=== PATIENT | female | born 1960 | race Two or more races ===

== ENCOUNTER 2020-08-18 10:32 | Outpatient (REF) | payer MEDICAID, SELFPAY | END 2020-08-18 10:33 | disposition home or self-care (01) | LOC: HO.LAB 10:32 | PROVIDERS: PCP Family Medicine; Visit Provider Internal Medicine | DX: Z20.828 Contact with and (suspected) exposure to other viral communicable diseases (principal) | CPT/HCPCS: C9803; U0003 ==

== ENCOUNTER 2020-11-22 08:38 | Outpatient (REF) | payer MEDICAID, SELFPAY | END 2020-11-22 08:39 | disposition home or self-care (01) | LOC: HO.LAB 08:38 | PROVIDERS: PCP Family Medicine; Visit Provider Internal Medicine | DX: Z20.822 Contact with and (suspected) exposure to COVID-19 (principal) | CPT/HCPCS: 36415; C9803; U0003; U0005 ==

== ENCOUNTER 2021-03-12 08:56 | Outpatient (REF) | payer MEDICAID, SELFPAY ==
--- NOTE | ~2021-03-12 | MM_ITS ---
EXAMINATION: MM SCREENING DIGITAL BREAST TOMOSYNTHESIS, BILATERAL CLINICAL INFORMATION: Screening. Asymptomatic. Family history breast cancer, sister. The lifetime risk of breast cancer based on the Tyrer-Cuzick Model is 14%. COMPARISON: Mammography: 11/24/2019, 11/17/2019, 10 05/19/2018, 03/03/2014 TECHNIQUE: Digital breast tomosynthesis is performed in both the craniocaudal and mediolateral oblique views along with computer-aided detection (CAD). Synthesized 2D images are generated from the tomosynthesis. FINDINGS: The breasts are heterogeneously dense, which may obscure small masses (ACR BI-RADS breast composition Category c). There is no significant mass or architectural abnormality or developing density. The axilla and skin contours are unremarkable. The bilateral synthesized 2-D images show scattered calcifications versus superimposed digital processing artifact in the left upper outer quadrant and right central upper breast. Patient will be recalled for additional bilateral magnification views to fully characterize. MM/MM tomosynthesis screening BI IMPRESSION: 1. Bilateral calcifications versus superimposed digital processing artifact. 2. Parenchymal pattern otherwise similar to prior studies. ASSESSMENT: BI-RADS 0: Incomplete - Need Additional Imaging Evaluation RECOMMENDATION: 1. Additional views of the bilateral breasts: bilateral magnification CC and bilateral magnification ML views for calcifications versus superimposed digital processing artifact. 2. Radiology department staff will contact the patient for additional imaging. This patient's information was entered into a reminder system with a target due date for their next mammogram.
== END 2021-03-12 08:57 | disposition home or self-care (01) ==
LOC: HO.MAMMO 08:56
PROVIDERS: Visit Provider Family Medicine
DX: Z12.31 Encounter for screening mammogram for malignant neoplasm of breast (principal)
CPT/HCPCS: 77063; 77067

== ENCOUNTER 2021-03-21 08:51 | Outpatient (REF) | payer MEDICAID, SELFPAY ==
--- NOTE | ~2021-03-21 | MM_ITS ---
EXAMINATION: MM DIAGNOSTIC DIGITAL MAMMOGRAPHY, BILATERAL CLINICAL INFORMATION: Recall from screening for bilateral calcifications versus superimposed digital processing artifact. Family history breast cancer, sister. TC score 14%. COMPARISON: Mammography: 03/12/2021, 02/22/2020, 02/15/2020, 07/22/2018 TECHNIQUE: Digital mammography is performed in the following views: Bilateral magnification CC, bilateral magnification ML. FINDINGS: The breasts are heterogeneously dense, which may obscure small masses (ACR BI-RADS breast composition Category c). The left breast magnification views show some very fine faint punctate calcifications in the upper outer quadrant. No pleomorphic types or ductal distribution. The right breast magnification views show questionable similar faint punctate calcifications central upper breast. No pleomorphic types or ductal distribution. Findings are similar to prior mammography 2019. Findings are probably benign and will be reassessed again in 6 months to include magnification views. Results are discussed with the patient at time of visit. MM/MM added views BI IMPRESSION: Fine uniform faint punctate calcifications upper outer left breast and central upper right breast. No significant changes from 2020. ASSESSMENT: BI-RADS 3: Probably Benign RECOMMENDATION: Diagnostic bilateral mammography in 6 months. This patient's information was entered into a reminder system with a target due date for their next mammogram.
== END 2021-03-21 08:52 | disposition home or self-care (01) ==
LOC: HO.MAMMO 08:51
PROVIDERS: PCP Family Medicine; Visit Provider Family Medicine
DX: R92.1 Mammographic calcification found on diagnostic imaging of breast (principal)
CPT/HCPCS: 77066

== ENCOUNTER 2021-11-13 13:51 | Outpatient (REF) | payer MEDICAID, SELFPAY ==
--- NOTE | ~2021-11-13 | MM_ITS ---
EXAMINATION: MM DIAGNOSTIC DIGITAL BREAST TOMOSYNTHESIS, BILATERAL CLINICAL INFORMATION: Short interval six-month follow-up probable benign punctate fine calcifications upper quadrants. The lifetime risk of breast cancer based on the Tyrer-Cuzick Model is 12%. COMPARISON: Mammography: 03/21/2021, 03/12/2021 (BI-RADS 0), 11/24/2019 (diagnostic), 11/17/2019 TECHNIQUE: Digital breast tomosynthesis is performed in both the craniocaudal and mediolateral oblique views along with computer-aided detection (CAD). Synthesized 2D images are generated from the tomosynthesis. Additional bilateral CC and bilateral ML views are provided. FINDINGS: The breasts are heterogeneously dense, which may obscure small masses (ACR BI-RADS breast composition Category c). Parenchymal pattern is similar to prior studies. There is no developing density or interval mass or architectural abnormality. The axilla and skin contours are unremarkable. There are fine similar appearing calcifications in each breast left upper outer quadrant and right central upper similar to prior magnification views 03/21/2021. The calcifications are variably conspicuous on synthesized 2-D images from year to year, this exam appearing less noticeable on 2-D images. There are no focal increasing calcifications or interval pleomorphic types. Calcifications will be reassessed again in 6 months to include magnification views. Results are provided to the patient at time of visit by the technologist. MM/MM tomosynthesis diagnostic BI IMPRESSION: Bilateral calcifications without significant change from prior diagnostic exam. ASSESSMENT: BI-RADS 3: Probably Benign RECOMMENDATION: Diagnostic bilateral mammography in 6 months. This patient's information was entered into a reminder system with a target due date for their next mammogram.
== END 2021-11-13 13:52 | disposition home or self-care (01) ==
LOC: HO.MAMMO 13:51
PROVIDERS: Visit Provider Family Medicine
DX: R92.1 Mammographic calcification found on diagnostic imaging of breast (principal)
CPT/HCPCS: 77062; 77066

== ENCOUNTER → 2021-11-27 13:23 | Outpatient (REF) | payer MEDICAID, SELFPAY ==
--- NOTE | 2021-11-27 13:27 | ECG_ITS ---
Hook-up date: 2021-11-27 13:47:00 Duration: 24:18:00 Test Indications: PALPITATIONS Medications: [id number] QRS complexes 10 Ventricular ectopics which represent <1 % of total QRS comp. 90 Supraventricular ectopics which represent <1 % of total QRS comp. * Paced QRS complexs which represent % of total QRS comp. VENTRICULAR ECTOPY 10 Isolated 0 Bigeminal Cycles 0 Couplets 0 Runs 0 Beats in Runs * Beats LONGEST at * BPM at :: -- * Beats FASTEST at * BPM at :: -- SUPRAVENTRICULAR ECTOPY 72 Isolated 9 Couplets 0 Runs 0 Beats in Runs * Beats LONGEST at * BPM at :: -- * Beats FASTEST at * BPM at :: -- HEART RATES 59 MIN at 23:56:02 2021-11-27 83 AVG 130 MAX at 23:44:50 2021-11-27 LONGEST RR 1.5200 secs at 04:03:59 2021-11-28 S-T LEVELS Channel 1 - 128 mm at 13:47:00 2021-11-27 - 128 mm at 13:47:00 2021-11-27 Channel 2 - 128 mm at 13:47:00 2021-11-27 - 128 mm at 13:47:00 2021-11-27 Channel 3 - 128 mm at 03:30:61 -- - 128 mm at 03:30:61 Basic rhythm Normal sinus rhythm No long pause or profound bradycardia Rare ectopics Patient did not report any symptoms in the diary Referred By: Taya Last Overread By: RANDALL CHAMORRO MD
== END ==
LOC: HO.CARD 13:23
PROVIDERS: PCP Family Medicine; Visit Provider Family Medicine
DX: R00.2 Palpitations (principal); Z86.16 Personal history of COVID-19
CPT/HCPCS: 93225; 93226

== ENCOUNTER 2021-12-06 08:56 | Outpatient (REF) | payer MEDICAID, SELFPAY ==
--- NOTE | ~2021-12-06 | XR_ITS ---
Indication: Pain EXAMINATION: Right shoulder, left shoulder 4 views of each shoulder Findings; Right shoulder Mild acromial spurring. There is mild degeneration at the AC joint. The glenohumeral articulation is within normal limits. There is no acute finding. Mild sclerotic change at the insertion of the superior rotator cuff. Left shoulder; On the left mild acromial spurring. Mild sclerotic change at the insertion of the superior rotator cuff. No acute finding. The glenohumeral articulation is within normal limits. XR/XR shoulder LT min 2V IMPRESSION: Mild degenerative changes
--- NOTE | ~2021-12-06 | XR_ITS ---
Indication: Pain EXAMINATION: Right shoulder, left shoulder 4 views of each shoulder Findings; Right shoulder Mild acromial spurring. There is mild degeneration at the AC joint. The glenohumeral articulation is within normal limits. There is no acute finding. Mild sclerotic change at the insertion of the superior rotator cuff. Left shoulder; On the left mild acromial spurring. Mild sclerotic change at the insertion of the superior rotator cuff. No acute finding. The glenohumeral articulation is within normal limits. XR/XR shoulder RT min 2V IMPRESSION: Mild degenerative changes
== END 2021-12-06 08:57 | disposition home or self-care (01) ==
LOC: HO.XRAY 08:56
PROVIDERS: PCP Family Medicine; Visit Provider Family Medicine
DX: M25.511 Pain in right shoulder (principal); M25.512 Pain in left shoulder
CPT/HCPCS: 73030

== ENCOUNTER 2021-12-24 08:06 | Outpatient (REF) | payer MEDICAID, SELFPAY ==
--- NOTE | ~2021-12-24 | XR_ITS ---
EXAMINATION: BILATERAL HIP PELVIS X-RAY CLINICAL INFORMATION: Pain COMPARISON: Previous right hip x-ray September 2018 TECHNIQUE: One view of the pelvis and 2 views of each hip FINDINGS: Bone alignment is normal. No fracture or dislocation is seen. The hip joints are normal. Bones of the pelvis are normal. There is soft tissue calcification adjacent to the left greater trochanter. There are 2 surgical clips in the left pelvis. XR/XR hip RT min 2V IMPRESSION: Normal-appearing hip joints. Mild soft tissue calcification adjacent to the left greater trochanter.
--- NOTE | ~2021-12-24 | XR_ITS ---
EXAMINATION: BILATERAL HIP PELVIS X-RAY CLINICAL INFORMATION: Pain COMPARISON: Previous right hip x-ray September 2018 TECHNIQUE: One view of the pelvis and 2 views of each hip FINDINGS: Bone alignment is normal. No fracture or dislocation is seen. The hip joints are normal. Bones of the pelvis are normal. There is soft tissue calcification adjacent to the left greater trochanter. There are 2 surgical clips in the left pelvis. XR/XR hip LT min 2V IMPRESSION: Normal-appearing hip joints. Mild soft tissue calcification adjacent to the left greater trochanter.
== END 2021-12-24 08:07 | disposition home or self-care (01) ==
LOC: HO.XRAY 08:06
PROVIDERS: PCP Family Medicine; Visit Provider Family Medicine
DX: M25.551 Pain in right hip (principal); M25.552 Pain in left hip
CPT/HCPCS: 73502

== ENCOUNTER 2022-01-06 10:08 | Emergency (ER) | payer MEDICAID, SELFPAY ==
--- NOTE | 2022-01-06 | ECG_ITS ---
Test Reason : cp Blood Pressure : / mmHG Vent. Rate : 102 BPM Atrial Rate : 102 BPM P-R Int : 206 ms QRS Dur : 064 ms QT Int : 348 ms P-R-T Axes : 037 029 014 degrees QTc Int : 453 ms Sinus tachycardia Possible Left atrial enlargement Borderline ECG When compared with ECG of 06-JUN-2014 11:59, No significant change was found Referred By: Generic ED Physician Electronically Signed By:RANDALL CHAMORRO MD
--- NOTE | ~2022-01-06 | XR_ITS ---
EXAMINATION: XR CHEST CLINICAL INFORMATION: Chest pain COMPARISON: Previous chest x-ray most recent June 2014 TECHNIQUE: Frontal view of the chest was obtained. FINDINGS: No significant abnormality is noted involving the heart, lungs, mediastinum, bony thorax or soft tissues. XR/XR chest 1V IMPRESSION: Unremarkable examination.
[2022-01-06 10:29] VITALS: BP 131/62; PULSE 97; RESP 20; TEMP 36.3; O2SAT 100; BMI 28.8
[2022-01-06 10:58] LABS: MANUAL DIFF FLAG NO
--- NOTE | 2022-01-06 11:10 | ED.CHESTPAIN ---
HPI - Chest Pain General Chief Complaint: Chest Pain Stated Complaint: Chest pain Time Seen by Provider: 01/06/22 10:59 Source: patient Mode of arrival: ambulatory Limitations: no limitations History of Present Illness HPI narrative: Patient comes to the emergency room complaining of 4 days of substernal chest pain, intermittent palpitations and shortness of breath. Patient states that she was diagnosed with COVID in October 2021. Since then, patient has been having palpitations. On November 27 patient wore a Holter monitor for 24 hours, patient states that the Holter exam was normal. Patient states that yesterday the chest pressure radiated towards her left arm, patient developed numbness and tingling but it is slowly decreasing. Patient went to the [facility] today, she was sent to the emergency room for further evaluation. Related Data Allergies Allergy/AdvReac Type Severity Reaction Status Date / Time oxycodone [From PERCOCET] Allergy Severe HALLUCINATI Unverified 06/21/20 15:37 ONS peanut [PEANUT] Allergy Intermediate ITCHY Unverified 06/21/20 15:37 THROAT/MOUTH tree nut [TREE NUT] Allergy Intermediate ITCHY Unverified 06/21/20 15:37 THROAT/MOUTH acetaminophen [Percocet] Allergy Unknown Unknown Verified 01/06/22 11:21 nabumetone AdvReac Intermediate Unknown Verified 01/06/22 11:21 SEAFOOD Allergy Severe ANAPHYLAXIS Uncoded 06/21/20 15:37 FRUIT, SKINS Allergy Intermediate ITCHY Uncoded 06/21/20 15:37 THROAT/MOUTH Review of Systems Review of Systems: Constitutional : No Weight loss, No Fever, No Chills, No Night Sweats, No Fatigue, No Malaise ENT/Mouth : No Hearing loss, No Ear Pain, No Nasal Congestion, No Sinus Pain, No Hoarseness, No sore throat, No Rhinorrhea, No Swallowing Difficulty Eyes: No Eye Pain, No Swelling, No Redness, No Foreign Body, No Discharge, No Vision Changes Cardiovascular : Complaining of substernal Chest pressure, No SOB at this time intermittent Dyspnea on Exertion, No Orthopnea, No Edema, intermittent Palpitations for 3 l months Respiratory : No Cough, No Sputum, No Wheezing, No Smoke Exposure, intermittent Dyspnea Gastrointestinal : No Nausea, No Vomiting, No Diarrhea, No Constipation, No abdominal Pain, No Hematochezia, No Melena Genitourinary : no irregular bleeding, No Dysuria, No Urinary Frequency, No Hematuria, No Urinary Incontinence, No Urgency, No Flank Pain, No Urinary Flow Changes, No Hesitancy Musculoskeletal : No joint pain, No Myalgias, No Joint Swelling Skin : No Skin Lesions, No rash Neuro : No Weakness, No Numbness, No Paresthesias, No Loss of Consciousness, No Dizziness, No Headache Psych : No Anxiety/Panic, No Depression, No SI/HI/AH/VH, No Social Issues, Heme/Lymph: No Bruising, No Bleeding,No Lymphadenopathy Endocrine : No Polyuria, No Polydipsia, No Temperature Intolerance [facility] Past Medical History Medical History Arthritis Asthma Asthma Fibromyalgia, primary Social History Social History Advance Directives: No Advance Directives Information Provided: No Physical Exam Vital Signs: Vital Signs: Last Vital Signs Temp 97.3 F 01/06/22 10:29 Pulse 97 01/06/22 10:29 Resp 20 01/06/22 10:29 BP 131/62 01/06/22 10:29 Pulse Ox 100 01/06/22 10:29 BMI result Body Mass Index 28.8 Const: Other: Appearance: Alert. Oriented X3. No acute distress. Eyes: Pupils equal, round and reactive to light. ENT: Pharynx normal. Neck: Normal inspection. Neck supple. No lymph nodes noted. No crepitus CVS: Slightly tachycardic, heart rate 102, regular rhythm Pulses normal. Normal S1 and S2 Respiratory: No respiratory distress. Breath sounds normal. No Wheezing. No rales Abdomen: Soft and nontender. No rigidity. No distention. Skin: Skin warm and dry. Normal skin color. Normal skin turgor. Extremities: No lower extremity edema. No Lacerations. No Rash Neuro: Oriented X 3. No motor deficit. No sensory deficit. Moving all extremities. No slurred speech. CN 2 through 12 grossly intact Psych: calm, cooperative, normal affect Course Course Course Narrative: Patient's troponin is 9.9, negative, patient has been symptomatic for 4 days. At this time, patient has no symptoms D-dimer negative, EKG within normal limits. At this time, patient is comfortable, no chest pain or shortness of breath, patient will be discharged. Patient has already had Holter monitors, discussed with the patient that she should talk to her primary care physician, this possible that she may be a good candidate for a cardiac stress test MDM - Chest Pain Lab Data Result diagrams: 01/06/22 10:53 01/06/22 10:53 Labs: Lab Results 01/06/22 01/06/22 01/06/22 Range/Units 10:53 10:53 10:53 WBC 3.1 L (4.8-10.8) X10*3/uL RBC 4.09 L (4.20-5.50) X10*6/uL Hgb 13.0 (12.0-16.0) g/dl Hct 40.1 (37.0-47.0) % MCV 98.0 (80.0-98.0) fL MCH 31.8 (27.0-33.0) pg MCHC 32.4 (31.0-35.0) g/dl RDW 12.1 (11.0-16.0) % Plt Count 218 (160-400) X10*3/uL MPV 12.5 H (9.4-12.3) fL Immature Gran % (Auto) 0.3 (0.0-0.4) % Neut % (Auto) 52.5 (45-73) % Lymph % (Auto) 37.5 (20-40) % [place] % (Auto) 5.5 (2-11) % Eos % (Auto) 3.2 (0-4) % Baso % (Auto) 1.0 (0-2) % Lymph # (Auto) 1.2 (1.2-4.9) X10*3/uL [place] # (Auto) 0.2 (0.1-1.2) X10*3/uL Eos # (Auto) 0.1 (0.0-0.4) X10*3/uL Baso # (Auto) 0.0 (0.0-0.2) X10*3/uL Abs Immat Gran (auto) 0.01 (0.00-0.03) X10*3/uL Absolute Neuts (auto) 1.6 L (2.0-8.3) x10*3/uL Absolute Nucleated RBC 0.000 (0.0-0.012) X10*3/uL Nucleated RBC % (auto) 0.0 (0.0-0.2) /100WBC D-Dimer High Sensitivty NG/ML Sodium 137 (135-145) mmol/L Potassium 4.3 (3.3-5.1) mmol/L Chloride 103 (96-108) mmol/L Carbon Dioxide 29 (22-29) mmol/L Anion Gap 9 L (12-20) BUN 17 H (9-16) mg/dL Creatinine 0.72 (0.5-1.4) mg/dL Estim Creat Clear Calc 80.8 Estimated GFR > 60 Random Glucose 101 (60-115) mg/dL Calcium 9.3 (8.4-10.2) mg/dL Troponin I High Sens 9.9 (<3.5-17.0) ng/L Lipase 18 (8-78) U/L 01/06/22 Range/Units 12:55 WBC (4.8-10.8) X10*3/uL RBC (4.20-5.50) X10*6/uL Hgb (12.0-16.0) g/dl Hct (37.0-47.0) % MCV (80.0-98.0) fL MCH (27.0-33.0) pg MCHC (31.0-35.0) g/dl RDW (11.0-16.0) % Plt Count (160-400) X10*3/uL MPV (9.4-12.3) fL Immature Gran % (Auto) (0.0-0.4) % Neut % (Auto) (45-73) % Lymph % (Auto) (20-40) % [place] % (Auto) (2-11) % Eos % (Auto) (0-4) % Baso % (Auto) (0-2) % Lymph # (Auto) (1.2-4.9) X10*3/uL [place] # (Auto) (0.1-1.2) X10*3/uL Eos # (Auto) (0.0-0.4) X10*3/uL Baso # (Auto) (0.0-0.2) X10*3/uL Abs Immat Gran (auto) (0.00-0.03) X10*3/uL Absolute Neuts (auto) (2.0-8.3) x10*3/uL Absolute Nucleated RBC (0.0-0.012) X10*3/uL Nucleated RBC % (auto) (0.0-0.2) /100WBC D-Dimer High Sensitivty < 150 NG/ML Sodium (135-145) mmol/L Potassium (3.3-5.1) mmol/L Chloride (96-108) mmol/L Carbon Dioxide (22-29) mmol/L Anion Gap (12-20) BUN (9-16) mg/dL Creatinine (0.5-1.4) mg/dL Estim Creat Clear Calc Estimated GFR Random Glucose (60-115) mg/dL Calcium (8.4-10.2) mg/dL Troponin I High Sens (<3.5-17.0) ng/L Lipase (8-78) U/L ECG Data ECG #1: Attestation: I personally reviewed and interpreted this ECG as follows: (Sinus tachycardia, heart rate 102, the segment depression or elevation, no T-wave inversion, QTC 453) Scores Heart Score History: -0- slightly suspicious ECG: -0- normal Age: -1- >45 - <65 Risk factory: -0- no risk factors known Troponin: -0- < or = normal limit Score: 1 Risk: 1.7% Discharge Plan Discharge Clinical Impression: Atypical chest pain Patient Disposition: Home, Self-Care Instructions: Chest Pain (ED)
[2022-01-06 11:18] LABS: Anion Gap 9 (12-20); Blood Urea Nitrogen 17 mg/dL (9-16); Calcium 9.3 mg/dL (8.4-10.2); Carbon Dioxide 29 mmol/L (22-29); Chloride 103 mmol/L (96-108); Creatinine Clr Calc Pharmacy 80.8; Estimated Glomerular Filt Rate > 60; Glucose Random 101 mg/dL (60-115); Potassium 4.3 mmol/L (3.3-5.1); Sodium 137 mmol/L (135-145); Troponin-I High Sensitivity 9.9 ng/L (<3.5-17.0)
[2022-01-06 11:47] LABS: Lipase 18 U/L (8-78)
[2022-01-06 12:02] LABS: Eosinophils Absolute Auto 0.1 X10*3/uL (0.0-0.4); Eosinophils Percent Auto 3.2 % (0-4); Hematocrit 40.1 % (37.0-47.0); Imm Gran Abs Auto 0.01 X10*3/uL (0.00-0.03); Imm Gran Pct Auto 0.3 % (0.0-0.4); Lymphocytes Absolute Auto 1.2 X10*3/uL (1.2-4.9); Lymphocytes Percent Auto 37.5 % (20-40); Mean Corpuscular HGB Conc 32.4 g/dl (31.0-35.0); Mean Corpuscular Hemoglobin 31.8 pg (27.0-33.0); Mean Platelet Volume 12.5 fL (9.4-12.3); Monocytes Absolute Auto 0.2 X10*3/uL (0.1-1.2); Monocytes Percent Auto 5.5 % (2-11); Neutrophils Absolute Auto 1.6 x10*3/uL (2.0-8.3); Neutrophils Percent Auto 52.5 % (45-73); Platelet Count 218 X10*3/uL (160-400); Red Blood Count 4.09 X10*6/uL (4.20-5.50); Red Cell Distribution Width 12.1 % (11.0-16.0); White Blood Count 3.1 X10*3/uL (4.8-10.8)
[2022-01-06 13:13] LABS: D Dimer High Sensitivity < 150 NG/ML
[2022-01-06 14:13] VITALS: BP 111/76; PULSE 100; RESP 19; O2SAT 100
== END 2022-01-06 14:14 | disposition home or self-care (01) ==
PROVIDERS: Emergency Provider Emergency Medicine; PCP Family Medicine
DX: R07.89 Other chest pain (principal)
CPT/HCPCS: 36415; 71045; 80048; 83690; 84484; 85025; 85379; 93005; 99283

== ENCOUNTER 2022-01-13 09:09 | Emergency (ER) | payer MEDICAID, SELFPAY ==
[2022-01-13 09:14] VITALS: BP 100/70; PULSE 95; O2SAT 100
--- NOTE | 2022-01-13 09:17 | ED_ITS ---
HPI - General Adult General Chief complaint: General Medical Stated complaint: LOW BACK/HIP PAIN,NO INJURY PER EMS Time Seen by Provider: 01/13/22 09:17 Source: patient and EMS Mode of arrival: EMS Limitations: no limitations History of Present Illness HPI narrative: Patient is a 61 year old female presenting to the emergency department today with low back pain. Patient states that she has low back pain that radiates to her lower legs. Patient describes the pain as intermittent and sharp when it happens. Patient states that she has had issues for this in the past and usually takes ibuprofen and a muscle relaxer. Patient states that she has a muscle relaxer at home. Patient states that she also has a history of bilateral hip bursitis and has not seen an orthopedic provider for this. Patient denies any dizziness, lightheadedness, abdominal pain, nausea, vomiting, fever, chills, blurry vision, double vision, loss of vision, chest pain, difficulty breathing, shortness of breath, night sweats, pain with urination, increased urinary frequency, increased urinary urgency, blood in her urine or stool, syncope or a near syncopal episode, recent trauma or falls, bowel incontinence, bladder incontinence, bowel retention, bladder retention, or any other complaints at this time. Onset (ago): day(s) (3) Location: back, left, right and lower extremity Radiation: extremity (lower extremitites) Severity: mild Severity scale (1-10): 3 Quality: sharp Pain Consistency: intermittent Relieving factors: none Exacerbating factors: none Associated symptoms: denies other symptoms Treatments prior to arrival: none Related Data Allergies Allergy/AdvReac Type Severity Reaction Status Date / Time oxycodone [From PERCOCET] Allergy Severe HALLUCINATI Verified 01/13/22 09:25 ONS peanut [PEANUT] Allergy Intermediate ITCHY Verified 01/13/22 09:25 THROAT/MOUTH tree nut [TREE NUT] Allergy Intermediate ITCHY Verified 01/13/22 09:25 THROAT/MOUTH acetaminophen [Percocet] Allergy Unknown Unknown Verified 01/13/22 09:25 nabumetone AdvReac Intermediate Unknown Verified 01/13/22 09:25 SEAFOOD Allergy Severe ANAPHYLAXIS Uncoded 06/21/20 15:37 FRUIT, SKINS Allergy Intermediate ITCHY Uncoded 06/21/20 15:37 THROAT/MOUTH Review of Systems Constitutional: Constitutional: Reports no additional constitutional complaints, Denies chills, Denies fever(s) and Denies night sweats Eyes: Eyes: Reports no additional eye complaints, Denies blurry vision, Denies change in vision, Denies diplopia, Denies eye discharge, Denies loss of vision and Denies eye pain ENT: Denies dizziness Cardiovascular: Cardiovascular: Reports no additional cardiovascular complaints, Denies chest pain, Denies lightheadedness, Denies Loss of Consciousness and Denies dyspnea Respiratory: Respiratory: Reports no additional respiratory complaints and Denies dyspnea Gastrointestinal: Gastrointestinal: Reports no additional gastrointestinal complaints, Denies abdominal pain, Denies melena, Denies hematochezia, Denies change in bowel habits and Denies change in stool character Genitourinary: Genitourinary: Denies hematuria, Denies urinary frequency, Denies dysuria, Denies urinary incontinence, Denies urinary hesitancy and Denies urinary urgency Musculoskeletal: Musculoskeletal: Reports no additional musculoskeletal complaints, Reports back pain, Denies numbness and Denies tingling Neurologic: Denies dizziness, Denies loss of vision, Denies numbness and Denies tingling Psychiatric: Psychiatric: Reports no additional psychiatric complaints Endocrine: Endocrine: Reports no additional endocrine complaints Hematologic/Lymphatic: Hematologic/Lymphatic: Reports no additional hematologic/lymphatic complaints Allergic/Immunologic: Allergic/Immunologic: Reports no additional allergic/immunologic complaints PMFSH Past Medical History Attestation statement: The following information was validated with the patient. Source: old records reviewed Medical History Arthritis Asthma Asthma Fibromyalgia, primary Social History Social History Advance Directives: No Advance Directives Information Provided: Yes Patient : No Physical Exam ED Vital Signs: Vital Signs - 24 hr 01/13/22 09:23 Temperature 98.7 F Pulse Rate 86 Respiratory Rate 18 Blood Pressure 116/58 L Pulse Oximetry 99 BMI result Body Mass Index 29.7 Const General: cooperative, no acute distress, alert and awake Nutritional Appearance: well nourished Orientation/consciousness: patient oriented x3 Limitations: no limitations HENMT Head: Yes normal to inspection and Yes atraumatic Ears: hearing grossly normal bilaterally and external ears normal General nose exam: Normal external nose present, no nasal discharge noted and no epistaxis Face and sinus: Yes normal facial exam, No abrasion and No laceration Mouth: Normal oral and palatal mucosa present, no drooling and no muffled voice Eyes General: appearance normal, both eyes and all related structures Periorbital: periorbital findings normal Eyelids: Yes eyelids normal Conjunctivae: conjunctivae normal Pupils: Equal, round and reactive pupils present EOM: EOMs intact bilaterally Neck Neck: Yes normal visual inspection, Yes full ROM and Yes no lymphadenopathy Chest Chest palpation & inspection: normal inspection of the chest Resp Effort & Inspection: normal respiratory effort and able to speak in complete sentences Auscultation: clear to auscultation bilaterally Cardio Rate: regular rate Rhythm: regular rhythm GI Inspection: Yes normal to inspection General: Yes no CVA tenderness Back/Spine/Pelvis Back: no CVA tenderness Cervical Spine: normal cervical lordosis and cervical ROM normal Thoracic/Lumbar Spine: thoracic and lumbar spine normal to inspection and thoraco-lumbar ROM normal Pelvis: no pain with anterior-posterior compression and no pain with lateral com pression Neuro General: patient oriented x3 and moves all extremities Cranial nerves: Yes Equal, round and reactive pupils present Cognition (Neuro): normal cognition Motor exam (neuro): 5/5 motor strength present throughout Sensory Exam: Normal double simultaneous stimulation for sensation Coordination: [id number] test normal Extrem General: Yes normal to inspection, Yes full ROM and Yes capillary refill normal Psych Appearance: grossly normal Mental Status: mental status grossly normal Affect: normal affect Attitude: cooperative Thought process: Normal thought process present Thought content: Normal thought content present Insight: Good insight present (Psych) Medical Decision Making [facility] Narrative Medical decision making narrative: Patient is a 61 year old female presenting to the emergency department today with low back pain and bilateral hip pain. Patient's physical exam was unremarkable. Patient's neurological examination was normal. Patient's ROM, circulation, strength, and sensation were intact to her back and bilateral lower extremities. I explained my physical exam findings to the patient. I answered all questions asked by the patient. I discussed risks vs. benefits of additional imaging/testing with the patient. Patient stated sat this time, conservative treatment with medication and orthopedic follow up is what she would like to do. Patient received IM Toradol which she stated helped her pain significantly. I stressed the importance of the patient taking her medication as prescribed. I stressed the importance of the patient following up with her primary care provider and an orthopedic provider. I stressed the importance of the patient returning to the emergency department immediately if her symptoms were to worsen or if she were to develop any dizziness, shortness of breath, difficulty breathing, chest pain, blurry vision, loss of vision, nausea, vomiting, abdominal pain, fever, chills, back pain, or any other complaints. Patient verbalized agreement and understanding with this treatment plan and discharge. Differential Diagnosis Differential Diagnosis: Sciatic nerve pain, sciatica, bursitis Medical Records Medical records reviewed: Yes I reviewed the patient's medical records. Discharge Plan Discharge Clinical Impression: Sciatica Patient Disposition: Home, Self-Care Instructions: Sciatica (ED), Back Pain (ED), Lower Back Exercises (ED) Additional Instructions: Call to schedule a follow up appointment with an Orthopedic provider. Follow up with your primary care provider. Return to the emergency department immediately if your symptoms worsen or if you develop any dizziness, shortness of breath, difficulty breathing, chest pain, blurry vision, loss of vision, nausea, vomiting, abdominal pain, fever, chills, back pain, or any other complaints. Referrals: [facility] [Provider Group] (Follow up with an orthopedic provider. ) Taya Last MD [Primary Care Provider] - (Follow up with your PCP as needed for this. ) Print Language: Turkish
[2022-01-13 09:23] VITALS: BP 116/58; PULSE 86; RESP 18; TEMP 37.1; O2SAT 99; BMI 29.7
[2022-01-13] MEDS: Ketorolac Tromethamine 30 MG/ML VIAL IM (10:00)
--- NOTE | 2022-01-13 10:19 | PC.NURSE ---
SLOW STEADY GAIT, MOVING ALL EXTREMITIES, NAD.
== END 2022-01-13 10:19 | disposition home or self-care (01) ==
PROVIDERS: Emergency Provider Emergency Medicine; PCP Family Medicine
DX: M54.42 Lumbago with sciatica, left side (principal); M54.41 Lumbago with sciatica, right side
CPT/HCPCS: 96372; 99283; 99284; J1885

== ENCOUNTER 2022-01-30 10:07 | Outpatient (REF) | payer MEDICAID, SELFPAY ==
[2022-01-30 10:43] LABS: COVID-19 Test Negative (Negative); IDNOW Serial# 08D9AD1C
== END 2022-01-30 10:08 | disposition home or self-care (01) ==
LOC: HO.LAB 10:07
PROVIDERS: Visit Provider Internal Medicine
DX: Z20.822 Contact with and (suspected) exposure to COVID-19 (principal)
CPT/HCPCS: 87635; C9803

== ENCOUNTER 2022-02-06 09:02 | Outpatient (REF) | payer MEDICAID, SELFPAY ==
[2022-02-06 09:37] LABS: COVID-19 Test Positive (Negative); IDNOW Serial# 08D9AD1C
== END 2022-02-06 09:03 | disposition home or self-care (01) ==
LOC: HO.LAB 09:02
PROVIDERS: PCP Family Medicine; Visit Provider Internal Medicine
DX: Z20.822 Contact with and (suspected) exposure to COVID-19 (principal)
CPT/HCPCS: 87635; C9803

== ENCOUNTER → 2022-02-19 08:49 | Outpatient (BNVA) | payer MEDICAID, SELFPAY | PROVIDERS: PCP Family Medicine; Referring Provider Internal Medicine; Visit Provider Internal Medicine Cardiovascular Disease | DX: R07.89 Other chest pain (principal) | CPT/HCPCS: 99202 ==

== ENCOUNTER → 2022-02-28 07:54 | Outpatient (REF) | payer MEDICAID, SELFPAY ==
--- NOTE | 2022-02-28 07:57 | CA_ITS ---
Acquisition Time: 2022-02-28 08:06:40 Total Exercise Time: 00:06:00 Test Indications: CP Medications: SEE CHART Protocol: KASSIDY Max HR: 134 BPM 84% of Pred: 158 BPM Max BP: 174/050 mmHG Max Work Load: 7.0 METS Exercise stress test with exercise 6 min of Kassidy protocol, acheiving 84% MPHR with request to stop due to fatigue, with mild to moderate shortness of breath, with report of mild mid chest pressure, with isolated PACs mostly in recovery, with epiisode of asymptomatic atrial tach noted at 1 min 45 sec recovery, without EKG changes eeting criteria for ischemia at achieved workload. In recovery her sob and chest pressure resolved. Test reviewed with Dr Vyas. Will order an exercise nuclear stress test for further evaluation. Referred By: Tez Mckenzie Overread By: FELICITA WAKEFIELD
== END ==
LOC: HO.CARD 07:54
PROVIDERS: PCP Family Medicine; Visit Provider Internal Medicine Cardiovascular Disease
DX: R07.89 Other chest pain (principal)
CPT/HCPCS: 93017

== ENCOUNTER 2022-03-19 07:52 | Outpatient (REF) | payer MEDICAID, SELFPAY ==
--- NOTE | ~2022-03-19 | XR_ITS ---
EXAMINATION: XR LUMBOSACRAL SPINE WITH OBLIQUES CLINICAL INFORMATION: Lumbago with left sciatica. COMPARISON: CT abdomen and pelvis 11/28/2019 TECHNIQUE: Lumbar spine is imaged in 5 views. FINDINGS: There is normal lumbar segmentation with 5 nonrib-bearing lumbar vertebrae of normal height and normal lumbar lordosis. There is no lumbar vertebral compression, spondylolisthesis, destructive process, or paraspinal soft tissue swelling. Inferior endplate Schmorl's nodes are again noted at L5 similar to the CT. Oblique view show no spondylolisthesis. No interval disc narrowing. The SI joints and visualized sacrum are unremarkable. XR/XR lumbar spine 4V min IMPRESSION: -No vertebral compression, disc narrowing spondylolisthesis, or spondylolysis. -Schmorl's nodes inferior endplate L5 similar to CT 2019.
== END 2022-03-19 07:53 | disposition home or self-care (01) ==
LOC: HO.XRAY 07:52
PROVIDERS: Absent Provider Family Medicine; PCP Family Medicine; Visit Provider Emergency Medicine
DX: M54.42 Lumbago with sciatica, left side (principal)
CPT/HCPCS: 72110

== ENCOUNTER → 2022-03-27 08:25 | Outpatient (REF) | payer MEDICAID, SELFPAY ==
--- NOTE | ~2022-03-27 | NM_ITS ---
Exercise Myocardial perfusion study Indication: Abnormal stress test evaluate for myocardial ischemia Technique: The patient was brought in for an exercise perfusion study on 03/27/2022. Patient performed exercise as per Shaji protocol and was injected 25 mCi of sestamibi was given intravenously one target HR was achieved. Images were obtained using the SPECT gamma camera interlaced with the gating device. Images were obtained in supine position. Resting perfusion study was performed on 03/28/2022. Patient was administered 25 mCi of sestamibi intravenously at rest. Images were then obtained in supine position. Images obtained with and without CT attenuation. Total DLP 107 mGy-cm. Images were processed with the software and compared side to side in short axis, horizontal long axis and vertical long axis views. Findings: The stress perfusion study showed both attenuated as well as non attenuated corrected images show normal uptake of radiotracer in all segments of LV myocardium. The gated study shows normal LV systolic function with calculated LVEF of 73%. LV cavity is normal in size. The gated study shows normal systolic wall thickening and contraction of all segments. There is no transient ischemic dilation. Resting study shows normal uptake of radiotracer in all segments of LV myocardium. Gating at rest reveals normal systolic wall motion with ejection fraction at 66%. The findings are consistent with normal myocardial perfusion. NM/NM cardiolite stress test Impression: 1. Normal myocardial perfusion 2. Gated LVEF is 73% 3. Transient ischemic dilatation not present Stress EKG is equivocal for ischemia
--- NOTE | 2022-03-27 08:28 | CA_ITS ---
Acquisition Time: 2022-03-27 08:34:03 Total Exercise Time: 00:05:20 Test Indications: CHEST PAIN Medications: ALBUTERL Protocol: KASSIDY Max HR: 176 BPM 111% of Pred: 158 BPM Max BP: 134/072 mmHG Max Work Load: 7.0 METS Exercise stress test with exercise 5 min 20 sec of Kassidy protocol, with report of mild pressure left chest region, mild sob, heart palpitations which correlated with PACs and short runs of atrial tach, with normotensive response to exercise, without EKG changes meeting criteria for ischemia. In recovery her chest pressure resolved. Nuclear images pending. Test reviewed with Dr Mckenzie. Referred By: Anaid Hyatt Overread By: ANAID HYATT
== END ==
LOC: HO.CARD 08:25
PROVIDERS: Visit Provider Nurse Practitioner Family
DX: R07.89 Other chest pain (principal); R94.30 Abnormal result of cardiovascular function study, unspecified
CPT/HCPCS: 78452; 93017; A9500

== ENCOUNTER → 2022-04-01 08:02 | Outpatient (REF) | payer MEDICAID, SELFPAY ==
--- NOTE | 2022-04-01 08:04 | CA_ITS ---
Transthoracic Echocardiogram Patient (Last, First, Middle): Freida Dwyer I Gender: Female Date of : 1960 Age: 61 Procedure Date: 04/01/2022 Procedure Type: Transthoracic Echocardiogram Location: OP Height: 162.56 cm Weight: 77.11 kg BSA: 1.83 m2 Heart Rate: bpm BP: 122 / 65 mmHg [employer]: GERMAN Referring MD: Tez Mckenzie MD Symptoms: R07.89 - Other chest pain Study Quality: Fair ECG Rhythm: Sinus Conclusions: - The left ventricular systolic function is normal. The calculated ejection fraction is 58% by biplane method. - No obvious valvular pathology seen on this study. Findings Left Ventricle Normal left ventricular cavity size. There is normal left ventricular wall thickness. The left ventricular systolic function is normal. The calculated ejection fraction is 58% by biplane method. There is no evidence of regional wall motion abnormalities. Diastolic function is normal for age. Right Ventricle Normal right ventricular cavity size and systolic function. Atria Both atria are normal in size. Aortic Valve The aortic valve was not well visualized. There is no aortic valve stenosis. There is no aortic valve regurgitation. Mitral Valve The mitral valve appears normal. There is trace mitral valve regurgitation. There is no mitral valve stenosis. Pulmonic Valve The pulmonic valve was not well visualized. Tricuspid Valve There is trace tricuspid valve regurgitation. The pulmonary artery systolic pressure is normal. Great Vessels The asc aorta is normal in size. Venous The inferior vena cava is normal in size and collapses greater than 50% with inspiration. Pericardium/Pleural There is a trivial pericardial effusion. Prior Study Comparison No prior study available for comparison. Recommendations, Care & Conclusions No obvious valvular pathology seen on this study. Measurements 2D Linear Measurements IVSd: 0.91 0.6-0.9/0.6-1.0 cm LVIDd: 4.13 3.9-5.3/4.2-5.9 cm LVIDd Index: 2.26 2.4-3.2/2.2-3.1 cm/m2 LVIDs: 2.80 2.0-3.6 cm LVPWd: 1.04 0.7-1.1 cm Ao Root: 3.00 2.1-3.5 cm LA Diam: 3.00 2.7-3.8/3.0-4.0 cm LAIDs Index: 1.64 1.5-2.3 cm/m2 LV Mass: 160.14 67-162/88-224 g LV Mass Index: 87.51 43-95/49-115 g/m2 LVOT Diam: 2.00 3.0+(-)1.3 cm 2D Systolic Function EF 4C: 60.10 >55% EF 2C: 58.10 >55% EF BiP: 58.00 >55% Mitral Valve MV Pk E: 0.71 MV PK A: 0.69 MV Decel Time: 161.00 E/A: 1.00 E'Lateral: 10.30 E'Medial: 7.62 E/E' Med: 9.30 E/E' Lat: 6.90 PHT: 47.00 MVA PHT: 4.68 Decel Haakon: 4.41 Aortic Valve AoV Pk Charles: 1.29 AoV Mn Charles: 0.86 AoV VTI: 0.32 AoV Pk Grad: 7.00 Aov Mn Grad: 4.00 ODALIS Cont.VTI: 2.05 LVOT LVOT Pk Charles: 0.76 LVOT Mn Charles: 0.56 LVOT VTI: 0.21 LVOT Pk Grad: 2.00 LVOT Mn Grad: 1.00 LVOT Diam: 2.00 LVOT Area: 3.14 Diastolic Function MV Pk E: 0.71 MV Pk A: 0.69 E/A: 1.00 E'Medial: 7.62 E/E' Med: 9.30 E' Laterial: 10.30 E/E' Lat: 6.90 Right Ventricle TAPSE (mm): 28.70 TVS' Charles: 10.30 Tricuspid Valve TR Pk Charles: 1.60 TR Pk Grad: 10.00 Great Vessels Aorta Ao Root-2D: 3.00 2.0-3.7 cm Ao Asc: 2.60 2.1-3.4 cm Updated in Other Vendor System with Status of Final Taran Tripp MD electronically signed on 04/03/2022 3:30:05 PM with status of Final
== END ==
LOC: HO.CARD 08:02
PROVIDERS: Visit Provider Internal Medicine Cardiovascular Disease
DX: R07.89 Other chest pain (principal)
CPT/HCPCS: 93306

== ENCOUNTER 2022-04-29 08:00 | Outpatient (RCR) | payer MEDICAID, SELFPAY | END 2022-05-12 11:59 | disposition home or self-care (01) | LOC: HO.PT 08:00 | PROVIDERS: PCP Family Medicine; Visit Provider Family Medicine | DX: M25.511 Pain in right shoulder (principal); M25.551 Pain in right hip; M54.50 Low back pain, unspecified | CPT/HCPCS: 97110; 97140; 97162; 97530 ==

== ENCOUNTER → 2022-04-29 09:00 | Outpatient (BNV) | payer MEDICAID, SELFPAY | PROVIDERS: PCP Family Medicine; Visit Provider Internal Medicine Medical Oncology | DX: D72.819 Decreased white blood cell count, unspecified (principal) | CPT/HCPCS: 99213 ==

== ENCOUNTER 2022-08-21 14:54 | Outpatient (REF) | payer MEDICAID, SELFPAY ==
--- NOTE | ~2022-08-21 | MM_ITS ---
EXAMINATION: MM DIAGNOSTIC DIGITAL BREAST TOMOSYNTHESIS, BILATERAL CLINICAL INFORMATION: Fine bilateral probable benign calcifications for follow-up. Family history breast cancer, sister. TC score 13%. COMPARISON: Mammography: 11/13/2021, 03/21/2021, 03/12/2021, magnification views 11/24/2019. TECHNIQUE: Digital breast tomosynthesis is performed in both the craniocaudal and mediolateral oblique views along with computer-aided detection (CAD). Synthesized 2D images are generated from the tomosynthesis. Additional bilateral magnification CC, left magnification ML, and right magnification ML x2 views are obtained. FINDINGS: The breasts are heterogeneously dense, which may obscure small masses (ACR BI-RADS breast composition Category c). Parenchymal pattern is similar to prior exams and there is no developing density or interval mass or architectural abnormality. The axilla and skin contours are unremarkable. Magnification views show some scattered fine calcifications left upper outer quadrant and central upper right breast in retrospect similar to prior magnification views 2019 and therefore considered benign. Results are provided to the patient at time of visit by the technologist. MM/MM tomosynthesis diagnostic BI IMPRESSION: No significant changes from prior studies. ASSESSMENT: BI-RADS 2: Benign RECOMMENDATION: Routine annual mammography screening. This patient's information was entered into a reminder system with a target due date for their next mammogram.
== END 2022-08-21 14:55 | disposition home or self-care (01) ==
LOC: HO.MAMMO 14:54
PROVIDERS: PCP Family Medicine; Visit Provider Family Medicine
DX: R92.1 Mammographic calcification found on diagnostic imaging of breast (principal)
CPT/HCPCS: 77062; 77066

== ENCOUNTER 2022-10-18 15:08 | Emergency (ER) | payer MEDICAID, SELFPAY ==
--- NOTE | ~2022-10-18 | XR_ITS ---
EXAMINATION: XR CHEST CLINICAL INFORMATION: Chest pain COMPARISON: Chest x-ray 01/06/2022 TECHNIQUE: Frontal view of the chest was obtained. FINDINGS: The lungs are clear. No airspace consolidation, pleural effusion, or pneumothorax. The cardiomediastinal silhouette is within normal limits. No acute osseous injury. Cholecystectomy clips project in the right upper quadrant. XR/XR chest 1V IMPRESSION: No acute pulmonary process.
--- NOTE | ~2022-10-18 | CT_ITS ---
EXAMINATION: CT HEAD WITHOUT CONTRAST CLINICAL INFORMATION: Left-sided weakness and headache COMPARISON: Head CT 07/18/2014 TECHNIQUE: Imaging was performed from the skull base to vertex without intravenous administration of contrast. This CT examination was performed using dose optimization techniques as appropriate, variously including the following: *Automated exposure control *Adjustment of mA and/or kV according to patient size (this includes techniques or standardized protocols for targeted exams where dose is matched to indication/reason for exam; i.e. extremities or head) *Use of iterative reconstruction technique Total exam dose length product: 634 mGy-cm FINDINGS: No intra or extra-axial fluid collection, hemorrhage, or mass. No ventriculomegaly. No midline shift or herniation. Basal cisterns are patent. Barger-white matter differentiation is maintained. No territorial encephalomalacia. No significant volume loss. There is no abnormal attenuation within the brain parenchyma. No calvarial fracture or soft tissue abnormality. The mastoid air cells and visualized portions of the paranasal sinuses are well aerated. CT/CT head/brain wo IV con IMPRESSION: 1. No acute intracranial pathology.
[2022-10-18 15:13] VITALS: BP 139/64; PULSE 85; RESP 18; TEMP 36.2; O2SAT 99; BMI 28.3
--- NOTE | 2022-10-18 15:14 | ED.CHESTPAIN ---
HPI - Chest Pain General Chief Complaint: Chest Pain <LES Farooq - Last Filed: 10/18/22 15:16> Stated Complaint: pressure in chest/ dizziness <LES Farooq - Last Filed: 10/18/22 15:16> Time Seen by Provider: 10/18/22 16:09 <LES Farooq - Last Filed: 10/18/22 15:16> Source: patient <LES Beltran - Last Filed: 10/18/22 18:42> Mode of arrival: ambulatory <LES Beltran Last Filed: 10/18/22 18:42> Limitations: no limitations <LES Beltran Last Filed: 10/18/22 18:42> History of Present Illness HPI narrative: This is a 62-year-old female history of leukopenia, fibromyalgia presenting to the emergency department complaints of headache, chest discomfort. She tells me she has a diffuse, throbbing headache which feels like her typical however not going away and rates it a 4/10, she describes the chest pain is substernal in nature, nonradiating, pressure this has been going on intermittently since , 3 days ago. Patient reports that on she had an episode of dizziness described as disequilibrium, facial numbness and left arm weakness she tells me this resolved within minutes hasn't experienced any of the same symptoms. She tells me she has not experienced that again. She tells me at this time her only complaints are headache and chest discomfort. Patient denies fevers, chills, shortness of breath, nausea, vomiting, abdominal pain, lower extremity swelling, vision changes, dizziness, headache, weakness at this time NIH stroke scale of 0 on arrival <LES Beltran Last Filed: 10/18/22 18:42> Related Data Home Medications: Home Medications Medication Instructions Recorded Confirmed acetaminophen 500 mg tablet 1,000 mg PO Q8H PRN Pain 02/19/22 04/29/22 albuterol sulfate 90 mcg/actuation 2 puff inhalation Q4-6H PRN Rash 02/19/22 04/29/22 aerosol inhaler cetirizine 10 mg tablet 10 mg PO DAILY 02/19/22 04/29/22 cholecalciferol (vitamin D3) 50 50 mcg PO DAILY 02/19/22 04/29/22 mcg (2,000 unit) capsule epinephrine 0.3 mg/0.3 mL 0.3 mg IM Q4H PRN Allergic Reaction 02/19/22 04/29/22 injection, auto-injector fluticasone propionate 50 1 inh inhalation BID 02/19/22 04/29/22 mcg/actuation blister powder for inhalation lidocaine 5 % topical patch 0 patch topical 02/19/22 02/19/22 (Lidoderm) meloxicam 15 mg tablet 15 mg PO DAILY 02/19/22 02/19/22 nabumetone 750 mg tablet 750 mg PO BID 02/19/22 02/19/22 polyethylene glycol 3350 17 gram 17 g PO DAILY 02/19/22 02/19/22 oral powder packet (Miralax) varicella-zoster glycoE [id number] IM 02/19/22 02/19/22 adj(PF) 50 mcg/0.5 mL IM susp, kit (Shingrix (PF)) <LES Farooq - Last Filed: 10/18/22 15:16> Allergies/Adverse Reactions: Allergies Allergy/AdvReac Type Severity Reaction Status Date / Time oxycodone [From PERCOCET] Allergy Severe HALLUCINATI Verified 04/29/22 09:19 ONS peanut [PEANUT] Allergy Intermediate ITCHY Verified 04/29/22 09:19 THROAT/MOUTH tree nut [TREE NUT] Allergy Intermediate ITCHY Verified 04/29/22 09:19 THROAT/MOUTH acetaminophen [Percocet] Allergy Unknown Unknown Verified 04/29/22 09:19 nabumetone AdvReac Intermediate Unknown Verified 04/29/22 09:19 SEAFOOD Allergy Severe ANAPHYLAXIS Uncoded 04/29/22 09:19 FRUIT, SKINS Allergy Intermediate ITCHY Uncoded 04/29/22 09:19 THROAT/MOUTH <LES Farooq - Last Filed: 10/18/22 15:16> Review of Systems Review of Systems: Constitutional : No Weight loss, No Fever, No Chills, No Fatigue, No Malaise ENT/Mouth : No sore throat, No Rhinorrhea Eyes: No Eye Pain, No Swelling, No Redness Cardiovascular : + Chest Pain, No SOB, No Dyspnea on Exertion, No Orthopnea, No Edema, No Palpitations Respiratory : No Cough, No Sputum, No Wheezing Gastrointestinal : No Nausea, No Vomiting, No Diarrhea, No Constipation, No abdominal Pain, No Hematochezia, No Melena Genitourinary : No Dysuria, No Urinary Frequency, No Hematuria, Musculoskeletal : No joint pain, No Myalgias, No Joint Swelling Skin : No Skin Lesions, No rash Neuro : No Weakness, No Numbness, No Dizziness, + Headache Psych : No Anxiety/Panic, No Depression All other systems reviewed and are negative <LES Beltran - Last Filed: 10/18/22 18:42> Yes all other systems are reviewed and are negative <LES Beltran - Last Filed: 10/18/22 18:42> FORMERLY [facility] Past Medical History Attestation statement: The following information was validated with the patient. <LES Beltran - Last Filed: 10/18/22 18:42> Source: old records reviewed and nursing notes reviewed <LES Beltran - Last Filed: 10/18/22 18:42> Medical History: Medical History Arthritis Asthma Asthma Fibromyalgia, primary <LES Farooq - Last Filed: 10/18/22 15:16> Social History Social History: Social History Household Members: Spouse and Children Household Members Other:: grandchild Housing: House Patient Tobacco Use Status: Never used Tobacco Smoked in Last 30 Days: No Use of substances other than those prescribed or required for medical reasons: No Advance Directives: No Current occupational status: employed <LES Farooq - Last Filed: 10/18/22 15:16> Physical Exam Vital Signs: Vital Signs: Last Vital Signs Temp 98.2 F 10/18/22 18:00 Pulse 81 10/18/22 18:00 Resp 16 10/18/22 18:00 BP 111/56 L 10/18/22 18:00 Pulse Ox 100 10/18/22 18:00 O2 Del Method 10/18/22 18:00 BMI result Body Mass Index 28.3 <LES Farooq Last Filed: 10/18/22 15:16> Vital Signs: Last Vital Signs Temp 98.2 F 10/18/22 18:00 Pulse 81 10/18/22 18:00 Resp 16 10/18/22 18:00 BP 111/56 L 10/18/22 18:00 Pulse Ox 100 10/18/22 18:00 O2 Del Method 10/18/22 18:00 BMI result Body Mass Index 28.3 vss <LES Beltran Last Filed: 10/18/22 18:42> Appearance: Alert.? Oriented X3.? No acute distress.? Head: Normocephalic, atraumatic, no step-offs or deformities Eyes: Pupils equal, round and reactive to light.? Neck: Normal inspection.? Neck supple.? CVS: Normal heart rate and rhythm.? Pulses normal.? Respiratory: No respiratory distress.? Breath sounds normal.? Abdomen: Soft and nontender.? Skin: Skin warm and dry.? Normal skin color.? Normal skin turgor.? Extremities: No lower extremity edema.? No calf ttp. 5/5 strength to bilateral upper and lower extremities Neuro: Oriented X 3.? No motor deficit.? No sensory deficit. CN 2-12 intact. Negative pronator drift and romberg . Normal steady gait with normal coordination. Normal [id number]. Normal [id number]. Normal rapid alternating movements. NIH stroke scale 0 <LES Beltran Last Filed: 10/18/22 18:42> Course Course Course Narrative: RME--62 yo F w/PMHx asthma, fibromyalgia c/o chest pressure radiating to LUE with LUE heaviness x3 days. Admits to assoc RUSS, palpitations, and mild SOB. VSS, nontoxic appearing EKG, labs, CXR, covid/flu testing ordered <LES Farooq Last Filed: 10/18/22 15:16> Reevaluation(s) Reevaluation #1: CBC with baseline leukopenia, chemistry with no acute electrolyte abnormalities requiring intervention. Troponin negative, EKG nonischemic unlikely ACS. Chest x-ray no acute pulmonary process. <LES Beltran Last Filed: 10/18/22 18:42> Time: 17:00 <LES Beltran - Last Filed: 10/18/22 18:42> Reevaluation #2: D-dimer negative. COVID, influenza negative. Neuro exam remains nonfocal. Patient reports complete resolution of symptoms she tells me she feels much better denies headache, vision changes, dizziness, chest pain, shortness of breath. Tells me she would like to go home. Insert her discharge <LES Beltran - Last Filed: 10/18/22 18:42> Time: 18:40 <LES Beltran - Last Filed: 10/18/22 18:42> Medications Administered Discontinued Medications Generic Name Dose Route Start Last Admin Trade Name Freq PRN Reason Stop Dose Admin Diphenhydramine HCl 25 mg 10/18/22 16:41 10/18/22 17:27 Diphenhydramine Hcl 50 Mg/Ml Vial IVPUSH 10/18/22 16:42 25 mg ONCE ONE Administration Metoclopramide HCl 10 mg 10/18/22 16:41 10/18/22 17:27 Metoclopramide Hcl 10 Mg/2 Ml Vial IVPUSH 10/18/22 16:42 10 mg ONCE ONE Administration <LES Farooq - Last Filed: 10/18/22 15:16> Medications Administered Discontinued Medications Generic Name Dose Route Start Last Admin Trade Name Freq PRN Reason Stop Dose Admin Diphenhydramine HCl 25 mg 10/18/22 16:41 10/18/22 17:27 Diphenhydramine Hcl 50 Mg/Ml Vial IVPUSH 10/18/22 16:42 25 mg ONCE ONE Administration Metoclopramide HCl 10 mg 10/18/22 16:41 10/18/22 17:27 Metoclopramide Hcl 10 Mg/2 Ml Vial IVPUSH 10/18/22 16:42 10 mg ONCE ONE Administration <LES Beltran - Last Filed: 10/18/22 18:42> Medical Decision Making Medical Decision Making [facility] Narrative: 1612 62-year-old female presents with headache, chest discomfort intermittently . Also reports an episode of facial numbness, left arm weakness on Thursday which has resolved. Physical exam benign. NIH stroke scale 0. Cerebellar function intact. Likely viral in origin I do not suspect ACS, stroke, posterior stroke, dissection, pericarditis. Will rule out electrolyte abnormalities and dysrhythmia Plan labs, imaging, troponin, EKG, chest x-ray <LES Beltran - Last Filed: 10/18/22 18:42> Differential Diagnosis Differential Diagnoses: The differential diagnosis associated with the presentation includes <LES Beltran - Last Filed: 10/18/22 18:42> Likely viral in origin I do not suspect ACS, stroke, posterior stroke, dissection, pericarditis. Will rule out electrolyte abnormalities and dysrhythmia <LES Beltran - Last Filed: 10/18/22 18:42> Admission/Observation Consideration of admission/observation: Escalation of care including admission/observation considered <LES Beltran - Last Filed: 10/18/22 18:42> Lab Data MDM Lab Attestation statement: I reviewed the patient's lab results. <LES Beltran - Last Filed: 10/18/22 18:42> Result Diagrams: 10/18/22 15:37 10/18/22 15:37 <LES Farooq - Last Filed: 10/18/22 15:16> Labs: Lab Results 10/18/22 10/18/22 10/18/22 Range/Units 15:37 15:37 15:37 WBC 3.8 L (4.8-10.8) X10*3/uL RBC 3.84 L (4.20-5.50) X10*6/uL Hgb 12.3 (12.0-16.0) g/dl Hct 37.7 (37.0-47.0) % MCV 98.2 H (80.0-98.0) fL MCH 32.0 (27.0-33.0) pg MCHC 32.6 (31.0-35.0) g/dl RDW 11.9 (11.0-16.0) % Plt Count 199 (160-400) X10*3/uL MPV 12.3 (9.4-12.3) fL Immature Gran % (Auto) 0.3 (0.0-0.4) % Neut % (Auto) 48.4 (45-73) % Lymph % (Auto) 39.0 (20-40) % [place] % (Auto) 7.3 (2-11) % Eos % (Auto) 4.2 H (0-4) % Baso % (Auto) 0.8 (0-2) % Lymph # (Auto) 1.5 (1.2-4.9) X10*3/uL [place] # (Auto) 0.3 (0.1-1.2) X10*3/uL Eos # (Auto) 0.2 (0.0-0.4) X10*3/uL Baso # (Auto) 0.0 (0.0-0.2) X10*3/uL Abs Immat Gran (auto) 0.01 (0.00-0.03) X10*3/uL Absolute Neuts (auto) 1.9 L (2.0-8.3) x10*3/uL Absolute Nucleated RBC 0.000 (0.0-0.012) X10*3/uL Nucleated RBC % (auto) 0.0 (0.0-0.2) /100WBC PT 12.6 (10.0-13.1) SEC INR 1.1 (0.9-1.1) D-Dimer High Sensitivty < 150 NG/ML Sodium 139 (135-145) mmol/L Potassium 3.8 (3.3-5.1) mmol/L Chloride 106 (96-108) mmol/L Carbon Dioxide 23 (22-29) mmol/L Anion Gap 14 (12-20) BUN 18 H (9-16) mg/dL Creatinine 0.72 (0.5-1.4) mg/dL Estim Creat Clear Calc 79.2 Estimated GFR > 60 Random Glucose 104 (60-115) mg/dL Calcium 8.9 (8.4-10.2) mg/dL Magnesium 2.0 (1.6-2.6) mg/dL Total Bilirubin 0.4 (0.0-1.0) mg/dL Direct Bilirubin 0.2 (0.0-0.5) mg/dL AST 19 (5-31) U/L ALT 15 (0-31) U/L Alkaline Phosphatase 96 (39-117) U/L Troponin I High Sens (<3.5-17.0) ng/L Total Protein 7.2 (6.5-8.0) g/dL Albumin 3.8 (3.5-5.0) g/dL COVID-19 (LUCY) (Negative) COVID-19 Clin Com Influenza Type A (ARMINDA) (Negative) Influenza Type B (ARMINDA) (Negative) Influenza A & B Note 10/18/22 10/18/22 10/18/22 Range/Units 15:37 15:38 15:38 WBC (4.8-10.8) X10*3/uL RBC (4.20-5.50) X10*6/uL Hgb (12.0-16.0) g/dl Hct (37.0-47.0) % MCV (80.0-98.0) fL MCH (27.0-33.0) pg MCHC (31.0-35.0) g/dl RDW (11.0-16.0) % Plt Count (160-400) X10*3/uL MPV (9.4-12.3) fL Immature Gran % (Auto) (0.0-0.4) % Neut % (Auto) (45-73) % Lymph % (Auto) (20-40) % [place] % (Auto) (2-11) % Eos % (Auto) (0-4) % Baso % (Auto) (0-2) % Lymph # (Auto) (1.2-4.9) X10*3/uL [place] # (Auto) (0.1-1.2) X10*3/uL Eos # (Auto) (0.0-0.4) X10*3/uL Baso # (Auto) (0.0-0.2) X10*3/uL Abs Immat Gran (auto) (0.00-0.03) X10*3/uL Absolute Neuts (auto) (2.0-8.3) x10*3/uL Absolute Nucleated RBC (0.0-0.012) X10*3/uL Nucleated RBC % (auto) (0.0-0.2) /100WBC PT (10.0-13.1) SEC INR (0.9-1.1) D-Dimer High Sensitivty NG/ML Sodium (135-145) mmol/L Potassium (3.3-5.1) mmol/L Chloride (96-108) mmol/L Carbon Dioxide (22-29) mmol/L Anion Gap (12-20) BUN (9-16) mg/dL Creatinine (0.5-1.4) mg/dL Estim Creat Clear Calc Estimated GFR Random Glucose (60-115) mg/dL Calcium (8.4-10.2) mg/dL Magnesium (1.6-2.6) mg/dL Total Bilirubin (0.0-1.0) mg/dL Direct Bilirubin (0.0-0.5) mg/dL AST (5-31) U/L ALT (0-31) U/L Alkaline Phosphatase (39-117) U/L Troponin I High Sens 3.9 (<3.5-17.0) ng/L Total Protein (6.5-8.0) g/dL Albumin (3.5-5.0) g/dL COVID-19 (LUCY) Negative (Negative) COVID-19 Clin Com See Note Influenza Type A (ARMINDA) Negative (Negative) Influenza Type B (ARMINDA) Negative (Negative) Influenza A & B Note See Note <LES Farooq - Last Filed: 10/18/22 15:16> Lab Results 10/18/22 10/18/22 10/18/22 Range/Units 15:37 15:37 15:37 WBC 3.8 L (4.8-10.8) X10*3/uL RBC 3.84 L (4.20-5.50) X10*6/uL Hgb 12.3 (12.0-16.0) g/dl Hct 37.7 (37.0-47.0) % MCV 98.2 H (80.0-98.0) fL MCH 32.0 (27.0-33.0) pg MCHC 32.6 (31.0-35.0) g/dl RDW 11.9 (11.0-16.0) % Plt Count 199 (160-400) X10*3/uL MPV 12.3 (9.4-12.3) fL Immature Gran % (Auto) 0.3 (0.0-0.4) % Neut % (Auto) 48.4 (45-73) % Lymph % (Auto) 39.0 (20-40) % [place] % (Auto) 7.3 (2-11) % Eos % (Auto) 4.2 H (0-4) % Baso % (Auto) 0.8 (0-2) % Lymph # (Auto) 1.5 (1.2-4.9) X10*3/uL [place] # (Auto) 0.3 (0.1-1.2) X10*3/uL Eos # (Auto) 0.2 (0.0-0.4) X10*3/uL Baso # (Auto) 0.0 (0.0-0.2) X10*3/uL Abs Immat Gran (auto) 0.01 (0.00-0.03) X10*3/uL Absolute Neuts (auto) 1.9 L (2.0-8.3) x10*3/uL Absolute Nucleated RBC 0.000 (0.0-0.012) X10*3/uL Nucleated RBC % (auto) 0.0 (0.0-0.2) /100WBC PT 12.6 (10.0-13.1) SEC INR 1.1 (0.9-1.1) D-Dimer High Sensitivty < 150 NG/ML Sodium 139 (135-145) mmol/L Potassium 3.8 (3.3-5.1) mmol/L Chloride 106 (96-108) mmol/L Carbon Dioxide 23 (22-29) mmol/L Anion Gap 14 (12-20) BUN 18 H (9-16) mg/dL Creatinine 0.72 (0.5-1.4) mg/dL Estim Creat Clear Calc 79.2 Estimated GFR > 60 Random Glucose 104 (60-115) mg/dL Calcium 8.9 (8.4-10.2) mg/dL Magnesium 2.0 (1.6-2.6) mg/dL Total Bilirubin 0.4 (0.0-1.0) mg/dL Direct Bilirubin 0.2 (0.0-0.5) mg/dL AST 19 (5-31) U/L ALT 15 (0-31) U/L Alkaline Phosphatase 96 (39-117) U/L Troponin I High Sens (<3.5-17.0) ng/L Total Protein 7.2 (6.5-8.0) g/dL Albumin 3.8 (3.5-5.0) g/dL COVID-19 (LUCY) (Negative) COVID-19 Clin Com Influenza Type A (ARMINDA) (Negative) Influenza Type B (ARMINDA) (Negative) Influenza A & B Note 10/18/22 10/18/22 10/18/22 Range/Units 15:37 15:38 15:38 WBC (4.8-10.8) X10*3/uL RBC (4.20-5.50) X10*6/uL Hgb (12.0-16.0) g/dl Hct (37.0-47.0) % MCV (80.0-98.0) fL MCH (27.0-33.0) pg MCHC (31.0-35.0) g/dl RDW (11.0-16.0) % Plt Count (160-400) X10*3/uL MPV (9.4-12.3) fL Immature Gran % (Auto) (0.0-0.4) % Neut % (Auto) (45-73) % Lymph % (Auto) (20-40) % [place] % (Auto) (2-11) % Eos % (Auto) (0-4) % Baso % (Auto) (0-2) % Lymph # (Auto) (1.2-4.9) X10*3/uL [place] # (Auto) (0.1-1.2) X10*3/uL Eos # (Auto) (0.0-0.4) X10*3/uL Baso # (Auto) (0.0-0.2) X10*3/uL Abs Immat Gran (auto) (0.00-0.03) X10*3/uL Absolute Neuts (auto) (2.0-8.3) x10*3/uL Absolute Nucleated RBC (0.0-0.012) X10*3/uL Nucleated RBC % (auto) (0.0-0.2) /100WBC PT (10.0-13.1) SEC INR (0.9-1.1) D-Dimer High Sensitivty NG/ML Sodium (135-145) mmol/L Potassium (3.3-5.1) mmol/L Chloride (96-108) mmol/L Carbon Dioxide (22-29) mmol/L Anion Gap (12-20) BUN (9-16) mg/dL Creatinine (0.5-1.4) mg/dL Estim Creat Clear Calc Estimated GFR Random Glucose (60-115) mg/dL Calcium (8.4-10.2) mg/dL Magnesium (1.6-2.6) mg/dL Total Bilirubin (0.0-1.0) mg/dL Direct Bilirubin (0.0-0.5) mg/dL AST (5-31) U/L ALT (0-31) U/L Alkaline Phosphatase (39-117) U/L Troponin I High Sens 3.9 (<3.5-17.0) ng/L Total Protein (6.5-8.0) g/dL Albumin (3.5-5.0) g/dL COVID-19 (LUCY) Negative (Negative) COVID-19 Clin Com See Note Influenza Type A (ARMINDA) Negative (Negative) Influenza Type B (ARMINDA) Negative (Negative) Influenza A & B Note See Note <LES Beltran - Last Filed: 10/18/22 18:42> Critical Care Time Critical Care Time Critical Care Time: No <LES Beltran - Last Filed: 10/18/22 18:42> Discharge Plan Discharge Clinical Impression: Chest pain, Headache <LES Farooq Last Filed: 10/18/22 15:16> Patient Disposition: Home, Self-Care <LES Farooq - Last Filed: 10/18/22 15:16> Instructions: Chest Pain (DC), General Headache (ED) <LES Farooq Last Filed: 10/18/22 15:16> Additional Instructions: Take your medications as prescribed. If you were prescribed antibiotics today, it is important that you take your medication to their entirety, do not skip any doses, do not finish them early. Follow-up with your primary care provider this week. Please follow-up with cardiology pain persists. Return to the emergency department with new or worsening symptoms. Such as fevers, chills, chest pain, shortness of breath, nausea, vomiting, dizziness, headache, vision changes, lethargy In case of emergency call 911 You take ibuprofen every 6 hours, Tylenol every 4 hours as needed for pain or discomfort, do not exceed maximum daily dose is listed on package. <LES Farooq - Last Filed: 10/18/22 15:16> Prescriptions: No Action acetaminophen 500 mg tablet 1,000 mg PO Q8H PRN (Reason: Pain) cetirizine 10 mg tablet 10 mg PO DAILY lidocaine [Lidoderm] 5 % adhesive patch,medicated 0 patch topical nabumetone 750 mg tablet 750 mg PO BID albuterol sulfate 90 mcg/actuation HFA aerosol inhaler 2 puff inhalation Q4-6H PRN (Reason: Rash) epinephrine 0.3 mg/0.3 mL auto-injector 0.3 mg IM Q4H PRN (Reason: Allergic Reaction) fluticasone propionate 50 mcg/actuation blister with device 1 inh inhalation BID meloxicam 15 mg tablet 15 mg PO DAILY polyethylene glycol 3350 [Miralax] 17 gram powder in packet 17 g PO DAILY Shingrix (PF) 50 mcg/0.5 mL suspension for reconstitution IM cholecalciferol (vitamin D3) 50 mcg (2,000 unit) capsule 50 mcg PO DAILY <LES Farooq - Last Filed: 10/18/22 15:16> Referrals: [facility] [place] Cardiovascular Services [Provider Group] - 1 week Taya Last MD [Primary Care Provider] - 2 days <LES Farooq - Last Filed: 10/18/22 15:16> Stand Alone Forms: Work/School Release <LES Farooq - Last Filed: 10/18/22 15:16>
--- NOTE | 2022-10-18 15:15 | ECG_ITS ---
Test Reason : CP Blood Pressure : / mmHG Vent. Rate : 071 BPM Atrial Rate : 071 BPM P-R Int : 182 ms QRS Dur : 066 ms QT Int : 384 ms P-R-T Axes : 037 017 023 degrees QTc Int : 417 ms Normal sinus rhythm Possible Left atrial enlargement Borderline ECG When compared with ECG of 06-JAN-2022 10:33, No significant change was found Referred By: Hazel Rehman Electronically Signed By:Molina Vyas
[2022-10-18 15:42] LABS: MANUAL DIFF FLAG NO
[2022-10-18 15:45] LABS: Basophils Percent Auto 0.8 % (0-2); Eosinophils Absolute Auto 0.2 X10*3/uL (0.0-0.4); Eosinophils Percent Auto 4.2 % (0-4); Hematocrit 37.7 % (37.0-47.0); Hemoglobin 12.3 g/dl (12.0-16.0); Imm Gran Abs Auto 0.01 X10*3/uL (0.00-0.03); Imm Gran Pct Auto 0.3 % (0.0-0.4); Lymphocytes Absolute Auto 1.5 X10*3/uL (1.2-4.9); Mean Corpuscular HGB Conc 32.6 g/dl (31.0-35.0); Mean Corpuscular Volume 98.2 fL (80.0-98.0); Mean Platelet Volume 12.3 fL (9.4-12.3); Monocytes Absolute Auto 0.3 X10*3/uL (0.1-1.2); Monocytes Percent Auto 7.3 % (2-11); Neutrophils Absolute Auto 1.9 x10*3/uL (2.0-8.3); Neutrophils Percent Auto 48.4 % (45-73); Platelet Count 199 X10*3/uL (160-400); Red Blood Count 3.84 X10*6/uL (4.20-5.50); Red Cell Distribution Width 11.9 % (11.0-16.0); White Blood Count 3.8 X10*3/uL (4.8-10.8)
[2022-10-18 15:52] LABS: INTERNATIONAL NORM RATIO 1.1 (0.9-1.1); Prothrombin Time 12.6 SEC (10.0-13.1)
[2022-10-18 16:00] VITALS: BP 108/96; PULSE 66; RESP 16; TEMP 36.6; O2SAT 99
--- NOTE | 2022-10-18 16:00 | MHC.EDTECH ---
this pct assumed care of patient at 1600 ,patient was hooked up to child monitor ,vitals sign taken ,patient resting ,call marion within reach .
[2022-10-18 16:02] LABS: COVID-19 Test Negative (Negative); IDNOW Serial# 55D5AD1C; IDNOW Serial# 9DB6401D; Influenza A Negative (Negative); Influenza B2 Negative (Negative)
[2022-10-18 16:24] LABS: Alanine Aminotransferase 15 U/L (0-31); Albumin Level 3.8 g/dL (3.5-5.0); Alkaline Phosphatase 96 U/L (39-117); Anion Gap 14 (12-20); Aspartate Amino Transferase 19 U/L (5-31); Bilirubin Direct 0.2 mg/dL (0.0-0.5); Bilirubin Total 0.4 mg/dL (0.0-1.0); Blood Urea Nitrogen 18 mg/dL (9-16); Calcium 8.9 mg/dL (8.4-10.2); Carbon Dioxide 23 mmol/L (22-29); Chloride 106 mmol/L (96-108); Creatinine Clr Calc Pharmacy 79.2; Estimated Glomerular Filt Rate > 60; Glucose Random 104 mg/dL (60-115); Potassium 3.8 mmol/L (3.3-5.1); Sodium 139 mmol/L (135-145); Total Protein 7.2 g/dL (6.5-8.0)
[2022-10-18 16:31] LABS: Troponin-I High Sensitivity 3.9 ng/L (<3.5-17.0)
[2022-10-18] MEDS: Metoclopramide HCl 10 MG/2 ML VIAL IVPUSH (17:27)
[2022-10-18] MEDS: diphenhydrAMINE HCL 50 MG/ML VIAL 25 MG IVPUSH (17:27)
[2022-10-18 18:00] VITALS: BP 111/56; PULSE 81; RESP 16; TEMP 36.8; O2SAT 100
--- NOTE | 2022-10-18 18:00 | MHC.EDTECH ---
1800 rounding done ,patient resting warm blanket given ,vitals sign taken ,call marion within reach .
[2022-10-18 18:18] LABS: D Dimer High Sensitivity < 150 NG/ML
== END 2022-10-18 18:58 | disposition home or self-care (01) ==
PROVIDERS: Physician Assistant; Emergency Provider Emergency Medicine; PCP Family Medicine
DX: R07.9 Chest pain, unspecified (principal); R51.9 Headache, unspecified; Z20.822 Contact with and (suspected) exposure to COVID-19
CPT/HCPCS: 70450; 71045; 80048; 80076; 83735; 84484; 85025; 85379; 85610; 87502; 87635; 93005; 96374; 96375; 99284; J1200; J2765

== ENCOUNTER 2022-10-31 08:19 | Outpatient (REF) | payer MEDICAID, SELFPAY ==
[2022-10-31 08:46] LABS: COVID-19 Test Negative (Negative); IDNOW Serial# 16C4AD1C
== END 2022-10-31 08:20 | disposition home or self-care (01) ==
LOC: HO.LAB 08:19
PROVIDERS: Visit Provider Internal Medicine
DX: Z20.822 Contact with and (suspected) exposure to COVID-19 (principal)
CPT/HCPCS: 87635; C9803

== ENCOUNTER → 2023-02-16 12:34 | Outpatient (REF) | payer MEDICAID, SELFPAY ==
--- NOTE | 2023-02-16 12:39 | HM_ITS ---
Conclusion: 1. Patient was monitored for total period of 3 days and 2 hours 2. Baseline was normal sinus rhythm with average heart of 96 beats per minute 3. No significant pauses or bradycardia noted 4. Frequent sinus tachycardia with 39% of time heart rate greater than 100 beats per minute 5. Total of 43,673 PACs accounting for 12% total beats account for frequent PACs next 6. Frequent SVT events with longest lasting 37 beats and fastest at 145 beats per minute 6. Patient reported 3 total events that correlated with PACs and/or sinus tachycardia MTDD
== END ==
LOC: HO.CARD 12:34
PROVIDERS: PCP Family Medicine; Visit Provider Family Medicine
DX: I49.49 Other premature depolarization (principal)
CPT/HCPCS: 93242

== ENCOUNTER 2023-06-02 14:23 | Outpatient (AMB) | payer MEDICAID, SELFPAY ==
[2023-06-02 14:30] VITALS: BP 120/80; PULSE 96; BMI 27.2
--- NOTE | 2023-06-02 14:30 | MHC.OFFVIS ---
Intake Vital Signs 06/02/23 14:30 Height 5 ft 4 in Weight 158 lb 11.725 oz BMI 27.2 BP 120/80 Blood Pressure Location Lt brachial Position Sitting Pulse 96 Intake Visit Reasons: Follow up per PCP Intake Note: Follow-up per PCP c/o palpitations mostly at night was gotten worries after having COVID the 3rd time had holter in February Eligibility Services Representative Required: Yes Eligibility Services Representative Name: Bianca cryacom Allergies oxycodone [From PERCOCET] Allergy (Severe, Verified 04/30/23 08:58) HALLUCINATIONS peanut [PEANUT] Allergy (Intermediate, Verified 04/30/23 08:58) ITCHY THROAT/MOUTH tree nut [TREE NUT] Allergy (Intermediate, Verified 04/30/23 08:58) ITCHY THROAT/MOUTH acetaminophen [Percocet] Allergy (Unknown, Verified 04/30/23 08:58) Unknown nabumetone Adverse Reaction (Intermediate, Verified 04/30/23 08:58) Unknown SEAFOOD Allergy (Severe, Uncoded 04/30/23 08:58) ANAPHYLAXIS FRUIT, SKINS Allergy (Intermediate, Uncoded 04/30/23 08:58) ITCHY THROAT/MOUTH Medication List - Last Reconciled 06/02/23 by Tez Mckenzie MD acetaminophen 1,000 mg PO Q8H PRN albuterol sulfate 90 mcg/actuation 2 puffs inhalation Q4-6H PRN cetirizine 10 mg PO DAILY cholecalciferol (vitamin D3) 50 mcg PO DAILY epinephrine 0.3 mg IM Q4H PRN fluticasone propionate 50 mcg/actuation 1 inh inhalation BID lidocaine 5% (Lidoderm) 1 patch topical DAILY HPI HPI Comments History of Present Illness Details Freida comes for follow-up. She says she has been having increasing symptoms of palpitations since the 2nd COVID infection. History was obtained with help of quartz cutter. She says the symptoms do not happen on a regular basis but when the happen as rapid heart rate followed by son stopping associated shortness of breath. She gets anxious because of this. She did have a Holter monitor in February which showed frequent PACs about 12% with frequent episodes of SVT. During that time she did not have significant symptoms although had some palpitations. She also has some palpitations today EKG shows sinus tachycardia with PACs. She appears somewhat anxious. She denies any exertional symptoms. [facility] Medical History Arthritis Asthma Asthma Fibromyalgia, primary Family History Sister Breast cancer Mother Colon cancer Father Stomach cancer Social History Household Members: Spouse Household Members Other:: grandchild Housing: House Are you a primary career development consultant to a significant other at home: No Do you presently have visiting nurse or other home services: No Patient Tobacco Use Status: Never used Tobacco service: No Current occupational status: employed Review of Systems Const Denies chills, Denies fatigue, Denies fever(s), Denies frequent falls, Denies weakness, Denies weight gain and Denies weight loss ENT Denies dizziness Card Denies chest pain, Denies leg edema, Denies lightheadedness, Denies palpitations, Denies dyspnea, Denies dyspnea on exertion, Denies orthopnea and Denies other (loss of consciousness) Resp Denies cough, Denies dyspnea and Denies dyspnea on exertion GI Denies hematochezia and Denies change in stool character Musc Denies abnormal gait, Denies muscle weakness, Denies numbness, Denies radiating pain into limb and Denies tingling Neuro Denies abnormal gait, Denies dizziness, Denies frequent falls, Denies numbness, Denies tingling and Denies weakness Endo Denies fatigue and Denies palpitations Physical Exam Vital Signs: Last Vital Signs Pulse 96 06/02/23 14:30 BP 120/80 06/02/23 14:30 BMI result Body Mass Index 27.2 Const General: cooperative, comfortable, no acute distress, alert, awake and Physically active Nutritional Appearance: average body habitus Orientation/consciousness: patient oriented x3 Limitations: no limitations Neck Neck: Yes trachea midline, Yes supple and Yes no JVD Resp Effort & Inspection: normal respiratory effort Auscultation: clear to auscultation bilaterally Cardio Jugular venous distension: no JVD Palpation: normal PMI Rate: regular rate Rhythm: abnormal rhythm with ectopic beats Heart sounds: S1 normal heart sound present, S2 normal heart sound present, no click, no gallops, no murmurs and no rubs GI Auscultation: normal bowel sounds Skin General skin exam: no rashes or lesions noted Neuro General: patient oriented x3 and no focal motor deficits Extrem General: Yes no clubbing, cyanosis or edema Office Procedures EKG Details: EKG shows sinus tachycardia with frequent PACs [id number], Complete Assessment & Plan Assessment & Plan (1) SVT (supraventricular tachycardia): Code(s): I47.1 - Supraventricular tachycardia Plan: patient with symptoms highly suggestive SVT. This is confirmed by Holter monitor when she had frequent episodes of SVT although her symptoms of milder during when she was wearing Holter monitor. Likely that she has more prolonged SVT during episodes of more significant symptoms of fast heart rate associated with sudden stoppage and shortness of breath. Given the nature of symptoms will prescribe Cardizem CD 120 mg to suppress her atrial arrhythmias. Follow-up Holter monitor in 4 weeks time. Stress mitigation strategies were discussed avoidance of stimulants was discussed. Will follow up in the clinic in 3 months time, sooner p.r.n.. Thank you for allowing me to partake in her care Orders: Orders ECG 3 day holter monitor 4 Weeks I47.1 - Supraventricular tachycardia Medications: New diltiazem HCl (Cardizem CD) 120 mg PO DAILY 30 caps 5RF I47.1 - Supraventricular tachycardia Coding Level of Care Code Est Pt Level 4 (78471) Diagnoses SVT (supraventricular tachycardia) I47.1 CPT Codes EKG - CPT: 81499-[id number], Complete ([id number])
== END 2023-06-02 14:59 | disposition home or self-care (01) ==
PROVIDERS: PCP Family Medicine; Visit Provider Internal Medicine Cardiovascular Disease
DX: I47.1 Supraventricular tachycardia (principal)
CPT/HCPCS: 93010; 99214

== ENCOUNTER → 2023-06-02 14:23 | Outpatient (BNVA) | payer MEDICAID, SELFPAY | PROVIDERS: PCP Family Medicine; Visit Provider Internal Medicine Cardiovascular Disease | DX: I47.1 Supraventricular tachycardia (principal) | CPT/HCPCS: 93005; 99212 ==

== ENCOUNTER → 2023-06-30 10:34 | Outpatient (REF) | payer MEDICAID, SELFPAY ==
--- NOTE | 2023-06-30 10:37 | HM_ITS ---
Conclusion: 1. Patient was monitored for total period of 2 days 2. Baseline was normal sinus rhythm with average heart rate of 96 beats per minute 3. Frequent sinus tachycardia noted with 39% of time heart rate greater than 100 beats per minute 4. No significant pauses noted 5. Frequent PACs noted with total burden of 13% next 6. No patient reported events MTDD
== END ==
LOC: HO.CARD 10:34
PROVIDERS: PCP Family Medicine; Visit Provider Internal Medicine Cardiovascular Disease
DX: I47.1 Supraventricular tachycardia (principal)
CPT/HCPCS: 93242

== ENCOUNTER → 2023-06-30 10:37 | Outpatient (BNV) | payer MEDICAID, SELFPAY | PROVIDERS: PCP Family Medicine; Visit Provider Internal Medicine Cardiovascular Disease | DX: R00.0 Tachycardia, unspecified (principal) | CPT/HCPCS: 93244 ==

== ENCOUNTER 2023-07-29 | Outpatient (REF) | payer MEDICAID, SELFPAY ==
[2023-07-30 14:19] LABS: CT PCR NOT DETECTED (Not Detect.); NG PCR NOT DETECTED (Not Detect.)
[2023-07-31 14:10] LABS: BV Int Neg Control Negative (Negative); BV Int Pos Control Positive (Positive)
== END 2023-07-29 00:01 | disposition home or self-care (01) ==
LOC: HO.HHCLNP
PROVIDERS: Visit Provider Nurse Practitioner Family
DX: Z11.3 Encounter for screening for infections with a predominantly sexual mode of transmission (principal); N89.8 Other specified noninflammatory disorders of vagina
CPT/HCPCS: 0353U; 87480; 87510; 87660

== ENCOUNTER 2023-09-01 13:49 | Outpatient (AMB) | payer MEDICAID, SELFPAY ==
[2023-09-01 14:08] VITALS: BP 120/82; PULSE 62; BMI 27.2
--- NOTE | 2023-09-01 14:08 | MHC.OFFVIS ---
Intake Vital Signs 09/01/23 14:08 Height 5 ft 4 in Weight 158 lb 4.67 oz BMI 27.2 BP 120/82 Blood Pressure Location Lt brachial Position Sitting Pulse 62 Pulse Source Pulse Oximeter Intake Visit Reasons: 3 mth f/up Allergies oxycodone [From PERCOCET] Allergy (Severe, Verified 09/01/23 14:10) HALLUCINATIONS peanut [PEANUT] Allergy (Intermediate, Verified 09/01/23 14:10) ITCHY THROAT/MOUTH tree nut [TREE NUT] Allergy (Intermediate, Verified 09/01/23 14:10) ITCHY THROAT/MOUTH acetaminophen [Percocet] Allergy (Unknown, Verified 09/01/23 14:10) Unknown nabumetone Adverse Reaction (Intermediate, Verified 09/01/23 14:10) Unknown SEAFOOD Allergy (Severe, Uncoded 04/30/23 08:58) ANAPHYLAXIS FRUIT, SKINS Allergy (Intermediate, Uncoded 04/30/23 08:58) ITCHY THROAT/MOUTH Medication List - Last Reconciled 09/01/23 by Anaid Hyatt NP-C acetaminophen 1,000 mg PO Q8H PRN albuterol sulfate 90 mcg/actuation 2 puffs inhalation Q4-6H PRN cetirizine 10 mg PO DAILY cholecalciferol (vitamin D3) 50 mcg PO DAILY diltiazem HCl (Cardizem CD) 120 mg PO DAILY epinephrine 0.3 mg IM Q4H PRN fluticasone propionate 50 mcg/actuation 1 inh inhalation BID lidocaine 5% (Lidoderm) 1 patch topical DAILY meclizine 12.5 mg PO HPI 3 mth f/up HPI Details Freida is a 63-year-old female past medical history of heart palpitations, PACs and SVT who was started on diltiazem last visit, had Holter monitor and now presents for follow-up. Today she reports that her heart palpitations have improved however she still seems to get them every day. She feels like her heart is beating fast and at times skipping beats. No presyncope, syncope, lightheadedness, falls. No chest discomfort at rest or with activity. No shortness of breath, PND, orthopnea or edema. Taking meds as directed. Describes herself as active throughout the day. [facility] Medical History Arthritis Asthma Asthma Fibromyalgia, primary Family History Sister Breast cancer Mother Colon cancer Father Stomach cancer Social History Household Members: Spouse Household Members Other:: grandchild Housing: House Are you a primary post acute care registered nurse to a significant other at home: No Do you presently have visiting nurse or other home services: No Patient Tobacco Use Status: Never used Tobacco service: No Current occupational status: employed Review of Systems Const All systems reviewed & are unremarkable except as noted in HPI and below ENT Denies dizziness Card Denies chest pain, Denies chest pain at rest, Denies chest pain with activity, Denies rapid heart rate, Denies pedal edema, Denies edema, Denies leg edema, Denies lightheadedness, Reports palpitations, Denies dyspnea, Denies dyspnea on exertion and Denies orthopnea Resp Denies cough, Denies dyspnea and Denies dyspnea on exertion GI Denies hematochezia and Denies change in stool character Musc Denies abnormal gait, Denies limited range of motion, Denies muscle cramps, Denies muscle weakness, Denies numbness, Denies radiating pain into limb, Denies stiffness and Denies tingling Neuro Denies abnormal gait, Denies dizziness, Denies numbness and Denies tingling Endo Reports palpitations Physical Exam Vital Signs: Last Vital Signs Pulse 62 09/01/23 14:08 BP 120/82 09/01/23 14:08 BMI result Body Mass Index 27.2 Const General: cooperative, healthy appearing, comfortable and no acute distress Orientation/consciousness: patient oriented x3 Neck Neck: Yes normal visual inspection and Yes no JVD Resp Effort & Inspection: normal respiratory effort Auscultation: clear to auscultation bilaterally, no crackles, no rales, no rhonchi and no wheezes Cardio Jugular venous distension: no JVD Rate: regular rate Rhythm: regular rhythm Heart sounds: S1 normal heart sound present, S2 normal heart sound present, no murmurs and no rubs Neuro General: patient oriented x3 Extrem General: Yes normal to inspection, No no pedal edema and No calf tenderness Psych Appearance: grossly normal Mental Status: mental status grossly normal Speech and movement: Normal speech and movement present Assessment & Plan Assessment & Plan (1) SVT (supraventricular tachycardia): Code(s): I47.1 - Supraventricular tachycardia Plan: Reports of heart palpitations. Holter monitor done 02/16/2023 for 3 days showing sinus rhythm with average heart rate 96, 39% of time heart rate greater than 100, PACs 12%, frequent SVT runs, longest 37 beats. Echocardiogram done 04/01/2022 showed EF 58%, no valve abnormalities, no regional wall motion abnormalities, Both atria normal size. On last visit she was started on diltiazem CD 120 mg daily. A repeat Holter monitor was done on 06/30/2023 for 2 days showing sinus rhythm with average heart rate 96, PACs 13% of time, no SVT runs, heart rate greater than 139% of time. She tells me she is feeling a reduction in her heart palpitations however she still knee seems to notice a rapid heartbeat daily. Will increase her diltiazem up to 180 mg daily. May need to further increase based on symptoms. Will plan to call her in 2-3 weeks to reassess condition. If she still feels palpitations will further increase her dose. Cardiology office visit in 3 months, sooner if needed (2) Palpitations: Code(s): R00.2 - Palpitations (3) PAC (premature atrial contraction): Code(s): I49.1 - Atrial premature depolarization Medications: New diltiazem HCl 180 mg PO DAILY 30 caps 2RF Discontinued diltiazem HCl (Cardizem CD) Discontinued Reason: Doctor's Order 120 mg PO DAILY 30 caps 5RF I47.1 - Supraventricular tachycardia Coding Level of Care Code Est Pt Level 3 (61128) Diagnoses SVT (supraventricular tachycardia) I47.1 Palpitations R00.2 PAC (premature atrial contraction) I49.1 Time Spent (min) 24
== END 2023-09-01 14:37 | disposition home or self-care (01) ==
PROVIDERS: PCP Family Medicine; Visit Provider Nurse Practitioner Family
DX: I47.1 Supraventricular tachycardia (principal); R00.2 Palpitations; I49.1 Atrial premature depolarization
CPT/HCPCS: 99213

== ENCOUNTER → 2023-09-01 13:49 | Outpatient (BNVA) | payer MEDICAID, SELFPAY | PROVIDERS: PCP Family Medicine; Visit Provider Nurse Practitioner Family | DX: I47.10 Supraventricular tachycardia, unspecified (principal); I49.1 Atrial premature depolarization; R00.2 Palpitations | CPT/HCPCS: 99212 ==

== ENCOUNTER 2023-10-07 08:39 | Outpatient (REF) | payer MEDICAID, SELFPAY ==
[2023-10-07 12:37] LABS: Estimated Average Glucose 123 mg/dL; Hemoglobin A1c % 5.9 % (<6.0)
[2023-10-07 13:27] LABS: Alanine Aminotransferase 14 U/L (0-31); Alkaline Phosphatase 90 U/L (39-117); Anion Gap 12 (12-20); Aspartate Amino Transferase 17 U/L (5-31); Blood Urea Nitrogen 17 mg/dL (9-16); Calcium 9.1 mg/dL (8.4-10.2); Carbon Dioxide 27 mmol/L (22-29); Chloride 107 mmol/L (96-108); Estimated Glomerular Filt Rate > 60; Glucose Random 85 mg/dL (60-115); Potassium 4.7 mmol/L (3.3-5.1); Sodium 141 mmol/L (135-145); TSH reflex Free T4 1.69 uIU/mL (0.32-4.0); Total Protein 7.6 g/dL (6.5-8.0)
[2023-10-07 13:43] LABS: Bilirubin Total 0.2 mg/dL (0.0-1.0)
== END 2023-10-07 08:40 | disposition home or self-care (01) ==
LOC: HO.HHCL 08:39
PROVIDERS: Visit Provider Family Medicine
DX: R00.2 Palpitations (principal); R73.03 Prediabetes
CPT/HCPCS: 36415; 80053; 83036; 84443

== ENCOUNTER 2023-12-03 12:48 | Outpatient (AMB) | payer MEDICAID, SELFPAY ==
[2023-12-03 12:51] VITALS: BP 114/72; PULSE 79; BMI 26.6
--- NOTE | 2023-12-03 12:51 | MHC.OFFVIS ---
Intake Vital Signs 12/03/23 12:51 Height 5 ft 4 in Weight 154 lb 12.232 oz BMI 26.6 BP 114/72 Blood Pressure Location Lt brachial Position Sitting Pulse 79 Pulse Source Pulse Oximeter Intake Visit Reasons: 3 mth f/up Child Life Assistant Required: Yes Child Life Assistant Language: Malagasy Amusement Or Recreation Card Checker: Amusement Or Recreation Card Checker Present Allergies oxycodone [From PERCOCET] Allergy (Severe, Verified 12/03/23 12:55) HALLUCINATIONS peanut [PEANUT] Allergy (Intermediate, Verified 12/03/23 12:55) ITCHY THROAT/MOUTH tree nut [TREE NUT] Allergy (Intermediate, Verified 12/03/23 12:55) ITCHY THROAT/MOUTH acetaminophen [Percocet] Allergy (Unknown, Verified 12/03/23 12:55) Unknown nabumetone Adverse Reaction (Intermediate, Verified 12/03/23 12:55) Unknown SEAFOOD Allergy (Severe, Uncoded 12/03/23 12:55) ANAPHYLAXIS FRUIT, SKINS Allergy (Intermediate, Uncoded 12/03/23 12:55) ITCHY THROAT/MOUTH Medication List - Last Reconciled 12/03/23 by VINCE Bro acetaminophen 1,000 mg PO Q8H PRN acetaminophen ER 650 mg PO Q8H PRN albuterol sulfate 90 mcg/actuation 2 puffs inhalation Q4-6H PRN cetirizine 10 mg PO DAILY cholecalciferol (vitamin D3) 50 mcg PO DAILY diltiazem HCl (Cartia XT) 120 mg PO DAILY epinephrine 0.3 mg IM Q4H PRN fluticasone propionate 50 mcg/actuation 1 inh inhalation BID lidocaine 5% (Lidoderm) 1 patch topical DAILY meclizine 25 mg PO DAILY methocarbamol 750 mg PO BEDTIME HPI 3 mth f/up HPI Details Freida is a 63-year-old female past medical history of heart palpitations, PACs and SVT who had Diltiazem dose increased last visit and now presents for follow-up. Today she states that taking the higher dose diltiazem she noted headache, lightheadedness and fatigue. She says she stopped that dose and 2 days ago restarted the lower dose, diltiazem 120 mg daily. She feels the lightheadedness has improved some she continues to have a headache. While on diltiazem she has noticed decrease in her heart palpitations. She has no chest discomfort, shortness of breat, presyncope, syncope, PND, orthopnea or edema. Certified home stager used. [facility] Medical History Arthritis Asthma Asthma Fibromyalgia, primary Family History Sister Breast cancer Mother Colon cancer Father Stomach cancer Social History Household Members: Spouse Household Members Other:: grandchild Housing: House Are you a primary health care / medical job titles to a significant other at home: No Do you presently have visiting nurse or other home services: No Patient Tobacco Use Status: Never used Tobacco service: No Current occupational status: employed Review of Systems Const All systems reviewed & are unremarkable except as noted in HPI and below Reports fatigue and Reports headache(s) ENT Reports dizziness and Reports headache(s) Card Denies chest pain, Denies chest pain at rest, Denies chest pain with activity, Reports rapid heart rate, Denies pedal edema, Denies edema, Denies leg edema, Denies lightheadedness, Reports palpitations, Denies dyspnea, Denies dyspnea on exertion and Denies orthopnea Resp Denies cough, Denies dyspnea and Denies dyspnea on exertion GI Denies hematochezia and Denies change in stool character Musc Denies abnormal gait, Denies limited range of motion, Denies muscle cramps, Denies muscle weakness, Denies numbness, Denies radiating pain into limb, Denies stiffness and Denies tingling Neuro Denies abnormal gait, Reports dizziness, Reports headache(s), Denies numbness and Denies tingling Endo Reports fatigue and Reports palpitations Physical Exam Vital Signs: Last Vital Signs Pulse 79 12/03/23 12:51 BP 114/72 12/03/23 12:51 BMI result Body Mass Index 26.6 Const General: cooperative, healthy appearing, comfortable and no acute distress Orientation/consciousness: patient oriented x3 Neck Neck: Yes normal visual inspection and Yes no JVD Resp Effort & Inspection: normal respiratory effort Auscultation: clear to auscultation bilaterally, no crackles, no rales, no rhonchi and no wheezes Cardio Jugular venous distension: no JVD Rate: regular rate Rhythm: regular rhythm Heart sounds: S1 normal heart sound present, S2 normal heart sound present, no murmurs and no rubs Neuro General: patient oriented x3 Extrem General: Yes normal to inspection, No no pedal edema and No calf tenderness Psych Appearance: grossly normal Mental Status: mental status grossly normal Speech and movement: Normal speech and movement present Assessment & Plan Assessment & Plan (1) SVT (supraventricular tachycardia): Code(s): I47.1 - Supraventricular tachycardia Plan: Patient has Reports of heart palpitations. Holter monitor done 02/16/2023 for 3 days showing sinus rhythm with average heart rate 96, 39% of time heart rate greater than 100, PACs 12%, frequent SVT runs, longest 37 beats. Echocardiogram done 04/01/2022 showed EF 58%, no valve abnormalities, no regional wall motion abnormalities, Both atria normal size. She initially was started on diltiazem CD 120 mg daily. A repeat Holter monitor was done on 06/30/2023 for 2 days showing sinus rhythm with average heart rate 96, PACs 13% of time, no SVT runs, heart rate greater than 139% of time. Then on last visit she reported a reduction in her heart palpitations however she still noticed a rapid heartbeat daily. Her diltiazem dose was increase her diltiazem up to 180 mg daily. She recently called the office to report that she had headache, lightheadedness and fatigue since taking the higher dose diltiazem. She held her medication then had recurrent heart palpitations. She has since restarted the 120 mg daily dose, 2 days ago. She continues to have headaches but the lightheadedness has improved. She will continue on this dose and let us know in about a week how she is doing. If she continues to have headache and fatigue then will consider waste/materials exchange specialist to metoprolol XL for heart rate control. Cardiology office visit in 3 months, sooner if needed (2) Palpitations: Code(s): R00.2 - Palpitations Plan: As above (3) PAC (premature atrial contraction): Code(s): I49.1 - Atrial premature depolarization Plan: As above, SVT runs Plan Time spent on chart review, documentation, interview and assessment Coding Level of Care Code Est Pt Level 4 (02036) Diagnoses SVT (supraventricular tachycardia) I47.1 Palpitations R00.2 PAC (premature atrial contraction) I49.1 Time Spent (min) 30
== END 2023-12-03 13:23 | disposition home or self-care (01) ==
PROVIDERS: PCP Family Medicine; Visit Provider Nurse Practitioner Family
DX: I47.10 Supraventricular tachycardia, unspecified (principal); R00.2 Palpitations; I49.1 Atrial premature depolarization
CPT/HCPCS: 99214

== ENCOUNTER → 2023-12-03 12:48 | Outpatient (BNVA) | payer MEDICAID, SELFPAY | PROVIDERS: PCP Family Medicine; Visit Provider Nurse Practitioner Family | DX: I47.10 Supraventricular tachycardia, unspecified (principal); I49.1 Atrial premature depolarization; R00.2 Palpitations | CPT/HCPCS: 99212 ==

== ENCOUNTER 2024-01-29 11:53 | Outpatient (REF) | payer MEDICAID, SELFPAY ==
--- NOTE | ~2024-01-29 | XR_ITS ---
EXAMINATION: Bilateral shoulder series CLINICAL INFORMATION: Bilateral shoulder pain right greater than left COMPARISON: X-rays of the right and left shoulder December 2021 TECHNIQUE: 4 views of each shoulder FINDINGS: Right shoulder: Mild arthrosis of the acromioclavicular joint unchanged. Glenohumeral joint normal. Surrounding bone and soft tissues normal. No change. Left shoulder: The acromioclavicular joint and glenohumeral joint are normal. Surrounding bone and soft tissues are unremarkable. XR/XR shoulder RT min 2V IMPRESSION: RIGHT SHOULDER: Mild arthrosis of the acromioclavicular joint unchanged. LEFT SHOULDER: Normal.
--- NOTE | ~2024-01-29 | XR_ITS ---
EXAMINATION: Bilateral shoulder series CLINICAL INFORMATION: Bilateral shoulder pain right greater than left COMPARISON: X-rays of the right and left shoulder December 2021 TECHNIQUE: 4 views of each shoulder FINDINGS: Right shoulder: Mild arthrosis of the acromioclavicular joint unchanged. Glenohumeral joint normal. Surrounding bone and soft tissues normal. No change. Left shoulder: The acromioclavicular joint and glenohumeral joint are normal. Surrounding bone and soft tissues are unremarkable. XR/XR shoulder LT min 2V IMPRESSION: RIGHT SHOULDER: Mild arthrosis of the acromioclavicular joint unchanged. LEFT SHOULDER: Normal.
== END 2024-01-29 11:54 | disposition home or self-care (01) ==
LOC: HO.XRAY 11:53
PROVIDERS: PCP Family Medicine; Visit Provider Family Medicine
DX: M25.511 Pain in right shoulder (principal); M25.512 Pain in left shoulder; G89.29 Other chronic pain
CPT/HCPCS: 73030

== ENCOUNTER 2024-03-10 14:48 | Outpatient (AMB) | payer MEDICAID, SELFPAY ==
[2024-03-10 15:04] VITALS: BP 118/72; PULSE 70; BMI 26.9
--- NOTE | 2024-03-10 15:04 | MHC.OFFVIS ---
Vital Signs 03/10/24 15:04 Height 5 ft 4 in Weight 156 lb 15.506 oz BMI 26.9 BP 118/72 Blood Pressure Location Lt brachial Position Sitting Pulse 70 Pulse Source Pulse Oximeter Intake Visit Reasons: 3 m follow up Ethylbenzene Oxidizer Required: No Allergies oxycodone [From PERCOCET] Allergy (Severe, Verified 03/10/24 15:07) HALLUCINATIONS peanut [PEANUT] Allergy (Intermediate, Verified 03/10/24 15:07) ITCHY THROAT/MOUTH tree nut [TREE NUT] Allergy (Intermediate, Verified 03/10/24 15:07) ITCHY THROAT/MOUTH acetaminophen [Percocet] Allergy (Unknown, Verified 03/10/24 15:07) Unknown nabumetone Adverse Reaction (Intermediate, Verified 03/10/24 15:07) Unknown SEAFOOD Allergy (Severe, Uncoded 03/10/24 15:07) ANAPHYLAXIS FRUIT, SKINS Allergy (Intermediate, Uncoded 03/10/24 15:07) ITCHY THROAT/MOUTH Medication List - Last Reconciled 03/10/24 by VINCE Bro acetaminophen 1,000 mg PO Q8H PRN acetaminophen ER 650 mg PO Q8H PRN albuterol sulfate 90 mcg/actuation 2 puffs inhalation Q4-6H PRN cetirizine 10 mg PO DAILY cholecalciferol (vitamin D3) 50 mcg PO DAILY diltiazem HCl CD (Cartia XT) 120 mg PO DAILY epinephrine 0.3 mg IM Q4H PRN fluticasone propionate 50 mcg/actuation 1 inh inhalation BID gabapentin mg PO lidocaine 5% (Lidoderm) 1 patch topical DAILY meclizine 25 mg PO DAILY HPI HPI 3 m follow up: Details: Freida is a 63-year-old female past medical history of heart palpitations, PACs and SVT who presents for follow-up. Today she states that she feels better on the lower dose diltiazem. With the higher dose she was getting a headache, lightheadedness and fatigue. Continues to feel heart palpitations like her heart is racing at times. The episodes are not prolonged. She has been noticing some pressure in her mid chest that has associated weakness and some lightheadedness. The episodes occur randomly and can last a few minutes before resolving. She has no clear chest discomfort brought on by exertional activities. No shortness of breath, PND, orthopnea or edema. 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 [facility] Medical History Arthritis Asthma Asthma Fibromyalgia, primary Family History Sister Breast cancer Mother Colon cancer Father Stomach cancer Social History Household Members: Spouse Household Members Other:: grandchild Housing: House Are you a primary rental boats caretaker to a significant other at home: No Do you presently have visiting nurse or other home services: No Patient Tobacco Use Status: Never used Tobacco service: No Current occupational status: employed Review of Systems Const All systems reviewed & are unremarkable except as noted in HPI and below ENT Denies dizziness Card Details: Heart palpitations Reports chest pain, Denies chest pain at rest, Denies chest pain with activity, Denies rapid heart rate, Denies pedal edema, Denies edema, Denies leg edema, Denies lightheadedness, Denies palpitations, Denies dyspnea, Denies dyspnea on exertion and Denies orthopnea Resp Denies cough, Denies dyspnea and Denies dyspnea on exertion GI Denies hematochezia and Denies change in stool character Musc Denies abnormal gait, Denies limited range of motion, Denies muscle cramps, Denies muscle weakness, Denies numbness, Denies radiating pain into limb, Denies stiffness and Denies tingling Neuro Denies abnormal gait, Denies dizziness, Denies numbness and Denies tingling Endo Denies palpitations Physical Exam Vital Signs: Last Vital Signs Pulse 70 03/10/24 15:04 BP 118/72 03/10/24 15:04 BMI result Body Mass Index 26.9 Const General: cooperative, healthy appearing, comfortable and no acute distress Orientation/consciousness: patient oriented x3 Neck Neck: Yes normal visual inspection and Yes no JVD Resp Effort & Inspection: normal respiratory effort Auscultation: clear to auscultation bilaterally, no crackles, no rales, no rhonchi and no wheezes Cardio Jugular venous distension: no JVD Rate: regular rate Rhythm: regular rhythm Heart sounds: S1 normal heart sound present, S2 normal heart sound present, no murmurs and no rubs Neuro General: patient oriented x3 Extrem General: Yes normal to inspection, No no pedal edema and No calf tenderness Psych Appearance: grossly normal Mental Status: mental status grossly normal Speech and movement: Normal speech and movement present Assessment & Plan Assessment & Plan (1) SVT (supraventricular tachycardia): Code(s): I47.1 - Supraventricular tachycardia Category: Medical Plan: History of heart palpitations, runs of SVT. Holter monitor done 02/16/2023 for 3 days showing sinus rhythm with average heart rate 96, 39% of time heart rate greater than 100, PACs 12%, frequent SVT runs, longest 37 beats. Echocardiogram done 04/01/2022 showed EF 58%, no valve abnormalities, no regional wall motion abnormalities, Both atria normal size. She initially was started on diltiazem CD 120 mg daily. A repeat Holter monitor was done on 06/30/2023 for 2 days showing sinus rhythm with average heart rate 96, PACs 13% of time, no SVT runs, heart rate greater than 39% of time. On follow-up her diltiazem dose was increased up to 180 mg which she did not tolerate. She had symptoms of lightheadedness, headache and fatigue. Her dose was reduced back to 120 mg daily. She is still noticing heart palpitations. No sustained rapid rates. At this time she is also reporting some episodes of chest pressure. Will order an exercise nuclear stress test to further evaluate. She says she can exercise on the treadmill. Will be able to assess for any exercise-induced arrhythmia as well as ischemia. At this time will continue current diltiazem. Reduction in caffeinated beverages reviewed. Vagal maneuvers reviewed. She may need a change in her rate slowing agent from calcium channel thang over to beta-thang. Cardiology follow-up in 4-6 weeks, sooner if needed. (2) Palpitations: Code(s): R00.2 - Palpitations Category: Medical Plan: As above (3) PAC (premature atrial contraction): Code(s): I49.1 - Atrial premature depolarization Category: Medical Plan: As above, SVT runs (4) Chest discomfort: Code(s): R07.89 - Other chest pain Category: Medical Plan: Reports of chest pressure, random occurrence with associated weakness and lightheadedness. No known history of CAD. Will check an exercise stress test to evaluate for ischemia. Plan Time spent on chart review, documentation, interview and assessment Orders: Orders CA stress test 03/10/24 I47.1 - Supraventricular tachycardia, I49.1 - Atrial premature depolarization, R00.2 - Palpitations, R07.89 - Other chest pain NM cardiolite stress test 03/10/24 I47.1 - Supraventricular tachycardia, I49.1 - Atrial premature depolarization, R00.2 - Palpitations, R07.89 - Other chest pain, R94.30 - Abnormal result of cardiovascular function study, unspecified Coding Level of Care Code Est Pt Level 4 (73649) Diagnoses SVT (supraventricular tachycardia) I47.1 Palpitations R00.2 PAC (premature atrial contraction) I49.1 Chest discomfort R07.89 Time Spent (min) 28
== END 2024-03-10 15:41 | disposition home or self-care (01) ==
PROVIDERS: PCP Family Medicine; Visit Provider Nurse Practitioner Family
DX: I47.10 Supraventricular tachycardia, unspecified (principal); R00.2 Palpitations; I49.1 Atrial premature depolarization; R07.89 Other chest pain
CPT/HCPCS: 99214

== ENCOUNTER → 2024-03-10 14:48 | Outpatient (BNVA) | payer MEDICAID, SELFPAY | PROVIDERS: PCP Family Medicine; Visit Provider Nurse Practitioner Family | DX: I47.10 Supraventricular tachycardia, unspecified (principal); I49.1 Atrial premature depolarization; R00.2 Palpitations; R07.89 Other chest pain | CPT/HCPCS: 99212 ==

== ENCOUNTER 2024-03-15 08:02 | Outpatient (REF) | payer MEDICAID, SELFPAY | END 2024-03-15 08:03 | disposition home or self-care (01) | LOC: HO.MAMMO 08:02 | PROVIDERS: PCP Family Medicine; Visit Provider Family Medicine | DX: Z12.31 Encounter for screening mammogram for malignant neoplasm of breast (principal) | CPT/HCPCS: 77063; 77067 ==

== ENCOUNTER → 2024-03-15 09:15 | Outpatient (BNV) | payer MEDICAID, SELFPAY | PROVIDERS: PCP Family Medicine; Visit Provider Radiology Diagnostic Radiology | DX: Z12.31 Encounter for screening mammogram for malignant neoplasm of breast (principal) | CPT/HCPCS: 77063; 77067 ==

== ENCOUNTER 2024-03-22 07:00 | Outpatient (RCR) | payer MEDICAID, SELFPAY | END 2024-07-01 12:00 | disposition home or self-care (01) | LOC: HO.PT 07:00 | PROVIDERS: PCP Family Medicine; Visit Provider Family Medicine | DX: M25.511 Pain in right shoulder (principal) | CPT/HCPCS: 97110; 97140; 97161 ==

== ENCOUNTER → 2024-04-28 08:59 | Outpatient (REF) | payer MEDICAID, SELFPAY ==
--- NOTE | ~2024-04-28 | NM_ITS ---
Exercise Myocardial perfusion study Indication: Chest pain to evaluate for myocardial ischemia Technique: The patient was brought in for an exercise perfusion study on 04/28/2024. Patient performed exercise as per Shaji protocol and was injected 25 mCi of sestamibi was given intravenously one target HR was achieved. Images were obtained using the SPECT gamma camera interlaced with the gating device. Images were obtained in supine position. Resting perfusion study was performed on 05/03/2024. Patient was administered 25 mCi of sestamibi intravenously at rest. Images were then obtained in supine position. Images obtained with and without CT attenuation. Total DLP 151 mGy-cm. Images were processed with the software and compared side to side in short axis, horizontal long axis and vertical long axis views. Findings: The stress perfusion study showed non attenuated images show some thinning of the apical portion of inferolateral wall of the LV myocardium. Otherwise overall normal uptake of radiotracer in all segments of LV myocardium. Attenuation corrected images show normal uptake of radiotracer in all segments of LV myocardium.. The gated study shows normal LV systolic function with calculated LVEF of 61%. LV cavity is normal in size. The gated study shows normal systolic wall thickening and contraction of all segments. There is no transient ischemic dilation. Resting study shows no change in perfusion pattern compared to stress perfusion study. Gating at rest reveals normal systolic wall motion with ejection fraction at 64%. The findings are consistent with likely normal myocardial perfusion. NM/NM cardiolite stress test Impression: 1. Normal myocardial perfusion 2. Gated LVEF is 61% 3. Transient ischemic dilatation not present Stress EKG is negative for ischemia
--- NOTE | 2024-04-28 09:03 | CA_ITS ---
Acquisition Time: 2024-04-28 09:09:35 Total Exercise Time: 00:05:00 Test Indications: chest pain, svt, pac's Medications: Protocol: KASSIDY Max HR: 151 BPM 96% of Pred: 156 BPM Max BP: 156/052 mmHG Max Work Load: 4.6 METS Exercise stress test exercise 5 min of Kassidy protocol stage 1 achieving 94-96% MPHR, with mild to moderate SOB, no chest discomfort, with isolated PVCs and PACs and short atrial runs, with normotensive response to exercise, with brisk HR response, without EKG changes. Nuclear images pending. Test reviewed with Dr. Tripp. Referred By: Anaid Hyatt Overread By: Mery Crabtree
== END ==
LOC: HO.CARD 08:59
PROVIDERS: PCP Family Medicine; Visit Provider Nurse Practitioner Family
DX: R07.89 Other chest pain (principal); I49.1 Atrial premature depolarization; R00.2 Palpitations; R94.30 Abnormal result of cardiovascular function study, unspecified; I47.10 Supraventricular tachycardia, unspecified
CPT/HCPCS: 78452; 93017; A9500

== ENCOUNTER → 2024-04-28 09:03 | Outpatient (BNV) | payer MEDICAID, SELFPAY | PROVIDERS: PCP Family Medicine; Visit Provider Nurse Practitioner | DX: R07.9 Chest pain, unspecified (principal) | CPT/HCPCS: 78452; 93016; 93018 ==

== ENCOUNTER 2024-06-07 08:44 | Outpatient (REF) | payer OTHER, MEDICAID, SELFPAY ==
--- NOTE | ~2024-06-07 | XR_ITS ---
EXAMINATION: XR THORACIC SPINE CLINICAL INFORMATION: Back pain. COMPARISON: None available. TECHNIQUE: AP and lateral views of the thoracic spine. FINDINGS: Normal vertebral body alignment. The thoracic kyphosis is maintained. No acute fractures or subluxation. No loss of vertebral body height. Mild multilevel loss of intervertebral disc height with small anterior endplate osteophytes within the lower thoracic spine. No concerning lytic or blastic osseous lesion. The visualized lungs are clear. Right upper quadrant surgical clips. 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 Electronically signed by: Jacob Liu MD 06/23/2024 08:57 PM EDT
--- NOTE | ~2024-06-07 | XR_ITS ---
EXAMINATION: XR LUMBAR SPINE CLINICAL INFORMATION: Chronic back pain. COMPARISON: Radiographs lumbar spine 03/19/2022. TECHNIQUE: AP, lateral and bilateral oblique views of the lumbar spine. FINDINGS: No evidence of acute compression deformity or subluxation. Mild to moderate intervertebral disc height loss and facet arthropathy from L4 through S1 leading to some degree of neural foraminal encroachment, increased compared to 2019. Symmetric SI joints. No significant paraspinal soft tissue abnormality. Right upper quadrant surgical clips and additional small surgical clip in the left hemipelvis. XR/XR lumbar spine 4V min IMPRESSION: 1. No acute compression deformity or subluxation. 2. Mild to moderate lumbar spondylosis, increased compared to 2019. Electronically signed by: Shea Lopez MD 06/27/2024 11:58 AM EDT
[2024-06-07 11:44] LABS: Estimated Average Glucose 117 mg/dL; Hemoglobin A1c % 5.7 % (<6.0)
[2024-06-07 12:09] LABS: Alanine Aminotransferase 13 U/L (0-31); Albumin Level 4.1 g/dL (3.5-5.0); Alkaline Phosphatase 77 U/L (39-117); Anion Gap 9 (12-20); Aspartate Amino Transferase 18 U/L (5-31); Bilirubin Total 0.4 mg/dL (0.0-1.0); Blood Urea Nitrogen 17 mg/dL (9-16); Calcium 9.4 mg/dL (8.4-10.2); Carbon Dioxide 30 mmol/L (22-29); Chloride 105 mmol/L (96-108); Estimated Glomerular Filt Rate > 60; Glucose Random 99 mg/dL (60-115); Potassium 3.8 mmol/L (3.3-5.1); Sodium 140 mmol/L (135-145); Total Protein 7.7 g/dL (6.5-8.0)
[2024-06-07 12:17] LABS: TSH reflex Free T4 0.97 uIU/mL (0.32-4.0); Vitamin D 25-OH Total 27.9 ng/mL (>30)
== END 2024-06-07 08:45 | disposition home or self-care (01) ==
LOC: HO.HHCL 08:44
PROVIDERS: Visit Provider Family Medicine
DX: R73.01 Impaired fasting glucose (principal); I47.10 Supraventricular tachycardia, unspecified; E55.9 Vitamin D deficiency, unspecified; M54.50 Low back pain, unspecified; G89.29 Other chronic pain; M54.6 Pain in thoracic spine
CPT/HCPCS: 36415; 72070; 72110; 80053; 82306; 83036; 84443

== ENCOUNTER 2024-07-11 10:57 | Outpatient (REF) | payer MEDICAID, SELFPAY ==
[2024-07-11 13:24] LABS: Appearance Urine Clear; Color Urine Yellow; Glucose Urine UA Negative (Negative); Leukocyte Esterase Urine Moderate (2+) (Negative); Nitrite Urine Negative (Negative); PH 5.5 (5.0-9.0); UMIC TRIGGER UACC YES; Urine Blood Negative (Negative); Urine Ketones Negative (Negative); Urine Protein Negative (Neg-Trace)
[2024-07-11 13:26] LABS: MANUAL DIFF FLAG NO
[2024-07-11 13:30] LABS: Bacteria Urine None Seen (None Seen); Hyaline Casts Urine 0-2 /LPF (0-2); RBC Urine 0-2 /HPF (0-2); UACC Culture Trigger YES
[2024-07-11 13:36] LABS: Basophils Percent Auto 0.6 % (0-2); Eosinophils Absolute Auto 0.1 X10*3/uL (0.0-0.4); Eosinophils Percent Auto 3.1 % (0-4); Hematocrit 37.6 % (37.0-47.0); Hemoglobin 12.5 g/dl (12.0-16.0); Lymphocytes Absolute Auto 1.5 X10*3/uL (1.2-4.9); Lymphocytes Percent Auto 47.5 % (20-40); Mean Corpuscular HGB Conc 33.2 g/dl (31.0-35.0); Mean Corpuscular Hemoglobin 32.4 pg (27.0-33.0); Mean Corpuscular Volume 97.4 fL (80.0-98.0); Mean Platelet Volume 12.9 fL (9.4-12.3); Monocytes Absolute Auto 0.2 X10*3/uL (0.1-1.2); Monocytes Percent Auto 6.6 % (2-11); Neutrophils Absolute Auto 1.3 x10*3/uL (2.0-8.3); Neutrophils Percent Auto 42.2 % (45-73); Platelet Count 175 X10*3/uL (160-400); Red Blood Count 3.86 X10*6/uL (4.20-5.50); Red Cell Distribution Width 12.2 % (11.0-16.0); White Blood Count 3.2 X10*3/uL (4.8-10.8)
[2024-07-11 14:06] LABS: Cholesterol 174 mg/dL (<200); HDL Cholesterol 61 mg/dL (>40); LDL Cholesterol Calculated 103 mg/dL (<100); Triglycerides 52 mg/dL (<150)
[2024-07-11 14:19] LABS: Vitamin B12 200 pg/mL (200-900)
[2024-07-11 14:32] LABS: Reflex LDLD? No
[2024-07-11 14:50] LABS: Folate 13.8 ng/mL (> or = 4.0)
== END 2024-07-11 10:58 | disposition home or self-care (01) ==
LOC: HO.HHCL 10:57
PROVIDERS: Referring Provider Internal Medicine; Visit Provider Family Medicine
DX: R73.01 Impaired fasting glucose (principal); E66.3 Overweight; R20.2 Paresthesia of skin; M54.50 Low back pain, unspecified; R82.79 Other abnormal findings on microbiological examination of urine
CPT/HCPCS: 36415; 80061; 81001; 82607; 82746; 85025; 87086; 87147

== ENCOUNTER → 2024-11-09 10:09 | Outpatient (BNV) | payer MEDICAID, SELFPAY | PROVIDERS: Visit Provider Radiology Diagnostic Radiology | DX: R05.9 Cough, unspecified (principal); R07.89 Other chest pain | CPT/HCPCS: 71046 ==

== ENCOUNTER 2024-11-13 15:31 | Emergency (ER) | payer OTHER, SELFPAY ==
--- NOTE | ~2024-11-13 | CT_ITS ---
CLINICAL HISTORY: paon, sbo? CT abdomen and pelvis with contrast Comparison: CT of the abdomen and pelvis from 11/28/2019 Findings: Mild bibasilar atelectasis and/or scarring, left worse than right. Mild biliary ductal dilatation is nonspecific and can be seen post cholecystectomy. The gallbladder is surgically absent. Mild fat deposition of the liver. Spleen is nonenlarged. Adrenal glands and pancreas are unremarkable without significant change. Hydronephrosis. No new or enlarging lymphadenopathy. No small bowel obstruction. Severe stool burden, including the cecum. Imaged appendix is within normal limits. (Image 64 of series 3). Phleboliths noted in the pelvis. Surgical clips in the left hemipelvis. Uterus deviates to the left. No adnexal soft tissue mass. Mild wall thickening of the urinary bladder is nonspecific. Degenerative changes of the hips, SI joints, and spine. Multilevel Schmorl's nodes including junction, with marked increased sclerosis of the L5. Facet arthropathy is multifocal. IMPRESSION: 1. Severe stool burden. No small bowel obstruction. 2. mild biliary ductal dilatation is nonspecific and can be seen post cholecystectomy. This document has been electronically signed by: Luis Armando Islas MD on 11/13/2024 22:58:30
[2024-11-13 16:21] VITALS: BP 97/67; PULSE 111; RESP 22; TEMP 36.7; O2SAT 98; BMI 23.4
--- NOTE | 2024-11-13 16:23 | ED_ITS ---
HPI - Abdominal Pain General Chief Complaint: Abdominal Pain Stated Complaint: abdominal pain Time Seen by Provider: 11/13/24 21:01 Source: patient Limitations: no limitations History of Present Illness ED Provider: Katherin Rosenthal PA-C HPI narrative: 64-year-old female with a history of hypertension presents with upper abdominal discomfort x7 days. Patient unable to describe the nature of her discomfort, she indicates it is nonradiating, worse after eating and triggers nausea vomiting. Associated constipation, unclear when she last had her last bowel movement. Associated mild abdominal bloating. Patient continues to pass gas from below. Patient is status post remote cholecystectomy greater than 20 years ago. Related Data Home Medications ?Medication ?Instructions ?Recorded ?Confirmed acetaminophen 500 mg tablet 1,000 mg PO Q8H PRN Pain 02/19/22 04/28/24 albuterol sulfate 90 mcg/actuation 2 puff inhalation Q4-6H PRN Rash 02/19/22 04/28/24 aerosol inhaler cetirizine 10 mg tablet 10 mg PO DAILY 02/19/22 04/28/24 cholecalciferol (vitamin D3) 50 50 mcg PO DAILY 02/19/22 04/28/24 mcg (2,000 unit) capsule epinephrine 0.3 mg/0.3 mL 0.3 mg IM Q4H PRN Allergic Reaction 02/19/22 04/28/24 injection, auto-injector fluticasone propionate 50 1 inh inhalation BID 02/19/22 04/28/24 mcg/actuation blister powder for inhalation lidocaine 5 % topical patch 1 patch topical DAILY 02/19/22 04/28/24 (Lidoderm) acetaminophen 650 mg 650 mg PO Q8H PRN fever 12/03/23 04/28/24 tablet,extended release meclizine 12.5 mg tablet 25 mg PO DAILY nausea 12/03/23 04/28/24 gabapentin 100 mg capsule 100 mg PO DAILY 03/10/24 04/28/24 Previous Rx's ?Medication ?Instructions ?Recorded diltiazem HCl 120 mg 120 mg PO DAILY #90 caps 12/09/23 capsule,extended release 24 hr (Cartia XT) Allergies Allergy/AdvReac Type Severity Reaction Status Date / Time oxycodone [From PERCOCET] Allergy Severe HALLUCINATI Verified 11/13/24 16:30 ONS peanut [PEANUT] Allergy Intermediate ITCHY Verified 11/13/24 16:30 THROAT/MOUTH tree nut [TREE NUT] Allergy Intermediate ITCHY Verified 11/13/24 16:30 THROAT/MOUTH acetaminophen [Percocet] Allergy Unknown Unknown Verified 11/13/24 16:30 nabumetone AdvReac Intermediate Unknown Verified 11/13/24 16:30 SEAFOOD Allergy Severe ANAPHYLAXIS Uncoded 11/13/24 16:30 FRUIT, SKINS Allergy Intermediate ITCHY Uncoded 11/13/24 16:30 THROAT/MOUTH Review of Systems Review of Systems Yes all other systems are reviewed and are negative Constitutional: Denies fatigue and Denies fever(s) Cardiovascular: Denies chest pain and Denies dyspnea Respiratory: Denies cough and Denies dyspnea Gastrointestinal: Reports abdominal pain, Reports bloating, Reports constipation, Denies diarrhea, Reports nausea and Reports vomiting Genitourinary: Denies dysuria Musculoskeletal: Denies back pain Endocrine: Denies fatigue [facility] Past Medical History Attestation statement: The following information was validated with the patient. Medical History Arthritis Asthma Asthma Fibromyalgia, primary Family History Family History Sister Breast cancer Mother Colon cancer Father Stomach cancer Social History Social History Household Members: Spouse Household Members Other:: grandchild Housing: House Are you a primary career portals teacher to a significant other at home: No Do you presently have visiting nurse or other home services: No Patient Tobacco Use Status: Never used Tobacco Advance Directives: No Advance Directives Information Provided: No service: No Current occupational status: employed Physical Exam ED Vital Signs: Vital Signs - 24 hr 11/13/24 16:21 Temperature 98.1 F Pulse Rate 111 H Respiratory Rate 22 H Blood Pressure 97/67 Pulse Oximetry 98 BMI result Body Mass Index 23.4 Const Other: Alert, appears uncomfortable Orientation/consciousness: patient oriented x3 Resp Effort & Inspection: normal respiratory effort Cardio Other: Normal peripheral perfusion GI Other: Abdomen is soft, moderate tenderness across entire abdomen with a mild involuntary guarding, there was some degree of generalized tenderness to palpation, mild bloating, I would not called distended. Skin Other: Warm dry no rash Neuro General: patient oriented x3, gait normal, no focal motor deficits and CN's II- XI intact bilaterally Psych Other: Cooperative Course Course Course Narrative: This is an RME performed by Alda Orellana CNP: Additional HPI, ROS, PE not included below will be deferred to primary provider. Patient is a 64-year-old female who presents emergency department for evaluation. She states about 3 weeks ago she was still with gastrointestinal illness, 2 weeks ago she was experiencing headaches, fevers, chills, body aches. She had an in-home medical service come to her home, there was concern for possibly pneumonia was advised to see her primary care doctor. Reports evaluation 11/02/2024, she was given a prescription for azithromycin and prednisone, despite completing the 5 day course she still was not feeling better. She was seen again by her doctor , they provided her an additional course of prednisone 40 mg for 5 days but she states she did not pick this up in the pharmacy because she was not feeling well. Two days ago she had the end home medical service again, they provided her with IV fluids as well as IV nausea medications. She states that she still has persistent epigastric pain, nausea, vomiting when attempting to eat solids, is able to tolerate liquids without vomiting. Admits to mild dysuria, intermittent lower abdominal pain, constipation. CXR 11/06/24 with no acute pathology Plan: Serum labs, viral serologies Medical Decision Making Medical Decision Making MDM Narrative: 64-year-old female with a history of hypertension presents with upper abdominal discomfort x7 days. Patient unable to describe the nature of her discomfort, she indicates it is nonradiating, worse after eating and triggers nausea vomiting. Associated constipation, unclear when she last had her last bowel movement. Associated mild abdominal bloating. Patient continues to pass gas from below. Patient is status post remote cholecystectomy greater than 20 years ago. Problem: Age, hypertension History: Per patient I have considered the following differential diagnoses: Biliary colic, cholecystitis, gastritis, pancreatitis, constipation, bowel obstruction, ACS Plan: Patient's symptoms sound consistent with biliary colic, however her cholecystectomy is remote. She does have some obstructive symptoms, I will be obtaining a CT scan to be sure she does not have a bowel obstruction. She has an allergy to opiates, we will be giving Ativan Zofran and saline. All of your screening labs were completed. Atypical presentation for ACS was considered given upper abdominal discomfort, EKG obtained. I have independently reviewed the following tests: Labs: No leukocytosis, no not anemic, no electrolyte abnormality, LFTs are minimally elevated, AST ALT and alk phos, bili is normal, lipase 17, viral panel negative, urine not infected EKG: Sinus tachycardia, rate of 117, no ischemic changes no ectopy, QTC 429 CT abdomen and pelvis:MPRESSION: 1. Severe stool burden. No small bowel obstruction. 2. mild biliary ductal dilatation is nonspecific and can be seen post cholecystectomy. This document has been electronically signed by: Luis Armando Islas MD on 11/13/2024 22:58:30 Lab Data 11/13/24 17:02 11/13/24 17:02 Labs: Lab Results 11/13/24 Range/Units 17:02 WBC 5.1 (4.8-10.8) X10*3/uL RBC 4.15 L (4.20-5.50) X10*6/uL Hgb 13.0 (12.0-16.0) g/dl Hct 40.0 (37.0-47.0) % MCV 96.4 (80.0-98.0) fL MCH 31.3 (27.0-33.0) pg MCHC 32.5 (31.0-35.0) g/dl RDW 12.0 (11.0-16.0) % Plt Count 177 (160-400) X10*3/uL MPV 11.0 (9.4-12.3) fL Immature Gran % (Auto) Cancelled Neut % (Auto) Cancelled Lymph % (Auto) Cancelled Travis % (Auto) Cancelled Eos % (Auto) Cancelled Baso % (Auto) Cancelled Lymph # (Auto) Cancelled Travis # (Auto) Cancelled Eos # (Auto) Cancelled Baso # (Auto) Cancelled Abs Immat Gran (auto) Cancelled Absolute Neuts (auto) Cancelled Absolute Nucleated RBC 0.000 (0.0-0.012) X10*3/uL Nucleated RBC % (auto) 0.0 (0.0-0.2) /100WBC Neutrophils % (Manual) 31 L (45-73) % Band Neutrophils % 4 (3-5) % Lymphocytes % (Manual) 41 H (20-40) % Atypical Lymphs % (Man) 17 H (0-6) % Monocytes % (Manual) 2 (2-11) % Eosinophils % (Manual) 4 (0-4) % Basophils % (Manual) 1 (0-2) % Abs Neuts (Manual) 1.8 L (2.0-8.3) X10*3/uL Lymphocytes # (Manual) 2.1 (1.2-4.9) X10*3/uL Atyp Lymphs # (Manual) 0.9 x10*3/uL Monocytes # (Manual) 0.1 (0.1-1.2) X10*3/uL Eosinophils # (Manual) 0.2 (0.0-0.4) X10*3/uL Basophils # (Manual) 0.1 (0.0-0.2) X10*3/uL Smudge Cells PRESENT Toxic Vacuolation PRESENT Platelet Estimate NORMAL (NORMAL) Large Platelets PRESENT Plt Morphology Comment NOTED RBC Morphology NOTED Schistocytes 1+ (0-2) /OIF Smear Tech's Comments MANUAL DIFF PT 13.2 H (10.9-12.4) SEC INR 1.1 (0.9-1.1) Sodium 139 (135-145) mmol/L Potassium 4.2 (3.3-5.1) mmol/L Chloride 104 (96-108) mmol/L Carbon Dioxide 28 (22-29) mmol/L Anion Gap 11 L (12-20) BUN 10 (9-16) mg/dL Creatinine 0.76 (0.5-1.4) mg/dL Estim Creat Clear Calc 63.7 Estimated GFR > 60 Random Glucose 94 (60-115) mg/dL Calcium 9.0 (8.4-10.2) mg/dL Magnesium 2.2 (1.6-2.6) mg/dL Total Bilirubin 0.6 (0.0-1.0) mg/dL AST 76 H (5-31) U/L ALT 99 H (0-31) U/L Alkaline Phosphatase 154 H (39-117) U/L Total Protein 8.0 (6.5-8.0) g/dL Albumin 3.8 (3.5-5.0) g/dL Lipase 17 (8-78) U/L Urine Color Dark Yellow Urine Appearance Cloudy Urine pH 5.5 (5.0-9.0) Ur Specific [place] 1.025 (1.005-1.025) Urine Protein 30 (1+) H (Neg-Trace) mg/dL Urine Glucose (UA) Negative (Negative) mg/dL Urine Ketones Trace (Negative) mg/dL Urine Blood Negative (Negative) Urine Nitrite Negative (Negative) Ur Leukocyte Esterase Small (1+) H (Negative) Urine RBC 0-2 (0-2) /HPF Urine WBC 0-5 (0-5) /HPF Ur Squamous Epith Cells 3-5 (0-2) /HPF Urine Bacteria Trace (None Seen) Hyaline Casts 3-5 (0-2) /LPF Influenza Type A (PCR) NEGATIVE (Negative) Influenza Type B (PCR) NEGATIVE (Negative) RSV RNA Qual (PCR) NEGATIVE (Negative) SARS-CoV-2 RNA (RT-PCR) NEGATIVE (Negative) Medications Administered Discontinued Medications Generic Name Dose Route Start Last Admin Trade Name Freq PRN Reason Stop Dose Admin Sodium Chloride 500 mls @ 500 mls/hr 11/13/24 21:08 11/13/24 23:09 Ns IV 11/13/24 22:07 Infused .Q1H ONE Infusion Iohexol 85 ml 11/13/24 22:17 11/13/24 22:18 Iohexol 350 Mg/Ml 100 Ml Infus..Btl IV 11/13/24 22:18 85 ml ONCE ONE Administration Lorazepam 1 mg 11/13/24 21:08 11/13/24 21:48 Lorazepam 2 Mg/Ml Vial IVPUSH 11/13/24 21:09 1 mg ONCE ONE Administration Ondansetron HCl 4 mg 11/13/24 21:08 11/13/24 21:48 Ondansetron Hcl 4 Mg/2 Ml Vial IVPUSH 11/13/24 21:09 4 mg ONCE ONE Administration Discharge Plan Discharge Clinical Impression: Constipation Patient Disposition: Home, Self-Care Instructions: Constipation (ED) Additional Instructions: All of your labs were normal, the CT scan revealed a your severely constipated. See home care instructions. You need to start using [id number] Colace, this is a stool softener, twice a day. You need to start using MiraLax this is purchased [id number], 2 to 3 times a day, until you begin having multiple, large volume bowel movements. You can increase the MiraLax if you like, it will help to speed the process along. After you clear your current stool burden, stay on the stool softener indefinitely. Follow up with your primary care provider as needed. Prescriptions: No Action diltiazem HCl [Cartia XT] 120 mg capsule,extended release 24hr 120 mg PO DAILY Qty: 90 3RF acetaminophen 500 mg tablet 1,000 mg PO Q8H PRN (Reason: Pain) cetirizine 10 mg tablet 10 mg PO DAILY lidocaine [Lidoderm] 5 % adhesive patch,medicated 1 patch topical DAILY albuterol sulfate 90 mcg/actuation HFA aerosol inhaler 2 puff inhalation Q4-6H PRN (Reason: Rash) epinephrine 0.3 mg/0.3 mL auto-injector 0.3 mg IM Q4H PRN (Reason: Allergic Reaction) fluticasone propionate 50 mcg/actuation blister with device 1 inh inhalation BID cholecalciferol (vitamin D3) 50 mcg (2,000 unit) capsule 50 mcg PO DAILY meclizine 12.5 mg tablet 25 mg PO DAILY acetaminophen 650 mg tablet extended release 650 mg PO Q8H PRN (Reason: fever) gabapentin 100 mg capsule 100 mg PO DAILY Print Language: [place]
--- NOTE | 2024-11-13 16:32 | ECG_ITS ---
Test Reason : ABD PAIN Blood Pressure : */* mmHG Vent. Rate : 117 BPM Atrial Rate : 117 BPM P-R Int : 180 ms QRS Dur : 58 ms QT Int : 308 ms P-R-T Axes : 45 44 17 degrees QTcB Int : 429 ms Sinus tachycardia Possible Left atrial enlargement Cannot rule out Anterior infarct , age undetermined Abnormal ECG When compared with ECG of 18-Oct-2022 15:28, Vent. rate has increased by 46 bpm Referred By: Kasia Orellana Electronically Signed By: RANDALL CHAMORRO MD
[2024-11-13 17:16] LABS: Appearance Urine Cloudy; Color Urine Dark Yellow; Glucose Urine UA Negative (Negative); Leukocyte Esterase Urine Small (1+) (Negative); Nitrite Urine Negative (Negative); PH 5.5 (5.0-9.0); Specific Gravity - Urine 1.025 (1.005-1.025); UMIC TRIGGER UACC YES; Urine Blood Negative (Negative); Urine Ketones Trace mg/dL (Negative); Urine Protein 30 (1+) mg/dL (Neg-Trace)
[2024-11-13 17:18] LABS: Mean Corpuscular HGB Conc 32.5 g/dl (31.0-35.0); Mean Corpuscular Hemoglobin 31.3 pg (27.0-33.0); Mean Corpuscular Volume 96.4 fL (80.0-98.0); Platelet Count 177 X10*3/uL (160-400); Red Blood Count 4.15 X10*6/uL (4.20-5.50); White Blood Count 5.1 X10*3/uL (4.8-10.8)
[2024-11-13 17:20] LABS: INTERNATIONAL NORM RATIO 1.1 (0.9-1.1); Prothrombin Time 13.2 SEC (10.9-12.4)
[2024-11-13 17:29] LABS: Alanine Aminotransferase 99 U/L (0-31); Albumin Level 3.8 g/dL (3.5-5.0); Alkaline Phosphatase 154 U/L (39-117); Anion Gap 11 (12-20); Aspartate Amino Transferase 76 U/L (5-31); Bilirubin Total 0.6 mg/dL (0.0-1.0); Blood Urea Nitrogen 10 mg/dL (9-16); Carbon Dioxide 28 mmol/L (22-29); Chloride 104 mmol/L (96-108); Creatinine Clr Calc Pharmacy 63.7; Estimated Glomerular Filt Rate > 60; Glucose Random 94 mg/dL (60-115); Lipase 17 U/L (8-78); Magnesium 2.2 mg/dL (1.6-2.6); Potassium 4.2 mmol/L (3.3-5.1); Sodium 139 mmol/L (135-145)
[2024-11-13 17:30] LABS: Bacteria Urine Trace (None Seen); RBC Urine 0-2 /HPF (0-2); UACC Culture Trigger YES; WBC Urine 0-5 /HPF (0-5)
[2024-11-13 17:52] LABS: Influenza A PCR NEGATIVE (Negative); Influenza B PCR NEGATIVE (Negative); Resp Syncy Virus RNA Qual PCR NEGATIVE (Negative); SARS COV2 PCR INHOUSE NEGATIVE (Negative)
[2024-11-13 18:01] LABS: SLIDE REVIEW MANUAL DIFF
[2024-11-13 18:15] LABS: Atypical Lymph Absolute Manual 0.9 x10*3/uL; Atypical Lymphs Percent Manual 17 % (0-6); Band Neutrophils Percent 4 % (3-5); Basophils Abs Manual 0.1 X10*3/uL (0.0-0.2); Basophils Percent Manual 1 % (0-2); Eosinophils Absolute Manual 0.2 X10*3/uL (0.0-0.4); Eosinophils Percent Manual 4 % (0-4); Lymphocytes Absolute Manual 2.1 X10*3/uL (1.2-4.9); Lymphocytes Percent Manual 41 % (20-40); Monocytes Absolute Manual 0.1 X10*3/uL (0.1-1.2); Monocytes Percent Manual 2 % (2-11); Neutrophils Absolute Manual 1.8 X10*3/uL (2.0-8.3); Neutrophils Percent Manual 31 % (45-73)
[2024-11-13 18:25] LABS: Large Platelet PRESENT; Platelet Estimate NORMAL (NORMAL); Platelet Morphology Comment NOTED; RBC Morphology NOTED; Smudge Cells PRESENT; Toxic Vacuolation PRESENT
[2024-11-13 18:51] LABS: Schistocytes 1+ (0-2) /OIF
--- OUTSIDE RECORDS SUMMARY | 2024-11-13 20:26 | XMS_ITS | Encounter Summary ---
Author Organization [facility] Address [address] [place] [address] Care Team Providers Care Production Packager Name Role Phone Silvia Colorado DO Primary Care Pro vider Unavailable Encounter Details Date Type Department Care Team Description 11/30/2018 Release of Information Medical Records [address] [place] [address] Abstract, Provider Social History Tobacco Use Types Packs/Day Years Used Date Smoking Tobacco: Never Smokeless Tobacco: Never Alcohol Use Standard Drinks/Week Comments No 0 (1 standard drink = 0.6 oz pur e alcohol) Sex Assigned at Date Recorded Not on file documented as of this encounter Plan of Treatment Not on file documented as of this encounter Visit Diagnoses Not on filedocumented in this encounter Care Teams Production Packager Relationship Specialty Start Date End Date Silvia Colorado DO PCP - General Internal Medicine 10/17/15 documented as of this encounter
--- OUTSIDE RECORDS SUMMARY | 2024-11-13 20:26 | XMS_ITS | Continuity of Care Document ---
Author Organization [facility] [place] - Replaced by [facility] Address [address] [place] [id number] Care Team Providers Care Cake Press Operator Name Role Phone HIM [facility] OTHER [facility] Primary Care Provider [phone] Assessment No assessment recorded. Plan of Treatment Reminders Order Date Submit Date Provider Last Modified By Organization Details Last Modified Time Details Appointments None recorded. Lab rapid strep group A, throat 2024 025 Pending sale to [facility], [address] [place] [address], [phone], 5 08:32:04 rapid flu (A+B) 2024 025 Pending sale to [facility], [address] [place] [address], [phone], 5 08:32:55 rapid SARS CoV 2 Ag, QL IA, respiratory specimen 2024 025 Pending sale to [facility], [address] [place] [address], [phone], 5 08:32:33 Referral None recorded. Procedures None recorded. Surgeries None recorded. Imaging None recorded. Medication Orders None recorded. Patient TargetsNo targets recorded. Patient InstructionsNo instructions recorded. Reason for Referral None Reported. Results Created Date Observation Date Name Description Value Unit Range Abnormal Flag Note LastModifiedBy Organization Detail LastModifiedTime Result Notes None recorded. Medical Equipment None Reported. Allergies Allergen ID Allergen Name Allergen Category Reaction Reaction Severity Criticality Documentation Date Start Date Code Code System Note Provider Name and Address Organization Details Recorded Time 65383 acetamino phen / oxycodone medicatio n Not available Not available Not available 10/31/2024 91521 3 RxNorm Not Available [facility] - production 01/27/202 5 08:14:53 Medications Name Sig Start Date Stop Date Status Note LastModified by Organization Details LastModified Time acetaminophe n ER 650 mg tablet,exten ded release TAKE 1 TABLET BY MOUTH EVERY 8 HOURS FOR PAIN OR FEVER active Not Available Not Available No t Available methocarbamo l 750 mg tablet TAKE 1 TABLET BY MOUTH AT BEDTIME FOR 10 DAYS active Not Available Not Available No t Available Ear Wax Removal Drops 6.5 % PLACE 4 DROPS IN THE LEFT EAR EVERY DAY FOR 3 DAYS active Not Available Not Available No t Available meclizine 25 mg tablet TAKE 1 TABLET BY MOUTH TWICE DAILY active Not Available Not Available No t Available Cartia XT 120 mg capsule,exte nded release TAKE 1 CAPSULE BY MOUTH EVERY DAY active Not Available Not Available No t Available lidocaine 5 % topical patch APPLY 1 PATCH TRANSDERMAL LY TO THE NECK AND BACK AND LEAVE ON FOR 12 HOURS NEEDED, THEN TAKE OFF FOR 12 HOURS active Not Available Not Available No t Available gabapentin 100 mg capsule TAKE 1 CAPSULE EVERY NIGHT, MAY INCREASE TO 3 AT BEDTIME DIRECTED active Not Available Not Available No t Available epinephrine 0.3 mg/0.3 mL injection, auto-injecto r INJECT INTRAMUSCUL MACHO DIRECTED ON PACKAGE AND GO TO EMERGENCY ROOM active Not Available Not Available No t Available Ventolin HFA 90 mcg/actuatio n aerosol inhaler INHALE 2 PUFFS BY MOUTH EVERY 4 HOURS NEEDED FOR WHEEZING OR SHORTNESS OF BREATH, DO NOT EXCEED 8 PUFFS / DAY active Not Available Not Available Not Available Vitamin D3 50 mcg (2,000 unit) capsule TAKE 1 CAPSULE DAILY active Not Available Not Available No t Available Vitals Date Recorded Body temperature Oxygen saturation Oxygen saturation in Arterial blood by Pulse oximetry Heart rate Body weight Body height Respiratory rate Systolic blood pressure Diastolic blood pressure Provider Name and Address Organization Details Last Updated DateTime 5 101.5 [degF] 98 % 98 % 96 /min 02167.8 8 g 162.56 cm 14 /min 112 mm[Hg] 66 mm[Hg] Not Available [facility] - production 5 12:36:48 Social History None recorded. Functional Status None recorded. Mental Status None recorded. Family History Nothing Reported. Medical History No medical history recorded. Gynecological HistoryNo gynecological history recorded. Obstetrics History GPAL:G 0 P 0 0 0 0 Past Encounters Encounter ID Performer Location Encounter Start Date Encounter Closed Date Diagnosis/Indication Diagnosis SNOMED-CT Code Diagnosis ICD10 Code Diagnosis Note [id number] Jacoby Cameron MD Main - Replaced by [facility] [address] [place] [address] 10/31/2024 12:36:41 11/01/2024 22:31:59 Influenza-like illness 55502840 B34.9 As noted, we were called to see this patient regarding concerns of TIFFANIE. Evaluation in the field was performed by my steam clean machine operator colleague, as noted above, I provided real-time direction and supervisio n for this visit. The evaluation revealed mild-mod fever but otherwise reassuring VS. Exam non-focal, not a good story for PNA or sinusitis. Lungs clear, face/sinus es non-tender . Some sick contacts but no smoking gun for contagion. Impression :Likely viral syndrome. Fever causes me just a bit more concern but pt hemodynami harsha stable and feels she is improving slightly. No focal sx. Could be hiding a PNA but the story for this is not strong. Plan:Rapid testing - negativeSu pportive care/expec tant mgmtCounse led on red flags Primary care, considerch earl in call Thursday or Dispositio n: We discussed the diagnostic uncertaint y of home visits and the risk associated with this. In this case, the patient and I felt this to be an acceptable and reasonable amount of risk given the benefit of avoiding an ED visit. We discussed the need to seek care urgently/e mergently in the setting of any new or worsening serious symptoms, particular ly high fever, confusion, worsening sx, severe fatigue, severe dyspnea. Health Concerns Section Related Observation LastModified by Organization Detai ls LastModified Time None Recorded Concern Status LastModified by Organization Details LastModified Time None Recorded Payers Encounter Date Sequence Insurance Name Policy Number Policy Martinez Covered Member ID Martinez Member ID Guarantor Name 10/31/2024 1 [facility] - DOS ON OR AFTER 2023 - DUAL ELIGIBLE - PENITENTIARY OPTIONS AND ONE CARE (MEDICARE REPLACEMENT/ADV ANTAGE - HMO) Freida Dwyer [id number] Freida Dweyr Notes Date Note Type Note Provider Name and Address Organization Details Recorded Time 10/31/2024 text/html [facility] Nurse Triage Notes (Kathi Schroeder - RN): Patient Reports: Cough, fever greater than 2 days ; History of asthma, increased use of inhaler; Sputum increase ; Cough; Shortness of breath with exertion Denies: Increased work of breathing/labored ? with or without fever Unable to speak in full sentences without distress Discoloration of skin -cyanosis Needs to sleep sitting up, can? t catch breath Shortness of breath in setting of confusion Lower extremity swelling COPD COVID Exposure Pain with inspiration Chief Complaints: Fever/chills, Common cold symptoms, Headache PMH: Asthma, Other PMH Reviewed at 10/31/2024: Allergies Reviewed at 10/31/2024:14 Comments: Receivables Specialist verified the name//address and phone number. PT calling for URI / cold symptoms since last Thursday . She feels she has a fever and chills unable to check temp. She has a congested cough with yellow sputum. She has a RUSS but denies any SOB> she feels over all week with body aches. She has a h/o asthma and has inhalers. She also has a h/o palpitations. Her grandchildren have a cold/ flu / ear infection. Her left ear is painful, not swollen .red , no hearing loss. She has been taking tylenol. Education provided on the response time and the Patient was advised to monitor reported s/s and seek emergency treatment if needed Derrick Boat Lever Operator Organization Information for [facility] Legal Name: [facility] Address: [address] [place] [address], School Boat Driver: Dom Painter MD [place] No.: [id number] Derrick Boat Lever Operator POC Test Results from [facility] Rapid COVID antigen (12:32:02) COVID: - Rapid influenza antigen (12:32:03) Flu: - .................... .................... .................... .................... .................... .................... .................... . Derrick Boat Lever Operator Note From [facility]: This 64-year-old female with a history of atrial fibrillation and asthma requested a visit today to address six days of URI symptoms. Patient reports are appetite, cough producing yellow sputum, sinus congestion/rhinorrhe a, body aches and fatigue. Patient states for the last three days she is felt like she had a fever, experiencing the chills but does not have a thermometer at home. Patient has an albuterol inhaler but has not felt like she needed it. Patient denies any chest pain, shortness of breath at rest, nausea, vomiting, diarrhea. Patient has been taking acetaminophen 650 mg twice a day, last dose was last night. Patient presents awake and alert, in no acute distress and speaking full sentences. Her vital signs are reasonably stable and her temperature is 101.5. Nonfocal neurological exam. Normal gait. No sinus tenderness. Normal oropharynx exam. Normal ear exam. Lungs are clear throughout auscultation. Abdomen is soft, nontender, nondistended. No lower extremity edema. Rapid COVID and flu testing are both negative. I recommend she continues staying well hydrated and increase Tylenol to every eight hours. I provided education on additional OTCs/supportive care. I recommend she follows up with her primary care physician this week, especially if symptoms persist. I instructed her to present to the emergency department for any new or worsening severe symptoms such as chest pain, severe shortness of breath, high fever unrelieved by Tylenol, altered mental status. The patient was given the opportunity to ask questions and is agreeable to this plan. .................... .................... .................... .................... .................... .................... .................... . [facility] Consulted: Chapo Cameron .................... .................... .................... .................... .................... .................... .................... . Disposition: Fulfilled Jacoby Cameron MD [address] [place] [address],[address] [facility], [place], [address], Kelly Van Gogh Hair Colour - ChatosityBENOIT SPARROW 11/01/2024 22:06:21 OBGyn Episode No OBEpisode recorded.
--- OUTSIDE RECORDS SUMMARY | 2024-11-13 20:27 | XMS_ITS | Encounter Summary ---
Author Organization [facility] Address [address] [facility] [address]t [place] [address] Care Team Providers Care Truck Rental Service Attendant Name Role Phone Taya Last MD Primary Care Provider [phone] Encounter Details Date Type Department Care Team ([facility] st Contact Info) Description 09/14/2023 Orders Only [facility] [address] [place] [address] Taya Last MD [address] [place] [address] Social History Tobacco Use Types Packs/Day Years Used Date Smoking Tobacco: Never Passive Smoke Exposure: Never Smokeless Tobacco: Never Depression Answer Date Recorded Patient Health Questionnaire-9 Score 8 11/27/2022 Housing Stability Answer Date Recorded What is your housing situation today? I have charly belcher 07/29/[address] you li ve. Do you have problems with any of the following? None of the above 07/29/2023 Food Insecurity Answer Date Recorded Within the past 12 months, y ou worried that your food would run out before you got money to buy more: Never True 07/29/2023 Within the past 12 months,th e food you bought just didn't last and you didn't have enough money to get more: Never True Transportation Answer Date Recorded In the past 12 months, has l ack of transportation kept you from medical appts, meetings, work or from getting things needed for daily living? No 07/29/2023 Utilities Answer Date Recorded In the past 12 months, has t he electric, gas, oil or water company threatened to shut off services in your home? No 07/29/2023 Depression Answer Date Recorded Patient Health Questionnaire-2 Score 4 11/27/2022 Comments Unknown Sex and Gender Information Value Date Recorded Sex Assigned at Female 08/04/2022 10:18 AM EDT Legal Sex Female 10:18 AM EDT Gender Identity Female 08/04/2022 10:18 AM EDT Sexual Orientation Straight 08/04/2022 10 :18 AM EDT documented as of this encounter Plan of Treatment Not on file documented as of this encounter Visit Diagnoses Not on filedocumented in this encounter Additional Health Concerns Assessment Noted Time PHQ-9 Depression Total Score: 8 11/27/19 23 9:42 AM EST documented as of this encounter Care Teams Truck Rental Service Attendant Relationship Specialty Start Date End Date Taya Last MD [address] [place] [address] PCP - General Family Medicine 07/22/18 Brittney Causey Cook Helper PreservesOrnamental Metal Fabricator Apprentice 12/30/23 documented as of this encounter
--- OUTSIDE RECORDS SUMMARY | 2024-11-13 20:27 | XMS_ITS | Encounter Summary ---
Author Organization [employer] [facility] Address [address] [facility] [address] [place] [address] Care Team Providers Care Material Spreader Name Role Phone Taya Last MD Primary Care Provider [phone] Reason for Visit * Reason Onset Date Comments [facility] 11/01/2024 Kiya harper chair (1) Encounter Details Date Type Department Care Team ([facility] st Contact Info) Description 11/01/[address] [facility] [address] [place] [address] Taya Last MD [address] [place] [address] [facility] (Shower chair (1)) Social History Tobacco Use Types Packs/Day Years Used Date Smoking Tobacco: Never Passive Smoke Exposure: Never Smokeless Tobacco: Never Depression Answer Date Recorded Patient Health Questionnaire-9 Score 0 01/28/2024 Patient Health Questionnaire-9 Score 0 01/28/2024 Last PHQ-9: Questionnaire Data Not on file 0 01/28/2024 Housing Stability Answer Date Recorded What is your housing situation today? I have charly belcher 01/28/[address] you li ve. Do you have problems with any of the following? None of the above 01/28/2024 Food Insecurity Answer Date Recorded Within the past 12 months, y ou worried that your food would run out before you got money to buy more: Never True 01/28/2024 Within the past 12 months,th e food you bought just didn't last and you didn't have enough money to get more: Never True Transportation Answer Date Recorded In the past 12 months, has l ack of transportation kept you from medical appts, meetings, work or from getting things needed for daily living? No 01/28/2024 Utilities Answer Date Recorded In the past 12 months, has t he electric, gas, oil or water company threatened to shut off services in your home? No 01/28/2024 Depression Answer Date Recorded Patient Health Questionnaire-2 Score 0 01/28/2024 Comments Unknown Sex and Gender Information Value Date Recorded Sex Assigned at Female 08/04/2022 10:18 AM EDT Legal Sex Female 10:18 AM EDT Gender Identity Female 08/04/2022 10:18 AM EDT Sexual Orientation Straight 08/04/2022 10 :18 AM EDT documented as of this encounter Miscellaneous Notes * Telephone Encounter - Elo Hayden [place] - 11/01/2024 10:54 AM EST Received medical necessity form from [facility] fro a shower chair. Form has been filled out and placed onP desk for signature. documented in this encounter Plan of Treatment Not on file documented as of this encounter Visit Diagnoses Not on filedocumented in this encounter Additional Health Concerns Assessment Noted Time PHQ-9 Depression Total Score: 0 01/28/20 24 12:02 PM EDT documented as of this encounter Care Teams Material Spreader Relationship Specialty Start Date End Date Taya Last MD [address] [place] [address] PCP - General Family Medicine 07/22/18 Brittney Causey Lamp DecoratorElectrical Products Sales Engineer 12/30/23 documented as of this encounter
--- OUTSIDE RECORDS SUMMARY | 2024-11-13 20:27 | XMS_ITS | Encounter Summary ---
Author Organization [employer] [facility] Address [address] [facility] [address] 7[address] [place] [address] Care Team Providers Care Accountant Assistant Name Role Phone Taya Last MD Primary Care Provider [phone] Encounter Details Date Type Department Care Team ([facility] st Contact Info) Description 08/03/2023 Orders Only [facility] [address] [place] [address] Jennie Archer FNP [address] [place] [address] Social History Tobacco Use Types Packs/Day Years [...] documented as of this encounter Care Teams Accountant Assistant Relationship Specialty Start Date End Date Taya Last MD [address] [place] [address] PCP - General Family Medicine 07/22/18 Brittney Causey Mannequin MakerBoat Outfitting Supervisor 12/30/23 documented as of this encounter
--- OUTSIDE RECORDS SUMMARY | 2024-11-13 20:27 | XMS_ITS | Encounter Summary ---
Author Organization [employer] [facility] Address [address] [facility] [address] [place] [address] Care Team Providers Care Relief Pharmacist Name Role Phone Taya Last MD Primary Care Provider [phone] Reason for Visit * Reason Onset Date Comments Nurse Triage 09/14/2023 Encounter Details Date Type Department Care Team ([facility] st Contact Info) Description 09/14/2023 Telephone [facility] [address] [place], [place] [phone] Taya Last MD [address] [place] [address] Nurse Triage Social History Tobacco Use Types Packs/Day Years [...] encounter Miscellaneous Notes * Telephone Encounter - Taya Last MD - 09/14/2023 6:31 PM EST Called the pt. Pt is already Day#4 or 5 since she started having symptoms. Agreed not to start Paxlovid. Pt feels that the hardest part is over, feels better today and now on the way to recovery. Reviewed supportive care and signs and symptoms to seek a prompt medical attention. Pt states she was actually calling to request Home test kit. Home test kit script sent. * Telephone Encounter - Yulisa Cristobal RN - 09/14/2023 12:21 PM EST Called pt. Via [email or web address] record searcher [id number] jose angel. Pt. States that she has sore throat and headachex 3 days ago. Pt. Did a Covid test x 2 days ago and it came back Positive. Pt. States she feels better today but is wondering if she would benefit from the Covid Antiviral medication due to hx of Asthma. Pt. Does not have SOB or wheezing at present. Pt is on a medication she states for heart palpitations Diltiazem 24h 180mg once daily for palpitations. Please advise. I do see Atorvastatin in unreconciled meds but, pt. States she does not take any cholesterol medications Protocol Used: COVID-19 - Diagnosed or Suspected (Adult) Protocol-Based Disposition: Home Care Positive Triage Question: * COVID-19 diagnosed by positive lab test (e.g., PCR, rapid self-test kit) and mild symptoms (e.g.,cough, fever, others) and no complications or SOB * All higher-acuity triage questions were negative Care Advice Discussed: * Reassurance and Education - Positive COVID-19 Lab Test and Mild Symptoms * General Care Advice for COVID-19 Symptoms * Cough Medicines * Humidifier * Coughing Spells * Pain and Fever Medicines * FAQ - Do I Need Special Medicines to Treat COVID-19? * COVID-19 - How to Protect Others - When You Are Sick With COVID-19 * COVID-19 - How to Protect Others - When You Are Sick With COVID-19 * Clean Your Hands Often * Clean High Touch Surfaces Every Day * Stay Away From Others in Your Home * Call Ahead Before Visiting Your Doctor (or FEATHERER/PA) * Telephone Encounter - Hong Cordero - 09/14/2023 11:34 AM EST Symptom: COVID-19 Suspected Outcome: Schedule a same-day appointment or talk to a nurse or provider today Reason: + COVID 09/19/23 , congestions, cough The caller accepted this outcome Please contact at [phone] Guyanese documented in this encounter Plan of Treatment Not on file documented as of this encounter Visit Diagnoses Not on filedocumented in this encounter Additional Health Concerns Assessment Noted Time PHQ-9 Depression Total Score: 8 11/27/19 23 9:42 AM EST documented as of this encounter Care Teams Relief Pharmacist Relationship Specialty Start Date End Date Taya Last MD [address] [place] [address] PCP - General Family Medicine 07/22/18 Brittney Causey Mule TenderEnvelope Machine Adjuster 12/30/23 documented as of this encounter
--- OUTSIDE RECORDS SUMMARY | 2024-11-13 20:27 | XMS_ITS | Encounter Summary ---
Author Organization [facility] Address [address] [place] [address] Care Team Providers Care Visually Impaired Teacher Name Role Phone Silvia Colorado DO Primary Care Pro vider Unavailable Encounter Details Date Type Department Care Team Description 03/19/2018 Orders Only Adult Medicine [address] [address] Silvia Colorado DO Vitamin B deficiency (Primary Dx) Social History Tobacco Use Types Packs/Day Years Used Date Smoking Tobacco: Never Smokeless Tobacco: Never Alcohol Use Standard Drinks/Week Comments No 0 (1 standard drink = 0.6 oz pur e alcohol) Sex Assigned at Date Recorded Not on file documented as of this encounter Plan of Treatment Not on file documented as of this encounter Visit Diagnoses Diagnosis Vitamin B deficiency- Primary Unspecified vitamin B deficiency documented in this encounter Care Teams Visually Impaired Teacher Relationship Specialty Start Date End Date Silvia Colorado DO PCP - General Internal Medicine 10/17/15 documented as of this encounter
--- OUTSIDE RECORDS SUMMARY | 2024-11-13 20:27 | XMS_ITS | Encounter Summary ---
Author Organization [employer] Address [address] [facility] [address] [place] [address] Care Team Providers Care Fiberglass Roving Winder Name Role Phone Taya Last MD Primary Care Provider [phone] Reason for Visit * Reason Comments Cough Encounter Details Date Type Department Care Team ([facility] st Contact Info) Description 11/09/2024 9:20 AM EST Office Visit [facility] [address] [place] [address] Phong Jean-Baptiste MD [address] [place] [address] Acute cough (Primary Dx); Chest pain, unspecified type Social History Tobacco Use Types Packs/Day Years [...] AM EDT documented as of this encounter Last Filed Vital Signs Vital Sign Reading Time Taken Comments Blood Pressure 112/70 11/09/2024 9:04 AM EST Pulse 105 11/09/2024 9:04 AM EST Temperature 36.9 ??C (98.5 ??F) 11/09/2024 9:04 AM ES T Respiratory Rate 16 11/09/2024 9:04 AM EST Oxygen Saturation 100% 11/09/2024 9:04 AM EST Inhaled Oxygen Concentration - - Weight 64.7 kg (142 lb 9.6 oz) 11/09/2024 9:04 A M EST Height - - Body Mass Index 24.48 08/09/2024 10:16 AM EST documented in this encounter Progress Notes * Phong Jean-Baptiste MD - 11/09/2024 9:00 AM ESTAssociated Order(s): ECG 12 lead Pre-Procedure Diagnose(s): Chest pain, unspecified type Post-Procedure Diagnose(s): Chest pain, unspecified type Subjective Patient ID: Freida Dwyer is a 64 y.o. female. HPI Freida was seen in [facility] 1 week ago, from that visit: 9 days ago Freida had onset of tactile fever, left chest and upper back pain, body aches, chills, nasal congestion, production cough, occasional wheezing with SOB. Was seen at home by [employer] live in caregiver 2 days ago, tpaw=236.5. States Robitussin helps a little. Using albuterol HFA several times/day. Ran out of Symbicort a while ago. At [facility] visit, rapid covid and flu tests were neg. Presumptive pneumonia based on exam, and Moderate persistent asthma with acute exacerbation. Prescribed Zithromax, refilled Flonase. Refilled Symbicort and albuterol HFA, prescribed chambers, prednisone. Drink lots of liquids, rest Tylenol prn. She returns today because of pressure-like feeling in left chest and upper back persists but is improving, worse at night with occasional SOB. No change with inspiration. Dry cough is improving, has occasional wheezing in AM, taste is still weird . States prednisone had improved sx until she finished course. Didn't need albuterol yesterday or today. No n/v/d, fever. Had chills 2 days ago. Lives with , who was ill prior to pt. Not employed. Never smoked. No EtOH. Patient Active Problem List Diagnosis ??? Anxiety and depression ??? Asthma ??? Allergic rhinitis ??? Headache ??? Vitamin D deficiency ??? Vitamin B deficiency ??? Inverted nipple ??? Palpitation ??? Leukopenia ??? Fibromyalgia ??? Atypical chest pain ??? History of abnormal mammogram ??? Weakness of both hands ??? Numbness of fingers of both hands ??? Impaired fasting glucose ??? PAC (premature atrial contraction) ??? SVT (supraventricular tachycardia) (CMS/HCC) ??? Chronic right shoulder pain ??? Chronic pain of both shoulders ??? 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 Acute serous otitis media of left ear ??? Impacted cerumen of left ear The following portions of the chart were reviewed this encounter and updated as appropriate: Tobacco Allergies Meds Problems Med Hx Surg Hx Fam Hx Review of Systems Constitutional: Positive for fever. Respiratory: Positive for cough, shortness of breath and wheezing. Cardiovascular: Positive for chest pain. Gastrointestinal: Negative for abdominal pain. Skin: Negative for rash. Neurological: Negative for headaches. Objective Physical Exam Constitutional: Appearance: Normal appearance. HENT: Right Ear: Tympanic membrane, ear canal and external ear normal. Left Ear: Tympanic membrane, ear canal and external ear normal. Nose: Nose normal. Mouth/Throat: Mouth: Mucous membranes are moist. Pharynx: Oropharynx is clear. Eyes: Conjunctiva/sclera: Conjunctivae normal. Pupils: Pupils are equal, round, and reactive to light. Cardiovascular: Rate and Rhythm: Normal rate and regular rhythm. Heart sounds: No murmur heard. Pulmonary: Effort: Pulmonary effort is normal. Breath sounds: Normal breath sounds. Musculoskeletal: General: Normal range of motion. Cervical back: No tenderness. Skin: Findings: No rash. Neurological: Mental Status: She is alert. Gait: Gait is intact. Psychiatric: Mood and Affect: Mood normal. Behavior: Behavior normal. ECG 12 lead Date/Time: 11/09/2024 10:41 AM Performed by: Phong Jean-Baptiste MD Authorized by: Phong Jean-Baptiste MD Previous ECG: Previous ECG: Unavailable Interpretation: Interpretation: normal Rate: ECG rate: 90 ECG rate assessment: normal Rhythm: Rhythm: sinus rhythm QRS: QRS axis: Normal QRS intervals: Normal QRS conduction: normal ST segments: ST segments: Normal T waves: T waves: normal Q waves: Abnormal Q-waves: not present Assessment/Plan Diagnoses and all orders for this visit: Acute cough CXR done in [facility] appear to show no acute finding when I reviewed images. Will call pt if radiologistreading differs. Prescribed another course of prednisone. Rtc if not improving. - XR Chest 2 Views; Future Chest pain, unspecified type EKG: no acute changes. Presumptive non cardiac pain related to cough. Rtc if not improving. documented in this encounter Plan of Treatment Pending Results Name Type Priority Associated Diagnoses Date /Time ECG 12 lead ECG Routine Chest pain, unspecified type 11/09/2024 1:15 PM EST documented as of this encounter Procedures Procedure Name Priority Date/Time Associated Diagnosis Comments ECG 12-LEAD Routine 11/09/2024 1:15 PM EST Chest pain, unspecified type XR CHEST 2 VIEWS Routine 11/09/2024 10:0 9 AM EST Acute cough documented in this encounter Results * XR Chest 2 Views (11/09/2024 10:09 AM EST) Anatomical Region Laterality Modality Chest Radiographic Vicenta ging 11/09/2024 10:0 9 AM EST Narrative 11/09/2024 10:41 AM EST ?[facility] ?[address] ?[place] [address] ?XRay Report ? Signed ? Patient: Dwyer,Freida I ?MR#: [id number] ?? 202 ? : 1960 ?Acct:[id number] ? Age/Sex: 64 / F ?ADM Date: 11/09/24 ? Loc: HO.HHCX ? Attending Dr: Phong Jean-Baptiste MD ? Ordering Physician: PHONG JEAN-BAPTISTE MD ?? Date of Service: 11/09/24 ?? Procedure(s): XR chest 2V ?? Accession Number(s): [id number] ? cc: PHONG JEAN-BAPTISTE MD ? EXAMINATION: ?? XR CHEST ? CLINICAL INFORMATION: ?? cough with left chest discomfort ? COMPARISON: ?? 10/18/2022. ? TECHNIQUE: ?? 2 views of the chest were obtained. ? FINDINGS: ?? The cardiac, hilar, and mediastinal contours are normal. ? The lungs are clear bilaterally. There is no pneumothorax or pleural ?? effusion. ? There is no focal osseous or soft tissue abnormality. There is a pectus ?? excavatum. ? XR/XR chest 2V ?? IMPRESSION: ?? No active pulmonary disease. ? Electronically signed by: ??Leoncio Crabtree MD ??11/09/2024 10:38 AM EST RP ? Dictated By: ?Leoncio Crabtree MD ? Signed By: ?<Electronically signed by Leoncio Crabtree MD in OV> ?11/09/24 1038 ? DD/ 1009 ? TD/TT: 11/09/24 1030 ? Railroad Car Letterer: ? Procedure Note Marlene, Image - 11/09/[address] [address] XRay Report Signed Patient: Freida Dwyer IMR#: [id number] 202 : 9Acct:[id number] Age/Sex: 64 / FADM Date: 11/09/24 Loc: HO.HHCX Attending Dr: Phong Jean-Baptiste MD Ordering Physician: PHONG JEAN-BAPTISTE MD Date of Service: 11/09/24 Procedure(s): XR chest 2V Accession Number(s): [id number] cc: PHONG JEAN-BAPTISTE MD EXAMINATION: XR CHEST CLINICAL INFORMATION: cough with left chest discomfort COMPARISON: 10/18/2022. TECHNIQUE: 2 views of the chest were obtained. FINDINGS: The cardiac, hilar, and mediastinal contours are normal. The lungs are clear bilaterally. There is no pneumothorax or pleural effusion. There is no focal osseous or soft tissue abnormality. There is a pectus excavatum. XR/XR chest 2V IMPRESSION: No active pulmonary disease. Electronically signed by: Leoncio Crabtree MD 11/09/2024 10:38 AM EST Dictated By: Leoncio Crabtree MD Signed By: <Electronically signed by Leoncio Crabtree MD in OV> 11/09/24 1038 DD/ 1009 TD/TT: 11/09/24 1030 Railroad Car Letterer: Phong Jean-Baptiste MD IMG XR PROCEDURES Edited Result - Final documented in this encounter Visit Diagnoses Diagnosis Acute cough- Primary Chest pain, unspecified type documented in this encounter Additional Health Concerns Assessment Noted Time PHQ-9 Depression Total Score: 0 01/28/20 24 12:02 PM EDT documented as of this encounter Care Teams Fiberglass Roving Winder Relationship Specialty Start Date End Date Taya Last MD [address] [place] [address] PCP - General Family Medicine 07/22/18 Brittney Causey Physical Therapy SupervisorCore Feeder 12/30/23 documented as of this encounter
--- OUTSIDE RECORDS SUMMARY | 2024-11-13 20:27 | XMS_ITS | Data Portability ---
Author Organization [employer] Address [address] [place] [address] Care Team Providers Care Sight Mounter Name Role Phone HIM [facility] OTHER [facility] Primary Care Provider Assessment Encounter Date Assessment Date Assessment LastModified by Organization Details LastModified Time 11/11/2024 11/11/2024 I provided real -time medical direction via phone for this encounter and was available for additional phone-based assistance as needed. I have reviewed and agree with the Assessment and Plan as documented by the Passenger Tire Inspector. Patient given the opportunity to ask questions. Our service contacted for an assessment of: Nausea As per above, patient was recently in the hospital with pneumonia. Was prescribed azithromycin that she states she got IV. She did have follow-up earlier this week and was told she was making a full recovery. She does have significant nausea however. She explained this to her PCP and follow-up but was not given any medications for it. She is unclear why she has nausea but stated it developed after the hospitalization. It is causing significant decrease in p.o. intake. She denies chest pain, shortness of breath, dyspnea on exertion. She states that she occasionally has abdominal pain that she rates about 4/10. She was having regular bowel movements without any issue but has not had a BM in the past 2 days. She developed the nausea while having regular bowel movements. She denies any changes in urination and has no urinary complaints. Per human performance technologist on the scene, vital signs are stable and BNP is noted. Medic notes that the patient has evidence of dehydration with dry mucous membranes. She is nontoxic on exam. Impression: Nausea and mild dehydration Plan: We gave lactated Ringer's and Zofran. I will ask the patient to follow-up with her PCP on Thursday. Is unclear etiology of her nausea. She does have some mild constipation over the past 2 days and was asked to seek more medical care if she continues to experience constipation or does not have any rectal output of either stool or gas. Additionally if her abdominal pain becomes worse she should seek medical care. Advised red flags as to when to seek a higher level of care. She will recall this service for additional IV fluids if needed. Close follow-up warranted. Allergies: Reviewed PCP f/u: We discussed the diagnostic uncertainty of home visits and the risk associated with this. In this case, the patient and I felt this to be an acceptable and reasonable amount of risk given the benefit of avoiding an ED visit. We discussed the need to seek care urgently/emergentl y in the setting of any new or worsening serious symptoms, particularly fever chills lightheadedness altered mental status [place] [id number] Not available 11/11/2024 18:22:45 Plan of Treatment Reminders Order Date Submit Date Provider Last Modified By Organization Details Last Modified Time Details Appointments None recorded. Lab rapid strep group A, throat 2024 025 [facility], [address] [place] [address], [phone], 5 08:32:04 rapid flu (A+B) 2024 025 [facility], [address] [place] [address], [phone], 5 08:32:55 rapid SARS CoV 2 Ag, QL IA, respiratory specimen 2024 025 [facility], [address] [place] [address], [id number], 5 08:32:33 Referral None recorded. Procedures None recorded. Surgeries None recorded. Imaging None recorded. Medication Orders ondansetron HCl (PF) 4 mg/2 mL injection solution [address] [facility], [address] [place], [id number], 5 18:18:51 lactated Ringers intravenous solution [address] [place] [address] Pharmacy, [address], [place], [phone], 5 18:18:50 Patient TargetsNo targets recorded. Patient InstructionsNo instructions [...] Name and Address Organization Details Recorded Time 72995 acetamino phen / oxycodone medicatio n Not available Not available Not available 10/31/2024 65358 3 RxNorm Not Available [facility] - production 5 08:14:53 Medications Name Sig Start Date [...] [degF] 98 % 98 % 96 /min 48058.8 8 g 162.56 cm 14 /min 112 mm[Hg] 66 mm[Hg] Not Available [facility] - production 5 12:36:48 Date Recorded Heart rate Body weight Respiratory rate Body temperature Body height Oxygen saturation Oxygen saturation in Arterial blood by Pulse oximetry Systolic blood pressure Diastolic blood pressure Provider Name and Address Organization Details Last Updated DateTime 5 91 /min 20040.8 8 g 18 /min 98.2 [degF] 162.56 cm 100 % 100 % 110 mm[Hg] 69 mm[Hg] Not Available [facility] - production 5 11:45:48 Social History None recorded. Functional Status None recorded. Mental Status None recorded. Family History Nothing Reported. Medical History No medical history recorded. Gynecological HistoryNo gynecological history recorded. Obstetrics History GPAL:G 0 P 0 0 0 0 Past Encounters Encounter ID Performer Location Encounter Start Date Encounter Closed Date Diagnosis/Indication Diagnosis SNOMED-CT Code Diagnosis ICD10 Code Diagnosis Note [id number] Jacoby Cameron MD [facility] [address] [place] [phone] 10/31/2024 12:36:41 11/01/2024 22:31:59 Influenza-like illness 08815634 B34.9 As noted, we were called to see this patient regarding concerns of TIFFANIE. Evaluation in the field was performed by my human performance technologist colleague, as noted above, I provided real-time [...] confusion, worsening sx, severe fatigue, severe dyspnea. [id number] Patsy White MD Main - [facility] [address] [place] [phone] 11/11/2024 11:45:41 11/12/2024 18:28:31 Nausea 057458836 R11.0 Health Concerns Section Related Observation LastModified by Organization Detai ls LastModified Time None Recorded Concern Status LastModified by Organization Details LastModified Time None Recorded Advance Directives Directive None Recorded Payers Encounter Date Sequence Insurance Name Policy Number Policy Martinez Covered Member ID Martinez Member ID Guarantor Name 10/31/2024 1 [facility] - DOS ON OR AFTER 2023 - DUAL ELIGIBLE - CORRECTION OPTIONS AND ONE CARE (MEDICARE REPLACEMENT/ADV ANTAGE - HMO) Freida Dwyer [id number] Freida Dwyer 11/11/2024 1 [facility] - DOS ON OR AFTER 2023 - DUAL ELIGIBLE - CORRECTION OPTIONS AND ONE CARE (MEDICARE REPLACEMENT/ADV ANTAGE - HMO) Freida Griggsna [id number] Freida Dwyer Notes Date Note Type Note Provider Name [...] Headache PMH: Asthma, Other PMH Reviewed at 10/31/2024 - 08:14 Allergies Reviewed at 10/31/2024:14 Comments: Elementary School Teacher verified the name//address and phone number. PT [...] s/s and seek emergency treatment if needed Passenger Tire Inspector Organization Information for Sisi Phong C[employer] Business Legal Name: [employer] Address: [address] [place] [address], [place] [address], Zoning Administrator: Dom Painter MD CLIA No.: [id number] Passenger Tire Inspector POC Test Results from [employer] Rapid COVID antigen (12:32:02) COVID: - Rapid influenza antigen (12:32:03) Flu: - .................... .................... .................... .................... .................... .................... .................... . Passenger Tire Inspector Note From Phong Laird: This 64-year-old female [...] .................... .................... .................... .................... .................... .................... . [facility] Consulted: Chapo Cameron .................... .................... .................... .................... .................... .................... .................... . Disposition: Ferny Jacoby Cameron MD [address] [facility],[address], [place], [phone], [facility] 11/01/2024 22:06:21 11/11/2024 text/html CRC Nurse Triage Notes (Morgan Mclean - RN): Patient Reports: Nausea and vomiting greater than 2 hours with abdominal pain; Vague abdominal pain greater than 24 hours; Nausea with or without vomiting; Inability to tolerate foods, fluids or daily medications Denies: Sharp focal or diffuse abdominal pain Vomiting blood/coffee ground material Bloating, jaundice new onset with pain Tearing pain that radiates to back Food Impaction Constipation Diarrhea ? no blood in stool Chief Complaints: Nausea, Weakness, Vomiting PMH: Asthma PMH Reviewed at 11/11/2024 Allergies Reviewed at 11/11/2024:32 Comments: Elementary School Teacher verified the Pt.'s name//address and phone number. Education provided on the response time and the Pt. was advised to monitor reported s/s and seek emergency treatment if needed. Pt reports feeling unwell with Nausea, vomiting and diarrhea - Weakness - Abdominal pain - /10 -Decreased PO intake - Subjective fever - Last BM x 2 days ago - Chest pain when coughing - S/S started on Thursday - Recently dx with pneumonia and completed prescribed antibiotics - Pt reports being seen in the clinic on Thursday - -Negative work up and negative x-ray. Wellness visit requested Passenger Tire Inspector Organization Information for [employer] Business Legal Name: [employer] Address: [address] [place] [address], Zoning Administrator: Lobito Hendricks MD CLIA No.: [id number] Passenger Tire Inspector POC Test Results from Rochelle Lobo iSTAT Chem8+ (11:08:13) Na: 138 mEq/L K: 4.2 mEq/L Cl: 100 mEq/L iCa: 1.18 mmol/L TCO2: 31 mmol/L Glu: 102 mg/dL BUN: 8 mg/dL Crea: 0.7 mg/dL Hct: 38 % Hb: 12.9 g/dL A Attachments uploaded as part of this test result can be found under Documents section. .................... .................... .................... .................... .................... .................... .................... . Passenger Tire Inspector Note From Rochelle Lobo: [facility] makes pt contact. She is found seated on the sofa in the living room of her home, wearing her pajamas and wrapped n a blanket. Her skin appears to be pale and she has the affect of not feeling well. She smiles weakly at [facility] and says hello. She is not in acute distress. Her chest rises and falls softly w/ respirations, she is not doubled over and not actively vomiting. No facial droop, slurred speech, or one-sided weakness are observed and she is not bleeding anywhere. Pt endorses n/v and abd pain since Thursday. She says she was dx w/ pneumonia last week and was put on a 5 day course of azithromycin and prednisone. She says as soon as she stopped taking the meds she became nauseous and has felt that way since. She returned to the clinic on Thursday and the MD was not concerned w/ her nausea, but instead, concentrated on her breathing and lungs. CXR and exam were unremarkable at that time. Pt has continued general nausea, weakness, and fatigue. She endorses decreased PO intake. Pt is denying CP, SOB, diarrhea, sore throat. Cough is intermittent at this time and non-productive. She endorses abd pain as colicky and about a 4/10. She is not currently taking any medication OTC for her s/s. [facility] obtains vital signs and pt is assessed. Lung sounds are clear and equal to auscultation, abdomen is soft and nontender in all quadrants, and no flank pain or CVS tenderness are noted. Conjunctiva and oral mucosa are pale. [facility] contacts [facility] and discusses the above. [facility] expresses concerns about why pt is nauseated and orders a bmp. IV access is obtained using a 23ga butterfly in the L AC and blood sample is obtained. Butterfly is removed and pressure bandage w/ 2x2 and tape are applied. [facility] then orders 1L IV fluids and 4mg zofran SIVP. An 18ga IV is established in the R AC and locked w/ a saline lock. Pt is administered 250mls LR and 4mg zofran is administered. Remaining 750mls LR are administered. Pt tolerates fluids and medications well. Lung sounds are reassessed and unchanged. IV is removed and pressure bandage is applied w/ 2x2 and tape. Pt has improved color in her face and feels much better . MIH is clear. Report completed by DONATO Lobo [id number]. .................... .................... .................... .................... .................... .................... .................... . [facility] Consulted: Patsy White .................... .................... .................... .................... .................... .................... .................... . Disposition: Ferny White MD [address] [facility],[address], [place], [address], [facility] [employer] 11/11/2024 18:23:08 OBGyn Episode No OBEpisode recorded.
--- OUTSIDE RECORDS SUMMARY | 2024-11-13 20:27 | XMS_ITS | Encounter Summary ---
Author Organization [employer] [facility] Address [address] [place] [address] Care Team Providers Care Forest Management Professor Name Role Phone Silvia Colorado DO Primary Care Pro vider Unavailable Encounter Details Date Type Department Care Team Description 12/03/2015 Transfer Records Medical Records [address] [place] [address] Abstract, Provider Social History Tobacco Use Types Packs/Day Years Used Date Smoking Tobacco: Never Smokeless Tobacco: Never Alcohol Use Standard Drinks/Week Comments Not Asked 0 (1 standard drink = 0.6 oz pur e alcohol) Sex Assigned at Date Recorded Not on file documented as of this encounter Plan of Treatment Not on file documented as of this encounter Visit Diagnoses Not on filedocumented in this encounter Care Teams Forest Management Professor Relationship Specialty Start Date End Date Silvia Colorado DO PCP - General Internal Medicine 10/17/15 documented as of this encounter
--- OUTSIDE RECORDS SUMMARY | 2024-11-13 20:27 | XMS_ITS | Encounter Summary ---
Author Organization [employer] Address [address] [facility] 7 [place] [address] Care Team Providers Care Regional Account Executive Name Role Phone Taya Last MD Primary Care Provider [phone] Reason for Visit * Reason Onset Date Comments chart prep 10/26/2024 Encounter Details Date Type Department Care Team ([facility] Contact Info) Description 10/26/2024 Telephone [facility] MEDICINE [address] [place], [place] [phone] Taya Last MD [address] [place], [place] [phone] chart prep Social History Tobacco Use Types Packs/Day Years [...] encounter Miscellaneous Notes * Telephone Encounter - Amber Lopez MA - 10/26/2024 10:04 AM EST .Chart Prep Labs: not done 08/02/24 Images: not applicable Vaccines due: Covid Due, PCV20 Due, RSV in Pharmacy Due, and Shingles in pharmacy Due Referrals: ENT pending appt Screenings: Not Applicable Overdue care gaps: lanette-7 * Telephone Encounter - Gilmar Taylor - 10/26/2024 9:29 AM EST Tc from pt requesting to Switch visit to a Telephone visit due to pt being sick and not feeling well. Pt denied Triage. Would like to Switch to tele Visit. Contact pt at [phone] documented in this encounter Plan of Treatment Not on file documented as of this encounter Visit Diagnoses Not on filedocumented in this encounter Additional Health Concerns Assessment Noted Time PHQ-9 Depression Total Score: 0 01/28/20 24 12:02 PM EDT documented as of this encounter Care Teams Regional Account Executive Relationship Specialty Start Date End Date Taya Last MD [address] [place] [address] PCP - General Family Medicine 07/22/18 Brittney Causey Ice Cream Van VendorShell Grader 12/30/23 documented as of this encounter
--- OUTSIDE RECORDS SUMMARY | 2024-11-13 20:27 | XMS_ITS | Encounter Summary ---
Author Organization [employer] Address [address] [place] [address] 7 [place] [address] Care Team Providers Care Hiv/Aids Care Nurse Name Role Phone Taya Last MD Primary Care Provider Reason for Visit * Reason Onset Date Comments Referral 01/30/2023 Encounter Details Date Type Department Care Team ([facility] st Contact Info) Description 01/30/2023 Telephone [facility] MEDICINE [address] [place], [place] [phone] Taya Last MD [address] [place] [address] Referral Social History Tobacco Use Types Packs/Day Years Used Date Smoking Tobacco: Never Passive Smoke Exposure: Never Smokeless Tobacco: Never Depression Answer Date Recorded Patient Health Questionnaire-9 Score 8 11/27/2022 Depression Answer Date Recorded Patient Health Questionnaire-2 Score 4 11/27/2022 Comments Unknown Sex and Gender Information Value Date Recorded Sex Assigned at Female 08/04/2022 10:18 AM EDT Legal Sex Female 10:18 AM EDT Gender Identity Female 08/04/2022 10:18 AM EDT Sexual Orientation Straight 08/04/2022 10 :18 AM EDT COVID-19 Exposure Response Date Recorded In the last 10 days, have yo u been in contact with someone who was confirmed or suspected to have Coronavirus/COVID-19? No / Unsure 01/05/2023 12:40 PM EDT documented as of this encounter Miscellaneous Notes * Telephone Encounter - [place] Annmarie - 01/30/2023 11:46 AM EDT Tc from pt calling to inform referral for cardiology regarding getting a heart monitor was written incorrect and its not being covered by insurance. Please call to clarify . documented in this encounter Plan of Treatment Not on file documented as of this encounter Visit Diagnoses Not on filedocumented in this encounter Additional Health Concerns Assessment Noted Time PHQ-9 Depression Total Score: 8 11/27/19 23 9:42 AM EST documented as of this encounter Care Teams Hiv/Aids Care Nurse Relationship Specialty Start Date End Date Taya Last MD [address] [place] [id number] PCP - General Family Medicine 07/22/18 Brittney Causey Soap WorkerShrink Pit Supervisor 12/30/23 documented as of this encounter
--- OUTSIDE RECORDS SUMMARY | 2024-11-13 20:27 | XMS_ITS | Continuity of Care Document ---
Author Organization [employer] Address [address] [place] [address] Care Team Providers Care Body Trimmer Name Role Phone HIM [facility] Primary Care Provider [phone] Assessment Encounter Date Assessment Date Assessment LastModified by Organization Details LastModified Time 11/11/2024 11/11/2024 I provided real -time medical direction via phone for this encounter and was available for additional phone-based assistance as needed. I have reviewed and agree with the Assessment and Plan as documented by the Manager Social Responsibility. Patient given the opportunity to ask questions. [...] urination and has no urinary complaints. Per remediation bioanalytics consultant on the scene, vital signs are stable [...] particularly fever chills lightheadedness altered mental status [place] [phone] Not available 11/11/2024 18:22:45 Plan of Treatment Reminders Order Date Submit Date Provider Last Modified By Organization Details Last Modified Time Details Appointments None recorded. Lab None recorded. Referral None recorded. Procedures None recorded. Surgeries None recorded. Imaging None recorded. Medication Orders ondansetron HCl (PF) 4 mg/2 mL injection solution [address] [facility], [address] [place] [address], [id number], 18:18:51 lactated Ringers intravenous solution [address] [place] [address] Pharmacy, [address] [place] [address], [id number], 18:18:50 Patient TargetsNo targets recorded. Patient InstructionsNo instructions recorded. Reason for Referral None Reported. Medical Equipment None Reported. Allergies Allergen ID Allergen Name Allergen Category Reaction Reaction Severity Criticality Documentation Date Start Date Code Code System Note Provider Name and Address Organization Details Recorded Time 73594 acetamino phen / oxycodone medicatio n Not available Not available Not available 10/31/2024 18851 3 RxNorm Not Available [facility] - production 08:14:53 Medications Name Sig Start Date Stop [...] Available No t Available Vitals Date Recorded Heart rate Body weight Respiratory rate Body temperature Body height Oxygen saturation Oxygen saturation in Arterial blood by Pulse oximetry Systolic blood pressure Diastolic blood pressure Provider Name and Address Organization Details Last Updated DateTime 5 91 /min 41097.8 8 g 18 /min 98.2 [degF] 162.56 [...] SNOMED-CT Code Diagnosis ICD10 Code Diagnosis Note [id number] Jacoby Cameron MD Main - [facility] [address] [place] [phone] 10/31/2024 12:36:41 11/01/2024 22:31:59 Influenza-like illness 91696022 B34.9 As noted, we were called to see this patient regarding concerns of TIFFANIE. Evaluation in the field was performed by my remediation bioanalytics consultant colleague, as noted above, I provided real-time [...] confusion, worsening sx, severe fatigue, severe dyspnea. [id number] Patsy White MD Main - [facility] [address] [place] [phone] 11/11/2024 11:45:41 11/12/2024 18:28:31 Nausea [id number] R11.0 Health Concerns Section Related Observation LastModified by Organization Detai ls LastModified Time None Recorded Concern Status LastModified by Organization Details LastModified Time None Recorded Payers Encounter Date Sequence Insurance Name Policy Number Policy Martinez Covered Member ID Martinez Member ID Guarantor Name 11/11/2024 1 [facility] - DOS ON OR AFTER 2023 - DUAL ELIGIBLE - LONG TERM OPTIONS AND ONE CARE (MEDICARE REPLACEMENT/ADV ANTAGE - HMO) Freida Dwyer [id number] Freida Dwyer Notes Date Note Type Note Provider Name and Address Organization Details Recorded Time 11/11/2024 text/html CRC Nurse Triage Notes (Morgan Mclean - [facility]): Patient Reports: Nausea and vomiting greater than [...] Weakness, Vomiting PMH: Asthma PMH Reviewed at 11/11/2024: Allergies Reviewed at 11/11/2024:32 Comments: Cloth Napping Supervisor verified the Pt.'s name//address and phone number. Education provided on the response time and the Pt. was advised to monitor reported s/s and seek emergency treatment if needed. Pt reports feeling unwell with Nausea, vomiting and diarrhea - Weakness - Abdominal pain - 10 -Decreased PO intake - Subjective fever - Last BM x 2 days ago - Chest pain when coughing - S/S started on Thursday - Recently dx with pneumonia and completed prescribed antibiotics - Pt reports being seen in the clinic on Thursday - -Negative work up and negative x-ray. Wellness visit requested Manager Social Responsibility Organization Information for [facility] [employer] Legal Name: [employer]? Address: [address] [place] [address], Preparation Operator: Lobito Hendricks MD CLIA No.: [id number] Manager Social Responsibility POC Test Results from [facility] iSTAT Chem8+ (11:08:13) Na: 138 mEq/L K: 4.2 mEq/L Cl: 100 mEq/L iCa: 1.18 mmol/L TCO2: 31 mmol/L Glu: 102 mg/dL BUN: 8 mg/dL Crea: 0.7 mg/dL Hct: 38 % Hb: 12.9 g/dL A Attachments uploaded as part of this test result can be found under Documents section. .................. .................. .................. .................. .................. .................. .................. ............... Manager Social Responsibility Note From [facility]: [facility] makes pt contact. She is found seated on the sofa in the living room of her home, wearing her pajamas and wrapped n a blanket. Her skin appears to be pale and she has the affect of not feeling well. She smiles weakly at [facility] and says hello. She is not in [...] taking any medication OTC for her s/s. [facility] obtains vital signs and pt is assessed. Lung sounds are clear and equal to auscultation, abdomen is soft and nontender in all quadrants, and no flank pain or CVS tenderness are noted. Conjunctiva and oral mucosa are pale. [facility] contacts [facility] and discusses the above. [facility] expresses concerns about why pt is nauseated and orders a bmp. IV access is obtained using a 23ga butterfly in the L AC and blood sample is obtained. Butterfly is removed and pressure bandage w/ 2x2 and tape are applied. [facility] then orders 1L IV fluids and 4mg [...] is clear. Report completed by DONATO Lobo [id number]. .................. .................. .................. .................. .................. .................. .................. ............... [facility] Consulted: Patsy White .................. .................. .................. .................. .................. .................. .................. ............... Disposition: Fulfilled Patsy White MD [address] [facility],[address], [place], [address], [place] [employer] 11/11/2024 18:23:08 OBGyn Episode No OBEpisode recorded.
--- OUTSIDE RECORDS SUMMARY | 2024-11-13 20:27 | XMS_ITS | Encounter Summary ---
Author Organization [employer] Address [address] [facility] 7 [place] [address] Care Team Providers Care Federal Air Marshal Name Role Phone Taya Last MD Primary Care Provider [phone] Reason for Visit * Reason Onset Date Comments Nurse Triage 11/08/2024 Encounter Details Date Type Department Care Team ([facility] st Contact Info) Description 11/08/2024 Telephone [facility] MEDICINE [address] [place], [place] [phone] Taya Last MD [address] [place] [address] Nurse Triage Social History Tobacco Use Types [...] encounter Miscellaneous Notes * Telephone Encounter - Yulisa Cristobal RN - 11/08/2024 10:33 AM EST Called pt. Via frentsS bottom brusher [phone] Freida. No answer. Building Maintenance Worker left message on pt. Voicemail tocall back [facility] nurses at [phone]. Called pt. Back x2. Pt. States that she just finished an antibiotic for Pneumonia and she still feels weak, and has pain on left side of chest on lung. Pt still has cough- but phlegm is stuck in chest and pt. Unable to cough it up. Pt. Has been taking Tylenol because she feels warm and has a headache. Pt. States she never had a CXR because provider already knew she had Pneumonia. I advised for pt. To come to [facility] walk in for re evaluation of lungs and possible CXR. Advised that [facility] walk in is booked so far until 2pm so to arrive around 230pm and will probably not be seen right away but will beput in schedule accordingly. Protocol Used: Pneumonia Follow-up Call (Adult) Protocol-Based Disposition: See in Office or Video Visit Today Positive Triage Questions: * Taking antibiotic > 48 hours (2 days) for pneumonia and fever persists or recurs * Patient wants to be seen * Completed antibiotic treatment and cough not improved * Completed antibiotic treatment and breathing not back to normal * All higher-acuity triage questions were negative Care Advice Discussed: * Drink Plenty of Liquids * Drink Plenty of Fluids - Extra Notes and Warnings * Avoid Tobacco Smoke * Humidifier * Telephone Encounter - Caridad Cope 11/08/2024 9:21 AM EST Symptoms: Headache, Weakness Outcome: Schedule an urgent appointment (within 1 hour) or talk to a nurse or provider soon Reason: Started within the past 3 days The caller accepted this outcome. [phone] Bhutanese documented in this encounter Plan of Treatment Not on file documented as of this encounter Visit Diagnoses Not on filedocumented in this encounter Additional Health Concerns Assessment Noted Time PHQ-9 Depression Total Score: 0 01/28/20 24 12:02 PM EDT documented as of this encounter Care Teams Federal Air Marshal Relationship Specialty Start Date End Date Taya Last MD [address] [place] [address] PCP - General Family Medicine 07/22/18 Brittney Causey Psychiatric Nursing AssistantProjector Booth Operator 12/30/23 documented as of this encounter
--- OUTSIDE RECORDS SUMMARY | 2024-11-13 20:27 | XMS_ITS | Clinical Summary ---
Author Organization [facility] Address [address] [place] [address] Care Team Providers Care Senior Research Engineer Name Role Phone Silvia Colorado DO Primary Care Pro vider Unavailable Allergies Active Allergy Reactions Severity Noted Date Comments Apap-Fd&C Blue #1-Oxycodone 12/25/19 18 Shellfish Allergy 11/08/2015 Medications Medication Sig Dispensed Refills Start Date End Date Status hydrocortisone (ANUSOL-HC) 2.5 % rectal cream To anal area, bid as instructed 30 g 1 10/20/2015 Active Meclizine HCl 25 MG Tab Take 1 Tab by mouth 3 times daily as needed for Other (dizziness). 90 Tab 0 04/03/2017 Active cyanocobalamin 1000 MCG/ML injection Inject 1 mL into the muscle every 30 days. 1 mL 5 09/14/2017 Active Cetirizine HCl 10 MG Cap Take 1 Cap by mouth daily. 30 Cap 2 12/24/2017 Active atorvastatin (LIPITOR) 20 MG tablet Take 1 Tab by mouth daily for 360 days. Take one tab nightly 30 Tab 5 12/24/2017 Active fluticasone 50 MCG/ACT nasal spray 2 sprays each nostril twice daily x 1 week then once daily as needed. 16 g 2 12/24/2017 Active naproxen (NAPROSYN) 500 MG tablet Take 1 Tab by mouth 2 times daily (with meals) for 30 days. 60 Tab 0 12/24/2017 Active EPINEPHrine (EPIPEN 2-NORA) 0.3 MG/0.3ML Solution Auto-injector Inject 1 Each as directed as needed (anaphylaxis). 1 Each 2 12/24/2017 Active methocarbamol (ROBAXIN) 500 MG tablet Take 1 Tab by mouth 2 times daily as needed for Other (neck pain) for up to 5 days. 10 Tab 0 02/18/2018 Active Active Problems Problem Noted Date Pure hypercholesterolemia 12/24/2017 Chronic seasonal allergic rhinitis 12/24 Vitamin B deficiency 09/30/2017 Inverted nipple 02/04/2017 Family History Medical History Relation Name Comments CA Stomach Father CA Colon Mother CA Breast Sister dx 55 Relation Name Status Comments Father Mother Sister dx 55 Alive Social History Tobacco Use Types Packs/Day Years Used Date Smoking Tobacco: Never Smokeless Tobacco: Never Alcohol Use Standard Drinks/Week Comments No 0 (1 standard drink = 0.6 oz pur e alcohol) Sex Assigned at Date Recorded Not on file Last Filed Vital Signs Vital Sign Reading Time Taken Comments Blood Pressure 100/60 04/28/2018 1:05 PM EDT Pulse 74 04/28/2018 1:05 PM EDT Temperature 36.5 ??C (97.7 ??F) 04/28/2018 1:05 PM ED T Respiratory Rate 14 04/28/2018 1:05 PM EDT Oxygen Saturation - - Inhaled Oxygen Concentration - - Weight 70.3 kg (155 lb) 04/28/2018 1:05 PM EDT Height 162.6 cm (5' 4 ) 04/28/2018 1:05 PM EDT Body Mass Index 26.61 04/28/2018 1:05 PM EDT Plan of Treatment Health Maintenance Due Date Last Done Comments Covid-19 Vaccine (#1) 1959 DTAP/TDAP/TD (1 - Tdap) 1978 CERVICAL CANCER SCREENING 1980 COLON CANCER SCREENING 2009 SHINGLES VACCINE (1 of 2) 2009 MAMMOGRAM 02/16/2019 02/16/2018, 02/12/2017 CHOLESTEROL SCREENING 12/25/2022 12/25/2017 BONE DENSITY SCREENING 2024 PNEUMOCOCCAL VACCINE (1 - PCV) 2024 INFLUENZA (#1) 2024 BMI CHECK/ADVISE 10/05/2024 04/28/2018, 11/08/2015 HEPATITIS C SCREENING Completed 08/04/2017 Care Teams Senior Research Engineer Relationship Specialty Start Date End Date Silvia Colorado DO PCP - General Internal Medicine 10/17/15
--- OUTSIDE RECORDS SUMMARY | 2024-11-13 20:27 | XMS_ITS | Encounter Summary ---
Author Organization [employer] Address [address] [facility] 7[address] [place] [address] Care Team Providers Care Artist And Repertoire Manager Name Role Phone Taya Last MD Primary Care Provider [phone] Encounter Details Date Type Department Care Team ([facility] st Contact Info) Description 09/14/2023 Orders Only [facility] MEDICINE [address] [place] [address] Taya Last MD [address] [place] [address] Atypical chest pain Social History Tobacco Use Types Packs/Day Years [...] as of this encounter Visit Diagnoses Diagnosis Atypical chest pain Other chest pain documented in this encounter Additional Health Concerns Assessment Noted Time PHQ-9 Depression Total Score: 8 11/27/19 23 9:42 AM EST documented as of this encounter Care Teams Artist And Repertoire Manager Relationship Specialty Start Date End Date Taya Last MD [address] [place] [address] PCP - General Family Medicine 07/22/18 Brittney Causey Wrapper OpenerTest Fixture Designer 12/30/23 documented as of this encounter
--- OUTSIDE RECORDS SUMMARY | 2024-11-13 20:27 | XMS_ITS | Clinical Summary ---
Author Organization [employer] Address [address] [place] [address] [address] [place] [address] Care Team Providers Care Commutator Tester Name Role Phone Taya Last MD Primary Care Provider [phone] Allergies Active Allergy Reactions Criticality Noted Date Comments Nabumetone Palpitations Low 12/18/2021 Other reaction(s): Crying Oxycodone 12/24/2017 Shellfish Allergy 11/08/2015 Shellfish-Derived Products 3 Medications cetirizine (ZyrTEC) 10 MG tablet Take 1 tablet (10 mg) by mouth in the morning. 90 tablet 3 023 Active meclizine (Antivert) 25 MG tablet 1 tab po BID 60 tablet 3 024 Active dilTIAZem CD (Cardizem CD) 120 MG 24 hr capsule Take 120 mg by mouth Once per day. Active acetaminophen (Tylenol 8 Hour) 650 MG ER tabletIndicat ions:Pain Take 1 tablet by mouth every 8 hours as needed for pain or fever 60 tablet 3 024 Active cholecalcifer ol VITAMIN D (Vitamin D-3) 50 MCG (1999 UT) capsule Take 1 capsule (50 mcg) by mouth Once per day. 90 capsule 3 024 Active gabapentin (Neurontin) 100 MG capsule Take 1 capsule by mouth every night. May increase up to 3 tablets at bedtime 90 capsule 11 024 Active QuickVue At-Home Covid-19 Test kitIndication s:Atypical chest pain USE DIRECTED 2 kit 1 024 Active methocarbamol (Robaxin) 750 MG tabletIndicat ions:Acute bilateral low back pain without sciatica Take 1 tablet (750 mg) by mouth at bedtime for 10 days. 10 tablet Active carbamide peroxide (Debrox) 6.5 % otic solutionIndic ations:Impact ed cerumen of left ear 4 gtt left ear for 3 days- bolivian 15 mL Active EPINEPHrine (Epipen) 0.3 MG/0.3ML injection syringe INJECT INTRAMUSCULARLY DIRECTED ON PACKAGE AND GO TO EMERGENCY ROOM 2 each Active lidocaine (Lidoderm) 5 % patchIndicati ons:Chronic pain of both shoulders,Fib romyalgia Apply 1 patch to neck and 1 patch to back and leave on for 12 hours as needed. 60 patch 3 Active Symbicort 80-4.5 MCG/ACT inhaler INHALE 2 PUFFS BY MOUTH TWICE DAILY IN THE MORNING AND IN THE EVENING 1 each Active albuterol (Ventolin HFA) 108 (90 Base) MCG/ACT inhaler Inhale 2 puffs every 4 (four) hours if needed for wheezing or shortness of breath. 54 g 3 025 2025 Active Spacer/Aero-H olding Chambers (OptiChamber Alejandra) misc 1 each every 4 (four) hours if needed (asthma). 2 each Active azithromycin (Zithromax Z-Ankit) 250 MG tablet Take 2 tablets once on day 1, then 1 tablet 1x/day for 4 days. 6 tablet Active fluticasone (Flonase) 50 MCG/ACT nasal spray INSTILL 1 SPRAY IN EACH NOSTRIL ONCE DAILY 16 g 3 Active predniSONE (Deltasone) 20 MG tablet Take 2 tablets (40 mg) by mouth Once per day for 5 days. 10 tablet 025 2024 Active fluticasone (Flonase) 50 MCG/ACT nasal spray INSTILL 1 SPRAY IN EACH NOSTRIL ONCE DAILY 16 g 3 023 2024 Discontinued(R eorder (will not trigger notification to Pharmacy)) Symbicort 80-4.5 MCG/ACT inhaler INHALE 2 PUFFS BY MOUTH TWICE DAILY IN THE MORNING AND IN THE EVENING 1 each 023 2024 Discontinued(R eorder (will not trigger notification to Pharmacy)) albuterol 108 (90 Base) MCG/ACT inhaler Inhale 2 puffs every 4 (four) hours if needed for wheezing or shortness of breath. Maximum 8 puffs per day 18 g 3 024 2024 Discontinued(R eorder (will not trigger notification to Pharmacy)) predniSONE (Deltasone) 20 MG tablet Take 2 tablets (40 mg) by mouth Once per day for 5 days. 10 tablet 025 2024 Active Problems Problem Noted Date Diagnosed Date Acute serous otitis media of left ear 08/09/2024 Assessment & Plan (08/09/2024 10:50 AM EST): Acute serous otitis, likely due to impacted cerumen. -discussed prescribing debrox drops and should clear on its own. Impacted cerumen of left ear 08/09/2024 Assessment & Plan (08/09/2024 10:49 AM EST): Severe impacted cerumen on exam without visualization of TM. Irrigated and still mild cerumen, but improved. -will prescribe Debrox ear drops 08/09/24 Chronic [id number] syndrome 06/01/2024 Assessment & Plan (06/03/2024 6:40 AM EDT): - 1st positive COVID 19 test in Oct 2021. She had COVID 4 times. - she developed acute symptoms, which mostly resolved, except chest pain and palpitation. 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, possible rotator cuff injury - evaluate with XR, continue tylenol, will refer to PT SVT (supraventricular tachycardia) 03/15/2023 Assessment & Plan (06/03/2024 6:38 AM EDT): - Followed by [facility], last seen in March 2024 - Currently prescribed diltiazem 120 mg daily Assessment & Plan (01/28/2024 12:23 PM EDT): - Followed by [facility], last seen on 09/02/23 - Currently prescribed diltiazem 180 mg daily - Most recent Holter after starting diltiazem showed no SVT, still PAC and sinus tachycardia Assessment & Plan (09/30/2023 5:44 AM EST): - Followed by [facility] Card[facility], last seen on 09/02/23 - Currently prescribed diltiazem 180 mg daily - Most recent Holter after starting diltiazem showed no SVT, still PAC and sinus tachycardia Assessment & Plan (07/06/2023 5:41 AM EDT): - Seen by Meat And Seafood Clerk, [facility], on 06/02/23. - 02/16/23, Holter Monitor showed: frequent PAC & SVT's - symptoms started since COVID - was prescribed Diltiazem 120 mg daily - Although she has not started it yet, she started a second Holter monitor evaluation already. - Advised to start Diltiazem (pt was concerned about hypotension and potential drug interaction. Reassured that is is unlikely to cause significant hypotension and reviewed action plan in case she develops hypotension. Pt will check BP and HR). Hold / discontinue cyclobenzaprine. - Recommended to notify school leader about when she started started taking Diltiazem during the evaluation Assessment & Plan (03/16/2023 10:50 AM EDT): 02/16/23, Holter Monitor showed: frequent PAC & SVT's -symptoms started since COVID -will refer her to Meat And Seafood Clerk Chronic right shoulder pain 03/15/2023 Assessment & Plan (03/20/2023 12:13 PM EDT): Seen by Specialist and Dx Cervical Disc disease and Radiculopathy. -Pt is starting PT -continue following instructions from Orthopedist -continue APAP -judicious use of cyclobenzaprine Palpitation 11/27/2022 Assessment & Plan (06/03/2024 6:38 AM EDT): - Holter monitor completed on 02/16/23: Baseline was normal sinus rhythm with average heart of 96 beats per minute; No significant pauses or bradycardia noted; Frequent sinus tachycardia with 39% of time heart rate greater than 100 beats per minute; Total of 43,673 PACs accounting for 12% total beats account for frequent PACs; Frequent SVT events with longest lasting 37 beats and fastest at 145 beats per minute; Patient reported 3 total events that correlated with PACs and/or sinus tachycardia - Holter monitor in Jun 2023 Baseline was normal sinus rhythm with average heart rate of 96 beats per minute. Frequent sinus tachycardia noted with 39% of time heart rate greater than 100 beats per minute.. No significant pauses noted. Frequent PACs noted with total burden of 13% next 6. - continue low-dose diltiazem Assessment & Plan (01/28/2024 12:21 PM EDT): - Holter monitor completed on 02/16/23: Baseline was normal sinus rhythm with average heart of 96 beats per minute; No significant pauses or bradycardia noted; Frequent sinus tachycardia with 39% of time heart rate greater than 100 beats per minute; Total of 43,673 PACs accounting for 12% total beats account for frequent PACs; Frequent SVT events with longest lasting 37 beats and fastest at 145 beats per minute; Patient reported 3 total events that correlated with PACs and/or sinus tachycardia - Holter monitor in Jun 2023 Baseline was normal sinus rhythm with average heart rate of 96 beats per minute. Frequent sinus tachycardia noted with 39% of time heart rate greater than 100 beats per minute.. No significant pauses noted. Frequent PACs noted with total burden of 13% next 6. No patient reported events Assessment & Plan (09/30/2023 5:47 AM EST): - Holter monitor completed on 02/16/23: Baseline was normal sinus rhythm with average heart of 96 beats per minute; No significant pauses or bradycardia noted; Frequent sinus tachycardia with 39% of time heart rate greater than 100 beats per minute; Total of 43,673 PACs accounting for 12% total beats account for frequent PACs; Frequent SVT events with longest lasting 37 beats and fastest at 145 beats per minute; Patient reported 3 total events that correlated with PACs and/or sinus tachycardia - Holter monitor in Jun 2023 Baseline was normal sinus rhythm with average heart rate of 96 beats per minute. Frequent sinus tachycardia noted with 39% of time heart rate greater than 100 beats per minute.. No significant pauses noted. Frequent PACs noted with total burden of 13% next 6. No patient reported events Assessment & Plan (03/16/2023 10:51 AM EDT): -Pt had a Holter Monitor 24hr in 11/2021 which was normal. -3-day Holter monitor completed on 02/16/23: Baseline was normal sinus rhythm with average heart of 96 beats per minute; No significant pauses or bradycardia noted; Frequent sinus tachycardia with 39% of time heart rate greater than 100 beats per minute; Total of 43,673 PACs accounting for 12% total beats account for frequent PACs; Frequent SVT events with longest lasting 37 beats and fastest at 145 beats per minute; Patient reported 3 total events that correlated with PACs and/or sinus tachycardia Assessment & Plan (11/27/2022 6:21 PM EST): -Pt had a Holter Monitor 24hr in 11/2021 which was normal. -Pt has premature beats on exam today; will evaluate with Holter Monitor for longer duration, 48-72 hr Leukopenia 11/27/2022 Assessment & Plan (06/01/2024 11:53 AM EDT): -Her immune system seems to be normal -WBC 3.0 on 10/30/22 -Following with Dr. Palumbo, last seen in April 2024 -Extensive work-up done. No identifiable etiology. Impression is due to collagen vascular disease. -Follow up in 6 mo -Plan is to have bone marrow biopsy if further decline in WBC Assessment & Plan (01/28/2024 12:25 PM EDT): -Her immune system seems to be normal -WBC 3.0 on 10/30/22 -Following with Dr. Palumbo, last seen in April 2022 -Extensive work-up done. No identifiable etiology. Impression is due to collagen vascular disease. -Follow up in 6 mo -Plan is to have bone marrow biopsy if further decline in WBC Assessment & Plan (11/27/2022 6:25 PM EST): -Her immune system seems to be normal -WBC 3.0 on 10/30/22 -Following with Dr. Palumbo, last seen in April 2022 -Extensive work-up done. No identifiable etiology. Impression is due to collagen vascular disease. -Follow up in 6 mo -Plan is to have bone marrow biopsy if further decline in WBC Fibromyalgia 11/27/2022 Assessment & Plan (06/01/2024 11:51 AM EDT): Previously followed by Shipping Coordinator. -Normal workup for autoimmune disorder. -No Lupus or Rheumatoid Arthritis. -Completed PT at [facility] in May 2022. -Recommended to restart acupuncture. -Held cyclobenzaprine while Holter monitor evaluation; resume again -Discussed the trial of Cymbalta; patient is comfortable with gabapentin only at this time Assessment & Plan (01/28/2024 12:23 PM EDT): Previously followed by Shipping Coordinator. -Normal workup for autoimmune disorder. -No Lupus or Rheumatoid Arthritis. -Completed PT at [facility] in May 2022. -Recommended to restart acupuncture. -Held cyclobenzaprine while Holter monitor evaluation; resume again -Discussed the trial of Cymbalta. Agreed to have cardiology evaluation prior to starting Cymbalta Assessment & Plan (09/30/2023 5:53 AM EST): Previously followed by Shipping Coordinator. -Normal workup for autoimmune disorder. -No Lupus or Rheumatoid Arthritis. -Completed PT at [facility] in May 2022. -Recommended to restart acupuncture. -Held cyclobenzaprine while Holter monitor evaluation; resume again -Discussed the trial of Cymbalta. Agreed to have cardiology evaluation prior to starting Cymbalta Assessment & Plan (06/30/2023 5:15 PM EDT): Previously followed by Shipping Coordinator. -Normal workup for autoimmune disorder. -No Lupus or Rheumatoid Arthritis. -Completed PT at [facility] in May 2022. -Recommended to restart acupuncture. -Held cyclobenzaprine while Holter monitor evaluation; resume again -Discussed the trial of Cymbalta. Agreed to have cardiology evaluation prior to starting Cymbalta Assessment & Plan (03/20/2023 12:14 PM EDT): Previously followed by Shipping Coordinator. -Normal workup for autoimmune disorder. -No Lupus or Rheumatoid Arthritis. -Completed PT at [facility] in May 2022. -Recommended to restart acupuncture. -Held cyclobenzaprine while Holter monitor evaluation; resume again -Discussed the trial of Cymbalta. Agreed to have cardiology evaluation prior to starting Cymbalta Assessment & Plan (11/27/2022 6:23 PM EST): Previously followed by Shipping Coordinator. -Normal workup for autoimmune disorder. -No Lupus or Rheumatoid Arthritis. -Will discontinue Cyclobenzaprine until she completes evaluation of Holter Monitor -Completed PT at [facility] in May 2022. -Recommended to restart acupuncture. -Discussed the trial of Cymbalta. Agreed to complete Holter Monitor before starting Cymbalta Atypical chest pain 11/27/2022 Assessment & Plan (06/01/2024 11:53 AM EDT): -Followed by [facility] Meat And Seafood Clerk, last seen in March 2024 -03/27/22 Stress test, EKG was negative for ischemia, but pt reported left-sided chest pain, dyspnea, and palpitation. -04/01/22 TTE Left ventricular systolic function was normal, EF 58%. - 04/28/24 exercise nuclear stress test showed no ischemia -Continue lifestyle modifications. -Possibly d/t chostochondritis or anxiety or post-COVID Assessment & Plan (09/30/2023 5:49 AM EST): -Followed by [facility] Meat And Seafood Clerk, last seen in Aug 2023 -03/27/22 Stress test, EKG was negative for ischemia, but pt reported left-sided chest pain, dyspnea, and palpitation. -04/01/22 TTE Left ventricular systolic function was normal, EF 58%. -Continue lifestyle modifications. -Possibly d/t chostochondritis or anxiety or post-COVID Follow-up with Cardiology after holter monitor evaluation Assessment & Plan (06/30/2023 5:15 PM EDT): -Seen by [facility] Meat And Seafood Clerk, recently in May 2023 -03/27/22 Stress test, EKG was negative for ischemia, but pt reported left-sided chest pain, dyspnea, and palpitation. -04/01/22 TTE Left ventricular systolic function was normal, EF 58%. -Continue lifestyle modifications. -Possibly d/t chostochondritis or anxiety or post-COVID Follow-up with Cardiology after holter monitor evaluation Assessment & Plan (11/27/2022 5:08 AM EST): -Seen by [facility] Meat And Seafood Clerk. -03/27/22 Stress test, EKG was negative for ischemia, but pt reported left-sided chest pain, dyspnea, and palpitation. -04/01/22 TTE Left ventricular systolic function was normal, EF 58%. -Continue lifestyle modifications. -Possibly d/t chostochondritis or anxiety or post-COVID History of abnormal mammogram 11/27/2022 Assessment & Plan (11/27/2022 5:09 AM EST): 11/17/19 BIRADS 0, b/l calcification 11/24/19 BIRADS 2 03/12/21 BIRADS 0, b/l calcification 08/21/22 BIRADS 2 Weakness of both hands 11/27/2022 Assessment & Plan (11/27/2022 6:22 PM EST): Most likely Carpal tunnel syndrome -Will evaluate with Nerve Conduction Test / EMG -write scripts for b/l wrist braces -activity modifications -continue judicious use of gabapentin Numbness of fingers of both hands 11/27/2022 Assessment & Plan (11/27/2022 6:19 PM EST): -Probable CTS Impaired fasting glucose 11/27/2022 Assessment & Plan (06/01/2024 11:52 AM EDT): -A1C 5.9% in October 2023, patient has been seeing RD -Annual screening Assessment & Plan (03/20/2023 12:14 PM EDT): -A1C 5.7% in April 2022 -Annual screening Assessment & Plan (11/27/2022 6:38 PM EST): -A1C 5.7% in April 2022 -Annual screening PAC (premature atrial contraction) 11/27/2022 Assessment & Plan (06/03/2024 6:37 AM EDT): -following with [facility] Card[facility], last seen in March 2024 -02/16/23, Holter Monitor showed: frequent PAC & SVT's -symptoms started since COVID -Normal stress test and TTE with EF 58% in March 2022 -seen by school leader in May 2023, and prescribed diltiazem 120 mg daily -07/02/23 Holter monitor after starting diltiazem showed improvement, average HR 96, PAC 13%, no SVT. Due to PAC burden of 13%, diltiazem was increased to 180 mg daily. -diltiazem was decreased back to 120 mg daily due to patient's dizziness and headache. -continue diltiazem at current dose -continue follow up with school leader as scheduled Assessment & Plan (01/28/2024 12:22 PM EDT): >>ASSESSMENT AND PLAN FOR PAC (PREMATURE ATRIAL CONTRACTION) WRITTEN ON 09/30/2023 5:48 AM BY TAYA LAST MD 02/16/23, Holter Monitor showed: frequent PAC & SVT's 06/30/23 Holter monitor showed less PAC, still 13% burden, no SVT. Continue diltiazem 180 mg daily >>ASSESSMENT AND PLAN FOR PREMATURE BEATS WRITTEN ON 09/30/2023 5:42 AM BY TAYA LAST MD -02/16/23, Holter Monitor showed: frequent PAC & SVT's -symptoms started since COVID -Normal stress test and TTE with EF 58% in March 2022 -seen by school leader in May 2023, and prescribed diltiazem 120 mg daily -07/02/23 Holter monitor after starting diltiazem showed improvement, average HR 96, PAC 13%, no SVT -seen by school leader on 09/02/23, increased diltiazem to 180 mg daily Assessment & Plan (01/28/2024 6:29 AM EDT): >>ASSESSMENT AND PLAN FOR PREMATURE BEATS WRITTEN ON 11/27/2022 6:20 PM BY TAYA LAST MD -Evaluate with Holter Monitor -Discontinue cyclobenzaprine -Will not start Cymbalta until she completes evaluation with Holter Monitor Assessment & Plan (01/28/2024 6:29 AM EDT): >>ASSESSMENT AND PLAN FOR PREMATURE BEATS WRITTEN ON 07/06/2023 5:39 AM BY TAYA LAST MD -02/16/23, Holter Monitor showed: frequent PAC & SVT's -symptoms started since COVID -following with school leader -pt was prescribed diltiazem 120 mg daily; given reassurance that it is low dose and it is unlikely to cause hypotension -hold cyclobenzaprine as it may affect cardiac conduction Assessment & Plan (01/28/2024 6:29 AM EDT): >>ASSESSMENT AND PLAN FOR PAC (PREMATURE ATRIAL CONTRACTION) WRITTEN ON 09/30/2023 5:48 AM BY TAYA LAST MD 02/16/23, Holter Monitor showed: frequent PAC & SVT's 06/30/23 Holter monitor showed less PAC, still 13% burden, no SVT. Continue diltiazem 180 mg daily >>ASSESSMENT AND PLAN FOR PREMATURE BEATS WRITTEN ON 09/30/2023 5:42 AM BY TAYA LAST MD -02/16/23, Holter Monitor showed: frequent PAC & SVT's -symptoms started since COVID -Normal stress test and TTE with EF 58% in March 2022 -seen by school leader in May 2023, and prescribed diltiazem 120 mg daily -07/02/23 Holter monitor after starting diltiazem showed improvement, average HR 96, PAC 13%, no SVT -seen by school leader on 09/02/23, increased diltiazem to 180 mg daily Assessment & Plan (03/16/2023 10:50 AM EDT): 02/16/23, Holter Monitor showed: frequent PAC & SVT's -symptoms started since COVID -will refer her to Meat And Seafood Clerk Vitamin D deficiency 09/29/2018 Assessment & Plan (06/01/2024 11:52 AM EDT): - Continue vitamin D supplementation Assessment & Plan (11/27/2022 9:43 AM EST): Most recent level showed improvement Continue vitamin D supplementation Allergic rhinitis 12/24/2017 Assessment & Plan (03/20/2023 12:18 PM EDT): - start cetirizine 10 mg daily - start fluticasone nasal - add cromolyn gtt for allergic conjunctivitis prn Vitamin B deficiency 09/30/2017 Inverted nipple 02/04/2017 Anxiety and depression 07/24/2014 Assessment & Plan (01/28/2024 12:25 PM EDT): -She is able to contract her safety today -She is connected with S provider -Will consider starting Cymbalta in near future Assessment & Plan (03/20/2023 12:15 PM EDT): -She is able to contract her safety today -She is connected with S provider -Will consider starting Cymbalta in near future Assessment & Plan (11/27/2022 6:27 PM EST): -She is able to contract her safety today -She is willing to try counseling; will refer Asthma 07/24/2014 Assessment & Plan (06/01/2024 6:03 AM EDT): -Pt had COVID infection twice, last COVID in February 2022. -Since then, she has restarted using albuterol inhaler (previous asthma symptoms was in 2013) and started Symbicort. -Continue Symbicort -Continue albuterol HFA prn -Check the status of PFT Assessment & Plan (09/30/2023 5:53 AM EST): -Pt had COVID infection twice, last COVID in February 2022. -Since then, she has restarted using albuterol inhaler (previous asthma symptoms was in 2013) and started Symbicort. -Continue Symbicort -Continue albuterol HFA prn -Check the status of PFT Assessment & Plan (03/20/2023 12:16 PM EDT): -Pt had COVID infection twice, last COVID in February 2022. -Since then, she has restarted using albuterol inhaler (previous asthma symptoms was in 2013) and started Symbicort. -Continue Symbicort -Continue albuterol HFA prn -Check the status of PFT Assessment & Plan (11/27/2022 5:03 AM EST): -Pt had COVID infection twice, last COVID in February 2022. -Since then, she has restarted using albuterol inhaler (previous asthma symptoms was in 2013) and started Symbicort. -Continue Symbicort -Continue albuterol HFA prn -Check the status of PFT Headache 07/24/2014 Resolved Problems Problem Noted Date Diagnosed Date Resolved Date Hypercholesterolemia 12/24/2017 023 Encounters Date Type Department Care Team Description 11/09/2024 9:20 AM EST Office Visit [facility] [address] [place] [id number] Phong Jean-Baptiste MD Acute cough (Primary Dx); Chest pain, unspecified type 11/08/2024 Telephone [facility] [address] [place] [phone] Taya Last MD Nurse Triage 11/02/2024 9:40 AM EST Office Visit [facility] [address] [place] [id number] Phong Jean-Baptiste MD Acute cough (Primary Dx); Moderate persistent asthma with acute exacerbation; Viral URI 11/01/[address] [address] Taya Last MD [facility] (Shower chair (1)) 10/26/[address] [address] Taya Last MD chart prep 10/18/[address] [address] Preeti Parra ANP Prior Authorization ([facility] PA Request: Lidocaine 5% Patch) 10/11/2024 11:15 AM EST Office Visit [address] [address] Preeti Parra ANP Chronic pain of both shoulders (Primary Dx); Fibromyalgia 10/11/2024 Travel 10/10/[address] [address] Rose Hayden MA chart prep 10/04/[address] [address] Taya Last MD Nurse Triage 09/23/2024 10:00 AM EST Office Visit [facility] [address] [place] [address] Dawit, Lilli, OD Combined forms of age-related cataract of both eyes (Primary Dx); Meibomian gland dysfunction; Astigmatism of both eyes with presbyopia 09/23/2024 Travel from Last 3 Months Immunizations Name Administration Dates Next Due DTaP 05/18/2009 Influenza injectable quadriv alent IIV4 with preservative 07/22/2018 Influenza injectable quadrivalent preservative f ree 09/26/2019 Influenza, IIV3, injectable 07/24/2014 MMR 03/27/2006 Pneumococcal Conjugate PCV 20 06/01/2024 Pneumococcal Polysaccharide PPSV23 08/13/2010 TD (adult), 2 Lf tetanus tox oid, preservative free, adsorbed 05/18/2009 Tdap 06/01/2024,01/03/2014 Zoster, Recombinant 06/27/2021 Family History Medical History Relation Name Comments Breast cancer Sister Relation Name Status Comments Sister Social History Tobacco Use Types Packs/Day Years Used Date Smoking Tobacco: Never Passive Smoke Exposure: Never Smokeless Tobacco: Never Tobacco Cessation:Counseling Given: Not Answered Depression Answer Date Recorded Patient Health Questionnaire-9 [...] Orientation Straight 08/04/2022 10 :18 AM EDT Last Filed Vital Signs Vital Sign Reading [...] oz) 11/09/2024 9:04 A M EST Height 162.6 cm (5' 4 ) 08/09/2024 10:16 AM EST Body Mass Index 24.48 08/09/2024 10:16 AM EST Plan of Treatment Health Maintenance Due Date Last Done Comments CT Colonography 1959 FIT DNA/Cologuard 1960 FIT 1960 FOBT 1960 Sigmoidoscopy 1960 Hepatitis C Screening 1977 RSV Patients and Patients Aged 60 years or older (1 - Risk 60-74 years 1-dose series) 2019 Zoster Vaccines (2 of 2) 08/22/2021 06/27/2021 Pap Smear 03/15/2024 03/15/2021 COVID-19 Vaccine (3 - season) 2024 05/02/2021, 04/03/2021 Influenza Vaccine (#1) 2024 9, 07/22/2018, 07/24/2014 Depression Screening 01/27/2025 01/28/2024, 01/28/20 24 SDOH Screening 01/27/2025 01/28/2024 Alcohol/Substance Use Screening 06/01/2025 06/01/2024 Diabetes: Hemoglobin A1C 06/07/20252 024, 10/07/2023, 03/19/2023, Additional history exists Tobacco Screening 11/09/2025 11/09/2024 Cervical Cancer Screening 03/15/2026 HPV/Cotest 03/15/2026 03/15/2021 Mammogram 03/15/2026 03/15/2024, 08/05, 11/13/2021, Additional history exists Colonoscopy 02/01/2030 02/02/2020 Colorectal Cancer Screening 02/01/2030 DTaP/Tdap/Td Vaccines (4 - Td or Tdap) 06/01/2034 06/01/2024, 01/03/2014, 05/18/2009, Additional history exists Pneumococcal Vaccine: 50+ Years Completed 06/01/2024, 08/13/2010 HIB Vaccines Aged Out No longer eligi ble based on patient's age to complete this topic HPV Vaccines Aged Out No longer eligi ble based on patient's age to complete this topic Hepatitis A Vaccines Aged Out No long er eligible based on patient's age to complete this topic Hepatitis B Vaccines Aged Out No long er eligible based on patient's age to complete this topic IPV Vaccines Aged Out No longer eligi ble based on patient's age to complete this topic Meningococcal Vaccine Aged Out No lilly karla eligible based on patient's age to complete this topic RSV under 20 months Aged Out No longe r eligible based on patient's age to complete this topic Rotavirus Vaccines Aged Out No longer eligible based on patient's age to complete this topic Procedures Procedure Name Priority Date/Time Associated Diagnosis Comments ECG 12-LEAD Routine 11/09/2024 1:15 PM EST Chest pain, unspecified type XR CHEST 2 VIEWS Routine 11/09/2024 10:0 9 AM EST Acute cough POCT INFLUENZA B (ID NOW RAPID MOLECULAR) Routine 11/02/2024 9:52 AM EST Viral URI POCT INFLUENZA A (ID NOW RAPID MOLECULAR) Routine 11/02/2024 9:52 AM EST Viral URI POCT RAPID COVID ANTIGEN Routine 11/02/2024 9:52 AM EST Viral URI HEMOGLOBIN A1C Routine 06/07/2024 8:48 AM EDT Impaired fasting glucose BI MAMMOGRAM SCREENING TOMOSYNTHESIS BILATERAL Routine 03/15/2024 8:35 AM EDT HPV MRNA E6/E7 Routine 03/15/2021 7:10 AM EDT THINPREP IMAGING SYSTEM PAP Routine 03/15/2021 7:10 AM EDT HM COLONOSCOPY Routine 02/02/2020 from Last 3 Months or Most Recently Relevant to Health Maintenance Results * XR Chest 2 Views (11/09/2024 10:09 AM EST) Anatomical Region Laterality Modality Chest Radiographic Vicenta ging 11/09/2024 10:0 9 AM EST Narrative 11/09/2024 10:41 AM EST ?[facility] ?[address] ?[place] [address] ?XRay Report ? Signed ? Patient: Reymundo,Freida I ?MR#: [id number] ?? 202 ? : 1960 ?Acct:[id number] ? Age/Sex: 64 / F ?ADM Date: 11/09/24 ? Loc: HO.HHCX ? Attending Dr: Phong Jean-Baptiste MD ? Ordering Physician: PHONG JEAN-BAPTISTE MD ?? Date of Service: 11/09/24 ?? Procedure(s): XR chest 2V ?? Accession Number(s): [id number] ? cc: PHONG JEAN-BAPTISTE MD ? EXAMINATION: [...] DD/ 1009 ? TD/TT: 11/09/24 1030 ? Authorization Representative: ? Procedure Kate Barakat - 11/09/2024 [facility] [address] [place] [address] XRay Report Signed Patient: Freida Dwyer IMR#: [id number] 202 : 9Acct:[id number] Age/Sex: 64 / FADM Date: 11/09/24 Loc: HO.HHCX Attending Dr: Phong Jean-Baptiste MD Ordering Physician: PHONG JEAN-BAPTISTE MD Date of Service: 11/09/24 Procedure(s): XR chest 2V Accession Number(s): [id number] cc: PHONG JEAN-BAPTISTE MD EXAMINATION: XR CHEST [...] 11/09/24 1038 DD/ 1009 TD/TT: 11/09/24 1030 Authorization Representative: Phong Jean-Baptiste MD IMG XR PROCEDURES Edited Result - Final * Influenza B (ID NOW Rapid Molecular) (11/02/2024 9:52 AM EST) Influenza B Negative Negative, Indeterminate [facility] Swab 11/02/2024 9:52 AM EST Phong Jean-Baptiste MD POINT OF CARE TEST ENTER/EDIT OR DERABLES Final Result [facility] [address] [place] [phone] * Influenza A (ID NOW Rapid Molecular) (11/02/2024 9:52 AM EST) Influenza A Negative Negative, Indeterminate [facility] Swab 11/02/2024 9:52 AM EST Phong Jean-Baptiste MD POINT OF CARE TEST ENTER/EDIT OR DERABLES Final Result Performing Organization Address [facility] Co de Phone Number [facility] [address] [place] [phone] * POCT Rapid COVID Ag (11/02/2024 9:52 AM EST) Rapid COVID Ag Negative [facility] Swab 11/02/2024 9:52 AM EST Phong Jean-Baptiste MD POINT OF CARE TEST ENTER/EDIT OR DERABLES Final Result Performing Organization Address [facility] Phone Number [facility] [address] [place] [phone] * Hemoglobin A1c (06/07/2024 8:48 AM EDT) Hemoglobin A1c 5.7 <6.0 % [facility] Comment:Hemoglobin A1C Refer ence Range Adults: 4.8 - 6.0 % Non diabetic: < 6.0 % Goal: < 7.0 %Additional Action Suggested: > 8.0 %Note: Hemoglobin A1c results are invalid for patients with abnormal amounts of HbF. Blood transfusions may impact the HbA1c concentration in the patient sample. Estimated Average Glucose 117 mg/dL [facility] Comment:eAG = Estimated ave rage glucose which is %A1C expressed asaverage glucose, using the formula of the Y1S-OibtajcBatsqwk Glucose study (ADAG), Diabetes Care, Vol.31,#8,May. 2007 Blood Venous blood specimen / Unknown 06/07/2024 8:48 AM EDT 06/07/2024 11:22 AM EDT Taya Last MD LAB BLOOD ORDERABLES Final Resul t Performing Organization Address [facility] Co de Phone Number [facility] [address] [place] [phone] * BI Mammogram Screening Tomosynthesis Bilateral (03/15/2024 8:35 AM EDT) Anatomical Region Laterality Modality Breast Bilateral Mammography 03/15/2024 8:35 AM EDT Narrative 04/14/2024 9:51 AM EDT ? [facility] ? [address] ?[place] [address] ? Mammography Report ? Signed ? Patient: Dwyer,Freida I ?MR#: [id number] ?? 202 ? : 1960 ?Acct:[id number] ? Age/Sex: 63 / F ?ADM Date: 03/15/24 ? Loc: HO.MAMMO ? Attending Dr: Taya Last MD ? Ordering Physician: Taya Last MD ?Results: 1Negative ? Date of Service: 03/15/24 ?Follow Up: 1 Year From Orig ?? inal Mammogram ? Procedure(s): MM tomosynthesis screening BI ?? Accession Number(s): [id number] ? cc: Taya Last MD ? EXAMINATION: ?? MM SCREENING DIGITAL BREAST TOMOSYNTHESIS, BILATERAL ? CLINICAL INFORMATION: ? Screening. Asymptomatic. ? COMPARISON: ?? Mammography: This study is compared with prior exams dating back to ?? 2018. ? TECHNIQUE: ?? Digital breast tomosynthesis is performed in both the craniocaudal and ?? mediolateral oblique views along with computer-aided detection (CAD). ?? Synthesized 2D images are generated from the tomosynthesis. ? FINDINGS: ?? The breasts are heterogeneously dense, which may obscure small masses ?? (ACR BI-RADS breast composition Category c). ? There are no significant masses, abnormal calcifications, or other ?? abnormalities. ? MM/MM tomosynthesis screening BI ?? IMPRESSION: ?? No mammographic evidence of malignancy. ? ASSESSMENT: ? BI-RADS BI-RADS 1 - Negative ? RECOMMENDATION: ?? Routine annual mammography screening. ? 1 year F/U ? This examination should not preclude the clinical evaluation of a ?? suspicious palpable abnormality. ? This patient's information was entered into a reminder system with a ?? target due date for their next mammogram. ? Dictated By: ?Nazia Casillas MD ? Signed By: ?<Electronically signed by Nazia Casillas MD in OV> ? 04/14/24 0947 ? DD/ 0835 ? TD/TT: ? Authorization Representative: ? Procedure Note Marlene, Image - 04/14/2024 [place] [facility] [address] [place], [place] [address] Mammography Report Signed Patient: Freida Dwyer [facility]#: [id number] 202 : 9Acct:[id number] Age/Sex: 63 / FADM Date: 03/15/24 Loc: BRI Attending Dr: Taya Last MD Ordering Physician: Taya Last MDResults: 1Negative Date of Service: 03/15/24Follow Up: 1 Year From Orig inal Mammogram Procedure(s): MM tomosynthesis screening BI Accession Number(s): [id number] cc: Taya Last MD EXAMINATION: MM SCREENING DIGITAL BREAST TOMOSYNTHESIS, BILATERAL CLINICAL INFORMATION: Screening. Asymptomatic. COMPARISON: Mammography: This study is compared with prior exams dating back to 2018. TECHNIQUE: Digital breast tomosynthesis is performed in both the craniocaudal and mediolateral oblique views along with computer-aided detection (CAD). Synthesized 2D images are generated from the tomosynthesis. FINDINGS: The breasts are heterogeneously dense, which may obscure small masses (ACR BI-RADS breast composition Category c). There are no significant masses, abnormal calcifications, or other abnormalities. MM/MM tomosynthesis screening BI IMPRESSION: No mammographic evidence of malignancy. ASSESSMENT: BI-RADS BI-RADS 1 - Negative RECOMMENDATION: Routine annual mammography screening. 1 year F/U This examination should not preclude the clinical evaluation of a suspicious palpable abnormality. This patient's information was entered into a reminder system with a target due date for their next mammogram. Dictated By: Nazia Casillas MD Signed By: <Electronically signed by Nazia Casillas MD in OV> 04/14/2447 DD/ TD/TT: Authorization Representative: Taya Last MD IMG BI PROCEDURES Final Result * THINPREP TIS PAP (03/15/2021 7:10 AM EDT) Clinical Information: None given [facility] COMMENT SEE COMMENT [facility] Comment: EXPLANATORY NOTE: ? The Pap is a screening test for cervical cancer. It is ?? not a diagnostic test and is subject to false negative ?? and false positive results. It is most reliable when a ?? satisfactory sample, regularly obtained, is submitted ?? with relevant clinical findings and history, and when ?? the Pap result is evaluated along with historic and ?? current clinical information. ?? COMMENT: This Pap test has been evaluated with computer assisted technology. [facility] Roll On Worker: SEE COMMENT [facility] Comment: FELICITY CALIX(ASCP) CT screening location: [address] ??[address] Interpretation/Res ult: SEE COMMENT [facility] Comment: Negative for intraepithelial lesion or malignancy. Atrophic pattern; predominantly parabasal cells LMP: NONE GIVEN [facility] Prev. BX: NONE GIVEN [facility] Prev. PAP: NONE [facility]IVEN [facility] SOURCE: None given [facility] Statement Of Adequacy: SATISFACTORY FOR EVALUATION [facility] 03/15/2021 7:10 AM EDT Taya Last MD LAB PATHOLOGY ORDERABLES Final R esult Performing Organization Address [facility] de Phone Number [facility] [address] * HPV mRNA E6/E7 (03/15/2021 7:10 AM EDT) HPV nRNA E6/E7 Not Detected Not Detected [facility] Comment: Methodology: Pressed Or Blown Glass Worker-Mediated Amplification This assay detects E6/E7 viral messenger RNA (mRNA) from 14 high-risk HPV types (16,18,31,33,35,39,45,51,52,56,58,59,66,68). ? The analytical performance characteristics of this assay have been determined by [employer]. The modifications have not been cleared or approved by the FDA. This assay has been validated pursuant to the CLIA regulations and is used for clinical purposes. ?? For additional information, please refer to http://education.[employer]/faq/LIW478m7 (This link if provided for information/ educational purposes only.) NO COLLECTION DATE RECEIVED. WE HAVE USED THE DATE THE SPECIMEN WAS RECEIVED BY THIS LABORATORY THE COLLECTION DATE. IF THIS IS INCORRECT, PLEASE CONTACT CLIENT SERVICES. PHONE NUMBER: ?? 03/15/2021 7:10 AM EDT Taya Last MD LAB BLOOD ORDERABLES Final Resul t Performing Organization Address [facility] de Phone Number [facility] [address] * Hm Colonoscopy (02/02/2020) Colonoscopy Normal Normal 02/02/2020 Nikki Hickey MD HEALTH MAINTENANCE Final Result from Last 3 Months or Most Recently Relevant to Health Maintenance Insurance [facility] Care Teams Commutator Tester Relationship Specialty Start Date End Date Taya Last MD [address] [place] [address] PCP - General Family Medicine 07/22/18 Brittney Causey C Software DeveloperTissue Packer 12/30/23
--- OUTSIDE RECORDS SUMMARY | 2024-11-13 20:27 | XMS_ITS | Encounter Summary ---
Author Organization [facility] Address [address] [place] [address] Care Team Providers Care Motor Express Clerk Name Role Phone Silvia [place] DO Primary Care Pro vider Unavailable Encounter Details Date Type Department Care Team Description 02/06/2017 Transfer Records Medical Records [address] [place] [address] Abstract, Provider Social History Tobacco Use Types [...] on filedocumented in this encounter Care Teams Motor Express Clerk Relationship Specialty Start Date End Date Silvia [place] DO PCP - General Internal Medicine 10/17/15 documented as of this encounter
--- OUTSIDE RECORDS SUMMARY | 2024-11-13 20:27 | XMS_ITS | Encounter Summary ---
Author Organization [employer] Address [address] [facility] [address] [place] [address] Care Team Providers Care Replanting Machine Operator Name Role Phone Taya Last MD Primary Care Provider [phone] Reason for Visit * Reason Comments Cough Encounter Details Date Type Department Care Team ([facility] st Contact Info) Description 11/02/2024 9:40 AM EST Office Visit [facility] [address] [place] [address] Phong Galvan MD [address] [place] [address] Acute cough (Primary Dx); Moderate persistent asthma with acute exacerbation; Viral URI Social History Tobacco Use Types Packs/Day Years [...] Sign Reading Time Taken Comments Blood Pressure 112/74 11/02/2024 9:32 AM EST Pulse 93 11/02/2024 9:32 AM EST Temperature 36.6 ??C (97.9 ??F) 11/02/2024 9:32 AM ES T Respiratory Rate 16 11/02/2024 9:32 AM EST Oxygen Saturation 98% 11/02/2024 9:32 AM EST Inhaled Oxygen Concentration - - Weight 64.3 kg (141 lb 12.8 oz) 11/02/2024 9:32 AM EST Height - - Body Mass Index 24.34 08/09/2024 10:16 AM EST documented in this encounter Progress Notes * Phong Galvan MD - 11/02/2024 9:40 AM EST Subjective Patient ID: Freida Dwyer is a 64 y.o. female. HPI 9 days ago Freida had onset of tactile fever, body aches, chills, nasal congestion, production cough, occasional wheezing with SOB. Was seen at home by [employer] cake press operator helper 2 days ago, xejp=[phone]. Impression: Viral illness. Advised Tylenol and Robitussin. States Robitussin helps a little. Using albuterol HFA several times/day. Ran out of Symbicort a while. No n/v/d, Taking p.o. well. Lives with , who was ill prior to pt. Not employed. Never smoked. No EtOH. 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 HENT: Positive for rhinorrhea. Respiratory: Positive for cough, shortness of breath and wheezing. Cardiovascular: Negative for chest pain. Gastrointestinal: Negative for abdominal pain. Musculoskeletal: Positive for myalgias. Skin: Negative for rash. Neurological: Positive for headaches. Objective Physical Exam Constitutional: Appearance: [...] Effort: Pulmonary effort is normal. Breath sounds: Rales (right lower lung field) present. Musculoskeletal: General: Normal range of motion. Cervical back: No tenderness. Skin: Findings: No rash. Neurological: Mental Status: She is alert. Gait: Gait is intact. Psychiatric: Mood and Affect: Mood normal. Behavior: Behavior normal. Procedures Assessment/Plan Diagnoses and all orders for this visit: Acute cough Negative rapid Covid and Influenza tests. Covid PCR and Flu tests pending. Presumptive pneumonia based on exam. Prescribed Zithromax, refilled Flonase. Drink lots of liquids, rest Tylenol prn. Rtc if not improving. Moderate persistent asthma with acute exacerbation Refilled Symbicort and albuterol HFA, prescribed chambers, prednisone. Rtc if not improving. - POCT Rapid COVID Ag - Influenza A (ID NOW Rapid Molecular) - Influenza B (ID NOW Rapid Molecular) Other orders - Symbicort 80-4.5 MCG/ACT inhaler; INHALE 2 PUFFS BY MOUTH TWICE DAILY IN THE MORNING AND IN THE EVENING - albuterol (Ventolin HFA) 108 (90 Base) MCG/ACT inhaler; Inhale 2 puffs every 4 (four) hours if needed for wheezing or shortness of breath. - Spacer/Aero-Holding Chambers (OptiChamber Alejandra) misc; 1 each every 4 (four) hours if needed (asthma). - predniSONE (Deltasone) 20 MG tablet; Take 2 tablets (40 mg) by mouth Once per day for 5 days. - azithromycin (Zithromax Z-Ankit) 250 MG tablet; Take 2 tablets once on day 1, then 1 tablet 1x/day for 4 days. - fluticasone (Flonase) 50 MCG/ACT nasal spray; INSTILL 1 SPRAY IN EACH NOSTRIL ONCE DAILY documented in this encounter Plan of Treatment Not on file documented as of this encounter Procedures Procedure Name Priority Date/Time Associated Diagnosis Comments POCT INFLUENZA B (ID NOW RAPID MOLECULAR) Routine 11/02/2024 9:52 AM EST Viral URI POCT INFLUENZA A (ID NOW RAPID MOLECULAR) Routine 11/02/2024 9:52 AM EST Viral URI POCT RAPID COVID ANTIGEN Routine 11/02/2024 9:52 AM EST Viral URI documented in this encounter Results * Influenza B (ID NOW Rapid Molecular) (11/02/2024 9:52 AM EST) Pathologist [facility] Influenza B Negative Negative, Indeterminate [facility] Swab 11/02/2024 9:52 AM EST us Phong Galvan MD POINT OF CARE TEST ENTER/EDIT OR DERABLES Final Result [facility] [address] [place] [phone] * Influenza A (ID NOW Rapid Molecular) (11/02/2024 9:52 AM EST) [facility] Influenza A Negative Negative, Indeterminate [facility] Swab 11/02/2024 9:52 AM EST us Phong Galvan MD POINT OF CARE TEST ENTER/EDIT OR DERABLES Final Result Performing Organization Address [facility] Co de Phone Number [facility] [address] [place] [address] [phone] * POCT Rapid COVID Ag (11/02/2024 9:52 AM EST) Rapid COVID Ag Negative [facility] Swab 11/02/2024 9:52 AM EST us Phong Galvan MD POINT OF CARE TEST ENTER/EDIT OR DERABLES Final Result Performing Organization Address [facility] Phone Number [facility] [address] [place] [phone] documented in this encounter Visit Diagnoses Diagnosis Acute cough- Primary Moderate persistent asthma with acute exacerbation Viral URI Acute upper respiratory infections of unspecified site documented in this encounter Additional Health Concerns Assessment Noted Time PHQ-9 Depression Total Score: 0 01/28/20 24 12:02 PM EDT documented as of this encounter Care Teams Replanting Machine Operator Relationship Specialty Start Date End Date Taya Last MD [address] [place] [phone] PCP - General Family Medicine 07/22/18 Brittney Causey Technical EditorFoundry Operator 12/30/23 documented as of this encounter
--- OUTSIDE RECORDS SUMMARY | 2024-11-13 20:27 | XMS_ITS | Encounter Summary ---
Author Organization [facility] Address [address] [place] [address] Care Team Providers Care Metal Sprayer Protective Coating Name Role Phone Silvia [place] DO Primary Care Pro vider Unavailable Reason for Visit * Reason Onset Date Comments TEST RESULTS 12/29/2017 Encounter Details Date Type Department Care Team Description 12/29/2017 Telephone Adult Medicine [address] [phone] Silvia [place] DO TEST RESULTS Social History Tobacco Use Types Packs/Day Years Used Date Smoking Tobacco: Never Smokeless Tobacco: Never Alcohol Use Standard Drinks/Week Comments No 0 (1 standard drink = 0.6 oz pur e alcohol) Sex Assigned at Date Recorded Not on file documented as of this encounter Miscellaneous Notes * Telephone Encounter - Coleen Goode M.A. - 12/29/2017 4:35 PM EDT Spoke with patient all set. Please review documented in this encounter Plan of Treatment Not on file documented as of this encounter Visit Diagnoses Not on filedocumented in this encounter Care Teams Metal Sprayer Protective Coating Relationship Specialty Start Date End Date Silvia [place] DO PCP - General Internal Medicine 10/17/15 documented as of this encounter
--- OUTSIDE RECORDS SUMMARY | 2024-11-13 20:27 | XMS_ITS | Encounter Summary ---
Author Organization [employer] Address [address] [facility] 7t [place] [address] Care Team Providers Care Cardboard Cutter Name Role Phone Taya Last MD Primary Care Provider [phone] Reason for Visit * Reason Comments Cataract Encounter Details Date Type Department Care Team ([facility] st Contact Info) Description 09/23/2024 10:00 AM EST Office Visit [facility] [address] [place] [address] Dawit, Lilli, OD [address] [place] [address] Combined forms of age-related cataract of both eyes (Primary Dx); Meibomian gland dysfunction; Astigmatism of both eyes with presbyopia Social History Tobacco Use Types Packs/Day Years [...] AM EDT documented as of this encounter Progress Notes * Lilli Pastor, OD - 09/23/2024 10:00 AM EST Eye Care Progress Note Patient ID: Freida Dwyer is a 64 y.o. female. Chief Complaint Cataract HPI Here for a complete eye exam to monitor cataracts in both eyes. Today the patient complains of increased blur at distance and near with her current glasses. She also complains of intermittent drynessin both eyes. She uses artificial tears and warm compresses as needed for relief. Her last eye exam was here on 03/10/2022. Last edited by Lilli Pastor, OD on 10/19/2024 11:56 AM. Current Outpatient Medications Medication Sig Dispense Refill acetaminophen (Tylenol 8 Hour) 650 MG ER tablet Take 1 tablet by mouth every 8 hours as needed for pain or fever 60 tablet 3 albuterol 108 (90 Base) MCG/ACT inhaler Inhale 2 puffs every 4 (four) hours if needed for wheezing or shortness of breath. Maximum 8 puffs per day 18 g 3 carbamide peroxide (Debrox) 6.5 % otic solution 4 gtt left ear for 3 days- hungarian 15 mL 0 cetirizine (ZyrTEC) 10 MG tablet Take 1 tablet (10 mg) by mouth in the morning. 90 tablet 3 dilTIAZem CD (Cardizem CD) 120 MG 24 hr capsule Take 120 mg by mouth Once per day. EPINEPHrine (Epipen) 0.3 MG/0.3ML injection syringe INJECT INTRAMUSCULARLY DIRECTED ON PACKAGE AND GO TO EMERGENCY ROOM 2 each 0 fluticasone (Flonase) 50 MCG/ACT nasal spray INSTILL 1 SPRAY IN EACH NOSTRIL ONCE DAILY 16 g 3 gabapentin (Neurontin) 100 MG capsule Take 1 capsule by mouth every night. May increase up to 3 tablets at bedtime 90 capsule 11 meclizine (Antivert) 25 MG tablet 1 tab po BID 60 tablet 3 cholecalciferol VITAMIN D (Vitamin D-3) 50 MCG (2000 UT) capsule Take 1 capsule (50 mcg) by mouth Once per day. 90 capsule 3 lidocaine (Lidoderm) 5 % patch Apply 1 patch to neck and 1 patch to back and leave on for 12 hours as needed. 60 patch 3 methocarbamol (Robaxin) 750 MG tablet Take 1 tablet (750 mg) by mouth at bedtime for 10 days. 10 tablet 0 QuickVue At-Home Covid-19 Test kit USE DIRECTED 2 kit 1 Symbicort 80-4.5 MCG/ACT inhaler INHALE 2 PUFFS BY MOUTH TWICE DAILY IN THE MORNING AND IN THE EVENING (Patient not taking: Reported on 09/23/2024) 1 each 11 No current facility-administered medications for this visit. Past Medical History: Diagnosis Date Hypercholesterolemia 12/24/2017 Hypertension History reviewed. No pertinent surgical history. Family History Problem Relation Name Age of Onset Breast cancer Sister Social History Socioeconomic History Marital status: Spouse name: Not on file Number of children: Not on file Years of education: Not on file Highest education level: Not on file Occupational History Not on file Tobacco Use Smoking status: Never Passive exposure: Never Smokeless tobacco: Never Vaping Use Vaping status: Never Used Substance and Sexual Activity Alcohol use: Not on file Drug use: Not on file Sexual activity: Not on file Other Topics Concern Not on file Social History Narrative Not on file Social Drivers of Health Food Insecurity: Low Risk (01/28/2024) Food Insecurity Within the past 12 months, you worried that your food would run out before you got money to buy more:: Never True Within the past 12 months,the food you bought just didn't last and you didn't have enough money to get more: : Never True Transportation Needs: Low Risk (01/28/2024) Transportation In the past 12 months, has lack of transportation kept you from medical appts, meetings, work or from getting things needed for daily living? : No Intimate Partner Violence: Not on file Housing Stability: Low Risk (01/28/2024) Housing Stability What is your housing situation today?: I have housing Think about the place you live. Do you have problems with any of the following? : None of the above Allergies Allergen Reactions Oxycodone Shellfish Allergy Shellfish-Derived Products Nabumetone Palpitations Other reaction(s): Crying ROS Positive for: Eyes Negative for: Constitutional, Gastrointestinal, Neurological, Skin, Genitourinary, Musculoskeletal,HENT, Endocrine, Cardiovascular, Respiratory, Psychiatric, Allergic/Imm, Heme/Lymph Last edited by Jessa Perkins on 09/23/2024 10:22 AM. Base Eye Exam Visual Acuity (Snellen - Linear phoropter) Right Left Dist cc 20/20-2 20/30- Dist ph cc 20/30+2 Near sc 20/60 20/60 Correction: Glasses Tonometry ([facility] , 10:18 AM) Right Left Pressure 13 14 Pupils Pupils APD Right PERRL None Left PERRL None Visual Charlton (Counting fingers) Left Right Full Full Extraocular Movement Right Left Full Full Neuro/Psych Oriented x3: Yes Mood/Affect: Normal Dilation Both eyes: 1% Tropicamide @ 10:19 AM Slit Lamp and Fundus Exam External Exam Right Left External Normal Normal Slit Lamp Exam Right Left Lids/Lashes 2+ MGD 2+ MGD Conjunctiva/Sclera White and quiet White and quiet Cornea Clear Clear Anterior Chamber Deep and quiet Deep and quiet Iris Flat Flat Lens 1+ NS, 2+ ACC 1+ NS, 2-3+ ACC Fundus Exam Right Left Vitreous Clear Clear Disc [place] and Distinct [place] and Distinct C/D Ratio Vertical 0.30 0.30 C/D Ratio Horizontal 0.30 0.30 Macula Flat and Intact Flat and Intact Vessels Normal Normal Periphery No holes/breaks/tears 360 degrees Single drusen along superotemporal arcade, No holes/breaks/tears 360 degrees Refraction Wearing Rx Sphere Cylinder Frederick Add Right +1.00 -1.00 083 +2.25 Left +0.75 -0.75 087 +2.25 Manifest Refraction Sphere Cylinder [place] Dist VA Add Right +1.00 -1.00 100 20/20 +2.25 Left +0.25 -1.00 065 20/25 +2.25 Final Rx Sphere Cylinder [place] Dist VA Add Right +1.00 -1.00 100 20/20 +2.25 Left +0.25 -1.00 065 20/25 +2.25 Expiration Date: 09/23/2026 Assessment/plan: Diagnoses and all orders for this visit: Combined forms of age-related cataract of both eyes Not visually significant to warrant treatment at this time. The patient was educated on the progressive nature of cataracts and of the potential need for surgery in the future. Her internal ocular health was otherwise unremarkable in both eyes. Will monitor with a complete eye exam in 1 year. 2. Meibomian gland dysfunction The patient was educated that there are glands in the eyelids that secrete oil to mix with the tearlayer over the cornea. These glands are called meibomian glands. The patient was educated that meibomian gland dysfunction (MGD) occurs when the glands are not secreting enough oil or when the oil they secrete is of poor quality. Most often, the oil gland openings get plugged up so that less oil comes out of the glands. The oil that does make it out of the glands can be granular (crusty) or otherwise abnormal, and can cause irritation. The patient was educated that this condition can cause blurry vision and ocular discomfort. The patient was educated to begin performing daily warm compresses using a washcloth and warm water to help the glands better express. She was given a handout of OTC artificial tears to purchase and continue using 3 to 4 times a day in both eyes. Will monitor at nextfull eye exam. 3. Astigmatism of both eyes with presbyopia Glasses prescription updated and given. Will monitor at the patient's next full eye exam. Lilli Pastor, OD 10/19/2024, 2:42 PM Student Name: Jessa Perkins I attest that I was physically present with the optometry student. I personally saw and evaluated the patient and performed my own history and examination. I have reviewed, verified, and revised the documented findings as necessary and agree with the content and plan as written. Bilingual Customer Service Source: ___ None __x_ Bilingual Staff ___ Qualified Staff Dipper Clock And Watch Hands ___ Telephone Bilingual Customer Service; ID# ___ Bilingual Customer Service brought by patient (family member, friend, RETAIL INVENTORY CONTROL CLERK, etc) ___ In person guard immigration ___ Ipad Bilingual Customer Service; ID#: Language Spoken During Exam: __Spanish documented in this encounter Plan of Treatment Not on file documented as of this encounter Visit Diagnoses Diagnosis Combined forms of age-related cataract of both eyes- Primary Meibomian gland dysfunction Other disorders of eyelid Astigmatism of both eyes with presbyopia documented in this encounter Additional Health Concerns Assessment Noted Time PHQ-9 Depression Total Score: 0 01/28/20 24 12:02 PM EDT documented as of this encounter Care Teams Cardboard Cutter Relationship Specialty Start Date End Date Taya Last MD [address] [place] [id number] PCP - General Family Medicine 07/22/18 Brittney Causey Assistant Child Care TeacherModern Greek Studies Professor 12/30/23 documented as of this encounter
--- OUTSIDE RECORDS SUMMARY | 2024-11-13 20:27 | XMS_ITS | Encounter Summary ---
Author Organization [employer] Address [address] [facility] [address] 7 [place] [address] Care Team Providers Care Clerk Analyst Name Role Phone Taya Last MD Primary Care Provider [phone] Reason for Visit * Reason Onset Date Comments Prior Authorization 10/18/[address]: Lidocaine 5% Patch Encounter Details Date Type Department Care Team (Late st Contact Info) Description 10/18/2024 Telephone [facility] [address] [place] [address] Preeti Parra, ANP [address] [place] [address] Prior Authorization (AMY SALDANA Request: Lidocaine 5% Patch) Social History Tobacco Use Types Packs/Day Years [...] encounter Miscellaneous Notes * Telephone Encounter - Sofia Causey - 10/18/2024 2:57 PM EST PA initiated on Covermymeds for Lidocaine 5% Patch . Approval/denial pending. documented in this encounter Plan of Treatment Not on file documented as of this encounter Visit Diagnoses Not on filedocumented in this encounter Additional Health Concerns Assessment Noted Time PHQ-9 Depression Total Score: 0 01/28/20 24 12:02 PM EDT documented as of this encounter Care Teams Clerk Analyst Relationship Specialty Start Date End Date Taya Last MD [address] [place] [address] PCP - General Family Medicine 07/22/18 Brittney Causey Auto ParkerOracle Forms Developer 12/30/23 documented as of this encounter
--- OUTSIDE RECORDS SUMMARY | 2024-11-13 20:27 | XMS_ITS | Encounter Summary ---
Author Organization [employer] Address [address] [place] [address] 7t [place] [address] Care Team Providers Care Certified Massage Therapist Name Role Phone Taya Last MD Primary Care Provider [phone] Reason for Referral * Cardiac Stress Testing (Routine) - Closed Specialty Diagnoses / Procedures Referred By Contac t Referred To Contact Cardiology Diagnoses Premature beats Palpitation Procedures Holter monitor - 48 hour Taya Last MD [address] [place] [address] Phone: tel: fax: [facility] [address] [place] [address] Phone: tel: fax: Referral ID Status Reason Start Date Expiration Date Visits Re quested Visits Authorized [id number] Closed 02/06/2023 08/05/2023 1 1 Encounter Details Date Type Department Care Team (Late st Contact Info) Description 02/06/2023 Orders Only [facility] [address] [place], [place] [phone] Taya Last MD [address] [place], [place] [phone] Premature beats (Primary Dx); Palpitation; Right arm pain Social History Tobacco Use Types Packs/Day [...] as of this encounter Plan of Treatment Scheduled Orders Name Type Priority Associated Diagnoses Orde r Schedule Holter monitor - 48 hour Cardiac Services Routine Premature beats Palpitation Expected: 02/06/2023 (Approximate), Expires: 02/06/2025 documented as of this encounter Visit Diagnoses Diagnosis Premature beats- Primary Unspecified premature beats Palpitation Palpitations Right arm pain Pain in soft tissues of limb documented in this encounter Additional Health Concerns Assessment Noted Time PHQ-9 Depression Total Score: 8 11/27/19 23 9:42 AM EST documented as of this encounter Care Teams Certified Massage Therapist Relationship Specialty Start Date End Date Taya Last MD [address] [place] [id number] PCP - General Family Medicine 07/22/18 Brittney Causey Draw Machine OperatorDriver Wheelchair 12/30/23 documented as of this encounter
--- OUTSIDE RECORDS SUMMARY | 2024-11-13 20:27 | XMS_ITS | Encounter Summary ---
Author Organization [employer] Address [address] [facility] 7t [place] [address] Care Team Providers Care Student Success Counselor Name Role Phone Taya Last MD Primary Care Provider [phone] Encounter Details Date Type Department Care Team ([facility] Contact Info) Description 07/13/2024 Orders Only [facility] [address] [place], [place] [phone] Lori Cooper MD [address] [place] [address] Paresthesia (Primary Dx) Social History Tobacco Use Types [...] Type Priority Associated Diagnoses Orde r Schedule Methylmalonic Acid Lab Routine Paresthesia Expected: 07/13/2024 (Approximate), Expires: 07/13/2025 Homocysteine Lab Routine Paresthesia Expected: 07/13/2024 (Approximate), Expires: 07/13/2025 documented as of this encounter Visit Diagnoses Diagnosis Paresthesia- Primary Disturbance of skin sensation documented in this encounter Additional Health Concerns Assessment Noted Time PHQ-9 Depression Total Score: 0 01/28/20 24 12:02 PM EDT documented as of this encounter Care Teams Student Success Counselor Relationship Specialty Start Date End Date Taya Last MD [address] [place] [phone] PCP - General Family Medicine 07/22/18 Brittney Causey Director Quality AssuranceFlask Maker 12/30/23 documented as of this encounter
--- OUTSIDE RECORDS SUMMARY | 2024-11-13 20:28 | XMS_ITS | Encounter Summary ---
Author Organization [employer] Address [address] [place] [address] 7 [place] [address] Care Team Providers Care Class A Lineman Name Role Phone Taya Last MD Primary Care Provider [phone] Reason for Visit * Reason Onset Date Comments Referral 02/02/2023 Encounter Details Date Type Department Care Team ([facility] st Contact Info) Description 02/02/2023 Telephone [facility] [address] [place], [place] [phone] Taya Last MD [address] [place] [address] Referral Social History Tobacco Use Types Packs/Day [...] encounter Miscellaneous Notes * Telephone Encounter - Donta Rodriguez - 02/02/2023 1:01 PM EDT Tc from Rody with [facility] requesting a referral for Physical Therapy for 60 Visits ( 02/02/2023-02/25/2023) Please fax referral over to [phone] If any questions please contact Rody at [phone] documented in this encounter Plan of Treatment Not on file documented as of this encounter Visit Diagnoses Not on filedocumented in this encounter Additional Health Concerns Assessment Noted Time PHQ-9 Depression Total Score: 8 11/27/19 23 9:42 AM EST documented as of this encounter Care Teams Class A Lineman Relationship Specialty Start Date End Date Taya Last MD [address] [place] [address] PCP - General Family Medicine 07/22/18 Brittney Causey Barrel HeaderGrant Officer 12/30/23 documented as of this encounter
[2024-11-13] MEDS: 0.9 % Sodium Chloride 500 ML IV (21:42)
[2024-11-13] MEDS: ondansetron HCL 4 MG/2 ML VIAL IVPUSH (21:48)
[2024-11-13] MEDS: LORazepam 2 MG/ML VIAL 1 MG IVPUSH (21:48)
[2024-11-13] MEDS: iohexoL 350 MG/ML 100 ML INFUS..BTL 85 ML IV (22:18)
[2024-11-13 23:22] VITALS: BP 99/55; PULSE 104; RESP 18; TEMP 36.3; O2SAT 98
[2024-11-13 23:31] VITALS: BP 99/55; PULSE 104; RESP 18; TEMP 36.3; O2SAT 98
== END 2024-11-13 23:52 | disposition home or self-care (01) ==
PROVIDERS: Nurse Practitioner Family; Emergency Provider Emergency Medicine; PCP Family Medicine
DX: K59.00 Constipation, unspecified (principal); R00.0 Tachycardia, unspecified; R10.812 Left upper quadrant abdominal tenderness; R10.10 Upper abdominal pain, unspecified; R11.2 Nausea with vomiting, unspecified; R30.0 Dysuria; Z79.899 Other long term (current) drug therapy; Z03.818 Encounter for observation for suspected exposure to other biological agents ruled out
CPT/HCPCS: 0241U; 36415; 74177; 80053; 81001; 83690; 83735; 85007; 85027; 85610; 87086; 93005; 96361; 96374; 96375; 99284; 99285; J2060; J2405; Q9967

== ENCOUNTER → 2024-11-13 16:32 | Outpatient (BNV) | payer OTHER, SELFPAY | PROVIDERS: Emergency Provider Emergency Medicine; PCP Family Medicine; Visit Provider Internal Medicine Cardiovascular Disease | DX: R94.31 Abnormal electrocardiogram [ECG] [EKG] (principal) | CPT/HCPCS: 93010 ==

== ENCOUNTER → 2024-11-13 21:21 | Outpatient (BNV) | payer OTHER, SELFPAY | PROVIDERS: Emergency Provider Emergency Medicine; PCP Family Medicine; Visit Provider Radiology Neuroradiology | DX: R10.84 Generalized abdominal pain (principal) | CPT/HCPCS: 74177 ==

== ENCOUNTER 2024-11-21 18:00 | Emergency (ER) | payer OTHER, SELFPAY ==
--- NOTE | ~2024-11-21 | CT_ITS ---
CLINICAL HISTORY: Diffuse abdominal pain CT of the abdomen and pelvis without intravenous contrast. Comparison 11/13/2024. Findings: The liver is unremarkable. Cholecystectomy. No renal or ureteral stones are seen. There is no hydronephrosis. The spleen and pancreas are unremarkable. No abdominal aortic aneurysm. There is mild colonic wall thickening raising the possibility of mild colitis. No definite diverticulitis. Normal appendix. Moderate stool in the colon. No bowel obstruction. The bladder is unremarkable. Impression: Suspect mild colitis. Other findings as above. This document has been electronically signed by: Ruy Gold MD on 11/21/2024 20:11:55
[2024-11-21 18:09] VITALS: BP 134/80; PULSE 104; O2SAT 96
[2024-11-21 18:10] VITALS: BP 118/70; PULSE 91; RESP 20; TEMP 36.7; O2SAT 100; BMI 24.6
--- NOTE | 2024-11-21 18:36 | PC.NURSE ---
pt presents to ED from home via EMS- pt [place] [facility] [place] same- pt reports she followed up with her primary care, who provided her with a laxative. pt sts that she has not had a significant BM in days today she did pass some small hard balls of stool, and vomited x3. Pt reports that emesis was yellow and romero her throat. 20g IV access obtained in L-AC- basic labs, and serology obtained. pt awaiting provider elza
[2024-11-21 18:43] LABS: Hematocrit 37.4 % (37.0-47.0); Hemoglobin 12.5 g/dl (12.0-16.0); Mean Corpuscular HGB Conc 33.4 g/dl (31.0-35.0); Mean Corpuscular Hemoglobin 31.7 pg (27.0-33.0); Mean Corpuscular Volume 94.9 fL (80.0-98.0); Mean Platelet Volume 11.7 fL (9.4-12.3); NRBC Pct Auto 0.4 /100WBC (0.0-0.2); Platelet Count 172 X10*3/uL (160-400); Red Blood Count 3.94 X10*6/uL (4.20-5.50); Red Cell Distribution Width 12.3 % (11.0-16.0); White Blood Count 5.2 X10*3/uL (4.8-10.8)
--- NOTE | 2024-11-21 19:02 | ED.ABDPAIN ---
HPI - Abdominal Pain General Chief Complaint: Abdominal Pain Stated Complaint: stomach pressure, N/V Time Seen by Provider: 11/21/24 18:49 Source: patient and EMS Mode of arrival: EMS Limitations: no limitations History of Present Illness ED Provider: DR. Godoy HPI narrative: 64-year-old female came in by EMS for evaluation of abdominal pain x3 weeks. Pain is diffuse, no fever, no chills, pain is associated with nausea and vomiting, was seen 11/13 in the ED had a CT scan that revealed constipation, patient was discharged home for treatment of constipation, patient had a few small hard bowel movements returned today for increased abdominal pain feels like her intestines is twisting, associated with multiple times of nausea and vomiting. Last bowel movement was this morning with small hard stool. Past surgical history significant for cholecystectomy, and tubal ligation. Related Data Home Medications ?Medication ?Instructions ?Recorded ?Confirmed acetaminophen 500 mg tablet 1,000 mg PO Q8H PRN Pain 02/19/22 04/28/24 albuterol sulfate 90 mcg/actuation 2 puff inhalation Q4-6H PRN Rash 02/19/22 04/28/24 aerosol inhaler cetirizine 10 mg tablet 10 mg PO DAILY 02/19/22 04/28/24 cholecalciferol (vitamin D3) 50 50 mcg PO DAILY 02/19/22 04/28/24 mcg (2,000 unit) capsule epinephrine 0.3 mg/0.3 mL 0.3 mg IM Q4H PRN Allergic Reaction 02/19/22 04/28/24 injection, auto-injector fluticasone propionate 50 1 inh inhalation BID 02/19/22 04/28/24 mcg/actuation blister powder for inhalation lidocaine 5 % topical patch 1 patch topical DAILY 02/19/22 04/28/24 (Lidoderm) acetaminophen 650 mg 650 mg PO Q8H PRN fever 12/03/23 04/28/24 tablet,extended release meclizine 12.5 mg tablet 25 mg PO DAILY nausea 12/03/23 04/28/24 gabapentin 100 mg capsule 100 mg PO DAILY 03/10/24 04/28/24 Previous Rx's ?Medication ?Instructions ?Recorded diltiazem HCl 120 mg 120 mg PO DAILY #90 caps 12/09/23 capsule,extended release 24 hr (Cartia XT) Allergies Allergy/AdvReac Type Severity Reaction Status Date / Time oxycodone [From PERCOCET] Allergy Severe HALLUCINATI Verified 11/21/24 18:13 ONS peanut [PEANUT] Allergy Intermediate ITCHY Verified 11/21/24 18:13 THROAT/MOUTH tree nut [TREE NUT] Allergy Intermediate ITCHY Verified 11/21/24 18:13 THROAT/MOUTH acetaminophen [Percocet] Allergy Unknown Unknown Verified 11/21/24 18:13 nabumetone AdvReac Intermediate Unknown Verified 11/21/24 18:13 SEAFOOD Allergy Severe ANAPHYLAXIS Uncoded 11/13/24 16:30 FRUIT, SKINS Allergy Intermediate ITCHY Uncoded 11/13/24 16:30 THROAT/MOUTH Review of Systems Review of Systems All other systems are reviewed and are negative Constitutional: Reports as per HPI and Reports no additional constitutional complaints Eyes: Reports as per HPI and Reports no additional eye complaints Reports system reviewed and no additional complaints, except as documented Cardiovascular: Reports as per HPI and Reports no additional cardiovascular complaints Respiratory: Reports as per HPI and Reports no additional respiratory complaints Gastrointestinal: Reports as per HPI and Reports no additional gastrointestinal complaints Genitourinary: Reports no additional female genitourinary complaints Musculoskeletal: Reports no additional musculoskeletal complaints Skin/Breast: Reports system reviewed and no additional complaints, except as docu Psychiatric: Reports no additional psychiatric complaints Endocrine: Reports no additional endocrine complaints Hematologic/Lymphatic: Reports no additional hematologic/lymphatic complaints Allergic/Immunologic: Reports no additional allergic/immunologic complaints Reports system reviewed and no additional complaints, except as documented and Reports Abnormal speech present [facility] Past Medical History Medical History Arthritis Asthma Asthma Fibromyalgia, primary Family History Family History Sister Breast cancer Mother Colon cancer Father Stomach cancer Social History Social History Household Members: Spouse Household Members Other:: grandchild Housing: House Are you a primary healthcare administration internship to a significant other at home: No Do you presently have visiting nurse or other home services: No Alcohol intake: never Patient Tobacco Use Status: Never used Tobacco Smoked in Last 30 Days: No Use of substances other than those prescribed or required for medical reasons: No Advance Directives: No Advance Directives Information Provided: No Do you have a plan to hurt others: No Plan service: No Current occupational status: employed Physical Exam ED Vital Signs: Vital Signs - 24 hr 11/21/24 18:10 11/21/24 21:08 Temperature 98.0 F 98.2 F Pulse Rate 91 100 Respiratory Rate 20 16 Blood Pressure 118/70 119/58 L Pulse Oximetry 100 98 Oxygen Delivery Method Room Air Room Air BMI result Body Mass Index 24.6 Vital signs have been reviewed and appear to be correct. Blood pressure elevated. Heart rate normal. Respiratory rate normal. Temperature normal. Oxygen saturation normal. Appearance: Alert. Oriented X3. No acute distress. Head: Normal external exam. Normocephalic. Atraumatic. No Herrera signs noted. No raccoon eyes noted Eyes: PERRLA. EOMI. Conjunctiva and sclera normal. Eyelids normal. ENT: TM's Normal. Pharynx normal. Uvula midline. Moist mucous membranes. No trismus noted. No drooling noted. No muffled voice noted. Neck: Normal inspection. Neck supple. FROM. No adenopathy. Thyroid Normal. No meningeal signs. No neck mass noted. CVS: Normal heart rate and rhythm. Heart sound normal. No murmurs noted. Pulses normal throughout. Respiratory: No respiratory distress. Painless inspiration. Breath sounds normal. No wheezes/rales/rhonchi noted. Chest nontender. No accessory muscle usage noted or decreased air movement noted. Abdomen: Soft, epigastric tenderness, no rebound tenderness. Bowel sounds normal in all 4 quadrants. No distention noted. No organomegaly noted. No visible injury noted. Rectal exam: Hard stool in the vault. Guaiac negative. Back: No CVA tenderness. Full range of motion noted. Skin: Skin warm and dry. Normal skin color. Normal skin turgor. No rashes/lesions/lacerations noted. Extremities: No lower extremity edema. Extremities exhibit normal range of motion. Extremities nontender. Neuro: Oriented X 3. Cranial nerve exam: II-XII are grossly intact No motor deficit. No sensory deficit. Reflexes normal. Course Reevaluation(s) Reevaluation #1: 64-year-old female presented with abdominal pain and constipation patient has bowel movement in the ED after was given a rectal enema with improvement of the patient's symptoms, CT abdomen pelvis raising concern of colitis with normal WBCs and improvement of the patient symptoms after having bowel movement in the ED will discharge and follow-up with PCP. Time: 21:49 Medical Decision Making Differential Diagnosis Differential Diagnoses: The differential diagnosis associated with the presentation includes (Constipation, small-bowel obstruction, pancreatitis, gastritis, electrolyte derangement, severe anemia.) Admission/Observation Consideration of admission/observation: Escalation of care including admission/observation considered Lab Data MDM Lab Attestation statement: I reviewed the patient's lab results. 11/21/24 18:25 11/21/24 18:25 Labs: Lab Results 11/21/24 11/21/24 Range/Units 18:25 18:30 WBC 5.2 (4.8-10.8) X10*3/uL RBC 3.94 L (4.20-5.50) X10*6/uL Hgb 12.5 (12.0-16.0) g/dl Hct 37.4 (37.0-47.0) % MCV 94.9 (80.0-98.0) fL MCH 31.7 (27.0-33.0) pg MCHC 33.4 (31.0-35.0) g/dl RDW 12.3 (11.0-16.0) % Plt Count 172 (160-400) X10*3/uL MPV 11.7 (9.4-12.3) fL Immature Gran % (Auto) Cancelled Neut % (Auto) Cancelled Lymph % (Auto) Cancelled [place] % (Auto) Cancelled Eos % (Auto) Cancelled Baso % (Auto) Cancelled Lymph # (Auto) Cancelled [place] # (Auto) Cancelled Eos # (Auto) Cancelled Baso # (Auto) Cancelled Abs Immat Gran (auto) Cancelled Absolute Neuts (auto) Cancelled Absolute Nucleated RBC 0.020 H (0.0-0.012) X10*3/uL Nucleated RBC % (auto) 0.4 H (0.0-0.2) /100WBC Neutrophils % (Manual) 33 L (45-73) % Band Neutrophils % 0 L (3-5) % Lymphocytes % (Manual) 44 H (20-40) % Atypical Lymphs % (Man) 10 H (0-6) % Monocytes % (Manual) 11 (2-11) % Eosinophils % (Manual) 1 (0-4) % Basophils % (Manual) 1 (0-2) % Abs Neuts (Manual) 1.7 L (2.0-8.3) X10*3/uL Lymphocytes # (Manual) 2.3 (1.2-4.9) X10*3/uL Atyp Lymphs # (Manual) 0.5 x10*3/uL Monocytes # (Manual) 0.6 (0.1-1.2) X10*3/uL Eosinophils # (Manual) 0.1 (0.0-0.4) X10*3/uL Basophils # (Manual) 0.1 (0.0-0.2) X10*3/uL Smudge Cells PRESENT Toxic Vacuolation PRESENT Platelet Estimate NORMAL (NORMAL) Giant Platelets PRESENT Plt Morphology Comment NOTED RBC Morphology NOTED Acanthocytes (Spur) 1+ (0-2) /OIF Smear Tech's Comments MANUAL DIFF Sodium 137 (135-145) mmol/L Potassium 5.1 D (3.3-5.1) mmol/L Chloride 105 (96-108) mmol/L Carbon Dioxide 23 (22-29) mmol/L Anion Gap 14 (12-20) BUN 7 L (9-16) mg/dL Creatinine 0.75 (0.5-1.4) mg/dL Estim Creat Clear Calc 64.5 Estimated GFR > 60 Random Glucose 98 (60-115) mg/dL Calcium 8.7 (8.4-10.2) mg/dL Total Bilirubin 0.5 (0.0-1.0) mg/dL AST 55 H (5-31) U/L ALT 38 H (0-31) U/L Alkaline Phosphatase 106 (39-117) U/L Total Protein 8.1 H (6.5-8.0) g/dL Albumin 3.7 (3.5-5.0) g/dL Influenza Type A (PCR) NEGATIVE (Negative) Influenza Type B (PCR) NEGATIVE (Negative) RSV RNA Qual (PCR) NEGATIVE (Negative) SARS-CoV-2 RNA (RT-PCR) NEGATIVE (Negative) Independent Interpretation I performed an independent interpretation of an: CT Scan (Abdomen and pelvis:Suspect mild colitis. Other findings as above.) Radiology Impression Discussion of test interpretation with radiology: I have reviewed the radiologist's reading. Medications Administered Discontinued Medications Generic Name Dose Route Start Last Admin Trade Name Freq PRN Reason Stop Dose Admin Mineral Oil 133 ml 11/21/24 19:00 11/21/24 19:22 Mineral Oil Enema 133 Ml Enema [place] 11/21/24 19:01 133 ml ONCE ONE Administration Discharge Plan Discharge Clinical Impression: Constipation Patient Disposition: Home, Self-Care Instructions: Constipation (ED) Prescriptions: No Action diltiazem HCl [Cartia XT] 120 mg capsule,extended release 24hr 120 mg PO DAILY Qty: 90 3RF acetaminophen 500 mg tablet 1,000 mg PO Q8H PRN (Reason: Pain) cetirizine 10 mg tablet 10 mg PO DAILY lidocaine [Lidoderm] 5 % adhesive patch,medicated 1 patch topical DAILY albuterol sulfate 90 mcg/actuation HFA aerosol inhaler 2 puff inhalation Q4-6H PRN (Reason: Rash) epinephrine 0.3 mg/0.3 mL auto-injector 0.3 mg IM Q4H PRN (Reason: Allergic Reaction) fluticasone propionate 50 mcg/actuation blister with device 1 inh inhalation BID cholecalciferol (vitamin D3) 50 mcg (2,000 unit) capsule 50 mcg PO DAILY meclizine 12.5 mg tablet 25 mg PO DAILY acetaminophen 650 mg tablet extended release 650 mg PO Q8H PRN (Reason: fever) gabapentin 100 mg capsule 100 mg PO DAILY Referrals: Taya Last MD [Primary Care Provider] - Print Language: Niuean
[2024-11-21 19:03] LABS: Alanine Aminotransferase 38 U/L (0-31); Albumin Level 3.7 g/dL (3.5-5.0); Alkaline Phosphatase 106 U/L (39-117); Anion Gap 14 (12-20); Aspartate Amino Transferase 55 U/L (5-31); Bilirubin Total 0.5 mg/dL (0.0-1.0); Blood Urea Nitrogen 7 mg/dL (9-16); Calcium 8.7 mg/dL (8.4-10.2); Carbon Dioxide 23 mmol/L (22-29); Chloride 105 mmol/L (96-108); Creatinine Clr Calc Pharmacy 64.5; Estimated Glomerular Filt Rate > 60; Glucose Random 98 mg/dL (60-115); Potassium 5.1 mmol/L (3.3-5.1); Sodium 137 mmol/L (135-145); Total Protein 8.1 g/dL (6.5-8.0)
[2024-11-21 19:10] LABS: SLIDE REVIEW MANUAL DIFF
[2024-11-21 19:19] LABS: Influenza A PCR NEGATIVE (Negative); Influenza B PCR NEGATIVE (Negative); Resp Syncy Virus RNA Qual PCR NEGATIVE (Negative); SARS COV2 PCR INHOUSE NEGATIVE (Negative)
[2024-11-21] MEDS: Mineral OiL enema 133 ML ENEMA PR (19:22)
--- NOTE | 2024-11-21 19:28 | PC.NURSE ---
pt medicated per MAR w/ mineral oil enema. effectiveness pending
[2024-11-21 19:35] LABS: Atypical Lymph Absolute Manual 0.5 x10*3/uL; Atypical Lymphs Percent Manual 10 % (0-6); Band Neutrophils Percent 0 % (3-5); Basophils Abs Manual 0.1 X10*3/uL (0.0-0.2); Basophils Percent Manual 1 % (0-2); Eosinophils Absolute Manual 0.1 X10*3/uL (0.0-0.4); Eosinophils Percent Manual 1 % (0-4); Lymphocytes Absolute Manual 2.3 X10*3/uL (1.2-4.9); Lymphocytes Percent Manual 44 % (20-40); Monocytes Absolute Manual 0.6 X10*3/uL (0.1-1.2); Monocytes Percent Manual 11 % (2-11); Neutrophils Absolute Manual 1.7 X10*3/uL (2.0-8.3); Neutrophils Percent Manual 33 % (45-73)
[2024-11-21 19:38] LABS: RBC Morphology NOTED
[2024-11-21 19:39] LABS: Acanthocytes 1+ (0-2) /OIF; Giant Platelet PRESENT; Platelet Estimate NORMAL (NORMAL); Platelet Morphology Comment NOTED; Smudge Cells PRESENT
[2024-11-21 19:40] LABS: Toxic Vacuolation PRESENT
--- NOTE | 2024-11-21 20:15 | PC.NURSE ---
pt has large formed BM after enema- MD notified
[2024-11-21 21:08] VITALS: BP 119/58; PULSE 100; RESP 16; TEMP 36.8; O2SAT 98
[2024-11-21 22:34] VITALS: BP 119/58; PULSE 100; RESP 16; TEMP 36.8; O2SAT 98
== END 2024-11-21 22:54 | disposition home or self-care (01) ==
PROVIDERS: Emergency Provider Emergency Medicine; PCP Family Medicine
DX: K52.9 Noninfective gastroenteritis and colitis, unspecified (principal); K59.00 Constipation, unspecified; R10.2 Pelvic and perineal pain; R11.2 Nausea with vomiting, unspecified; Z03.818 Encounter for observation for suspected exposure to other biological agents ruled out; Z79.899 Other long term (current) drug therapy
CPT/HCPCS: 0241U; 36415; 74176; 80053; 85007; 85025; 85027; 99284

== ENCOUNTER → 2024-11-21 19:01 | Outpatient (BNV) | payer OTHER, SELFPAY | PROVIDERS: Emergency Provider Emergency Medicine; PCP Family Medicine; Visit Provider Radiology Diagnostic Radiology | DX: R10.9 Unspecified abdominal pain (principal) | CPT/HCPCS: 74176 ==

== ENCOUNTER 2024-12-05 15:17 | Outpatient (REF) | payer OTHER, SELFPAY ==
[2024-12-05 16:25] LABS: MANUAL DIFF FLAG NO
[2024-12-05 16:30] LABS: Basophils Percent Auto 0.6 % (0-2); Eosinophils Absolute Auto 0.1 X10*3/uL (0.0-0.4); Eosinophils Percent Auto 2.5 % (0-4); Hematocrit 32.8 % (37.0-47.0); Hemoglobin 10.5 g/dl (12.0-16.0); Imm Gran Abs Auto 0.01 X10*3/uL (0.00-0.03); Imm Gran Pct Auto 0.3 % (0.0-0.4); Lymphocytes Percent Auto 60.4 % (20-40); Mean Corpuscular Hemoglobin 31.3 pg (27.0-33.0); Mean Corpuscular Volume 97.9 fL (80.0-98.0); Mean Platelet Volume 11.9 fL (9.4-12.3); Monocytes Absolute Auto 0.2 X10*3/uL (0.1-1.2); Monocytes Percent Auto 7.1 % (2-11); Neutrophils Percent Auto 29.1 % (45-73); Platelet Count 203 X10*3/uL (160-400); Red Blood Count 3.35 X10*6/uL (4.20-5.50); Red Cell Distribution Width 12.9 % (11.0-16.0); SCAN SMEAR FLAG 1; White Blood Count 3.3 X10*3/uL (4.8-10.8)
[2024-12-05 16:47] LABS: Alanine Aminotransferase 32 U/L (0-31); Albumin Level 3.5 g/dL (3.5-5.0); Alkaline Phosphatase 88 U/L (39-117); Anion Gap 10 (12-20); Aspartate Amino Transferase 36 U/L (5-31); Bilirubin Total 0.2 mg/dL (0.0-1.0); Blood Urea Nitrogen 14 mg/dL (9-16); Calcium 8.5 mg/dL (8.4-10.2); Carbon Dioxide 27 mmol/L (22-29); Chloride 109 mmol/L (96-108); Estimated Glomerular Filt Rate > 60; Glucose Random 111 mg/dL (60-115); Potassium 4.1 mmol/L (3.3-5.1); Sodium 142 mmol/L (135-145); Total Protein 7.1 g/dL (6.5-8.0)
[2024-12-05 16:57] LABS: TSH reflex Free T4 0.41 uIU/mL (0.32-4.0)
[2024-12-05 17:11] LABS: Folate 11.3 ng/mL (> or = 4.0); Vitamin B12 255 pg/mL (200-900)
--- OUTSIDE RECORDS SUMMARY | 2024-12-05 18:11 | XMS_ITS | Encounter Summary ---
Author Organization [employer] Address [address] [facility] [address] [place] [address] Care Team Providers Care Nail Technician Teacher Name Role Phone Taya Last MD Primary Care Provider [phone] Encounter Details Date Type Department Care Team (Latest Contact Info) Description 11/15/2024 Travel Social History Tobacco Use Types Packs/Day Years Used Date Smoking Tobacco: Never Passive Smoke Exposure: Never Smokeless Tobacco: Never Alcohol Use Standard Drinks/Week Comments Never 0 (1 standard drink = 0.6 oz pur e alcohol) Depression Answer Date Recorded Patient Health Questionnaire-9 Score 12 11/15/2024 Patient Health Questionnaire-9 Score 12 11/15/2024 Last PHQ-9: Questionnaire Data Not on file 0 11/15/2024 Housing Stability Answer Date Recorded What is [...] Date Recorded Patient Health Questionnaire-2 Score 4 11/15/2024 Comments Unknown Sex and Gender Information Value [...] Assessment Noted Time PHQ-9 Depression Total Score: 12 025 2:10 PM EST documented as of this encounter Care Teams Nail Technician Teacher Relationship Specialty Start Date End Date Taya Last MD [address] [place] [address] PCP - General Family Medicine 07/22/18 Brittney Causey Complaint AnalystSurgical Dental Assistant 12/30/23 documented as of this encounter
--- OUTSIDE RECORDS SUMMARY | 2024-12-05 18:11 | XMS_ITS | Encounter Summary ---
Author Organization [employer] Address [address] [facility] [address] [place] [address] Care Team Providers Care Rn Medication Name Role Phone Taya Last MD Primary Care Provider [phone] Reason for Visit * Reason Onset Date Comments ER Follow-up 11/22/2024 Encounter Details Date Type Department Care Team ([facility] Contact Info) Description 11/22/2024 Telephone [facility] [address] [place], [place] [id number] Taya Last MD [address] [place] [address] ER Follow-up Social History Tobacco Use Types Packs/Day Years [...] encounter Miscellaneous Notes * Telephone Encounter - Piper Henning RN - 11/22/2024 3:02 PM EST TC placed to pt to f/u and inquire about recent [facility] ED visit from 11/21/2024 in which the pt was seen for constipation and gastritis. Pt has been in the emergency room twice in the past month for the same constipation, abdominal pain and gastritis. Pt continues with some gas and bloating. The pt hasbeen taking the already prescribed Zofran for nausea and keeping up with fluids to prevent any constipation. The pt would like to f/u with PCP Dr. Last to review the past ED visits and see if a referral to GI would be appropriate. Pt agreeable to scheduling with PCP on 12/05/2024 at 330. * Telephone Encounter - Gustavo Martinez - 11/22/2024 9:07 AM EST Patient calling to report ED visit on : Date: 11/21/2024 Hospital: [facility] Seen for: Nasuea and dyhydration Symptomatic No *if yes message should go to Triage Patient advised will forward to team nurse for follow up documented in this encounter Plan of Treatment Not on file documented as of this encounter Visit Diagnoses Not on filedocumented in this encounter Additional Health Concerns Assessment Noted Time PHQ-9 Depression Total Score: 12 025 2:10 PM EST documented as of this encounter Care Teams Rn Medication Relationship Specialty Start Date End Date Taya Last MD [address] [place] [address] PCP - General Family Medicine 07/22/18 Brittney Causey Extrusion Die CoordinatorFluorescent Solution Mixer 12/30/23 documented as of this encounter
--- OUTSIDE RECORDS SUMMARY | 2024-12-05 18:11 | XMS_ITS | Data Portability ---
Author Organization [place], [employer] in - Jaco Solars[employer] Address [address] [place] [address] Care Team Providers Care Linoleum Floor Installer Name Role Phone HIM [facility] OTHER [facility] Primary Care Provider Assessment Encounter Date Assessment Date Assessment LastModified by Organization Details LastModified Time 11/11/2024 11/11/2024 I provided real -time medical direction via phone for this encounter and was available for additional phone-based assistance as needed. I have reviewed and agree with the Assessment and Plan as documented by the Clinical Abstractor. Patient given the opportunity to ask questions. [...] urination and has no urinary complaints. Per plastics production machine operator on the scene, vital signs are stable [...] particularly fever chills lightheadedness altered mental status [place] [address] Not available 11/11/2024 18:22:45 Plan of Treatment Reminders Order Date Submit Date Provider Last Modified By Organization Details Last Modified Time Details Appointments None recorded. Lab rapid strep group A, throat 2024 025 [facility], [address] [place] [address], [phone], 5 08:32:04 rapid flu (A+B) 2024 025 [facility], [address] [place] [address], [phone], 5 08:32:55 rapid SARS CoV 2 Ag, QL IA, respiratory specimen 2024 025 [facility], [address] [place] [address], [phone], 5 08:32:33 Referral None recorded. Procedures None recorded. Surgeries None recorded. Imaging None recorded. Medication Orders ondansetron HCl (PF) 4 mg/2 mL injection solution [address] [facility], [address] [place], [place], [phone], 5 18:18:51 lactated Ringers intravenous solution [address] [place] [address] Pharmacy, [address] [place], [place], [phone], 5 18:18:50 Patient TargetsNo targets recorded. Patient [...] Name and Address Organization Details Recorded Time 10021 acetamino phen / oxycodone medicatio n Not available Not available Not available 10/31/2024 36950 3 RxNorm Not Available [facility] - production [...] [degF] 98 % 98 % 96 /min 24150.8 8 g 162.56 cm 14 /min 112 mm[Hg] 66 mm[Hg] Not Available [facility] - production 5 12:36:48 Date Recorded Heart rate Body weight Respiratory rate Body temperature Body height Oxygen saturation Oxygen saturation in Arterial blood by Pulse oximetry Systolic blood pressure Diastolic blood pressure Provider Name and Address Organization Details Last Updated DateTime 5 91 /min 73763.8 8 g 18 /min 98.2 [degF] 162.56 [...] SNOMED-CT Code Diagnosis ICD10 Code Diagnosis Note [id number] Jacoby Cameron MD Main - [facility] [address] [place] [phone] 10/31/2024 12:36:41 11/01/2024 22:31:59 Influenza-like illness [id number] B34.9 As noted, we were called to see this patient regarding concerns of TIFFANIE. Evaluation in the field was performed by my plastics production machine operator colleague, as noted above, I [...] confusion, worsening sx, severe fatigue, severe dyspnea. [id number] Patsy White MD Main - [facility] [address] [place] [phone] 11/11/2024 11:45:41 11/12/2024 18:28:31 Nausea [id number] R11.0 Health Concerns Section Related Observation LastModified by Organization Detai ls LastModified Time None Recorded Concern Status LastModified by Organization Details LastModified Time None Recorded Advance Directives Directive None Recorded Payers Encounter Date Sequence Insurance Name Policy Number Policy Martinez Covered Member ID Martinez Member ID Guarantor Name 10/31/2024 1 [facility] - DOS ON OR AFTER 2023 - DUAL ELIGIBLE - ASSISTED OPTIONS AND ONE CARE (MEDICARE REPLACEMENT/ADV ANTAGE - HMO) Freida Dwyer [id number] Freida Dwyer 11/11/2024 1 [facility] - DOS ON OR AFTER 2023 - DUAL ELIGIBLE - ASSISTED OPTIONS AND ONE CARE (MEDICARE REPLACEMENT/ADV ANTAGE - HMO) Freida Griggsna [id number] Freida Dwyer Notes Date Note Type Note [...] - 08:14 Allergies Reviewed at 10/31/2024:14 Comments: Fuel Agent verified the name//address and phone number. PT [...] s/s and seek emergency treatment if needed Clinical Abstractor Organization Information for Sisi Phong Cope [facility] Business Legal Name: [employer] Address: [address] [place] [address], [place] [address], Wheat Grower: Dom Painter MD CLIA No.: [id number] Clinical Abstractor POC Test Results from [facility] Rapid COVID antigen (12:32:02) COVID: - Rapid influenza antigen (12:32:03) Flu: - .................... .................... .................... .................... .................... .................... .................... . Clinical Abstractor Note From Phong Laird: This 64-year-old female [...] .................... .................... .................... .................... .................... .................... . [facility] Consulted: Chapo Cameron .................... .................... .................... .................... .................... .................... .................... . Disposition: Ferny Jacoby Cameron MD [address] [facility],[address], [place], [address], [facility] - Mobile Event Guide BENOIT 11/01/2024 22:06:21 11/11/2024 text/html CRC Nurse [...] at 11/11/2024 Allergies Reviewed at 11/11/2024:32 Comments: Fuel Agent verified the Pt.'s name//address and phone number. [...] up and negative x-ray. Wellness visit requested Clinical Abstractor Organization Information for Rochelle Lobo Business Legal Name: [employer]? Address: [address] [place] [address], Wheat Grower: Lobito Hendricks MD CLIA No.: [id number] Clinical Abstractor POC Test Results from Rochelle Lobo iSTAT Chem8+ (11:08:13) Na: 138 mEq/L K: 4.2 mEq/L Cl: 100 mEq/L iCa: 1.18 mmol/L TCO2: 31 mmol/L Glu: 102 mg/dL BUN: 8 mg/dL Crea: 0.7 mg/dL Hct: 38 % Hb: 12.9 g/dL A Attachments uploaded as part of this test result can be found under Documents section. .................... .................... .................... .................... .................... .................... .................... . Clinical Abstractor Note From Rochelle Lobo: [facility] makes pt contact. She is found seated on the sofa in the living room of her home, wearing her pajamas and wrapped n a blanket. Her skin appears to be pale and she has the affect of not feeling well. She smiles weakly at [facility] and says hello. She is not in [...] taking any medication OTC for her s/s. [facility] obtains vital signs and pt is assessed. Lung sounds are clear and equal to auscultation, abdomen is soft and nontender in all quadrants, and no flank pain or CVS tenderness are noted. Conjunctiva and oral mucosa are pale. [facility] contacts [facility] and discusses the above. [facility] expresses concerns about why pt is nauseated and orders a bmp. IV access is obtained using a 23ga butterfly in the L AC and blood sample is obtained. Butterfly is removed and pressure bandage w/ 2x2 and tape are applied. [facility] then orders 1L IV fluids and 4mg [...] is clear. Report completed by DONATO Lobo [id number]. .................... .................... .................... .................... .................... .................... .................... . [facility] Consulted: Patsy White .................... .................... .................... .................... .................... .................... .................... . Disposition: Ferny White MD [address] [facility],[address], [place], [address], [employer] - [employer] 11/11/2024 18:23:08 OBGyn Episode No OBEpisode recorded.
--- OUTSIDE RECORDS SUMMARY | 2024-12-05 18:11 | XMS_ITS | Encounter Summary ---
Author Organization [employer] Address [address] [facility] 7t [place] [address] Care Team Providers Care Associate Professor Of Literacy Name Role Phone Taya Last MD Primary Care Provider [phone] Encounter Details Date Type Department Care Team (Latest Contact Info) Description 12/05/2024 Travel Social History Tobacco Use Types Packs/Day [...] documented as of this encounter Care Teams Associate Professor Of Literacy Relationship Specialty Start Date End Date Taya Last MD [address] [place] [address] PCP - General Family Medicine 07/22/18 Brittney Causey Back RollerCar Audio Installer 12/30/23 documented as of this encounter
--- OUTSIDE RECORDS SUMMARY | 2024-12-05 18:11 | XMS_ITS | Encounter Summary ---
Author Organization [employer] Address 75 [facility] 7t [place] [address] Care Team Providers Care Retail Equipment Associate Name Role Phone Taya Last MD Primary Care Provider [phone] Encounter Details Date Type Department Care Team ([facility] st Contact Info) Description 12/05/2024 3:30 PM EST Office Visit [facility] MEDICINE [address] [place] [address] Taya Last MD 230 [place] [address] Constipation, unspecified constipation type (Primary Dx); Paresthesia; Dizziness Social History Tobacco Use Types Packs/Day Years [...] Sign Reading Time Taken Comments Blood Pressure 112/62 12/05/2024 2:33 PM EST Pulse 86 12/05/2024 2:33 PM EST Temperature 36.1 ??C (96.9 ??F) 12/05/2024 2:33 PM ES T Respiratory Rate 25 12/05/2024 2:33 PM EST Oxygen Saturation 99% 12/05/2024 2:33 PM EST Inhaled Oxygen Concentration - - Weight 64.2 kg (141 lb 9.6 oz) 12/05/2024 2:33 P M EST Height - - Body Mass Index 24.31 11/15/2024 2:08 PM EST documented in this encounter Plan of Treatment Not on file documented as of this encounter Procedures Procedure Name Priority Date/Time Associated Diagnosis Comments VITAMIN B12/FOLATE, SERUM PANEL Routine 12/05/2024 3:20 PM EST Paresthesia TSH W/REFLEX TO FT4 Routine 12/05/2024 3 :20 PM EST Constipation, unspecified constipation type Paresthesia CBC WITH AUTO DIFFERENTIAL Routine 12/05/2024 3:20 PM EST Paresthesia Dizziness COMPREHENSIVE METABOLIC PANEL Routine 12/05/2024 3:20 PM EST Paresthesia documented in this encounter Results * (ABNORMAL) CBC auto differential (12/05/2024 3:20 PM EST) White Blood Count 3.3(L) 4.8 - 10.8 X10*3/uL [facility] Red Blood Count 3.35(L) 4.20 - 5.50 X10*6/uL [facility] Hemoglobin 10.5(L) 12.0 - 16.0 g/dl [facility] Hematocrit 32.8(L) 37.0 - 47.0 % [facility] Mean Corpuscular Volume 97.9 80.0 - 98.0 fL [facility] Mean Corpuscular Hemoglobin 31.3 27.0 - 33.0 pg [facility] Mean Corpuscular HGB Conc 32.0 31.0 - 35.0 g/dl [facility] Red Cell Distribution Width 12.9 11.0 - 16.0 % [facility] Platelet Count 203 160 - 400 X10*3/uL [facility] Mean Platelet Volume 11.9 9.4 - 12.3 fL [facility] Neutrophils Percent Auto 29.1(L) 45 - 73 % [facility] Imm Gran Pct Auto 0.3 0.0 - 0.4 % [facility] Lymphocytes Percent Auto 60.4(H) 20 - 40 % [facility] Monocytes Percent Auto 7.1 2 - 11 % [facility] Eosinophils Percent Auto 2.5 0 - 4 % [facility] Basophils Percent Auto 0.6 0 - 2 % [facility] NRBC Pct Auto 0.0 0.0 - 0.2 /100WBC [facility] Neutrophils Absolute Auto 1.0(L) 2.0 - 8.3 x10*3/uL [facility] Imm Gran Abs Auto 0.01 0.00 - 0.03 X10*3/uL [facility] Lymphocytes Absolute Auto 2.0 1.2 - 4.9 X10*3/uL [facility] Monocytes Absolute Auto 0.2 0.1 - 1.2 X10*3/uL [facility] Eosinophils Absolute Auto 0.1 0.0 - 0.4 X10*3/uL [facility] Basophils Absolute Auto 0.0 0.0 - 0.2 X10*3/uL [facility] NRBC Abs Auto 0.000 0.0 - 0.012 X10*3/uL [facility] Blood Venous blood specimen / Unknown 12/05/2024 3:20 PM EST 12/05/2024 4:20 PM EST Taya Last MD LAB BLOOD ORDERABLES Final Resul t Performing Organization Address City/[facility] Co de Phone Number [facility] [address] [place] [phone] * Vitamin B12 (Cobalamin) and Folate Panel, Serum (12/05/2024 3:20 PM EST) Vitamin B12 255 200 - 900 pg/mL [facility] Comment:NORMAL 200-900 PG/ML INDETERMINATE 160-199 PG/ML DEFICIENT < 160 PG/ML Folate 11.3 > or = 4.0 ng/mL [facility] Comment:Reference Values:> o r = 4.0 ng/mL< 4.0 ng/mL suggests folate deficiency Methotrexate, aminopterin and folinic acid(leucovorin) are chemotherapeutic agents whose molecularstructures are similar to folate; therefore, the Architectfolate assay cannot be used for patients using these drugs. Blood 12/05/2024 3:20 PM EST 12/05/2024 4:20 PM EST us Taya Last MD LAB BLOOD ORDERABLES Final Resul t Performing Organization Address [facility] Co de Phone Number [facility] [address] [place] [phone] * TSH with Reflex to Free T4 (12/05/2024 3:20 PM EST) TSH reflex Free T4 0.41 0.32 - 4.0 uIU/mL [facility] Blood 12/05/2024 3:20 PM EST 12/05/2024 4:20 PM EST us Taya Last MD LAB BLOOD ORDERABLES Final Resul t Performing Organization Address City/[facility]/ZIP Co de Phone Number [facility] [address] [place] [address] [phone] * (ABNORMAL) Comprehensive Metabolic Panel (12/05/2024 3:20 PM EST) Sodium 142 135 - 145 mmol/L [facility] Potassium 4.1 3.3 - 5.1 mmol/L [facility] Chloride 109(H) 96 - 108 mmol/L [facility] Carbon Dioxide 27 22 - 29 mmol/L [facility] Anion Gap 10(L) 12 - 20 [facility] Urea Nitrogen (BUN) 14 9 - 16 mg/dL [facility] Creatinine, Serum 0.69 0.5 - 1.4 mg/dL [facility] Estimated Glomerular Filt Rate >60 [facility] Comment:Chronic Kidney Disea se: Estimated GFR < 60 mL/min/1.66s0Wwvxwr Kidney Disease: Estimated GFR < 15 mL/min/1.73m2 Glucose 111 60 - 115 mg/dL [facility] Calcium 8.5 8.4 - 10.2 mg/dL [facility] Bilirubin, Total 0.2 0.0 - 1.0 mg/dL [facility] Aspartate Amino Transferase 36(H) 5 - 31 U/L [facility] Alanine Aminotransferase 32(H) 0 - 31 U/L [facility] Total Protein 7.1 6.5 - 8.0 g/dL [facility] Albumin Level 3.5 3.5 - 5.0 g/dL [facility] Alkaline Phosphatase 88 39 - 117 U/L [facility] Blood Venous blood specimen / Unknown 12/05/2024 3:20 PM EST 12/05/2024 4:20 PM EST us Taya Last MD LAB BLOOD ORDERABLES Final Resul t [facility] [address] [place] [phone] [phone] documented in this encounter Visit Diagnoses Diagnosis Constipation, unspecified constipation type- Primary Paresthesia Disturbance of skin sensation Dizziness Dizziness and giddiness documented in this encounter Additional Health Concerns Assessment Noted Time PHQ-9 Depression Total Score: 12 025 2:10 PM EST documented as of this encounter Care Teams Retail Equipment Associate Relationship Specialty Start Date End Date Taya Last MD [address] [place] [phone] PCP - General Family Medicine 07/22/18 Brittney Causey Manager LanChild Caregiver 12/30/23 documented as of this encounter
--- OUTSIDE RECORDS SUMMARY | 2024-12-05 18:11 | XMS_ITS | Encounter Summary ---
Author Organization [employer] Address 75 [facility] 7t [place] [address] Care Team Providers Care Technical Aid Name Role Phone Taya Last MD Primary Care Provider Reason for Visit * Reason Onset Date Comments chart prep 11/30/2024 Encounter Details Date Type Department Care Team ([facility] Contact Info) Description 11/30/2024 Telephone [facility] MEDICINE [address] [place] [address] Amber Lopez MA chart prep Social History Tobacco Use Types [...] Telephone Encounter - Amber Lopez MA - 11/30/2024 10:40 AM EST ..chart Prep Labs: not applicable Images: not applicable Vaccines due: Covid Due, Flu Due, and RSV in Pharmacy Due Referrals: ENT Requested notes by Fax. Waiting for notes. Screenings: Not Applicable Overdue care gaps: lanette-7 documented in this encounter Plan of Treatment Not on file documented as of this encounter Visit Diagnoses Not on filedocumented in this encounter Additional Health Concerns Assessment Noted Time PHQ-9 Depression Total Score: 12 025 2:10 PM EST documented as of this encounter Care Teams Technical Aid Relationship Specialty Start Date End Date Taya Last MD 230 [place] [address] PCP - General Family Medicine 07/22/18 Brittney Causey Medical Review SpecialistInstallation Engineer 12/30/23 documented as of this encounter
--- OUTSIDE RECORDS SUMMARY | 2024-12-05 18:12 | XMS_ITS | Encounter Summary ---
Author Organization [employer] Address 75 [facility] 7 [place] [address] Care Team Providers Care Periodicals Clerk Name Role Phone Taya Last MD Primary Care Provider [phone] Reason for Visit * Reason Onset Date Comments Nurse Triage 11/08/2024 Encounter Details Date Type Department Care Team ([facility] st Contact Info) Description 11/08/2024 Telephone [facility] MEDICINE [address] [place], [place] [phone] Taya Last MD [address] [place], [place] [phone] Nurse Triage Social History Tobacco Use Types [...] 11/08/2024 10:33 AM EST Called pt. Via [employer] interpreter deaf [phone] Freida. No answer. Water Carter left message on pt. Voicemail tocall back [facility] nurses at [phone]. Called pt. Back x2. Pt. States that [...] I advised for pt. To come to [facility] walk in for re evaluation of lungs and possible CXR. Advised that [facility] walk in is booked so far until [...] 3 days The caller accepted this outcome. [phone] Frisian documented in this encounter Plan of Treatment Not on file documented as of this encounter Visit Diagnoses Not on filedocumented in this encounter Additional Health Concerns Assessment Noted Time PHQ-9 Depression Total Score: 0 01/28/20 24 12:02 PM EDT documented as of this encounter Care Teams Periodicals Clerk Relationship Specialty Start Date End Date Taya Last MD [address] [place] [address] PCP - General Family Medicine 07/22/18 Brittney Causey Hedge Fund PrincipalOld Testament Professor 12/30/23 documented as of this encounter
--- OUTSIDE RECORDS SUMMARY | 2024-12-05 18:12 | XMS_ITS | Encounter Summary ---
Author Organization [employer] Address [address] [place] [address] 7 [place] [address] Care Team Providers Care Advertising Associate Name Role Phone Taya Last MD Primary Care Provider [phone] Reason for Visit * Reason Onset Date Comments Referral 02/02/2023 Encounter Details Date Type Department Care Team ([facility] st Contact Info) Description 02/02/2023 Telephone [facility] MEDICINE [address] [place], [place] [phone] Taya Last MD 230 [place], [place] [phone] Referral Social History Tobacco Use Types Packs/Day [...] 1:01 PM EDT Tc from Rody with [facility] requesting a referral for Physical Therapy for 60 Visits ( 02/02/2023-02/25/2023) Please fax referral over to [phone] If any questions please contact Rody at [phone] documented in this encounter Plan of Treatment Not on file documented as of this encounter Visit Diagnoses Not on filedocumented in this encounter Additional Health Concerns Assessment Noted Time PHQ-9 Depression Total Score: 8 11/27/19 23 9:42 AM EST documented as of this encounter Care Teams Advertising Associate Relationship Specialty Start Date End Date Taya Last MD [address] [place] [address] PCP - General Family Medicine 07/22/18 Brittney Causey Program Director/Morning Show HostDivision Traffic Superintendent 12/30/23 documented as of this encounter
--- OUTSIDE RECORDS SUMMARY | 2024-12-05 18:12 | XMS_ITS | Encounter Summary ---
Author Organization [employer] Address [address] [facility] [address] 7t [place] [address] Care Team Providers Care Identification Technician Name Role Phone Taya Last MD Primary Care Provider [phone] Encounter Details Date Type Department Care Team ([facility] st Contact Info) Description 08/03/2023 Orders Only [facility] [address] [place] [address] Jennie Archer FNP [address] [place] [address] Social History Tobacco Use Types Packs/Day Years [...] documented as of this encounter Care Teams Identification Technician Relationship Specialty Start Date End Date Taya Last MD [address] [place] [address] PCP - General Family Medicine 07/22/18 Brittney Causey Powerhouse HelperStatuary Painter 12/30/23 documented as of this encounter
--- OUTSIDE RECORDS SUMMARY | 2024-12-05 18:12 | XMS_ITS | Encounter Summary ---
Author Organization [employer] Address [address] [facility] 7t [place] [address] Care Team Providers Care Chief Lock Tender Operator Name Role Phone Taya Last MD Primary Care Provider [phone] Encounter Details Date Type Department Care Team ([facility] st Contact Info) Description 09/14/2023 Orders Only [facility] MEDICINE [address] [place] [address] Taya Last MD [address] [place] [address] Atypical chest pain Social History Tobacco Use [...] documented as of this encounter Care Teams Chief Lock Tender Operator Relationship Specialty Start Date End Date Taya Last MD [address] [place] [address] PCP - General Family Medicine 07/22/18 Brittney Causey Core Layer Machine OperatorHead Char Filter Tank Tender 12/30/23 documented as of this encounter
--- OUTSIDE RECORDS SUMMARY | 2024-12-05 18:12 | XMS_ITS | Encounter Summary ---
Author Organization [employer] Address 75 [facility] 7t [place] [address] Care Team Providers Care Lifestyle Block Farmer Name Role Phone Taya Last MD Primary Care Provider [phone] Reason for Visit * Reason Comments Cough Encounter Details Date Type Department Care Team ([facility] st Contact Info) Description 11/09/2024 9:20 AM EST Office Visit [facility] [address] [place] [address] Phong Jean-Baptiste MD [address] [place] [address] Acute cough (Primary Dx); Chest pain, unspecified [...] y.o. female. HPI Freida was seen in [facility] 1 week ago, from that visit: 9 days ago Freida had onset of tactile fever, left chest and upper back pain, body aches, chills, nasal congestion, production cough, occasional wheezing with SOB. Was seen at home by [facility] critical care paramedic 2 days ago, vjei=[id number]. States Robitussin helps a little. Using albuterol HFA several times/day. Ran out of Symbicort a while ago. At [facility] visit, rapid covid and flu tests were [...] Chronic pain of both shoulders ??? 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 Acute serous otitis media of [...] this visit: Acute cough CXR done in [facility] appear to show no acute finding when [...] AM EST Narrative 11/09/2024 10:41 AM EST ?[facility] [facility] ?[address] ?[place] [address] ?XRay Report ? Signed ? Patient: Dwyer,Freida I ?MR#: [id number] ?? 202 ? : 1960 ?Acct:[id number] ? Age/Sex: 64 / F ?ADM Date: 11/09/24 ? Loc: HO.HHCX ? Attending Dr: Phong Jean-Baptiste MD ? Ordering Physician: PHONG JEAN-BAPTISTE MD ?? Date of Service: 11/09/24 ?? Procedure(s): XR chest 2V ?? Accession Number(s): [id number] ? cc: PHONG JEAN-BAPTISTE MD ? EXAMINATION: [...] DD/ 1009 ? TD/TT: 11/09/24 1030 ? Sausage Inspector: ? Procedure Note Marlene, Image - 11/09/[address] [address] XRay Report Signed Patient: Freida Dwyer IMR#: [id number] : 9Acct:[id number] Age/Sex: 64 / FADM Date: 11/09/24 Loc: HO.HHCX Attending Dr: Phong Jean-Baptiste MD Ordering Physician: PHONG JEAN-BAPTISTE MD Date of Service: 11/09/24 Procedure(s): XR chest 2V Accession Number(s): [id number] cc: PHONG JEAN-BAPTISTE MD EXAMINATION: XR CHEST [...] 11/09/24 1038 DD/ 1009 TD/TT: 11/09/24 1030 Sausage Inspector: Phong Jean-Baptiste MD IMG XR PROCEDURES Edited Result - Final documented in this encounter Visit Diagnoses Diagnosis Acute cough- Primary Chest pain, unspecified type documented in this encounter Additional Health Concerns Assessment Noted Time PHQ-9 Depression Total Score: 0 01/28/20 24 12:02 PM EDT documented as of this encounter Care Teams Lifestyle Block Farmer Relationship Specialty Start Date End Date Taya Last MD [address] [place] [address] PCP - General Family Medicine 07/22/18 Brittney Causey Personal Financial PlannerFeed Blender 12/30/23 documented as of this encounter
--- OUTSIDE RECORDS SUMMARY | 2024-12-05 18:12 | XMS_ITS | Encounter Summary ---
Author Organization [employer] Address [address] [place] [address] 7t [place] [address] Care Team Providers Care Cementer Oil Well Name Role Phone Taya Last MD Primary Care Provider [phone] Reason for Referral * Cardiac Stress Testing (Routine) - Closed Specialty Diagnoses / Procedures Referred By Contac t Referred To Contact Cardiology Diagnoses Premature beats Palpitation Procedures Holter monitor - 48 hour Taya Last MD [address] [place] [address] Phone: tel: fax: [facility] [address] [place] [address] Phone: tel: fax: Referral ID Status Reason Start Date Expiration Date Visits Re quested Visits Authorized [id number] Closed 02/06/2023 08/05/2023 1 1 Encounter Details Date Type Department Care Team (Late st Contact Info) Description 02/06/2023 Orders Only [facility] MEDICINE [address] [place], [place] [phone] Taya Last MD [address] [place], [place] [phone] Premature beats (Primary Dx); Palpitation; Right arm [...] documented as of this encounter Care Teams Cementer Oil Well Relationship Specialty Start Date End Date Taya Last MD [address] [place] [address] PCP - General Family Medicine 07/22/18 Brittney Causey Caser UpCollection Advisor 12/30/23 documented as of this encounter
--- OUTSIDE RECORDS SUMMARY | 2024-12-05 18:12 | XMS_ITS | Encounter Summary ---
Author Organization [employer] Address [address] [place] [address] 7 [place] [address] Care Team Providers Care Diamond Die Driller Name Role Phone Taya Last MD Primary Care Provider [phone] Reason for Visit * Reason Onset Date Comments Referral 01/30/2023 Encounter Details Date Type Department Care Team ([facility] st Contact Info) Description 01/30/2023 Telephone [facility] MEDICINE [address] [place], [place] [phone] Taya Last MD [address] [place] [address] Referral Social History Tobacco Use Types Packs/Day [...] documented as of this encounter Care Teams Diamond Die Driller Relationship Specialty Start Date End Date Taya Last MD [address] [place] [address] PCP - General Family Medicine 07/22/18 Brittney Causey Housekeeping WorkerResource Conservation Manager 12/30/23 documented as of this encounter
--- OUTSIDE RECORDS SUMMARY | 2024-12-05 18:12 | XMS_ITS | Encounter Summary ---
Author Organization [employer] Address [address] [facility] 7t [place] [address] Care Team Providers Care Steamer Tender Name Role Phone Taya Last MD Primary Care Provider [phone] Encounter Details Date Type Department Care Team ([facility] st Contact Info) Description 09/14/2023 Orders Only [facility] MEDICINE [address] [place] [address] Taya Last MD 230 [place] [address] Social History Tobacco Use Types Packs/Day Years [...] documented as of this encounter Care Teams Steamer Tender Relationship Specialty Start Date End Date Taya Last MD [address] [place] [address] PCP - General Family Medicine 07/22/18 Brittney Causey Translator InterpreterFoot Piece Assembler 12/30/23 documented as of this encounter
--- OUTSIDE RECORDS SUMMARY | 2024-12-05 18:12 | XMS_ITS | Encounter Summary ---
Author Organization [employer] Address [address] [facility] 7 [place] [address] Care Team Providers Care Ammonia Nitrate Operator Name Role Phone Taya Last MD Primary Care Provider [phone] Reason for Visit * Reason Onset Date Comments Appointment Request 11/15/2024 Encounter Details Date Type Department Care Team ([facility] Contact Info) Description 11/15/2024 Telephone [facility] MEDICINE 230 [place], [place] [phone] Taya Last MD 230 [place], [place] [phone] Appointment Request Social History Tobacco Use Types Packs/Day Years [...] encounter Miscellaneous Notes * Telephone Encounter - Gilmar Taylor - 11/15/2024 9:06 AM EST TC from pt requesting Fu Visit with PCP. Pt states that she has not been feeling well. She's been throwing up, not eating at alll but she has been drinking Fluid but no food. Recovery Assistant Offered her the Apt with [facility] on 12/27/24 But she stated was too far away. Pt would like aApt as soon as possible. Contact pt at [phone] documented in this encounter Plan of Treatment Not on file documented as of this encounter Visit Diagnoses Not on filedocumented in this encounter Additional Health Concerns Assessment Noted Time PHQ-9 Depression Total Score: 12 025 2:10 PM EST documented as of this encounter Care Teams Ammonia Nitrate Operator Relationship Specialty Start Date End Date Taya Last MD [address] [place] [address] PCP - General Family Medicine 07/22/18 Brittney Causey Neurology ProfessorCrotch Piece Baster 12/30/23 documented as of this encounter
--- OUTSIDE RECORDS SUMMARY | 2024-12-05 18:12 | XMS_ITS | Clinical Summary ---
Author Organization [employer] Address [address] [place] [address] [address] [place] [address] Care Team Providers Care Chief Of Surgery Name Role Phone Taya Weaver MD Primary Care Provider [phone] Allergies Active Allergy Reactions Criticality Noted Date Comments Apricot Flavoring Agent (Non-Screening) 11/15/2024 Stanley 11/15/2024 Coconut Flavoring Agent (Non-Screening) 11/15/2024 Nabumetone Palpitations Low 12/18/2021 Other reaction(s): Crying Oxycodone 12/24/2017 [place] Flavoring Agent (Non-Screening) 11/15/2024 Pineapple Flavoring Agent (Non-Screening) 11/15/2024 Shellfish Allergy 11/08/2015 Shellfish-Derived Products 3 Medications cetirizine (ZyrTEC) 10 MG tablet Take 1 tablet (10 mg) by mouth in the morning. 90 tablet 3 03/16/20 23 Active meclizine (Antivert) 25 MG tablet 1 tab po BID 60 tablet 3 12/01/19 24 Active dilTIAZem CD (Cardizem CD) 120 MG 24 hr capsule Take 120 mg by mouth Once per day. Active acetaminophen (Tylenol 8 Hour) 650 MG ER tabletIndication s:Pain Take 1 tablet by mouth every 8 hours as needed for pain or fever 60 tablet 3 03/29/20 24 Active cholecalciferol VITAMIN D (Vitamin D-3) 50 MCG (2000 UT) capsule Take 1 capsule (50 mcg) by mouth Once per day. 90 capsule 3 06/01/20 24 Active gabapentin (Neurontin) 100 MG capsule Take 1 capsule by mouth every night. May increase up to 3 tablets at bedtime 90 capsule 11 06/01/20 24 Active QuickVue At-Home Covid-19 Test kitIndications:A typical chest pain USE DIRECTED 2 kit 1 06/01/20 24 Active methocarbamol (Robaxin) 750 MG tabletIndication s:Acute bilateral low back pain without sciatica Take 1 tablet (750 mg) by mouth at bedtime for 10 days. 10 tablet 07/11/20 24 Active carbamide peroxide (Debrox) 6.5 % otic solutionIndicati ons:Impacted cerumen of left ear 4 gtt left ear for 3 days- czech 15 mL 08/09/20 24 Active EPINEPHrine (Epipen) 0.3 MG/0.3ML injection syringe INJECT INTRAMUSCULARLY DIRECTED ON PACKAGE AND GO TO EMERGENCY ROOM 2 each 08/12/20 24 Active lidocaine (Lidoderm) 5 % patchIndications :Chronic pain of both shoulders,Fibrom yalgia Apply 1 patch to neck and 1 patch to back and leave on for 12 hours as needed. 60 patch 3 10/11/19 25 Active Symbicort 80-4.5 MCG/ACT inhaler INHALE 2 PUFFS BY MOUTH TWICE DAILY IN THE MORNING AND IN THE EVENING 1 each 6 11/02/19 25 Active albuterol (Ventolin HFA) 108 (90 Base) MCG/ACT inhaler Inhale 2 puffs every 4 (four) hours if needed for wheezing or shortness of breath. 54 g 3 11/02/19 25 026 Active Spacer/Aero-Hold ing Chambers (OptiChamber Alejandra) misc 1 each every 4 (four) hours if needed (asthma). 2 each 11/02/19 25 Active azithromycin (Zithromax Z-Ankit) 250 MG tablet Take 2 tablets once on day 1, then 1 tablet 1x/day for 4 days. 6 tablet 11/02/19 25 Active fluticasone (Flonase) 50 MCG/ACT nasal spray INSTILL 1 SPRAY IN EACH NOSTRIL ONCE DAILY 16 g 3 11/02/19 25 Active omeprazole (PriLOSEC) [address] capsuleIndicatio ns:Epigastric pain Take 1 capsule (40 mg) by mouth before breakfast and before evening meal. Do not crush or chew. 60 capsule 11/15/19 25 026 Active polyethylene glycol, PEG, 3350 (MiraLax) 17 GM/SCOOP powderIndication s:Constipation, unspecified constipation type Take 17 g by mouth Once per day. 527 g 11/15/19 25 025 Active predniSONE (Deltasone) 20 MG tablet Take 2 tablets (40 mg) by mouth Once per day for 5 days. 10 tablet 11/02/19 25 025 predniSONE (Deltasone) 20 MG tablet Take 2 tablets (40 mg) by mouth Once per day for 5 days. 10 tablet 11/09/19 25 025 ondansetron (Zofran) 4 MG tabletIndication s:Epigastric pain Take 2 tablets (8 mg) by mouth every 8 (eight) hours if needed for nausea or vomiting for up to 7 days. 30 tablet 11/15/19 25 025 docusate sodium (Colace) 100 MG capsuleIndicatio ns:Constipation, unspecified constipation type Take 1 capsule (100 mg) by mouth 2 times daily for 10 days. 20 capsule 11/15/19 25 025 Active Problems Problem Noted Date Diagnosed Date Epigastric pain 11/15/2024 Assessment & Plan (11/15/2024 5:12 PM EST): And suspecting patient has gastritis I advise patient to avoid NSAIDs, spicy and acid food, I advise to eat at the same time every day, I advise to elevate the head of the bed and take medications as prescribe I prescribed for patient omeprazole 40 mg twice a day and Zofran as needed Report back if symptoms persist Constipation 11/15/2024 Assessment & Plan (11/15/2024 5:11 PM EST): advised to drink plenty of water Acute serous otitis media of left ear [...] -will prescribe Debrox ear drops 08/09/24 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 06/01/2024 Assessment & Plan (06/03/2024 6:40 [...] (06/03/2024 6:38 AM EDT): - Followed by [facility] Cardiology, last seen in March 2024 - Currently prescribed diltiazem 120 mg daily Assessment & Plan (01/28/2024 12:23 PM EDT): - Followed by [facility] Cardiology, last seen on 09/02/23 - Currently prescribed diltiazem 180 mg daily - Most recent Holter after starting diltiazem showed no SVT, still PAC and sinus tachycardia Assessment & Plan (09/30/2023 5:44 AM EST): - Followed by [facility] Cardiology, last seen on 09/02/23 - Currently prescribed diltiazem 180 mg daily - Most recent Holter after starting diltiazem showed no SVT, still PAC and sinus tachycardia Assessment & Plan (07/06/2023 5:41 AM EDT): - Seen by [facility], [facility], on 06/02/23. - 02/16/23, Holter Monitor showed: [...] / discontinue cyclobenzaprine. - Recommended to notify sanitation officer about when she started started taking Diltiazem during the evaluation Assessment & Plan (03/16/2023 10:50 AM EDT): 02/16/23, Holter Monitor showed: frequent PAC & SVT's -symptoms started since COVID -will refer her to [facility] Chronic right shoulder pain 03/15/2023 Assessment & [...] (06/01/2024 11:51 AM EDT): Previously followed by [facility] [employer] [facility]. -Normal workup for autoimmune disorder. -No Lupus or Rheumatoid Arthritis. -Completed PT at [facility] in May 2022. -Recommended to restart acupuncture. -Held cyclobenzaprine while Holter monitor evaluation; resume again -Discussed the trial of Cymbalta; patient is comfortable with gabapentin only at this time Assessment & Plan (01/28/2024 12:23 PM EDT): Previously followed by [facility] [employer] [facility]. -Normal workup for autoimmune disorder. -No Lupus or Rheumatoid Arthritis. -Completed PT at [facility] in May 2022. -Recommended to restart acupuncture. -Held cyclobenzaprine while Holter monitor evaluation; resume again -Discussed the trial of Cymbalta. Agreed to have cardiology evaluation prior to starting Cymbalta Assessment & Plan (09/30/2023 5:53 AM EST): Previously followed by [facility] [employer] [facility]. -Normal workup for autoimmune disorder. -No Lupus or Rheumatoid Arthritis. -Completed PT at [facility] in May 2022. -Recommended to restart acupuncture. -Held cyclobenzaprine while Holter monitor evaluation; resume again -Discussed the trial of Cymbalta. Agreed to have cardiology evaluation prior to starting Cymbalta Assessment & Plan (06/30/2023 5:15 PM EDT): Previously followed by [facility] [employer] [facility]. -Normal workup for autoimmune disorder. -No Lupus or Rheumatoid Arthritis. -Completed PT at [facility] in May 2022. -Recommended to restart acupuncture. -Held cyclobenzaprine while Holter monitor evaluation; resume again -Discussed the trial of Cymbalta. Agreed to have cardiology evaluation prior to starting Cymbalta Assessment & Plan (03/20/2023 12:14 PM EDT): Previously followed by [facility] [employer] [facility]. -Normal workup for autoimmune disorder. -No Lupus or Rheumatoid Arthritis. -Completed PT at [facility] in May 2022. -Recommended to restart acupuncture. -Held cyclobenzaprine while Holter monitor evaluation; resume again -Discussed the trial of Cymbalta. Agreed to have cardiology evaluation prior to starting Cymbalta Assessment & Plan (11/27/2022 6:23 PM EST): Previously followed by [facility] [employer] [facility]. -Normal workup for autoimmune disorder. -No Lupus or Rheumatoid Arthritis. -Will discontinue Cyclobenzaprine until she completes evaluation of Holter Monitor -Completed PT at [facility] in May 2022. -Recommended to restart acupuncture. -Discussed the trial of Cymbalta. Agreed to complete Holter Monitor before starting Cymbalta Atypical chest pain 11/27/2022 Assessment & Plan (06/01/2024 11:53 AM EDT): -Followed by [facility], last seen in March 2024 -03/27/22 Stress test, EKG was negative for ischemia, but pt reported left-sided chest pain, dyspnea, and palpitation. -04/01/22 TTE Left ventricular systolic function was normal, EF 58%. - 04/28/24 exercise nuclear stress test showed no ischemia -Continue lifestyle modifications. -Possibly d/t chostochondritis or anxiety or post-COVID Assessment & Plan (09/30/2023 5:49 AM EST): -Followed by [facility], last seen in Aug 2023 -03/27/22 Stress test, EKG was negative for ischemia, but pt reported left-sided chest pain, dyspnea, and palpitation. -04/01/22 TTE Left ventricular systolic function was normal, EF 58%. -Continue lifestyle modifications. -Possibly d/t chostochondritis or anxiety or post-COVID Follow-up with Cardiology after holter monitor evaluation Assessment & Plan (06/30/2023 5:15 PM EDT): -Seen by [facility], recently in May 2023 -03/27/22 Stress test, EKG was negative for ischemia, but pt reported left-sided chest pain, dyspnea, and palpitation. -04/01/22 TTE Left ventricular systolic function was normal, EF 58%. -Continue lifestyle modifications. -Possibly d/t chostochondritis or anxiety or post-COVID Follow-up with Cardiology after holter monitor evaluation Assessment & Plan (11/27/2022 5:08 AM EST): -Seen by [facility]. -03/27/22 Stress test, EKG was negative for [...] Plan (06/03/2024 6:37 AM EDT): -following with [facility] Cardiology, last seen in March 2024 -02/16/23, Holter Monitor showed: frequent PAC & SVT's -symptoms started since COVID -Normal stress test and TTE with EF 58% in March 2022 -seen by sanitation officer in May 2023, and prescribed diltiazem 120 mg daily -07/02/23 Holter monitor after starting diltiazem showed improvement, average HR 96, PAC 13%, no SVT. Due to PAC burden of 13%, diltiazem was increased to 180 mg daily. -diltiazem was decreased back to 120 mg daily due to patient's dizziness and headache. -continue diltiazem at current dose -continue follow up with sanitation officer as scheduled Assessment & Plan (01/28/2024 12:22 PM EDT): >>ASSESSMENT AND PLAN FOR PAC (PREMATURE ATRIAL CONTRACTION) WRITTEN ON 09/30/2023 5:48 AM BY TAYA WEAVER MD 02/16/23, Holter Monitor showed: frequent PAC & SVT's 06/30/23 Holter monitor showed less PAC, still 13% burden, no SVT. Continue diltiazem 180 mg daily >>ASSESSMENT AND PLAN FOR PREMATURE BEATS WRITTEN ON 09/30/2023 5:42 AM BY TAYA WEAVER MD -02/16/23, Holter Monitor showed: frequent PAC & SVT's -symptoms started since COVID -Normal stress test and TTE with EF 58% in March 2022 -seen by sanitation officer in May 2023, and prescribed diltiazem 120 mg daily -07/02/23 Holter monitor after starting diltiazem showed improvement, average HR 96, PAC 13%, no SVT -seen by sanitation officer on 09/02/23, increased diltiazem to 180 mg daily Assessment & Plan (01/28/2024 6:29 AM EDT): >>ASSESSMENT AND PLAN FOR PREMATURE BEATS WRITTEN ON 11/27/2022 6:20 PM BY TAYA WEAVER MD -Evaluate with Holter Monitor -Discontinue cyclobenzaprine -Will not start Cymbalta until she completes evaluation with Holter Monitor Assessment & Plan (01/28/2024 6:29 AM EDT): >>ASSESSMENT AND PLAN FOR PREMATURE BEATS WRITTEN ON 07/06/2023 5:39 AM BY TAYA WEAVER MD -02/16/23, Holter Monitor showed: frequent PAC & SVT's -symptoms started since COVID -following with sanitation officer -pt was prescribed diltiazem 120 mg daily; given reassurance that it is low dose and it is unlikely to cause hypotension -hold cyclobenzaprine as it may affect cardiac conduction Assessment & Plan (01/28/2024 6:29 AM EDT): >>ASSESSMENT AND PLAN FOR PAC (PREMATURE ATRIAL CONTRACTION) WRITTEN ON 09/30/2023 5:48 AM BY TAYA WEAVER MD 02/16/23, Holter Monitor showed: frequent PAC & SVT's 06/30/23 Holter monitor showed less PAC, still 13% burden, no SVT. Continue diltiazem 180 mg daily >>ASSESSMENT AND PLAN FOR PREMATURE BEATS WRITTEN ON 09/30/2023 5:42 AM BY TAYA WEAVER MD -02/16/23, Holter Monitor showed: frequent PAC & SVT's -symptoms started since COVID -Normal stress test and TTE with EF 58% in March 2022 -seen by sanitation officer in May 2023, and prescribed diltiazem 120 mg daily -07/02/23 Holter monitor after starting diltiazem showed improvement, average HR 96, PAC 13%, no SVT -seen by sanitation officer on 09/02/23, increased diltiazem to 180 mg daily Assessment & Plan (03/16/2023 10:50 AM EDT): 02/16/23, Holter Monitor showed: frequent PAC & SVT's -symptoms started since COVID -will refer her to [facility] Vitamin D deficiency 09/29/2018 Assessment & Plan [...] her safety today -She is connected with [facility] provider -Will consider starting Cymbalta in near [...] Encounters Date Type Department Care Team Description 12/05/2024 3:30 PM EST Office Visit [address] [address] Taya Weaver MD Constipation, unspecified constipation type (Primary Dx); Paresthesia; Dizziness 12/05/2024 Travel 11/30/[address] [address] Amber Lopez MA chart prep 11/22/[address] [address] Taya Weaver MD ER Follow-up 11/15/2024 2:00 PM EST Office Visit [address] [address] Freida Gaines MD Epigastric pain (Primary Dx); Constipation, unspecified constipation type 11/15/2024 Travel 11/15/[address] [address] Taya Weaver MD Nurse Triage 11/15/[address] [address] Taya Weaver MD Appointment Request 11/13/2024 Orders Only [facility] External Provider, [facility] 11/09/2024 9:20 AM EST Office Visit [facility] [address] [address] Phong Galvan MD Acute cough (Primary Dx); Chest pain, unspecified type 11/08/[address] [address] Taya Weaver MD Nurse Triage 11/02/2024 9:40 AM EST Office Visit [facility] [address] [address] Phong Galvan MD Acute cough (Primary Dx); Moderate persistent asthma with acute exacerbation; Viral URI 11/01/[address] [address] Taya Weaver MD [facility] (Shower chair (1)) 10/26/[address] [address] Taya Weaver MD chart prep 10/18/[address] [address] Preeti Parra ANP Prior Authorization ([facility] PA Request: Lidocaine 5% Patch) 10/11/2024 11:15 AM EST Office Visit [address] [address] Preeti Parra ANP Chronic pain of both shoulders (Primary Dx); Fibromyalgia 10/11/2024 Travel 10/10/[address] [address] Rose Hayden MA chart prep 10/04/[address] [address] Taya Weaver MD Nurse Triage 09/23/2024 10:00 AM EST Office Visit [facility] [address] [place] [phone] Dawit, Lilli, OD Combined forms of age-related [...] Tobacco: Never Tobacco Cessation:Counseling Given: Not Answered Alcohol Use Standard Drinks/Week Comments Never 0 [...] oz) 12/05/2024 2:33 P M EST Height 162.6 cm (5' 4 ) 11/15/2024 2:08 PM EST Body Mass Index 24.31 11/15/2024 2:08 PM EST Plan of Treatment Health Maintenance Due [...] Influenza Vaccine (#1) 2024 9, 07/22/2018, 07/24/2014 SDOH Screening 01/27/2025 01/28/2024 Depression Monitoring (PHQ-9) 05/15/2025 11/15/2024, 11/15/2024 Alcohol/Substance Use Screening 06/01/2025 06/01/2024 Diabetes: Hemoglobin A1C 06/07/2025 024, 10/07/2023, 03/19/2023, Additional history exists Depression Screening 11/15/2025 11/15/2024, 11/15/19 Tobacco Screening 12/05/2025 12/05/2024 Cervical Cancer Screening 03/15/2026 HPV/Cotest 03/15/2026 03/15/2021 [...] Procedure Name Priority Date/Time Associated Diagnosis Comments CBC WITH AUTO DIFFERENTIAL Routine 12/05/2024 3:20 PM EST Paresthesia Dizziness VITAMIN B12/FOLATE, SERUM PANEL Routine 12/05/2024 3:20 PM EST Paresthesia TSH W/REFLEX TO FT4 Routine 12/05/2024 3 :20 PM EST Constipation, unspecified constipation type Paresthesia COMPREHENSIVE METABOLIC PANEL Routine 12/05/2024 3:[address] ABDOMEN PELVIS WO CONTRAST Routine 11/21/2024 8:[address] ABDOMEN PELVIS W CONTRAST Routine 11/13/2024 10:58 PM EST ECG 12-LEAD Routine 11/09/2024 1:15 PM EST [...] Recently Relevant to Health Maintenance Results * Vitamin B12 (Cobalamin) and Folate Panel, Serum (12/05/2024 3:20 PM EST) Vitamin B12 255 200 - 900 pg/mL [facility] Comment:NORMAL 200-900 PG/ML INDETERMINATE 160-199 PG/ML DEFICIENT < 160 PG/ML Folate 11.3 > or = 4.0 ng/mL [facility] Comment:Reference Values:> o r = 4.0 ng/mL< 4.0 ng/mL suggests folate deficiency Methotrexate, aminopterin and folinic acid(leucovorin) are chemotherapeutic agents whose molecularstructures are similar to folate; therefore, the Architectfolate assay cannot be used for patients using these drugs. Blood 12/05/2024 3:20 PM EST 12/05/2024 4:20 PM EST us Taya Weaver MD LAB BLOOD ORDERABLES Final Resul t Performing Organization Address City/[facility]/ZIP Co de Phone Number [facility] [address] [place] [address] [phone] * TSH with Reflex to Free T4 (12/05/2024 3:20 PM EST) TSH reflex Free T4 0.41 0.32 - 4.0 uIU/mL [facility] Blood 12/05/2024 3:20 PM EST 12/05/2024 4:20 PM EST us Taya Weaver MD LAB BLOOD ORDERABLES Final Resul t Performing Organization Address City/[facility] Co de Phone Number [facility] [address] [place] [phone] * (ABNORMAL) CBC auto differential (12/05/2024 3:20 PM EST) Pathologist [facility] White Blood Count 3.3(L) 4.8 - 10.8 X10*3/uL [facility] Red Blood Count 3.35(L) 4.20 - 5.50 X10*6/uL [facility] Hemoglobin 10.5(L) 12.0 - 16.0 g/dl [facility] Hematocrit 32.8(L) 37.0 - 47.0 % [facility] Mean Corpuscular Volume 97.9 80.0 - 98.0 fL [facility] Mean Corpuscular Hemoglobin 31.3 27.0 - 33.0 pg [facility] Mean Corpuscular HGB Conc 32.0 31.0 - 35.0 g/dl [facility] Red Cell Distribution Width 12.9 11.0 - 16.0 % [facility] Platelet Count 203 160 - 400 X10*3/uL [facility] Mean Platelet Volume 11.9 9.4 - 12.3 fL [facility] Neutrophils Percent Auto 29.1(L) 45 - 73 % [facility] Imm Gran Pct Auto 0.3 0.0 - 0.4 % [facility] Lymphocytes Percent Auto 60.4(H) 20 - 40 % [facility] Monocytes Percent Auto 7.1 2 - 11 % [facility] Eosinophils Percent Auto 2.5 0 - 4 % [facility] Basophils Percent Auto 0.6 0 - 2 % [facility] NRBC Pct Auto 0.0 0.0 - 0.2 /100WBC [facility] Neutrophils Absolute Auto 1.0(L) 2.0 - 8.3 x10*3/uL [facility] Imm Gran Abs Auto 0.01 0.00 - 0.03 X10*3/uL [facility] Lymphocytes Absolute Auto 2.0 1.2 - 4.9 X10*3/uL [facility] Monocytes Absolute Auto 0.2 0.1 - 1.2 X10*3/uL [facility] Eosinophils Absolute Auto 0.1 0.0 - 0.4 X10*3/uL [facility] Basophils Absolute Auto 0.0 0.0 - 0.2 X10*3/uL [facility] NRBC Abs Auto 0.000 0.0 - 0.012 X10*3/uL [facility] Blood Venous blood specimen / Unknown 12/05/2024 3:20 PM EST 12/05/2024 4:20 PM EST us Taya Weaver MD LAB BLOOD ORDERABLES Final Resul t [facility] [address] [place] [address] [phone] * (ABNORMAL) Comprehensive Metabolic Panel (12/05/2024 3:20 PM EST) Sodium 142 135 - 145 mmol/L [facility] Potassium 4.1 3.3 - 5.1 mmol/L [facility] Chloride 109(H) 96 - 108 mmol/L [facility] Carbon Dioxide 27 22 - 29 mmol/L [facility] Anion Gap 10(L) 12 - 20 [facility] Urea Nitrogen (BUN) 14 9 - 16 mg/dL [facility] Creatinine, Serum 0.69 0.5 - 1.4 mg/dL [facility] Estimated Glomerular Filt Rate >60 [facility] Comment:Chronic Kidney Disea se: Estimated GFR < 60 mL/min/[id number] Kidney Disease: Estimated GFR < 15 mL/min/1.73m2 Glucose 111 60 - 115 mg/dL [facility] Calcium 8.5 8.4 - 10.2 mg/dL [facility] Bilirubin, Total 0.2 0.0 - 1.0 mg/dL [facility] Aspartate Amino Transferase 36(H) 5 - 31 U/L [facility] Alanine Aminotransferase 32(H) 0 - 31 U/L [facility] Total Protein 7.1 6.5 - 8.0 g/dL [facility] Albumin Level 3.5 3.5 - 5.0 g/dL [facility] Alkaline Phosphatase 88 39 - 117 U/L [facility] Blood Venous blood specimen / Unknown 12/05/2024 3:20 PM EST 12/05/2024 4:20 PM EST us Taya Weaver MD LAB BLOOD ORDERABLES Final Resul t [facility] [address] [place] [phone] * CT Abdomen Pelvis w/o Contrast (11/21/2024 8:11 PM EST) Anatomical Region Laterality Modality Body, Pelvis, Abdomen Computed T omography 11/21/2024 8:11 PM EST Narrative 11/21/2024 8:12 PM EST ? [facility] ?[address] ?[place] [address] ? CT Scan Report ? Signed ? Patient: Dwyer,Freida I ?MR#: [id number] ?? 202 ? : 1960 ?Acct:[id number] ? Age/Sex: 64 / F ?ADM Date: /17/25 ? Loc: HO.ED ? Attending Dr: ? Ordering Physician: Shine Godoy MD ?? Date of Service: 11/21/24 ?? Procedure(s): CT abdomen pelvis wo IV con ?? Accession Number(s): [id number] ? cc: Shine Godoy MD; Taya Weaver MD ? Report Number: ?? [id number]: Total DLP = ??423.00 mGy-cm ? CLINICAL HISTORY: Diffuse abdominal pain ? CT of the abdomen and pelvis without intravenous contrast. ? Comparison 11/13/2024. ? Findings: ?? The liver is unremarkable. Cholecystectomy. ?? No renal or ureteral stones are seen. There is no hydronephrosis. ? The spleen and pancreas are unremarkable. ?? No abdominal aortic aneurysm. ?? There is mild colonic wall thickening raising the possibility of mild ?? colitis. ?? No definite diverticulitis. ?? Normal appendix. ?? Moderate stool in the colon. ?? No bowel obstruction. ? The bladder is unremarkable. ? Impression: ?? Suspect mild colitis. ?? Other findings as above. ? This document has been electronically signed by: Ruy Gold MD on ?? 11/21/2024 20:11:55 ? Dictated By: ?Trell Grijalva MD ? Signed By: ?<Electronically signed by Trell Grijalva MD in OV> ?11/21/242011 ? DD/ 10 ? TD/TT: 11/21/242010 ? [facility] Supervisor: ? Procedure Note Kate Rosario - 11/21/[address] [place] [address] [address] Scan Report Signed Patient: Freida Dwyer IMR#: [id number] 202 : 9Acct:[id number] Age/Sex: 64 / FADM Date: 11/21/24 Loc: HO.ED Attending Dr: Ordering Physician: Shine Godoy MD Date of Service: 11/21/24 Procedure(s): CT abdomen pelvis wo IV con Accession Number(s): [id number] cc: Shine Godoy MD; Taya Weaver MD Report Number: [id number]: Total DLP = 423.00 mGy-cm CLINICAL HISTORY: Diffuse abdominal pain CT of the abdomen and pelvis without intravenous contrast. Comparison 11/13/2024. Findings: The liver is unremarkable. Cholecystectomy. No renal or ureteral stones are seen. There is no hydronephrosis. The spleen and pancreas are unremarkable. No abdominal aortic aneurysm. There is mild colonic wall thickening raising the possibility of mild colitis. No definite diverticulitis. Normal appendix. Moderate stool in the colon. No bowel obstruction. The bladder is unremarkable. Impression: Suspect mild colitis. Other findings as above. This document has been electronically signed by: Ruy Gold MD on 11/21/2024 20:11:55 Dictated By: Trell Grijalva MD Signed By: <Electronically signed by Trell Grijalva MD in OV> 11/21/242011 DD/ 10 TD/TT: 11/21/242010 Chemical Lab Supervisor: [facility] External Provider IMG CT PROCEDURES Edited Result - Final * CT Abdomen Pelvis w/ Contrast (11/13/2024 10:58 PM EST) Anatomical Region Laterality Modality Body, Pelvis, Abdomen Computed T omography 11/13/2024 10:5 8 PM EST Narrative 11/13/2024 10:59 PM EST ? [facility] ?[address] ?[place] [address] ? CT Scan Report ? Signed ? Patient: Freida Dwyer I ?MR#: [id number] ?? 202 ? : 1960 ?Acct:[id number] ? Age/Sex: 64 / F ?ADM Date: 11/13/24 ? Loc: HO.ED ? Attending Dr: ? Ordering Physician: Katherin Rosenthal ?? Date of Service: 11/13/24 ?? Procedure(s): CT abdomen pelvis w IV con ?? Accession Number(s): [id number] ? cc: Katherin Rosenthal; Taya Weaver MD ? Report Number: ?? [id number]: Total DLP = ??462.00 mGy-cm ? CLINICAL HISTORY: paon, sbo? CT abdomen and pelvis with contrast ? Comparison: CT of the abdomen and pelvis from 11/28/2019 ? Findings: ?? Mild bibasilar atelectasis and/or scarring, left worse than right. ?? Mild biliary ductal dilatation is nonspecific and can be seen post ?? cholecystectomy. The gallbladder is surgically absent. Mild fat deposition ?? of the liver. Spleen is nonenlarged. Adrenal glands and pancreas are ?? unremarkable without significant change. Hydronephrosis. ?? No new or enlarging lymphadenopathy. No small bowel obstruction. Severe ?? stool burden, including the cecum. Imaged appendix is within normal ?? limits. (Image 64 of series 3). Phleboliths noted in the pelvis. Surgical ?? clips in the left hemipelvis. ?? Uterus deviates to the left. No adnexal soft tissue mass. Mild wall ?? thickening of the urinary bladder is nonspecific. Degenerative changes of ?? the hips, SI joints, and spine. Multilevel Schmorl's nodes including ?? junction, with marked increased sclerosis of the L5. Facet arthropathy is ?? multifocal. ? IMPRESSION: ?? 1. Severe stool burden. No small bowel obstruction. ? 2. mild biliary ductal dilatation is nonspecific and can be seen post ?? cholecystectomy. ? This document has been electronically signed by: Luis Armando Islas MD on ?? 11/13/2024 22:58:30 ? Dictated By: ?Luis Armando Islas MD ? Signed By: ?<Electronically signed by Luis Armando Islas MD in OV> ? 11/13/242258 ? DD/ 57 ? TD/TT: 11/13/242257 ? Chemical Lab Supervisor: ? Procedure Note Kate Rosario - 11/13/[address] [address] [address] Scan Report Signed Patient: Freida Dwyer [facility]#: [id number] 202 : 9Acct:[id number] Age/Sex: 64 / FADM Date: 11/13/24 Loc: HO.ED Attending Dr: Ordering Physician: Katherin Rosenthal Date of Service: 11/13/24 Procedure(s): CT abdomen pelvis w IV con Accession Number(s): [id number] cc: Katherin Rosenthal; Taya Weaver MD Report Number: [id number]: Total DLP = 462.00 mGy-cm CLINICAL HISTORY: paon, sbo? CT abdomen and pelvis with contrast Comparison: CT of the abdomen and pelvis from 11/28/2019 Findings: Mild bibasilar atelectasis and/or scarring, left worse than right. Mild biliary ductal dilatation is nonspecific and can be seen post cholecystectomy. The gallbladder is surgically absent. Mild fat deposition of the liver. Spleen is nonenlarged. Adrenal glands and pancreas are unremarkable without significant change. Hydronephrosis. No new or enlarging lymphadenopathy. No small bowel obstruction. Severe stool burden, including the cecum. Imaged appendix is within normal limits. (Image 64 of series 3). Phleboliths noted in the pelvis. Surgical clips in the left hemipelvis. Uterus deviates to the left. No adnexal soft tissue mass. Mild wall thickening of the urinary bladder is nonspecific. Degenerative changes of the hips, SI joints, and spine. Multilevel Schmorl's nodes including junction, with marked increased sclerosis of the L5. Facet arthropathy is multifocal. IMPRESSION: 1. Severe stool burden. No small bowel obstruction. 2. mild biliary ductal dilatation is nonspecific and can be seen post cholecystectomy. This document has been electronically signed by: Luis Armando Islas MD on 11/13/2024 22:58:30 Dictated By: Luis Armando sIlas MD Signed By: <Electronically signed by Luis Armando Islas MD in OV> 11/13/249 DD/ 57 TD/TT: 11/13/242257 Chemical Lab Supervisor: [facility] External Provider IMG CT PROCEDURES Final Result * XR Chest 2 Views (11/09/2024 10:09 AM EST) Anatomical Region Laterality Modality Chest Radiographic Vicenta ging 11/09/2024 10:0 9 AM EST Narrative 11/09/2024 10:41 AM EST ?[facility] ?[address] ?[place] [address] ?XRay Report ? Signed ? Patient: Dwyer,Freida I ?MR#: [id number] ?? 202 ? : 1960 ?Acct:[id number] ? Age/Sex: 64 / F ?ADM Date: 02/05/25 ? Loc: HO.HHCX ? Attending Dr: Phong Galvan MD ? Ordering Physician: PHONG GALVAN MD ?? Date of Service: 11/09/24 ?? Procedure(s): XR chest 2V ?? Accession Number(s): [id number] ? cc: PHONG GALVAN MD ? EXAMINATION: ?? XR CHEST ? [...] DD/ 1009 ? TD/TT: 11/09/24 1030 ? Chemical Lab Supervisor: ? Procedure Note Marlene, Image - 11/09/2024 [place] [address] XRay Report Signed Patient: Freida Dwyer [facility]#: [id number] 202 : 9Acct:[id number] Age/Sex: 64 / FADM Date: 11/09/24 Loc: HO.HHCX Attending Dr: Phong Galvan MD Ordering Physician: PHONG GALVAN MD Date of Service: 11/09/24 Procedure(s): XR chest 2V Accession Number(s): [id number] cc: PHONG GALVAN MD EXAMINATION: XR CHEST CLINICAL INFORMATION: cough [...] 11/09/24 1038 DD/ 1009 TD/TT: 11/09/24 1030 Chemical Lab Supervisor: us Phong Galvan MD IMG XR PROCEDURES Edited Result - Final * Influenza B (ID NOW Rapid Molecular) (11/02/2024 9:52 AM EST) Influenza B Negative Negative, Indeterminate [facility] Swab 11/02/2024 9:52 AM EST us Phong Galvan MD POINT OF CARE TEST ENTER/EDIT OR DERABLES Final Result Performing Organization Address [facility] Co de Phone Number [facility] [address] [place] [phone] * Influenza A (ID NOW Rapid Molecular) (11/02/2024 9:52 AM EST) Pathologist [facility] Influenza A Negative Negative, Indeterminate [facility] Swab 11/02/2024 9:52 AM EST us Phong Galvan MD POINT OF CARE TEST ENTER/EDIT OR DERABLES Final Result Performing Organization Address [facility] Co de Phone Number [facility] [address] [place] [phone] * POCT Rapid COVID Ag (11/02/2024 9:52 AM EST) Rapid COVID Ag Negative [facility] Swab 11/02/2024 9:52 AM EST Phong Galvan MD POINT OF CARE TEST ENTER/EDIT OR DERABLES Final Result Performing Organization Address [facility] de Phone Number [facility] [address] [place] [phone] * Hemoglobin A1c (06/07/2024 8:48 AM EDT) Hemoglobin A1c 5.7 <6.0 % [facility] Comment:Hemoglobin A1C Refer ence Range Adults: 4.8 - 6.0 % Non diabetic: < 6.0 % Goal: < 7.0 %Additional Action Suggested: > 8.0 %Note: Hemoglobin A1c results are invalid for patients with abnormal amounts of HbF. Blood transfusions may impact the HbA1c concentration in the patient sample. Estimated Average Glucose 117 mg/dL [facility] Comment:eAG = Estimated ave rage glucose which is %A1C expressed asaverage glucose, using the formula of the U9Q-MpqycxfOpamyzv Glucose study (ADAG), Diabetes Care, Vol.31,#8,May. 2007 Blood Venous blood specimen / Unknown 06/07/2024 8:48 AM EDT 06/07/2024 11:22 AM EDT us Taya Weaver MD LAB BLOOD ORDERABLES Final Resul t Performing Organization Address [facility] de Phone Number [facility] [address] [place] [phone] * BI Mammogram Screening Tomosynthesis Bilateral (03/15/2024 8:35 AM EDT) Anatomical Region Laterality Modality Breast Bilateral Mammography 03/15/2024 8:35 AM EDT Narrative 04/14/2024 9:51 AM EDT ? [facility] ? [address] ?[place] [address] ? Mammography Report ? Signed ? Patient: Dwyer,Freida I ?MR#: [id number] ?? 202 ? : 1960 ?Acct:[id number] ? Age/Sex: 63 / F ?ADM Date: 03/15/24 ? Loc: HO.MAMMO ? Attending Dr: Taya Weaver MD ? Ordering Physician: Taya Weaver MD ?Results: 1Negative ? Date of Service: 03/15/24 ?Follow Up: 1 Year From Orig ?? inal Mammogram ? Procedure(s): MM tomosynthesis screening BI ?? Accession Number(s): [id number] ? cc: Taya Weaver MD ? EXAMINATION: ?? MM SCREENING DIGITAL [...] in OV> ? 04/14/24 0947 ? DD/ 4 ? TD/TT: ? Chemical Lab Supervisor: ? Procedure Note Donotamyinterpreter, Image - [facility] [address] [place] [address] Mammography Report Signed Patient: Freida Dwyer IMR#: [id number] 202 : 9Acct:[id number] Age/Sex: 63 / FADM Date: 03/15/24 Loc: BRI Attending Dr: Taya Weaver MD Ordering Physician: Taya Weaver MDResults: 1Negative Date of Service: 03/15/24Follow Up: 1 Year From Orig inal Mammogram Procedure(s): MM tomosynthesis screening BI Accession Number(s): [id number] cc: Taya Weaver MD EXAMINATION: MM SCREENING DIGITAL BREAST TOMOSYNTHESIS, [...] Casillas MD in OV> 04/14/2447 DD/ TD/TT: Chemical Lab Supervisor: Taya Weaver MD IMG BI PROCEDURES Final Result * THINPREP TIS PAP (03/15/2021 7:10 AM EDT) Clinical Information: None given [facility] COMMENT SEE COMMENT [facility] [...] has been evaluated with computer assisted technology. [facility] Polysomnography Technician: SEE COMMENT [facility] Comment: FELICITY CALIX(ASCP) CT screening location: [address] ??[address] Interpretation/Res ult: SEE COMMENT [facility] Comment: Negative for intraepithelial lesion or malignancy. Atrophic pattern; predominantly parabasal cells LMP: NONE GIVEN [facility] Prev. BX: NONE [facility]IVEN [facility] Prev. PAP: NONE GIVEN [facility] SOURCE: None given [facility] Statement Of Adequacy: SATISFACTORY FOR EVALUATION [facility] 03/15/2021 7:10 AM EDT Taya Weaver MD LAB PATHOLOGY ORDERABLES Final R esult [facility] [address] * HPV mRNA E6/E7 (03/15/2021 7:10 AM EDT) HPV nRNA E6/E7 Not Detected Not Detected [facility] Comment: Methodology: Almond Blancher Operator-Mediated Amplification This assay detects E6/E7 viral messenger RNA (mRNA) from 14 high-risk HPV types (16,18,31,33,35,39,45,51,52,56,58,59,66,68). ? The analytical performance characteristics of this assay have been determined by [employer]. The modifications have not been cleared or approved by the FDA. This assay has been validated pursuant to the CLIA regulations and is used for clinical purposes. ?? For additional information, please refer to http://education.Workana/faq/JFN649m0 (This link if provided for information/ educational purposes only.) NO COLLECTION DATE RECEIVED. WE HAVE USED THE DATE THE SPECIMEN WAS RECEIVED BY THIS LABORATORY THE COLLECTION DATE. IF THIS IS INCORRECT, PLEASE CONTACT CLIENT SERVICES. PHONE NUMBER: ?? 03/15/2021 7:10 AM EDT Taya Weaver MD LAB BLOOD ORDERABLES Final Resul t Performing Organization Address City/State/[facility] Co de Phone Number [facility] [address] * Colonoscopy (02/02/2020) Colonoscopy Normal Normal 02/02/2020 Nikki Hickey MD HEALTH MAINTENANCE Final Result from Last 3 Months or Most Recently Relevant to Health Maintenance Insurance [facility] Care Teams Chief Of Surgery Relationship Specialty Start Date End Date Taya Weaver MD [address] [place] [phone] PCP - General Family Medicine 07/22/18 Brittney Causey Surgery AttendantBinder Cutter 12/30/23
--- OUTSIDE RECORDS SUMMARY | 2024-12-05 18:12 | XMS_ITS | Encounter Summary ---
Author Organization [employer] Address [address] [facility] [address] [place] [address] Care Team Providers Care Go Go Dancer Name Role Phone Taya Last MD Primary Care Provider [phone] Encounter Details Date Type Department Care Team ([facility] st Contact Info) Description 11/15/2024 2:00 PM EST Office Visit [facility] [address] [place] [address] Freida Gaines MD [address] [place] [address] Epigastric pain (Primary Dx); Constipation, unspecified constipation type Social History Tobacco Use Types Packs/Day [...] Sign Reading Time Taken Comments Blood Pressure 95/60 11/15/2024 2:08 PM EST Pulse 101 11/15/2024 2:08 PM EST Temperature 36 ??C (96.8 ??F) 11/15/2024 2:08 PM EST Respiratory Rate 16 11/15/2024 2:08 PM EST Oxygen Saturation - - Inhaled Oxygen Concentration - - Weight 63.1 kg (139 lb 3.2 oz) 11/15/2024 2:08 P M EST Height 162.6 cm (5' 4 ) 11/15/2024 2:08 PM EST Body Mass Index 23.89 11/15/2024 2:08 PM EST documented in this encounter Progress Notes * Freida Ross MD - 11/15/2024 2:00 PM EST SUBJECTIVE: Freida Dwyer is a 64 y.o. year old female who presents for ED f/u . Acute Concerns: Patient reports multiple visits to urgent care and emergency room, first she went because of upper respiratory symptoms and was diagnosed with asthma exacerbation versus bronchitis and it was prescribed for her azithromycin with prednisone after this she developed severe abdominal pain she went to the emergency room CT of the abdomen was done revealed constipation she took medications for constipation and went to use the toilet once not much, but states pain is mainly on her epigastric area andright upper quadrant, patient reports nausea burning sensation burping and GERD sensation Social History Social History Narrative Not on file Patient Active Problem List Diagnosis Anxiety and depression Asthma Allergic rhinitis Headache Vitamin D deficiency Vitamin B deficiency Inverted nipple Palpitation Leukopenia Fibromyalgia Atypical chest pain History of abnormal mammogram Weakness of both hands Numbness of fingers of both hands Impaired fasting glucose PAC (premature atrial contraction) SVT (supraventricular tachycardia) (CMS/HCC) Chronic right shoulder pain Chronic pain of both shoulders 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 HENT: Negative. Respiratory: Negative. Cardiovascular: Negative. Gastrointestinal: Positive for abdominal distention, abdominal pain, constipation and nausea. Negative for anal bleeding, blood in stool, diarrhea, rectal pain and vomiting. OBJECTIVE: Vitals: 11/15/24 1408 BP: 95/60 BP Location: Left arm Patient Position: Sitting BP Cuff Size: Adult Pulse: 101 Resp: 16 Temp: 96.8 ??F (36 ??C) TempSrc: Oral Weight: 139 lb 3.2 oz (63.1 kg) Height: 5' 4 (1.626 m) Physical Exam Constitutional: Appearance: Normal appearance. Cardiovascular: Rate and Rhythm: Normal rate and regular rhythm. Pulmonary: Effort: Pulmonary effort is normal. Breath sounds: Normal breath sounds. Abdominal: Tenderness: There is abdominal tenderness in the right upper quadrant and epigastric area. Neurological: Mental Status: She is alert. Follow Up: No follow-ups on file. Current Outpatient Medications on File Prior to Visit Medication Sig Dispense Refill acetaminophen (Tylenol 8 Hour) 650 MG ER tablet Take 1 tablet by mouth every 8 hours as needed for pain or fever 60 tablet 3 albuterol (Ventolin HFA) 108 (90 Base) MCG/ACT inhaler Inhale 2 puffs every 4 (four) hours if needed for wheezing or shortness of breath. 54 g 3 azithromycin (Zithromax Z-Ankit) 250 MG tablet Take 2 tablets once on day 1, then 1 tablet 1x/day for4 days. 6 tablet 0 carbamide peroxide (Debrox) 6.5 % otic solution 4 gtt left ear for 3 days- salvadorean 15 mL 0 cetirizine (ZyrTEC) 10 MG tablet Take 1 tablet (10 mg) by mouth in the morning. 90 tablet 3 cholecalciferol VITAMIN D (Vitamin D-3) 50 MCG (2000 UT) capsule Take 1 capsule (50 mcg) by mouth Once per day. 90 capsule 3 dilTIAZem CD (Cardizem CD) 120 MG [...] 3 tablets at bedtime 90 capsule 11 lidocaine (Lidoderm) 5 % patch Apply 1 patch to neck and 1 patch to back and leave on for 12 hours as needed. 60 patch 3 meclizine (Antivert) 25 MG tablet 1 tab po BID 60 tablet 3 methocarbamol (Robaxin) 750 MG tablet Take 1 tablet (750 mg) by mouth at bedtime for 10 days. 10 tablet 0 [] predniSONE (Deltasone) 20 MG tablet Take 2 tablets (40 mg) by mouth Once per day for 5 days. 10 tablet 0 QuickVue At-Home Covid-19 Test kit USE DIRECTED 2 kit 1 Spacer/Aero-Holding Chambers (OptiChamber Alejandra) misc 1 each every 4 (four) hours if needed (asthma). 2 each 0 Symbicort 80-4.5 MCG/ACT inhaler INHALE 2 PUFFS BY MOUTH TWICE DAILY IN THE MORNING AND IN THE EVENING 1 each 6 No current facility-administered medications on file prior to visit. Problem List Items Addressed This Visit Epigastric pain - Primary And suspecting patient has gastritis I advise patient to avoid NSAIDs, spicy and acid food, I advise to eat at the same time every day, I advise to elevate the head of the bed and take medications as prescribe I prescribed for patient omeprazole 40 mg twice a day and Zofran as needed Report back if symptoms persist Relevant Medications omeprazole (PriLOSEC) [address] capsule ondansetron (Zofran) 4 MG tablet Constipation advised to drink plenty of water Relevant Medications polyethylene glycol, PEG, 3350 (MiraLax) 17 GM/SCOOP powder docusate sodium (Colace) 100 MG capsule documented in this encounter Miscellaneous Notes * Assessment & Plan Note - Freida Ross MD - 11/15/2024 5:11 PM EST Associated Problem(s): Constipation advised to drink plenty of water * Assessment & Plan Note - Freida Ross MD - 11/15/2024 5:11 PM EST Associated Problem(s): Epigastric pain And suspecting patient has gastritis I advise patient to avoid NSAIDs, spicy and acid food, I advise to eat at the same time every day, I advise to elevate the head of the bed and take medications as prescribe I prescribed for patient omeprazole 40 mg twice a day and Zofran as needed Report back if symptoms persist documented in this encounter Plan of Treatment Not on file documented as of this encounter Visit Diagnoses Diagnosis Epigastric pain- Primary Abdominal pain, epigastric Constipation, unspecified constipation type documented in this encounter Additional Health Concerns Assessment Noted Time PHQ-9 Depression Total Score: 12 025 2:10 PM EST documented as of this encounter Care Teams Go Go Dancer Relationship Specialty Start Date End Date Taya Last MD [address] [place] [phone] PCP - General Family Medicine 07/22/18 Brittney Causey Senior Java DeveloperGuidance Counselor 12/30/23 documented as of this encounter
--- OUTSIDE RECORDS SUMMARY | 2024-12-05 18:12 | XMS_ITS | Continuity of Care Document ---
Author Organization [employer] [place] Address [address] [place] [address] Care Team Providers Care Technology Methodology Consultant Name Role Phone HIM CCA OTHER [facility] Primary Care Provider Assessment Encounter Date Assessment Date Assessment LastModified by Organization Details LastModified Time 11/11/2024 11/11/2024 I provided real -time medical direction via phone for this encounter and was available for additional phone-based assistance as needed. I have reviewed and agree with the Assessment and Plan as documented by the Building Drafter. Patient given the opportunity to ask questions. [...] urination and has no urinary complaints. Per esthetician/owner on the scene, vital signs are stable [...] particularly fever chills lightheadedness altered mental status [place] [id number] Not available 11/11/2024 18:22:45 Plan of Treatment Reminders Order Date Submit Date Provider Last Modified By Organization Details Last Modified Time Details Appointments None recorded. Lab None recorded. Referral None recorded. Procedures None recorded. Surgeries None recorded. Imaging None recorded. Medication Orders ondansetron HCl (PF) 4 mg/2 mL injection solution [address] [facility], [address] [place] [address], [id number], 18:18:51 lactated Ringers intravenous solution [address] [place] [address] Pharmacy, [address] [place] [address], [id number], 18:18:50 Patient TargetsNo targets recorded. Patient InstructionsNo instructions recorded. Reason for Referral None Reported. Medical Equipment None Reported. Allergies Allergen ID Allergen Name Allergen Category Reaction Reaction Severity Criticality Documentation Date Start Date Code Code System Note Provider Name and Address Organization Details Recorded Time 95688 acetamino phen / oxycodone medicatio n Not available Not available Not available 10/31/2024 39153 3 RxNorm Not Available [facility] - production [...] Details Last Updated DateTime 5 91 /min 84268.8 8 g 18 /min 98.2 [degF] 162.56 [...] SNOMED-CT Code Diagnosis ICD10 Code Diagnosis Note [id number] Jacoby Cameron MD Main - [facility] [address] [place] [phone] 10/31/2024 12:36:41 11/01/2024 22:31:59 Influenza-like illness 24567753 B34.9 As noted, we were called to see this patient regarding concerns of TIFFANIE. Evaluation in the field was performed by my esthetician/owner colleague, as noted above, I provided real-time [...] confusion, worsening sx, severe fatigue, severe dyspnea. [id number] Patsy White MD Main - [facility] [address] [place] [phone] 11/11/2024 11:45:41 11/12/2024 18:28:31 Nausea 540231259 R11.0 Health Concerns Section Related Observation LastModified by Organization Detai ls LastModified Time None Recorded Concern Status LastModified by Organization Details LastModified Time None Recorded Payers Encounter Date Sequence Insurance Name Policy Number Policy Martinez Covered Member ID Martinez Member ID Guarantor Name 11/11/2024 1 [facility] - DOS ON OR AFTER 2023 - DUAL ELIGIBLE - CORRECTION OPTIONS AND ONE CARE (MEDICARE REPLACEMENT/ADV ANTAGE - HMO) Freida Dwyer [id number] Freida Dwyer Notes Date Note Type Note [...] at 11/11/2024: Allergies Reviewed at 11/11/2024:32 Comments: Barytes Grinder verified the Pt.'s name//address and phone number. [...] up and negative x-ray. Wellness visit requested Building Drafter Organization Information for [employer] Business Legal Name: [employer]? Address: [address] [place] [address], Accountant: Lobito Hendricks MD CLIA No.: [id number] Building Drafter POC Test Results from [employer]hel[employer] iSTAT Chem8+ (11:08:13) Na: 138 mEq/L K: 4.2 mEq/L Cl: 100 mEq/L iCa: 1.18 mmol/L TCO2: 31 mmol/L Glu: 102 mg/dL BUN: 8 mg/dL Crea: 0.7 mg/dL Hct: 38 % Hb: 12.9 g/dL A Attachments uploaded as part of this test result can be found under Documents section. .................. .................. .................. .................. .................. .................. .................. ............... Building Drafter Note From Rochelle Lobo: [facility] makes pt contact. She is found seated on the sofa in the living room of her home, wearing her pajamas and wrapped n a blanket. Her skin appears to be pale and she has the affect of not feeling well. She smiles weakly at [facility] and says hello. She is not [...] taking any medication OTC for her s/s. [facility] obtains vital signs and pt is assessed. Lung sounds are clear and equal to auscultation, abdomen is soft and nontender in all quadrants, and no flank pain or CVS tenderness are noted. Conjunctiva and oral mucosa are pale. [facility] contacts [facility] and discusses the above. [facility] expresses concerns about why pt is nauseated and orders a bmp. IV access is obtained using a 23ga butterfly in the L AC and blood sample is obtained. Butterfly is removed and pressure bandage w/ 2x2 and tape are applied. [facility] then orders 1L IV fluids and 4mg [...] is clear. Report completed by DONATO Lobo [id number]. .................. .................. .................. .................. .................. .................. .................. ............... [facility] Consulted: Patsy White .................. .................. .................. .................. .................. .................. .................. ............... Disposition: Fulfilled Patsy White MD [address] [facility],[address], [place], [phone], [place] [employer] 11/11/2024 18:23:08 OBGyn Episode No OBEpisode recorded.
--- OUTSIDE RECORDS SUMMARY | 2024-12-05 18:12 | XMS_ITS | Encounter Summary ---
Author Organization [employer] Address [address] [facility] 7 [place] [address] Care Team Providers Care College Administrator Name Role Phone Taya Last MD Primary Care Provider [phone] Reason for Visit * Reason Onset Date Comments Nurse Triage 11/15/2024 Encounter Details Date Type Department Care Team ([facility] st Contact Info) Description 11/15/2024 Telephone [facility] [address] [place], [place] [phone] Taya Last MD [address] [place] [address] Nurse Triage Social History Tobacco Use Types [...] encounter Miscellaneous Notes * Telephone Encounter - Shanika Gracia RN - 11/15/2024 9:34 AM EST No technical writing lead/mgr needed as this creative services writer speaks [place] Verde[place]. Call returned to Freida Dwyer to triage below. Reports having sx of illness x 4 weeks. Per pt seen at [facility] ER on Thursday11/13/24. Reports having had BW, UA and CT scan for abd pain. Per pt having decreased appetite x 1 week. Pt only tolerating fluids. [facility] given fluids and Zofran. Per pt CT scan evidence of constipation. Pt started taking Miralax and stool softener. Pt has not used a suppository or enema. . Pt having onset of vomiting and abdominal pain last night. Per pt last BM 7-8 days ago. Pt last episode of vomiting last night. Per pt no BRB in vomit, coffee ground emesis or green bile. PT denies any fever. Pt advised to seek ER if pain becomes severe, vomiting recurs. Pt agrees. Protocol Used: Constipation (Adult) Protocol-Based Disposition: Go to Office or Video Visit Now Override (Final) Disposition: See in Office or Video Visit Today Override Reason: Caller refused suggested disposition Override Notes: Pt declined [facility], requesting scheduled visit. Future Appointments Date Time Provider Department Center 11/15/2024 2:00 PM Freida Ross MD MEDICINE [facility] Insurance verified as active per Real Time Eligibility in [facility]. Positive Triage Question: * Vomiting and abdomen looks much more swollen than usual * All higher-acuity triage questions were negative Care Advice Discussed: * Reassurance and Education - Constipation * Reasons To Call Back - You become worse * Telephone Encounter - Gilmar Taylor - 11/15/2024 9:12 AM EST Symptoms: Loss of Appetite, Vomiting, Weakness Outcome: Talk to a nurse or provider within 15 minutes Reason: Severe headache The caller accepted this outcome. Contact pt at [phone] documented in this encounter Plan of Treatment Not on file documented as of this encounter Visit Diagnoses Not on filedocumented in this encounter Additional Health Concerns Assessment Noted Time PHQ-9 Depression Total Score: 12 025 2:10 PM EST documented as of this encounter Care Teams College Administrator Relationship Specialty Start Date End Date Taya Last MD [address] [place] [phone] PCP - General Family Medicine 07/22/18 Brittney Causey Surgical Supply AssistantMushroom Cultivator 12/30/23 documented as of this encounter
--- OUTSIDE RECORDS SUMMARY | 2024-12-05 18:12 | XMS_ITS | Encounter Summary ---
Author Organization [employer] Address [address] [facility] [address] [place] [address] Care Team Providers Care Filling Station Attendant Name Role Phone Taya Last MD Primary Care Provider [phone] Encounter Details Date Type Department Care Team ([facility] Contact Info) Description 11/13/2024 Orders Only [facility] External Provider, [facility] Social History Tobacco Use Types Packs/Day Years [...] Procedure Name Priority Date/Time Associated Diagnosis Comments CT ABDOMEN PELVIS WO CONTRAST Routine 11/21/2024 8:[address] ABDOMEN PELVIS W CONTRAST Routine 11/13/2024 10:58 PM EST documented in this encounter Results * CT Abdomen Pelvis w/o Contrast (11/21/2024 8:11 PM EST) Anatomical Region Laterality Modality Body, Pelvis, Abdomen Computed T omography 11/21/2024 8:11 PM EST Narrative 11/21/2024 8:12 PM EST ? [facility] ?[address] ?[place] [address] ? CT Scan Report ? Signed ? Patient: Freida Dwyer I ?MR#: [id number] ?? 202 ? : 1960 ?Acct:[id number] ? Age/Sex: 64 / F ?ADM Date: 11/21/24 ? Loc: HO.ED ? Attending Dr: ? Ordering Physician: Shine Godoy MD ?? Date of Service: 11/21/24 ?? Procedure(s): CT abdomen pelvis wo IV con ?? Accession Number(s): [id number] ? cc: Shine Godoy MD; Taya Last MD ? Report Number: ?? [id number]: Total DLP = ??423.00 mGy-cm ? CLINICAL [...] ? DD/ 10 ? TD/TT: 11/21/242010 ? Resource Forester: ? Procedure Note Donotuseinterpreter, Image - 11/21/[address] [place] [address] [address] Scan Report Signed Patient: Freida Dwyer IMR#: [id number] 202 : 9Acct:[id number] Age/Sex: 64 / FADM Date: 11/21/24 Loc: HO.ED Attending Dr: Ordering Physician: Shine Godoy MD Date of Service: 11/21/24 Procedure(s): CT abdomen pelvis wo IV con Accession Number(s): [id number] cc: Shine Godoy MD; Taya Last MD Report Number: [id number]: Total DLP = 423.00 mGy-cm CLINICAL HISTORY: [...] in OV> 11/21/242011 DD/ 10 TD/TT: 11/21/242010 Resource Forester: us [facility] External Provider IMG CT PROCEDURES Edited Result - Final * CT Abdomen Pelvis w/ Contrast (11/13/2024 10:58 PM EST) Anatomical Region Laterality Modality Body, Pelvis, Abdomen Computed T omography 11/13/2024 10:5 8 PM EST Narrative 11/13/2024 10:59 PM EST ? [facility] ?[address] ?[place], [place] [address] ? CT Scan Report ? Signed ? Patient: Freida Dwyer I ?MR#: [id number] ?? 202 ? : 1960 ?Acct:[id number] ? Age/Sex: 64 / F ?ADM Date: 11/13/24 ? Loc: HO.ED ? Attending Dr: ? Ordering Physician: Katherin Rosenthal ?? Date of Service: 11/13/24 ?? Procedure(s): CT abdomen pelvis w IV con ?? Accession Number(s): [id number] ? cc: Katherin Rosenthal; Taya Last MD ? Report Number: ?? [id number]: Total DLP = ??462.00 mGy-cm ? CLINICAL [...] Luis Armando Islas MD in OV> ? 11/13/24 2259 ? DD/ 57 ? TD/TT: 11/13/242257 ? Resource Forester: ? Procedure Note Donfifiamymoralester, Image - 11/13/[address] [place] [address] [address] Scan Report Signed Patient: Freida Dwyer IMR#: [id number] 202 : 9Acct:[id number] Age/Sex: 64 / FADM Date: 11/13/24 Loc: HO.ED Attending Dr: Ordering Physician: Katherin Rosenthal Date of Service: 11/13/24 Procedure(s): CT abdomen pelvis w IV con Accession Number(s): [id number] cc: Katherin Rosenthal; Taya Last MD Report Number: [id number]: Total DLP = 462.00 mGy-cm CLINICAL HISTORY: [...] on 11/13/2024 22:58:30 Dictated By: Luis Armando Islas MD Signed By: <Electronically signed by Luis Armando Islas MD in OV> 11/13/242258 DD/ 57 TD/TT: 11/13/242257 Resource Forester: [facility] External Provider IMG CT PROCEDURES Final Result documented in this encounter Visit Diagnoses Not on filedocumented in this encounter Additional Health Concerns Assessment Noted Time PHQ-9 Depression Total Score: 0 01/28/20 24 12:02 PM EDT documented as of this encounter Care Teams Filling Station Attendant Relationship Specialty Start Date End Date Taya Last MD [address] [place] [phone] PCP - General Family Medicine 07/22/18 Brittney Causey Detail TechnicianLegal Executive Assistant 12/30/23 documented as of this encounter
--- OUTSIDE RECORDS SUMMARY | 2024-12-05 18:12 | XMS_ITS | Encounter Summary ---
Author Organization [employer] Address [address] [facility] [address] [place] [address] Care Team Providers Care Director Financial Services Name Role Phone Taya Last MD Primary Care Provider [phone] Encounter Details Date Type Department Care Team ([facility] Contact Info) Description 07/13/2024 Orders Only [facility] P[facility]S [address] [place], [place] [phone] Lori Cooper MD [address] [place] [address] Paresthesia (Primary Dx) Social History Tobacco Use [...] documented as of this encounter Care Teams Director Financial Services Relationship Specialty Start Date End Date Taya Last MD [address] [place] [id number] PCP - General Family Medicine 07/22/18 Brittney Causey Floor BrokerPediatric Nurse Practitioner 12/30/23 documented as of this encounter
== END 2024-12-05 15:18 | disposition home or self-care (01) ==
LOC: HO.HHCL 15:17
PROVIDERS: Visit Provider Family Medicine
DX: R20.2 Paresthesia of skin (principal); K59.00 Constipation, unspecified; R42 Dizziness and giddiness
CPT/HCPCS: 36415; 80053; 82607; 82746; 84443; 85025

== ENCOUNTER 2025-01-06 13:00 | Outpatient (AMB) | payer OTHER, SELFPAY ==
[2025-01-06 13:20] VITALS: BP 100/62; PULSE 84; BMI 23.2
--- NOTE | 2025-01-06 13:20 | MHC.OFFVIS ---
Vital Signs 01/06/25 13:20 Height 5 ft 4 in Weight 134 lb 14.766 oz BMI 23.2 BP 100/62 Blood Pressure Location Lt brachial Position Sitting Pulse 84 Pulse Source Pulse Oximeter Intake Visit Reasons: PAC, SVT Mold Press Operator Required: No Allergies oxycodone [From PERCOCET] Allergy (Severe, Verified 01/06/25 13:22) HALLUCINATIONS peanut [PEANUT] Allergy (Intermediate, Verified 01/06/25 13:22) ITCHY THROAT/MOUTH tree nut [TREE NUT] Allergy (Intermediate, Verified 01/06/25 13:22) ITCHY THROAT/MOUTH acetaminophen [Percocet] Allergy (Unknown, Verified 01/06/25 13:22) Unknown nabumetone Adverse Reaction (Intermediate, Verified 01/06/25 13:22) Unknown SEAFOOD Allergy (Severe, Uncoded 01/06/25 13:22) ANAPHYLAXIS FRUIT, SKINS Allergy (Intermediate, Uncoded 01/06/25 13:22) ITCHY THROAT/MOUTH Medication List - Last Reconciled 01/06/25 by VINCE Bro acetaminophen 1,000 mg PO Q8H PRN acetaminophen ER 650 mg PO Q8H PRN albuterol sulfate 90 mcg/actuation 2 puffs inhalation Q4-6H PRN cetirizine 10 mg PO DAILY cholecalciferol (vitamin D3) 50 mcg PO DAILY diltiazem HCl CD (Cartia XT) 120 mg PO DAILY epinephrine 0.3 mg IM Q4H PRN fluticasone propionate 50 mcg/actuation 1 inh inhalation BID gabapentin 100 mg PO DAILY lidocaine 5% (Lidoderm) 1 patch topical DAILY meclizine 25 mg PO DAILY HPI HPI PAC, SVT: Details: Freida is a 64-year-old female past medical history of heart palpitations, PACs and SVT who presents for follow-up. Today she states that she had been doing well since her last visit in March. Then in October and November she was sick with various illnesses. She noted increasing heart palpitations since she was not able to take her diltiazem for a week. At this time she has been feeling better overall. She did have some palpitations last evening that were brief in occurrence. She has not had any sustained rapid heartbeats that last more than a minute. No dizziness, presyncope, syncope. No chest discomfort at rest or during activity. No lightheadedness, presyncope, syncope. Tries to remain physically active. Taking meds as directed. [facility] Medical History Arthritis Asthma Asthma Fibromyalgia, primary Family History Sister Breast cancer Mother Colon cancer Father Stomach cancer Social History Household Members: Spouse Household Members Other:: grandchild Housing: House Are you a primary care clinician to a significant other at home: No Do you presently have visiting nurse or other home services: No Alcohol intake: never Patient Tobacco Use Status: Never used Tobacco service: No Current occupational status: employed Review of Systems Const All systems reviewed & are unremarkable except as noted in HPI and below ENT Denies dizziness Card Details: palpitations Denies chest pain, Denies chest pain at rest, Denies chest pain with activity, Denies rapid heart rate, Denies pedal edema, Denies edema, Denies leg edema, Denies lightheadedness, Denies palpitations, Denies dyspnea, Denies dyspnea on exertion and Denies orthopnea Resp Denies cough, Denies dyspnea and Denies dyspnea on exertion GI Denies hematochezia and Denies change in stool character Musc Denies abnormal gait, Denies limited range of motion, Denies muscle cramps, Denies muscle weakness, Denies numbness, Denies radiating pain into limb, Denies stiffness and Denies tingling Neuro Denies abnormal gait, Denies dizziness, Denies numbness and Denies tingling Endo Denies palpitations Physical Exam Vital Signs: Last Vital Signs Pulse 84 01/06/25 13:20 BP 100/62 01/06/25 13:20 BMI result Body Mass Index 23.2 Const General: cooperative, healthy appearing, comfortable and no acute distress Orientation/consciousness: patient oriented x3 Neck Neck: Yes normal visual inspection and Yes no JVD Resp Effort & Inspection: normal respiratory effort Auscultation: clear to auscultation bilaterally, no rales, no rhonchi and no wheezes Cardio Rate: regular rate Rhythm: regular rhythm Heart sounds: S1 normal heart sound present, S2 normal heart sound present, no gallops, no murmurs and no rubs Skin General skin exam: no rashes or lesions noted Neuro General: patient oriented x3 Extrem General: Yes normal to inspection, No no pedal edema and No calf tenderness Psych Appearance: grossly normal Mental Status: mental status grossly normal Speech and movement: Normal speech and movement present Assessment & Plan Assessment & Plan (1) SVT (supraventricular tachycardia): Code(s): I47.1 - Supraventricular tachycardia Category: Medical Plan: History of heart palpitations, short runs of SVT. Holter monitor done 02/16/2023 for 3 days showing sinus rhythm with average heart rate 96, 39% of time heart rate greater than 100, PACs 12%, frequent SVT runs, longest 37 beats. Echocardiogram done 04/01/2022 showed EF 58%, no valve abnormalities, no regional wall motion abnormalities, Both atria normal size. She has been on diltiazem rate control. Her last Holter was done on 06/30/2023 for 2 days showing sinus rhythm with average heart rate 96, PACs 13% of time, no SVT runs, heart rate greater than 39% of time. She does feel occasional brief heart palpitations. Pulse is regular on exam. Will continue on current diltiazem dose. Reviewed caffeine reduction, getting adequate rest, staying well hydrated, exercise and as tolerated. Instructed to call if she is having increasing heart palpitations. Cardiology follow-up 6 months, sooner if needed. (2) Palpitations: Code(s): R00.2 - Palpitations Category: Medical Plan: As above (3) PAC (premature atrial contraction): Code(s): I49.1 - Atrial premature depolarization Category: Medical Plan: As above, SVT runs (4) Chest discomfort: Code(s): R07.89 - Other chest pain Category: Medical Plan: Prior reports of chest pressure, random occurrence. She did undergo a exercise nuclear stress test on 05/03/2024 which showed normal myocardial perfusion imaging. At this time no anginal sounding symptoms. Plan Time spent on chart review, documentation, interview and assessment Medications: Refilled diltiazem HCl CD (Cartia XT) 120 mg PO DAILY 90 caps 3RF Coding Level of Care Code Est Pt Level 3 (82677) Complex EM visit Add On G2211 Diagnoses SVT (supraventricular tachycardia) I47.1 Palpitations R00.2 PAC (premature atrial contraction) I49.1 Chest discomfort R07.89 Time Spent (min) 24
--- OUTSIDE RECORDS SUMMARY | 2025-01-06 14:52 | XMS_ITS | Encounter Summary ---
Author Organization [employer] [facility] Address [address] [place] [address] Care Team Providers Care Stunner Name Role Phone Silvia [place] DO Primary Care Pro vider Unavailable Encounter Details Date Type Department Care Team Description 12/03/2015 Transfer Records Medical Records [address] [place] [address] Abstract, Provider Social History Tobacco Use Types [...] on filedocumented in this encounter Care Teams Stunner Relationship Specialty Start Date End Date Silvia Colorado DO PCP - General Internal Medicine 10/17/15 documented as of this encounter
--- OUTSIDE RECORDS SUMMARY | 2025-01-06 14:52 | XMS_ITS | Clinical Summary ---
Author Organization [employer] Address [address] [place] [address] [address] [place] [address] Care Team Providers Care Bus Inspector Name Role Phone Taya Weaver MD Primary Care Provider [phone] Allergies Active Allergy Reactions Criticality Noted Date Comments Apricot Flavoring Agent (Non-Screening) 11/15/2024 Stanley 11/15/2024 Coconut Flavoring Agent (Non-Screening) 11/15/2024 Nabumetone Palpitations Low 12/18/2021 Other reaction(s): Crying Oxycodone 12/24/2017 Gladwin Flavoring Agent (Non-Screening) 11/15/2024 Pineapple Flavoring Agent [...] acetaminophen (Tylenol 8 Hour) 650 MG ER tabletIndicatio ns:Pain Take 1 tablet by mouth every 8 [...] 06/01/20 24 Active [employer]Vue At-Home Covid-19 Test kitIndications: Atypical chest pain USE DIRECTED 2 kit 1 06/01/20 24 Active carbamide peroxide (Debrox) 6.5 % otic solutionIndicat ions:Impacted cerumen of left ear 4 gtt left ear for 3 days- albanian 15 mL 08/09/20 24 Active EPINEPHrine (Epipen) 0.3 MG/0.3ML injection syringe INJECT INTRAMUSCULARLY DIRECTED ON PACKAGE AND GO TO EMERGENCY ROOM 2 each 08/12/20 24 Active lidocaine (Lidoderm) 5 % patchIndication s:Chronic pain of both shoulders,Fibro myalgia Apply 1 patch to neck and 1 [...] 54 g 3 11/02/19 25 026 Active Spacer/Aero-Hol ding Chambers (OptiChamber Alejandra) misc 1 each every 4 (four) hours if needed (asthma). 2 each 11/02/19 25 Active fluticasone (Flonase) 50 MCG/ACT nasal spray INSTILL 1 SPRAY IN EACH NOSTRIL ONCE DAILY 16 g 3 11/02/19 25 Active omeprazole (PriLOSEC) [address] capsuleIndicati ons:Epigastric pain Take 1 capsule (40 mg) by mouth before breakfast and before evening meal. Do not crush or chew. 60 capsule 11/15/19 25 026 Active methocarbamol (Robaxin) 750 MG tabletIndicatio ns:Acute bilateral low back pain without sciatica Take 1 tablet (750 mg) by mouth at bedtime for 10 days. 10 tablet 07/11/20 24 025 Discontin ued(Thera py completed ) azithromycin (Zithromax Z-Ankit) 250 MG tablet Take 2 tablets once on day 1, then 1 tablet 1x/day for 4 days. 6 tablet 11/02/19 25 025 Discontin ued(Thera py completed ) polyethylene glycol, PEG, 3350 (MiraLax) 17 GM/SCOOP powderIndicatio ns:Constipation , unspecified constipation type Take 17 g by mouth Once per day. 527 g 11/15/19 25 025 Active Problems Problem Noted Date Diagnosed Date Dizziness 12/11/2024 Assessment & Plan (12/11/2024 1:01 PM EDT): - no orthostatic hypotension or postural tachycardia - multiple COVID infections, ?sequale - most recent imaging: Head CT in Oct 2022 normal - currently on meclizine prn; continue Epigastric pain 11/15/2024 Assessment & Plan (11/15/2024 [...] symptoms persist Constipation 11/15/2024 Assessment & Plan (12/11/2024 1:05 PM EDT): - continue fiber-rich diet and drink adequate amount of water - continue judicious use of laxative - normal colonoscopy by Dr. 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 06/01/2024 Assessment & Plan (06/03/2024 6:40 [...] (06/03/2024 6:38 AM EDT): - Followed by [facility] Cardiology, last seen in March 2024 - Currently prescribed diltiazem 120 mg daily Assessment & Plan (01/28/2024 12:23 PM EDT): - Followed by [facility] Cardiology, last seen on 09/02/23 - Currently prescribed diltiazem 180 mg daily - Most recent Holter after starting diltiazem showed no SVT, still PAC and sinus tachycardia Assessment & Plan (09/30/2023 5:44 AM EST): - Followed by [facility] Cardiology, last seen on 09/02/23 - Currently prescribed diltiazem 180 mg daily - Most recent Holter after starting diltiazem showed no SVT, still PAC and sinus tachycardia Assessment & Plan (07/06/2023 5:41 AM EDT): - Seen by Crew Attendant, [facility], on 06/02/23. - 02/16/23, Holter Monitor showed: [...] / discontinue cyclobenzaprine. - Recommended to notify machine paint mixer about when she started started taking Diltiazem during the evaluation Assessment & Plan (03/16/2023 10:50 AM EDT): 02/16/23, Holter Monitor showed: frequent PAC & SVT's -symptoms started since COVID -will refer her to Crew Attendant Chronic right shoulder pain 03/15/2023 Assessment & [...] (06/01/2024 11:51 AM EDT): Previously followed by Packing Room Supervisor. -Normal workup for autoimmune disorder. -No Lupus or Rheumatoid Arthritis. -Completed PT at [facility] in May 2022. -Recommended to restart acupuncture. -Held cyclobenzaprine while Holter monitor evaluation; resume again -Discussed the trial of Cymbalta; patient is comfortable with gabapentin only at this time Assessment & Plan (01/28/2024 12:23 PM EDT): Previously followed by Packing Room Supervisor. -Normal workup for autoimmune disorder. -No Lupus or Rheumatoid Arthritis. -Completed PT at [facility] in May 2022. -Recommended to restart acupuncture. -Held cyclobenzaprine while Holter monitor evaluation; resume again -Discussed the trial of Cymbalta. Agreed to have cardiology evaluation prior to starting Cymbalta Assessment & Plan (09/30/2023 5:53 AM EST): Previously followed by Packing Room Supervisor. -Normal workup for autoimmune disorder. -No Lupus or Rheumatoid Arthritis. -Completed PT at [facility] in May 2022. -Recommended to restart acupuncture. -Held cyclobenzaprine while Holter monitor evaluation; resume again -Discussed the trial of Cymbalta. Agreed to have cardiology evaluation prior to starting Cymbalta Assessment & Plan (06/30/2023 5:15 PM EDT): Previously followed by Packing Room Supervisor. -Normal workup for autoimmune disorder. -No Lupus or Rheumatoid Arthritis. -Completed PT at [facility] in May 2022. -Recommended to restart acupuncture. -Held cyclobenzaprine while Holter monitor evaluation; resume again -Discussed the trial of Cymbalta. Agreed to have cardiology evaluation prior to starting Cymbalta Assessment & Plan (03/20/2023 12:14 PM EDT): Previously followed by Packing Room Supervisor. -Normal workup for autoimmune disorder. -No Lupus or Rheumatoid Arthritis. -Completed PT at [facility] in May 2022. -Recommended to restart acupuncture. -Held cyclobenzaprine while Holter monitor evaluation; resume again -Discussed the trial of Cymbalta. Agreed to have cardiology evaluation prior to starting Cymbalta Assessment & Plan (11/27/2022 6:23 PM EST): Previously followed by Packing Room Supervisor. -Normal workup for autoimmune disorder. -No Lupus or Rheumatoid Arthritis. -Will discontinue Cyclobenzaprine until she completes evaluation of Holter Monitor -Completed PT at [facility] in May 2022. -Recommended to restart acupuncture. -Discussed the trial of Cymbalta. Agreed to complete Holter Monitor before starting Cymbalta Atypical chest pain 11/27/2022 Assessment & Plan (06/01/2024 11:53 AM EDT): -Followed by [facility] Crew Attendant, last seen in March 2024 -03/27/22 Stress test, EKG was negative for ischemia, but pt reported left-sided chest pain, dyspnea, and palpitation. -04/01/22 TTE Left ventricular systolic function was normal, EF 58%. - 04/28/24 exercise nuclear stress test showed no ischemia -Continue lifestyle modifications. -Possibly d/t chostochondritis or anxiety or post-COVID Assessment & Plan (09/30/2023 5:49 AM EST): -Followed by [facility] Crew Attendant, last seen in Aug 2023 -03/27/22 Stress test, EKG was negative for ischemia, but pt reported left-sided chest pain, dyspnea, and palpitation. -04/01/22 TTE Left ventricular systolic function was normal, EF 58%. -Continue lifestyle modifications. -Possibly d/t chostochondritis or anxiety or post-COVID Follow-up with Cardiology after holter monitor evaluation Assessment & Plan (06/30/2023 5:15 PM EDT): -Seen by [facility] Crew Attendant, recently in May 2023 -03/27/22 Stress test, EKG was negative for ischemia, but pt reported left-sided chest pain, dyspnea, and palpitation. -04/01/22 TTE Left ventricular systolic function was normal, EF 58%. -Continue lifestyle modifications. -Possibly d/t chostochondritis or anxiety or post-COVID Follow-up with Cardiology after holter monitor evaluation Assessment & Plan (11/27/2022 5:08 AM EST): -Seen by [facility] Crew Attendant. -03/27/22 Stress test, EKG was negative for [...] in October 2023, patient has been seeing -Annual screening Assessment & Plan (03/20/2023 12:14 PM EDT): -A1C 5.7% in April 2022 -Annual screening Assessment & Plan (11/27/2022 6:38 PM EST): -A1C 5.7% in April 2022 -Annual screening PAC (premature atrial contraction) 11/27/2022 Assessment & Plan (06/03/2024 6:37 AM EDT): -following with [facility] Cardiology, last seen in March 2024 -02/16/23, Holter Monitor showed: frequent PAC & SVT's -symptoms started since COVID -Normal stress test and TTE with EF 58% in March 2022 -seen by machine paint mixer in May 2023, and prescribed diltiazem 120 mg daily -07/02/23 Holter monitor after starting diltiazem showed improvement, average HR 96, PAC 13%, no SVT. Due to PAC burden of 13%, diltiazem was increased to 180 mg daily. -diltiazem was decreased back to 120 mg daily due to patient's dizziness and headache. -continue diltiazem at current dose -continue follow up with machine paint mixer as scheduled Assessment & Plan (01/28/2024 12:22 [...] EF 58% in March 2022 -seen by machine paint mixer in May 2023, and prescribed diltiazem 120 mg daily -07/02/23 Holter monitor after starting diltiazem showed improvement, average HR 96, PAC 13%, no SVT -seen by machine paint mixer on 09/02/23, increased diltiazem to 180 mg [...] SVT's -symptoms started since COVID -following with machine paint mixer -pt was prescribed diltiazem 120 mg daily; [...] EF 58% in March 2022 -seen by machine paint mixer in May 2023, and prescribed diltiazem 120 mg daily -07/02/23 Holter monitor after starting diltiazem showed improvement, average HR 96, PAC 13%, no SVT -seen by machine paint mixer on 09/02/23, increased diltiazem to 180 mg daily Assessment & Plan (03/16/2023 10:50 AM EDT): 02/16/23, Holter Monitor showed: frequent PAC & SVT's -symptoms started since COVID -will refer her to Crew Attendant Vitamin D deficiency 09/29/2018 Assessment & Plan [...] her safety today -She is connected with [facility] provider -Will consider starting Cymbalta in near future Assessment & Plan (03/20/2023 12:15 PM EDT): -She is able to contract her safety today -She is connected with [facility] provider -Will consider starting Cymbalta in near [...] -Check the status of PFT Headache 07/24/2014 Assessment & Plan (12/11/2024 1:02 PM EDT): - tension or migraine - most recent imaging: Head CT in Oct 2022 normal Resolved Problems Problem Noted Date Diagnosed Date Resolved Date Hypercholesterolemia 12/24/2017 023 Encounters Date Type Department Care Team Description 01/05/[address] [address] Taya Weaver MD Prior Auth Prescription 01/02/[address] [address] Taya Weaver MD Results 12/05/2024 3:30 PM EST Office Visit [address] [address] Taya Weaver MD Constipation, unspecified constipation type (Primary Dx); Paresthesia; Dizziness; Screening for colon cancer; Nonintractable headache, unspecified chronicity pattern, unspecified headache type 12/05/2024 Travel 11/30/[address] [address] Amber Lopez MA chart prep 11/22/[address] [address] Taya Weaver MD ER Follow-up 11/15/2024 2:00 PM EST Office Visit [address] [address] Freida Gaines MD Epigastric pain (Primary Dx); Constipation, unspecified constipation type 11/15/2024 Travel 11/15/[address] [address] Taya Weaver MD Nurse Triage 11/15/[address] [address] Taya Weaver MD Appointment Request 11/13/2024 Orders Only [facility] External Provider, [facility] 11/09/2024 9:20 AM EST [facility] [address] [address] Phong Galvan MD Acute cough (Primary Dx); Chest pain, unspecified type 11/08/[address] [address] Taya Weaver MD Nurse Triage 11/02/2024 9:40 AM EST Office Visit [address] [address] Phong Galvan MD Acute cough (Primary Dx); Moderate persistent asthma with acute exacerbation; Viral URI 11/01/[address] [address] Taya Weaver MD [facility] (Shower chair (1)) 10/26/[address] [address] Taya Weaver MD chart prep 10/18/[address] [address] Preeti Parra ANP Prior Authorization ([facility] Request: Lidocaine 5% Patch) 10/11/2024 11:15 AM EST Office Visit [address] [address] Preeti Parra ANP Chronic pain of both shoulders (Primary Dx); Fibromyalgia 10/11/2024 Travel 10/10/[address] [address] Rose Hayden MA chart prep from Last 3 Months Immunizations Name Administration [...] Last Done Comments CT Colonography 1959 FIT 1960 FOBT 1960 Sigmoidoscopy 1960 Hepatitis C Screening 1977 RSV Patients and Patients Aged 60 years or older (1 - Risk 60-74 years 1-dose series) 2019 Zoster Vaccines (2 of 2) 08/22/2021 06/27/2021 Pap Smear 03/15/2024 03/15/2021 COVID-19 Vaccine ( - season) 2024 05/02/2021, 04/03/2021 Influenza Vaccine (#1) 2024 9, 07/22/2018, 07/24/2014 SDOH Screening 01/27/2025 01/28/2024 Depression Monitoring (PHQ-9) 05/15/2025 11/15/2024, 11/15/2024 Alcohol/Substance Use Screening 06/01/2025 06/01/2024 Diabetes: Hemoglobin A1C 06/07/2025 024, 10/07/2023, 03/19/2023, Additional history exists Depression Screening 11/15/2025 11/15/2024, 11/15/19 Tobacco Screening 12/05/2025 12/05/2024 Cervical Cancer Screening 03/15/2026 HPV/Cotest 03/15/2026 03/15/2021 Mammogram 03/15/2026 03/15/2024, 08/05, 11/13/2021, Additional history exists FIT DNA/Cologuard 12/28/2027 12/27/2024 Colonoscopy 02/01/2030 02/02/2020 Colorectal Cancer Screening 02/01/2030 [...] Procedure Name Priority Date/Time Associated Diagnosis Comments LAB COLOGUARD?? COLON CANCER SCREEN Routine 12/27/2024 1:05 PM EDT Screening for colon cancer CBC WITH AUTO DIFFERENTIAL Routine 12/05/2024 3:20 [...] Recently Relevant to Health Maintenance Results * Cologuard?? colon cancer screening (12/27/2024 1:05 PM EDT) Cologuard Result Negative Negative 12/31/19 5:06 AM EDT [facility] (CLIA #:[id number]) Comment: NEGATIVE TEST RESULT. A negative Cologuard result indicates a low likelihood that a colorectal cancer (CRC) or advanced adenoma (adenomatous polyps with more advanced pre-malignant features) ??is present. The chance that a person with a negative Cologuard test has a colorectal cancer is less than 1 in 1500 (negative predictive value >99.9%) or has an ??advanced adenoma is less than ??5.3% (negative predictive value 94.7%). These data are based on a prospective cross-sectional study of 10,000 individuals at average risk for colorectal cancer who were screened with both Cologuard and colonoscopy. (Rocky Pope al, N Engl J Med 2014;370(14):1286- 1297) The normal value (reference range) for this assay is negative. COLOGUARD RE-SCREENING RECOMMENDATION: Periodic colorectal cancer screening is an important part of preventive healthcare for asymptomatic individuals at average risk for colorectal cancer. ??Following a negative Cologuard result, the [place] [employer] and U.S. Multi-Society Task Force screening guidelines recommend a Cologuard re-screening interval of 3 years. References: [place] [employer] Guideline for Colorectal Cancer Screening: https://www.cancer.org/cancer/moxmq-isdqnm-enpper/pqfwoxcwm-usgnjsbep-vdclbfd/ac s-rec ommendations.html.; Kyle DK, Thaddeus GARCIA, Niraj AvendañoK, Colorectal Cancer Screening: Recommendations for Physicians and Patients from the U.S. Multi-Society Task Force on Colorectal Cancer Screening , Am J Gastroenterology 2017; 112:5968-0903. TEST DESCRIPTION: Composite algorithmic analysis of stool DNA-biomarkers with hemoglobin immunoassay. ?? Quantitative values of individual biomarkers are not reportable and are not associated with individual biomarker result reference ranges. Cologuard is intended for colorectal cancer screening of adults of either sex, 45 years or older, who are at average-risk for colorectal cancer (CRC). Cologuard has been approved for use by the U.S. FDA. The performance of Cologuard was established in a cross sectional study of average-risk adults aged 50-84. Cologuard performance in patients ages 45 to 49 years was estimated by sub-group analysis of near-age groups. Colonoscopies performed for a positive result may find as the most clinically significant lesion: colorectal cancer [4.0%], advanced adenoma (including sessile serrated polyps greater than or equal to 1cm diameter) [20%] or non- advanced adenoma [31%]; or no colorectal neoplasia [45%]. These estimates are derived from a prospective cross-sectional screening study of 10,000 individuals at average risk for colorectal cancer who were screened with both Cologuard and colonoscopy. (Rocky Pope al, N Engl J Med 2014;370(14):0686-5806.) Cologuard may produce a false negative or false positive result (no colorectal cancer or precancerous polyp present at colonoscopy follow up). A negative Cologuard test result does not guarantee the absence of CRC or advanced adenoma (pre-cancer). The current Cologuard screening interval is every 3 years. ([place] [employer] and U.S. Multi-Society Task Force). Cologuard performance data in a 10,000 patient pivotal study using colonoscopy as the reference method can be accessed at the following location: www.[employer].com/results. Additional description of the Cologuard test process, warnings and precautions can be found at www.[employer].com. Stool specimen (specimen) 12/27/2024 1:05 PM EDT 12/28/2024 2:16 PM EDT Taya Weaver MD LAB MOLECULAR DIAGNOSTICS ORDERA BLES Final Result [facility] (CLIA #:[id number]) [address] [place] [address], * Vitamin B12 (Cobalamin) and Folate Panel, Serum (12/05/2024 3:20 PM EST) Vitamin B12 255 200 - 900 pg/mL [facility] Comment:NORMAL 200-900 PG/ML INDETERMINATE 160-199 PG/ML DEFICIENT < 160 PG/ML Folate 11.3 > or = 4.0 ng/mL [facility] Comment:Reference Values:> o r = 4.0 ng/mL< 4.0 ng/mL suggests folate deficiency Methotrexate, aminopterin and folinic acid(leucovorin) are chemotherapeutic agents whose molecularstructures are similar to folate; therefore, the Architectfolate assay cannot be used for patients using these drugs. Blood 12/05/2024 3:2 0 PM EST 12/05/2024 4:20 PM EST Taya Weaver MD LAB BLOOD ORDERABLES Final Resul t Performing Organization Address City/[facility]/ZIP Co de Phone Number [facility] [address] [place] [address] [phone] * TSH with Reflex to Free T4 (12/05/2024 3:20 PM EST) TSH reflex Free T4 0.41 0.32 - 4.0 uIU/mL [facility] Blood 12/05/2024 3:20 PM EST 12/05/2024 4:20 PM EST Taya Weaver MD LAB BLOOD ORDERABLES Final Resul t Performing Organization Address City/[facility] Co de Phone Number [facility] [address] [place] [address] [phone] * (ABNORMAL) CBC auto differential (12/05/2024 3:20 PM EST) Pathologist [facility] White Blood Count 3.3(L) 4.8 - 10.8 X10*3/uL [facility] Red Blood Count 3.35(L) 4.20 - 5.50 X10*6/uL [facility] Hemoglobin 10.5(L) 12.0 - 16.0 g/dl [facility] Hematocrit 32.8(L) 37.0 - 47.0 % [facility] Mean Corpuscular Volume 97.9 80.0 - 98.0 fL [facility] Mean Corpuscular Hemoglobin 31.3 27.0 - 33.0 pg [facility] Mean Corpuscular HGB Conc 32.0 31.0 - 35.0 g/dl [facility] Red Cell Distribution Width 12.9 11.0 - 16.0 % [facility] Platelet Count 203 160 - 400 X10*3/uL [facility] Mean Platelet Volume 11.9 9.4 - 12.3 fL [facility] Neutrophils Percent Auto 29.1(L) 45 - 73 % [facility] Imm Gran Pct Auto 0.3 0.0 - 0.4 % [facility] Lymphocytes Percent Auto 60.4(H) 20 - 40 % [facility] Monocytes Percent Auto 7.1 2 - 11 % [facility] Eosinophils Percent Auto 2.5 0 - 4 % [facility] Basophils Percent Auto 0.6 0 - 2 % [facility] NRBC Pct Auto 0.0 0.0 - 0.2 /100WBC [facility] Neutrophils Absolute Auto 1.0(L) 2.0 - 8.3 x10*3/uL [facility] Imm Gran Abs Auto 0.01 0.00 - 0.03 X10*3/uL [facility] Lymphocytes Absolute Auto 2.0 1.2 - 4.9 X10*3/uL [facility] Monocytes Absolute Auto 0.2 0.1 - 1.2 X10*3/uL [facility] Eosinophils Absolute Auto 0.1 0.0 - 0.4 X10*3/uL [facility] Basophils Absolute Auto 0.0 0.0 - 0.2 X10*3/uL [facility] NRBC Abs Auto 0.000 0.0 - 0.012 X10*3/uL [facility] Blood Venous blood specimen / Unknown 12/05/2024 3:20 PM EST 12/05/2024 4:20 PM EST us Taya Weaver MD LAB BLOOD ORDERABLES Final Resul t [facility] [address] [place] [phone] * (ABNORMAL) Comprehensive Metabolic Panel (12/05/2024 3:20 PM EST) Sodium 142 135 - 145 mmol/L [facility] Potassium 4.1 3.3 - 5.1 mmol/L [facility] Chloride 109(H) 96 - 108 mmol/L [facility] Carbon Dioxide 27 22 - 29 mmol/L [facility] Anion Gap 10(L) 12 - 20 [facility] Urea Nitrogen (BUN) 14 9 - 16 mg/dL [facility] Creatinine, Serum 0.69 0.5 - 1.4 mg/dL [facility] Estimated Glomerular Filt Rate >60 [facility] Comment:Chronic Kidney Disea se: Estimated GFR < 60 mL/min/1.57t2Tnafxi Kidney Disease: Estimated GFR < 15 mL/min/1.73m2 Glucose 111 60 - 115 mg/dL [facility] Calcium 8.5 8.4 - 10.2 mg/dL [facility] Bilirubin, Total 0.2 0.0 - 1.0 mg/dL [facility] Aspartate Amino Transferase 36(H) 5 - 31 U/L [facility] Alanine Aminotransferase 32(H) 0 - 31 U/L [facility] Total Protein 7.1 6.5 - 8.0 g/dL [facility] Albumin Level 3.5 3.5 - 5.0 g/dL [facility] Alkaline Phosphatase 88 39 - 117 U/L [facility] Blood Venous blood specimen / Unknown 12/05/2024 3:20 PM EST 12/05/2024 4:20 PM EST us Taya Weaver MD LAB BLOOD ORDERABLES Final Resul t [facility] [address] [place] [address] [phone] * CT Abdomen Pelvis w/o Contrast (11/21/2024 8:11 PM EST) Anatomical Region Laterality Modality Body, Pelvis, Abdomen Computed T omography 11/21/2024 8:11 PM EST Narrative 11/21/2024 8:12 PM EST ? [facility] ?[address] ?[place] [address] ? CT Scan Report ? Signed ? Patient: Dwyer,Freida I ?MR#: [id number] ?? 202 ? : 1960 ?Acct:[id number] ? Age/Sex: 64 / F ?ADM Date: 02/17/25 ? Loc: HO.ED ? Attending Dr: ? Ordering Physician: Shine Godoy MD ?? Date of Service: 11/21/24 ?? Procedure(s): CT abdomen pelvis wo IV con ?? Accession Number(s): [id number] ? cc: Shine Godoy MD; Taya Weaver MD ? Report Number: ?? [id number]: Total DLP = ??423.00 mGy-cm ? CLINICAL [...] ? DD/ 10 ? TD/TT: 11/21/242010 ? Salvage [employer]: ? Procedure Note Marlene, Image - 11/21/[address] [place] [address] [address] Scan Report Signed Patient: Freida Dwyer IMR#: [id number] 202 : 9Acct:[id number] Age/Sex: 64 / FADM Date: 11/21/24 Loc: HO.ED Attending Dr: Ordering Physician: Shine Godoy MD Date of Service: 11/21/24 Procedure(s): CT abdomen pelvis wo IV con Accession Number(s): [id number] cc: Shine Godoy MD; Taya Weaver MD Report Number: [id number]: Total DLP = 423.00 mGy-cm CLINICAL HISTORY: [...] in OV> 11/21/242011 DD/ 10 TD/TT: 11/21/242010 [employer]: [facility] External Provider IMG CT PROCEDURES Edited Result - Final * CT Abdomen Pelvis w/ Contrast (11/13/2024 10:58 PM EST) Anatomical Region Laterality Modality Body, Pelvis, Abdomen Computed T omography 11/13/2024 10:5 8 PM EST Narrative 11/13/2024 10:59 PM EST ? [facility] ?[address] ?[place] [address] ? CT Scan Report ? Signed ? Patient: Freida Dwyer I ?MR#: [id number] ?? 202 ? : 1960 ?Acct:[id number] ? Age/Sex: 64 / F ?ADM Date: 11/13/24 ? Loc: HO.ED ? Attending Dr: ? Ordering Physician: Katherin Rosenthal ?? Date of Service: 11/13/24 ?? Procedure(s): CT abdomen pelvis w IV con ?? Accession Number(s): [id number] ? cc: Katherin Rosenthal; Taya Weaver MD ? Report Number: ?? [id number]: Total DLP = ??462.00 mGy-cm ? CLINICAL [...] ? DD/ 57 ? TD/TT: 11/13/242257 ? [employer]: ? Procedure Note Kate Rosario - 11/13/[address] [place] [address] [address] Scan Report Signed Patient: Freida Dwyer IMR#: [id number] 202 : 9Acct:[id number] Age/Sex: 64 / FADM Date: 11/13/24 Loc: HO.ED Attending Dr: Ordering Physician: Katherin Rosenthal Date of Service: 11/13/24 Procedure(s): CT abdomen pelvis w IV con Accession Number(s): [id number] cc: Katherin Rosenthal; Taya Weaver MD Report Number: [id number]: Total DLP = 462.00 mGy-cm CLINICAL HISTORY: [...] in OV> 11/13/242258 DD/ 57 TD/TT: 11/13/242257 [employer]: [facility] External Provider IMG CT PROCEDURES Final Result * XR Chest 2 Views (11/09/2024 10:09 AM EST) Anatomical Region Laterality Modality Chest Radiographic Vicenta ging 11/09/2024 10:0 9 AM EST Narrative 11/09/2024 10:41 AM EST ?[facility] ?[address] ?[place] [address] ?XRay Report ? Signed ? Patient: Dwyer,Freida I ?MR#: [id number] ?? 202 ? : 1960 ?Acct:[id number] ? Age/Sex: 64 / F ?ADM Date: 02/05/25 ? Loc: HO.HHCX ? Attending Dr: Phong Galvan MD ? Ordering Physician: PHONG GALVAN MD ?? Date of Service: 11/09/24 ?? Procedure(s): XR chest 2V ?? Accession Number(s): [id number] ? cc: PHONG GALVAN MD ? EXAMINATION: [...] DD/ 1009 ? TD/TT: 11/09/24 1030 ? [employer]: ? Procedure Note Kate Rosario - 11/09/2024 [place] [address] XRay Report Signed Patient: Freida Dwyer [facility]#: [id number] 202 : 9Acct:[id number] Age/Sex: 64 / FADM Date: 11/09/24 Loc: HO.HHCX Attending Dr: Phong Galvan MD Ordering Physician: PHONG GALVAN MD Date of Service: 11/09/24 Procedure(s): XR chest 2V Accession Number(s): [id number] cc: PHONG GALVAN MD EXAMINATION: XR CHEST [...] Leoncio Crabtree MD 11/09/2024 10:38 AM EST RP Dictated By: Leoncio Crabtree MD Signed By: <Electronically signed by Leoncio Crabtree MD in OV> 11/09/24 1038 DD/ 1009 TD/TT: 11/09/24 1030 [employer]: Phong Galvan MD IMG XR PROCEDURES Edited Result - Final * Influenza B (ID NOW Rapid Molecular) (11/02/2024 9:52 AM EST) [facility] Influenza B Negative Negative, Indeterminate [facility] Swab 11/02/2024 9:52 AM EST Phong Galvan MD POINT OF CARE TEST ENTER/EDIT OR DERABLES Final Result Performing Organization Address [facility] Co de Phone Number [facility] [address] [place] [phone] * Influenza A (ID NOW Rapid Molecular) (11/02/2024 9:52 AM EST) [facility] Influenza A Negative Negative, Indeterminate [facility] Swab 11/02/2024 9:52 AM EST Phong Galvan MD POINT OF CARE TEST ENTER/EDIT OR DERABLES Final Result Performing Organization Address [facility] Co de Phone Number [facility] [address] [place] [phone] * POCT Rapid COVID Ag (11/02/2024 9:52 AM EST) Rapid COVID Ag Negative [facility] Swab 11/02/2024 9:52 AM EST Phong Galvan MD POINT OF CARE TEST ENTER/EDIT OR DERABLES Final Result Performing Organization Address [facility] de Phone Number [facility] [address] [place] [phone] [phone] * Hemoglobin A1c (06/07/2024 8:48 AM EDT) Hemoglobin A1c 5.7 <6.0 % [facility] Comment:Hemoglobin A1C Refer ence Range Adults: 4.8 - 6.0 % Non diabetic: < 6.0 % Goal: < 7.0 %Additional Action Suggested: > 8.0 %Note: Hemoglobin A1c results are invalid for patients with abnormal amounts of HbF. Blood transfusions may impact the HbA1c concentration in the patient sample. Estimated Average Glucose 117 mg/dL [facility] Comment:eAG = Estimated ave rage glucose which is %A1C expressed asaverage glucose, using the formula of the Y0Y-MccaapbSbseldp Glucose study (ADAG), Diabetes Care, Vol.31,#8,May. 2007 Blood Venous blood specimen / Unknown 06/07/2024 8:48 AM EDT 06/07/2024 11:22 AM EDT Taya Weaver MD LAB BLOOD ORDERABLES Final Resul t Performing Organization Address [facility] de Phone Number [facility] [address] [place] [phone] * BI Mammogram Screening Tomosynthesis Bilateral (03/15/2024 8:35 AM EDT) Anatomical Region Laterality Modality Breast Bilateral Mammography 03/15/2024 8:35 AM EDT Narrative 04/14/2024 9:51 AM EDT ? [facility] ? [address] ?[place] [address] ? Mammography Report ? Signed ? Patient: Dwyer,Freida I ?MR#: [id number] ?? 202 ? : 1960 ?Acct:[id number] ? Age/Sex: 63 / F ?ADM Date: 03/15/24 ? Loc: HO.MAMMO ? Attending Dr: Taya Weaver MD ? Ordering Physician: Taya Weaver MD ?Results: 1Negative ? Date of Service: 03/15/24 ?Follow Up: 1 Year From Orig ?? inal Mammogram ? Procedure(s): MM tomosynthesis screening BI ?? Accession Number(s): [id number] ? cc: Taya Weaver MD ? EXAMINATION: [...] by Nazia Casillas MD in OV> ? 04/14/24946 ? DD/ 0835 ? TD/TT: ? [employer]: ? Procedure Note [place], Image - 04/14/2024 [place] [facility] [address] [place], [place] [address] Mammography Report Signed Patient: Freida Dwyer IMR#: [id number] 202 : 9Acct:[id number] Age/Sex: 63 / FADM Date: 03/15/24 Loc: BRI Attending Dr: Taya Weaver MD Ordering Physician: Taya Weaver MDResults: 1Negative Date of Service: 03/15/24Follow Up: 1 Year From Orig inal Mammogram Procedure(s): MM tomosynthesis screening BI Accession Number(s): [id number] cc: Taya Weaver MD EXAMINATION: MM SCREENING [...] signed by Nazia Casillas MD in OV> 04/14/24 0947 DD/ 0835 TD/TT: [employer]: Taya Weaver MD IMG BI PROCEDURES Final [...] has been evaluated with computer assisted technology. [facility] Orthopaedic Physician Assistant: [facility] Comment: FELICITY CALIX(ASCP) CT screening location: [address] ??[address] Interpretation/Res ult: [facility] Comment: Negative for intraepithelial lesion or malignancy. Atrophic pattern; predominantly parabasal cells LMP: NONE [facility] Prev. BX: NONE [facility] Prev. PAP: NONE [facility]IV[facility] SOURCE: None given [facility] Statement Of Adequacy: SATISFACTORY FOR EVALUATION [facility] 03/15/2021 7:10 AM EDT us Taya Weaver MD LAB PATHOLOGY ORDERABLES Final R esult [facility] [address] * HPV mRNA E6/E7 (03/15/2021 7:10 AM EDT) HPV nRNA E6/E7 Not Detected Not Detected [facility] Comment: Methodology: Timing Inspector-Mediated Amplification This assay detects E6/E7 viral messenger RNA (mRNA) from 14 high-risk HPV types (16,18,31,33,35,39,45,51,52,56,58,59,66,68). ? The analytical performance characteristics of this assay have been determined by [employer]. The modifications have not been cleared or approved by the FDA. This assay has been validated pursuant to the CLIA regulations and is used for clinical purposes. ?? For additional information, please refer to http://education.[employer]/faq/NNV340u4 (This link if provided for information/ educational purposes only.) NO COLLECTION DATE RECEIVED. WE HAVE USED THE DATE THE SPECIMEN WAS RECEIVED BY THIS LABORATORY THE COLLECTION DATE. IF THIS IS INCORRECT, PLEASE CONTACT CLIENT SERVICES. PHONE NUMBER: ?? 03/15/2021 7:10 AM EDT Taya Weaver MD LAB BLOOD ORDERABLES Final Resul t Performing Organization Address City/State/[facility] Co [facility] Number [facility] [address] * Colonoscopy (02/02/2020) Colonoscopy Normal Normal 02/02/2020 Nikki Hickey MD HEALTH MAINTENANCE Final Result from Last 3 Months or Most Recently Relevant to Health Maintenance Insurance [facility] Care Teams Bus Inspector Relationship Specialty Start Date End Date Taya Weaver MD [address] [place] [phone] PCP - General Family Medicine 07/22/18 Brittney Causey Contract LoaderMental Health Aides Teacher 12/30/23
--- OUTSIDE RECORDS SUMMARY | 2025-01-06 14:52 | XMS_ITS | Encounter Summary ---
Author Organization [employer] Address [address] [facility] 7t [place] [address] Care Team Providers Care Bag Machine Operator Name Role Phone Taya Last MD Primary Care Provider [phone] Encounter Details Date Type Department Care Team ([facility] st Contact Info) Description 09/14/2023 Orders Only [facility] MEDICINE [address] [place] [address] Taya Last MD [address] [place] [address] Atypical chest pain Social History Tobacco Use [...] documented as of this encounter Care Teams Bag Machine Operator Relationship Specialty Start Date End Date Taya Last MD [address] [place] [phone] PCP - General Family Medicine 07/22/18 Brittney Causey Panama Hat Hydraulic Press OperatorHydraulic Plumber Helper 12/30/23 documented as of this encounter
--- OUTSIDE RECORDS SUMMARY | 2025-01-06 14:52 | XMS_ITS | Encounter Summary ---
Author Organization [employer] Address [address] [facility] 7t [place] [address] Care Team Providers Care Sap Mobility Architect Name Role Phone Taya Last MD Primary Care Provider [phone] Encounter Details Date Type Department Care Team ([facility] st Contact Info) Description 09/14/2023 Orders Only [facility] MEDICINE [address] [place] [address] Taya Last MD [address] [place] [address] Social History Tobacco Use Types Packs/Day Years [...] documented as of this encounter Care Teams Sap Mobility Architect Relationship Specialty Start Date End Date Taya Last MD [address] [place] [phone] PCP - General Family Medicine 07/22/18 Brittney Causey Emergency Room Physician AssistantPara Operator 12/30/23 documented as of this encounter
--- OUTSIDE RECORDS SUMMARY | 2025-01-06 14:52 | XMS_ITS | Encounter Summary ---
Author Organization [employer] [facility] Address [address] [place] [address] Care Team Providers Care Pet Counselor Name Role Phone Silvia [place] DO Primary Care Pro vider Unavailable Encounter Details Date Type Department Care Team Description 04/27/2017 Orders Only Adult Medicine [address] [address] Candida Prasad PA-C Dysuria (Primary Dx) Social History Tobacco Use Types Packs/Day Years Used Date Smoking Tobacco: Never Smokeless Tobacco: Never Alcohol Use Standard Drinks/Week Comments Not Asked 0 (1 standard drink = 0.6 oz pur e alcohol) Sex Assigned at Date Recorded Not on file documented as of this encounter Plan of Treatment Not on file documented as of this encounter Results * URINE, CULTURE (04/27/2017 11:50 AM EDT) URINE CULTURE BETA STREPTOCOCCUS GROUP B 04/28/2017 9:15 AM EDT [facility] Comment: COLONY COUNT >100,000 Urine (Urine) 04/27/2017 11: 50 AM EDT 04/27/2017 11:50 AM EDT Narrative [facility] - 04/28/2017 9:15 AM EDT Beta Streptococcus Group B Susceptibility testing is not routinely performed since this organism is predictably sensitive to Penicillin. If this Patient is not responding, is allergic to Penicillin, or further therapeutic information is required, please consult an Infectious Disease Specialist. Candida Prasad PA-C LAB [employer] documented in this encounter Visit Diagnoses Diagnosis Dysuria- Primary documented in this encounter Care Teams Pet Counselor Relationship Specialty Start Date End Date Silvia [place] DO PCP - General Internal Medicine 10/17/15 documented as of this encounter
--- OUTSIDE RECORDS SUMMARY | 2025-01-06 14:52 | XMS_ITS | Encounter Summary ---
Author Organization [facility] Address [address] [place] [address] Care Team Providers Care Starting Sheet Tank Operator Name Role Phone Silvia [place] DO Primary Care Pro vider Unavailable Encounter Details Date Type Department Care Team Description 11/27/2015 Orders Only Adult Medicine [address] [address] Silvia Colorado DO Social History Tobacco Use Types Packs/Day Years [...] on filedocumented in this encounter Care Teams Starting Sheet Tank Operator Relationship Specialty Start Date End Date Silvia Colorado DO PCP - General Internal Medicine 10/17/15 documented as of this encounter
--- OUTSIDE RECORDS SUMMARY | 2025-01-06 14:52 | XMS_ITS | Encounter Summary ---
Author Organization [employer] Address [address] [facility] 7t [place] [address] Care Team Providers Care Pickle Cutter Name Role Phone Taya Last MD Primary Care Provider [phone] Encounter Details Date Type Department Care Team ([facility] Contact Info) Description 07/13/2024 Orders Only [facility] [address] [place], [place] [phone] Lori Cooper MD [address] [place] [address] Paresthesia (Primary Dx) Social History Tobacco Use [...] documented as of this encounter Care Teams Pickle Cutter Relationship Specialty Start Date End Date Taya Last MD [address] [place] [address] PCP - General Family Medicine 07/22/18 Brittney Causey Grain Wafer Machine OperatorAdvertising Representative 12/30/23 documented as of this encounter
--- OUTSIDE RECORDS SUMMARY | 2025-01-06 14:52 | XMS_ITS | Encounter Summary ---
Author Organization [employer] Address [address] [place] [address] 7 [place] [address] Care Team Providers Care Bartender Name Role Phone Taya Last MD Primary Care Provider [phone] Reason for Visit * Reason Onset Date Comments Referral 01/30/2023 Encounter Details Date Type Department Care Team ([facility] st Contact Info) Description 01/30/2023 Telephone [facility] MEDICINE [address] [place], [place] [phone] Taya Last MD [address] [place] [address] Referral Social History Tobacco Use Types Packs/Day [...] documented as of this encounter Care Teams Bartender Relationship Specialty Start Date End Date Taya Last MD [address] [place] [address] PCP - General Family Medicine 07/22/18 Brittney Causey Concrete Mixer OperatorEmergency Department 12/30/23 documented as of this encounter
--- OUTSIDE RECORDS SUMMARY | 2025-01-06 14:52 | XMS_ITS | Encounter Summary ---
Author Organization [employer] Address [address] [place] [address] 7t [place] [address] Care Team Providers Care Hash Slinger Name Role Phone Taya Last MD Primary Care Provider [phone] Reason for Referral * Cardiac Stress Testing (Routine) - Closed Specialty Diagnoses / Procedures Referred By Contac t Referred To Contact Cardiology Diagnoses Premature beats Palpitation Procedures Holter monitor - 48 hour Taya Last MD [address] [place] [address] Phone: tel: fax: [facility] [address] [place] [address] Phone: tel: fax: Referral ID Status Reason Start Date Expiration Date Visits Re quested Visits Authorized [id number] Closed 02/06/2023 08/05/2023 1 1 Encounter Details Date Type Department Care Team (Late st Contact Info) Description 02/06/2023 Orders Only [facility] MEDICINE [address] [place], [place] [phone] Taya Last MD [address] [place], [place] [phone] Premature beats (Primary Dx); Palpitation; Right arm [...] documented as of this encounter Care Teams Hash Slinger Relationship Specialty Start Date End Date Taya Last MD [address] [place] [address] PCP - General Family Medicine 07/22/18 Brittney Causey Business MgrBible Teacher 12/30/23 documented as of this encounter
--- OUTSIDE RECORDS SUMMARY | 2025-01-06 14:52 | XMS_ITS | Encounter Summary ---
Author Organization [employer] Address [address] [facility] 7t [place] [address] Care Team Providers Care Hvac Engineering Technician Name Role Phone Taya Last MD Primary Care Provider [phone] Reason for Visit * Reason Onset Date Comments Prior Auth Prescription 01/05/2025 Encounter Details Date Type Department Care Team ([facility] st Contact Info) Description 01/05/2025 Telephone [facility] MEDICINE [address] [place], [place] [phone] Taya Last MD [address] [place], [place] [phone] Prior Auth Prescription Social History Tobacco Use Types Packs/Day Years [...] encounter Miscellaneous Notes * Telephone Encounter - Eloisa Mukherjee - 01/05/2025 9:49 AM EDT LES initiated on Covermymeds for Lidocaine patches . Approval/denial pending. Ku: [id number] LES Rx #: [id number] documented in this encounter Plan of Treatment Not on file documented as of this encounter Visit Diagnoses Not on filedocumented in this encounter Additional Health Concerns Assessment Noted Time PHQ-9 Depression Total Score: 12 025 2:10 PM EST documented as of this encounter Care Teams Hvac Engineering Technician Relationship Specialty Start Date End Date Taya Last MD [address] [place] [phone] PCP - General Family Medicine 07/22/18 Brittney Causey Honing Machine Try Out SetterCustoms Agent 12/30/23 documented as of this encounter
--- OUTSIDE RECORDS SUMMARY | 2025-01-06 14:52 | XMS_ITS | Encounter Summary ---
Author Organization [employer] Address [address] [facility] 7 [place] [address] Care Team Providers Care Managing Cognitive Engineer Name Role Phone Taya Last MD Primary Care Provider [phone] Reason for Visit * Reason Onset Date Comments Results 01/02/2025 Encounter Details Date Type Department Care Team ([facility] Contact Info) Description 01/02/2025 Telephone [facility] MEDICINE [address] [place], [place] [phone] Taya Last MD [address] [place] [address] Results Social History Tobacco Use Types Packs/Day Years [...] encounter Miscellaneous Notes * Telephone Encounter - Sheyla Mcmahan MA - 01/02/2025 11:50 AM EDT TC-Operating Room Surgical Technician Informed Patient of Negative cologard. * Telephone Encounter - Sheyla Mcmahan MA - 01/02/2025 11:48 AM EDT ----- Message from Taya Last MD sent at 12/30/2024 10:54 AM EDT ----- Cologuard negative. Please update in care gap. Notify patient of the result. Thank you documented in this encounter Plan of Treatment Not on file documented as of this encounter Visit Diagnoses Not on filedocumented in this encounter Additional Health Concerns Assessment Noted Time PHQ-9 Depression Total Score: 12 025 2:10 PM EST documented as of this encounter Care Teams Managing Cognitive Engineer Relationship Specialty Start Date End Date Taya Last MD [address] [place] [phone] PCP - General Family Medicine 07/22/18 Brittney Causey Steel FixerWildland Fire Fighter Specialist 12/30/23 documented as of this encounter
--- OUTSIDE RECORDS SUMMARY | 2025-01-06 14:52 | XMS_ITS | Encounter Summary ---
Author Organization [employer] [facility] Address [address] [place] [address] Care Team Providers Care Surg Nurse Name Role Phone Silvia [place] DO Primary Care Pro vider Unavailable Encounter Details Date Type Department Care Team Description 08/02/2018 Release of Information Medical Records [address] [place] [address] Abstract, Provider Social History Tobacco Use Types [...] on filedocumented in this encounter Care Teams Surg Nurse Relationship Specialty Start Date End Date Silvia [place] DO PCP - General Internal Medicine 10/17/15 documented as of this encounter
--- OUTSIDE RECORDS SUMMARY | 2025-01-06 14:52 | XMS_ITS | Data Portability ---
Author Organization [email or web address] Address [address] [place] [address] Care Team Providers Care Cutter Banana Room Name Role Phone HIM CCA OTHER [facility] Primary Care Provider Assessment Encounter Date Assessment Date Assessment LastModified by Organization Details LastModified Time 11/11/2024 11/11/2024 I provided real -time medical direction via phone for this encounter and was available for additional phone-based assistance as needed. I have reviewed and agree with the Assessment and Plan as documented by the Adjuster. Patient given the opportunity to ask questions. [...] urination and has no urinary complaints. Per generator rebuilder on the scene, vital signs are stable [...] particularly fever chills lightheadedness altered mental status [place] [id number] Not available 11/11/2024 18:22:45 Plan of Treatment Reminders Order Date Submit Date Provider Last Modified By Organization Details Last Modified Time Details Appointments None recorded. Lab rapid strep group A, throat [address] [place] [address], [id number] 5 08:32:04 rapid flu (A+B) [address] [place] [address], [id number] 5 08:32:55 rapid SARS CoV 2 Ag, QL IA, respiratory specimen [address] [place] [address], [id number] 5 08:32:33 Referral None recorded. Procedures None recorded. Surgeries None recorded. Imaging None recorded. Medication Orders ondansetron HCl (PF) 4 mg/2 mL injection solution [address] [place] [address] Pharmacy, [address] [place] [address], [id number], 18:18:51 lactated Ringers intravenous solution [address] [place] [address] Pharmacy, [address] [place] [address], [id number], 18:18:50 Patient TargetsNo targets recorded. Patient InstructionsNo [...] Name and Address Organization Details Recorded Time 17803 acetamino phen / oxycodone medicatio n Not available Not available Not available 10/31/2024 01836 3 RxNorm Not Available [facility] - production [...] [degF] 98 % 98 % 96 /min 43952.8 8 g 162.56 cm 14 /min 112 mm[Hg] 66 mm[Hg] Not Available [facility] - production 5 12:36:48 Date Recorded Heart rate Body weight Respiratory rate Body temperature Body height Oxygen saturation Oxygen saturation in Arterial blood by Pulse oximetry Systolic blood pressure Diastolic blood pressure Provider Name and Address Organization Details Last Updated DateTime 5 91 /min 56977.8 8 g 18 /min 98.2 [degF] 162.56 [...] SNOMED-CT Code Diagnosis ICD10 Code Diagnosis Note [id number] Jacoby Cameron MD Main - [facility] [address] [place] [phone] 10/31/2024 12:36:41 11/01/2024 22:31:59 Influenza-like illness [id number] B34.9 As noted, we were called to see this patient regarding concerns of TIFFANIE. Evaluation in the field was performed by my generator rebuilder colleague, as noted above, I provided real-time [...] confusion, worsening sx, severe fatigue, severe dyspnea. [id number] Patsy White MD Main - [address] [phone] 11/11/2024 11:45:41 11/12/2024 18:28:31 Nausea [id number] R11.0 Health Concerns Section Related Observation LastModified by Organization Detai ls LastModified Time None Recorded Concern Status LastModified by Organization Details LastModified Time None Recorded Advance Directives Directive None Recorded Payers Encounter Date Sequence Insurance Name Policy Number Policy Martinez Covered Member ID Martinez Member ID Guarantor Name 10/31/2024 1 [facility] - DOS ON OR AFTER 2023 - DUAL ELIGIBLE - CARE HOME OPTIONS AND ONE CARE (MEDICARE REPLACEMENT/ADV ANTAGE - HMO) Freida Dwyer [id number] Freida Dwyer 11/11/2024 1 [facility] - DOS ON OR AFTER 2023 - DUAL ELIGIBLE - CARE HOME OPTIONS AND ONE CARE (MEDICARE REPLACEMENT/ADV ANTAGE - HMO) Freida Griggsna [id number] Freida Dwyer Notes Date Note Type Note [...] at 10/31/2024 - 08:14 Allergies Reviewed at 10/31/2024 - 08:14 Comments: Unarmed Security Officer verified the name//address and phone number. PT [...] s/s and seek emergency treatment if needed Adjuster Organization Information for Sisi Phong Cope QUENTIN Business Legal Name: [facility] Address: [address] [place] [address], [place] [address], Media Technician: Dom MARTÍNEZ No.: [id number] Adjuster POC Test Results from Sisi Phong Prisca SAAVEDRA Rapid COVID antigen (12:32:02) COVID: - Rapid influenza antigen (12:32:03) Flu: - .................... .................... .................... .................... .................... .................... .................... . Adjuster Note From Phong Laird: This 64-year-old female [...] .................... .................... .................... .................... .................... .................... . [facility] Consulted: Chapo Cameron .................... .................... .................... .................... .................... .................... .................... . Disposition: Fulfilled Jacoby Cameron MD [address] [facility],[address], [place], [address], SONNY - [employer] 11/01/2024 22:06:21 11/11/2024 text/html CRC Nurse Triage [...] at 11/11/2024: Allergies Reviewed at 11/11/2024:32 Comments: Unarmed Security Officer verified the Pt.'s name//address and phone number. Education provided on the response time and the Pt. was advised to monitor reported s/s and seek emergency treatment if needed. Pt reports feeling unwell with Nausea, vomiting and diarrhea - Weakness - Abdominal pain - / -Decreased PO intake - Subjective fever - Last BM x 2 days ago - Chest pain when coughing - S/S started on Thursday - Recently dx with pneumonia and completed prescribed antibiotics - Pt reports being seen in the clinic on Thursday - -Negative work up and negative x-ray. Wellness visit requested Adjuster Organization Information for Rochelle Lobo Business Legal Name: [employer]? Address: [address] [place] [address], Media Technician: Lobito Hendricks MD CLIA No.: [id number] Adjuster POC Test Results from Rochelle Lobo iSTAT Chem8+ (11:08:13) Na: 138 mEq/L K: 4.2 mEq/L Cl: 100 mEq/L iCa: 1.18 mmol/L TCO2: 31 mmol/L Glu: 102 mg/dL BUN: 8 mg/dL Crea: 0.7 mg/dL Hct: 38 % Hb: 12.9 g/dL A Attachments uploaded as part of this test result can be found under Documents section. .................... .................... .................... .................... .................... .................... .................... . Adjuster Note From Rochelle Lobo: [facility] makes pt contact. She is found seated on the sofa in the living room of her home, wearing her pajamas and wrapped n a blanket. Her skin appears to be pale and she has the affect of not feeling well. She smiles weakly at [facility] and says hello. She is [...] taking any medication OTC for her s/s. [facility] obtains vital signs and pt is assessed. Lung sounds are clear and equal to auscultation, abdomen is soft and nontender in all quadrants, and no flank pain or CVS tenderness are noted. Conjunctiva and oral mucosa are pale. [facility] contacts [facility] and discusses the above. [facility] expresses concerns about why pt is nauseated and orders a bmp. IV access is obtained using a 23ga butterfly in the L AC and blood sample is obtained. Butterfly is removed and pressure bandage w/ 2x2 and tape are applied. [facility] then orders 1L IV fluids and 4mg [...] is clear. Report completed by DONATO Lobo [id number]. .................... .................... .................... .................... .................... .................... .................... . [facility] Consulted: Patsy White .................... .................... .................... .................... .................... .................... .................... . Disposition: Ferny White MD [address] [facility],[address], [place], [address], [employer] 11/11/2024 18:23:08 OBGyn Episode No OBEpisode recorded.
--- OUTSIDE RECORDS SUMMARY | 2025-01-06 14:52 | XMS_ITS | Encounter Summary ---
Author Organization [employer] Address [address] [place] [address] Care Team Providers Care Operations And Maintenance Technician Name Role Phone Taya Last MD Primary Care Provider [phone] Encounter Details Date Type Department Care Team ([facility] st Contact Info) Description 08/03/2023 Orders Only [facility] [address] [place] [address] Jennie Archer FNP [address] [place] [address] Social History Tobacco Use Types Packs/Day Years [...] documented as of this encounter Care Teams Operations And Maintenance Technician Relationship Specialty Start Date End Date Taya Last MD [address] [place] [address] PCP - General Family Medicine 07/22/18 Brittney Causey Music Theory TeacherSystems Librarian 12/30/23 documented as of this encounter
--- OUTSIDE RECORDS SUMMARY | 2025-01-06 14:52 | XMS_ITS | Encounter Summary ---
Author Organization [facility] Address [address] [place] [address] Care Team Providers Care Drafting Engineer Name Role Phone Silvia Colorado DO Primary Care Pro vider Unavailable Reason for Visit * Reason Onset Date Comments Walk In 02/18/2018 dizziness 02/18/2018 Headache 02/18/2018 Encounter Details Date Type Department Care Team Description 02/18/2018 Telephone Adult Medicine [address] [address] Silvia Colorado DO Walk In; dizziness; Headache Social History Tobacco Use Types Packs/Day Years Used Date Smoking Tobacco: Never Smokeless Tobacco: Never Alcohol Use Standard Drinks/Week Comments No 0 (1 standard drink = 0.6 oz pur e alcohol) Sex Assigned at Date Recorded Not on file documented as of this encounter Miscellaneous Notes * Telephone Encounter - Candida Prasad PA-C - 03/19/2018 4:55 PM EDT ----- Message from Collin Walls M.A. sent at 03/19/2018 4:54 PM EDT ----- Orders pending. * Telephone Encounter - Shima Bowman R.N. - 02/18/2018 1:32 PM EDT Pt states she has had intermittent headache with dizziness x 5 days; pt denies vision changes; notes increased stress over last week; pt states she has taken meclizine and Excedrin with some relief ;pt states little relief with Excedrin taken this am; pt describes a heavy pressure felt in back of head radiating to shoulders; pt notes right shoulder sore and achy; T98.9F, HR 78, BP 150/66, R18; pt notes intermittent tightness felt in chest at 2/10 pain;denies pain in jaw or arm; denies dyspnea; notes dizziness worse with position changes ; denies vomiting; denies constipation or diarrhea. Warm pack placed on shoulders with improved comfort noted.BP at discharge 130/62, HR 80,Blood sugar 116. Given appt at 3:[address] [place] [address] Dr[address] Preston * Telephone Encounter - Alanis De Jesus - 02/18/2018 12:14 PM EDT Symptoms patient is presenting: patient says she has been having headaches and diziness for the last five days. Says that she feels a pressure at the back of her head and is feeling dizzy as well from this. If pain or injury related was it due to an accident at work or from a motor vehicle accident? NO If yes, gather 3rd constitution party insurance information Date of accident/Injury: How long has patient had these symptoms?: Since last (5 days) PCP: Silvia Castro Payor: [email or web address] / Plan: HMO $25 [place] [id number] / Product Type: O [id number] documented in this encounter Plan of Treatment Not on file documented as of this encounter Visit Diagnoses Not on filedocumented in this encounter Care Teams Drafting Engineer Relationship Specialty Start Date End Date Silvia Colorado DO PCP - General Internal Medicine 10/17/15 documented as of this encounter
--- OUTSIDE RECORDS SUMMARY | 2025-01-06 14:52 | XMS_ITS | Encounter Summary ---
Author Organization [facility] Address [address] [place] [address] Care Team Providers Care Quote Clerk Name Role Phone Silvia Colorado DO Primary Care Pro vider Unavailable Reason for Visit * Reason Onset Date Comments TEST RESULTS 12/29/2017 Encounter Details Date Type Department Care Team Description 12/29/2017 Telephone Adult Medicine [address] [address] Silvia Colorado DO TEST RESULTS Social History [...] on filedocumented in this encounter Care Teams Quote Clerk Relationship Specialty Start Date End Date Silvia Colorado DO PCP - General Internal Medicine 10/17/15 documented as of this encounter
--- OUTSIDE RECORDS SUMMARY | 2025-01-06 14:52 | XMS_ITS | Clinical Summary ---
Author Organization [facility] Address [address] [place] [address] Care Team Providers Care An/Sqq 89(V)15 Sonar System Journeyman Name Role Phone Silvia Colorado DO Primary [...] 2024 PNEUMOCOCCAL VACCINE (1 - PCV) 2024 BMI CHECK/ADVISE 10/05/2024 04/28/2018, 11/08/2015 INFLUENZA (Season Ended) 2025 HEPATITIS C SCREENING Completed 08/04/2017 Care Teams An/Sqq 89(V)15 Sonar System Journeyman Relationship Specialty Start Date End Date Silvia Colorado DO PCP - General Internal Medicine 10/17/15
--- OUTSIDE RECORDS SUMMARY | 2025-01-06 14:52 | XMS_ITS | Encounter Summary ---
Author Organization [employer] Address [address] [place] [address] [address] [place] [address] Care Team Providers Care Supercharge Repair Supervisor Name Role Phone Taya Last MD Primary Care Provider [phone] Reason for Visit * Reason Onset Date Comments Referral 02/02/2023 Encounter Details Date Type Department Care Team ([facility] st Contact Info) Description 02/02/2023 Telephone [facility] MEDICINE [address] [place], [place] [phone] Taya Last MD [address] [place] [address] Referral Social History Tobacco Use Types Packs/Day [...] 1:01 PM EDT Tc from Rody with [facility] requesting a referral for Physical Therapy for 60 Visits ( 02/02/2023-02/25/2023) Please fax referral over to [phone] If any questions please contact Rody at [phone] documented in this encounter Plan of Treatment Not on file documented as of this encounter Visit Diagnoses Not on filedocumented in this encounter Additional Health Concerns Assessment Noted Time PHQ-9 Depression Total Score: 8 11/27/19 23 9:42 AM EST documented as of this encounter Care Teams Supercharge Repair Supervisor Relationship Specialty Start Date End Date Taya Last MD [address] [place] [address] PCP - General Family Medicine 07/22/18 Brittney Causey Country DirectorSugar Controller 12/30/23 documented as of this encounter
--- OUTSIDE RECORDS SUMMARY | 2025-01-06 14:53 | XMS_ITS | Encounter Summary ---
Author Organization [employer] Address [address] [facility] [address] [place] [address] Care Team Providers Care Dragline Mechanic Name Role Phone Taya Last MD Primary Care Provider [phone] Reason for Visit * Reason Onset Date Comments Appointment Request 11/15/2024 Encounter Details Date Type Department Care Team ([facility] Contact Info) Description 11/15/2024 Telephone [facility] MEDICINE [address] [place], [place] [phone] Taya Last MD [address] [place], [place] [phone] Appointment Request Social History Tobacco Use Types [...] has been drinking Fluid but no food. Furnace Cleaner Offered her the Apt with [facility] on 12/27/24 But she stated was too far away. Pt would like aApt as soon as possible. Contact pt at [phone] documented in this encounter Plan of Treatment Not on file documented as of this encounter Visit Diagnoses Not on filedocumented in this encounter Additional Health Concerns Assessment Noted Time PHQ-9 Depression Total Score: 12 025 2:10 PM EST documented as of this encounter Care Teams Dragline Mechanic Relationship Specialty Start Date End Date Taya Last MD [address] [place] [address] PCP - General Family Medicine 07/22/18 Brittney Causey [place] LevermanEmployee Welfare Manager 12/30/23 documented as of this encounter
== END 2025-01-06 13:52 | disposition home or self-care (01) ==
LOC: HO.HCS 13:01
PROVIDERS: PCP Family Medicine; Visit Provider Nurse Practitioner Family
DX: I47.10 Supraventricular tachycardia, unspecified (principal); R00.2 Palpitations; I49.1 Atrial premature depolarization; R07.89 Other chest pain
CPT/HCPCS: 99213; G2211

== ENCOUNTER → 2025-01-06 13:00 | Outpatient (BNVA) | payer OTHER, SELFPAY | PROVIDERS: PCP Family Medicine; Visit Provider Nurse Practitioner Family | DX: I47.10 Supraventricular tachycardia, unspecified (principal); I49.1 Atrial premature depolarization; R00.2 Palpitations; R07.89 Other chest pain | CPT/HCPCS: 99212 ==

== ENCOUNTER 2025-03-21 08:35 | Outpatient (REF) | payer OTHER, SELFPAY ==
--- OUTSIDE RECORDS SUMMARY | 2025-03-21 08:53 | XMS_ITS | Encounter Summary ---
Author Organization [facility] Address [address] [place] [address] Care Team Providers Care Manager Implementation Name Role Phone Silvia Colorado DO Primary Care Pro vider Unavailable Encounter Details Date Type Department Care Team Description 11/30/2018 Release of Information Medical Records [address] [place] [address] Abstract, Provider Social History Tobacco Use Types [...] on filedocumented in this encounter Care Teams Manager Implementation Relationship Specialty Start Date End Date Silvia Colorado DO PCP - General Internal Medicine 10/17/15 documented as of this encounter
== END 2025-03-21 08:36 | disposition home or self-care (01) ==
LOC: HO.MAMMO 08:35
PROVIDERS: PCP Family Medicine; Visit Provider Family Medicine
DX: Z12.31 Encounter for screening mammogram for malignant neoplasm of breast (principal)
CPT/HCPCS: 77063; 77067

== ENCOUNTER → 2025-03-21 09:15 | Outpatient (BNV) | payer OTHER, SELFPAY | PROVIDERS: PCP Family Medicine; Visit Provider Internal Medicine | DX: Z12.31 Encounter for screening mammogram for malignant neoplasm of breast (principal) | CPT/HCPCS: 77063; 77067 ==

== ENCOUNTER 2025-04-04 11:02 | Outpatient (REF) | payer OTHER, SELFPAY ==
--- NOTE | ~2025-04-04 | XR_ITS ---
Exam: Three-view bilateral knee x-rays TECHNIQUE: AP standing, lateral, and AP axial INDICATION: Bilateral knee pain, chronic Prior: None FINDINGS: Right knee: There is subtle narrowing of the lateral and medial joint spaces. There is no joint effusion. There are no osteophytes. Left knee: There is subtle medial joint space narrowing. There are no osteophytes. There is no joint effusion. XR/XR Knee Capo 3V Impression: Nonspecific mild joint space narrowing. Electronically signed by: Toribio Villa MD 04/04/2025 12:52 PM EDT
--- OUTSIDE RECORDS SUMMARY | 2025-04-04 12:16 | XMS_ITS | Data Portability ---
Author Organization [facility], [facility] Address [address] [place] [address] Care Team Providers Care Rayon Coner Name Role Phone HIM CCA OTHER [facility] Primary Care Provider Assessment Encounter Date Assessment Date Assessment LastModified by Organization Details LastModified Time 11/11/2024 11/11/2024 I provided real -time medical direction via phone for this encounter and was available for additional phone-based assistance as needed. I have reviewed and agree with the Assessment and Plan as documented by the Chamber Magistrate. Patient given the opportunity to ask questions. [...] urination and has no urinary complaints. Per professional services manager on the scene, vital signs are stable [...] particularly fever chills lightheadedness altered mental status [place] [id number] Not available 11/11/2024 18:22:45 Plan of Treatment Reminders Order Date Submit Date Provider Last Modified By Organization Details Last Modified Time Details Appointments None recorded. Lab rapid strep group A, throat [address] [place] [address], [id number] 5 08:32:04 rapid flu (A+B) [address] [place] [address], [id number] 5 08:32:55 rapid SARS CoV 2 Ag, QL IA, respiratory specimen [address] [place] [address], [id number] 5 08:32:33 Referral None recorded. Procedures None recorded. Surgeries None recorded. Imaging None recorded. Medication Orders ondansetron HCl (PF) 4 mg/2 mL injection solution [address] [place] [address] Pharmacy, [address] [place] [address], [id number], 5 18:18:51 lactated Ringers intravenous solution [address] [place] [address] Pharmacy, [address] [place] [address], [id number], 5 18:18:50 Patient TargetsNo targets recorded. Patient [...] Name and Address Organization Details Recorded Time 86948 acetamino phen / oxycodone medicatio n Not available Not available Not available 10/31/2024 14042 3 RxNorm Not Available [facility] - production [...] [degF] 98 % 98 % 96 /min 83806.8 8 g 162.56 cm 14 /min 112 mm[Hg] 66 mm[Hg] Not Available [facility] - production 5 12:36:48 Date Recorded Heart rate Body weight Respiratory rate Body temperature Body height Oxygen saturation Oxygen saturation in Arterial blood by Pulse oximetry Systolic blood pressure Diastolic blood pressure Provider Name and Address Organization Details Last Updated DateTime 5 91 /min 82572.8 8 g 18 /min 98.2 [degF] 162.56 [...] SNOMED-CT Code Diagnosis ICD10 Code Diagnosis Note [id number] Jacoby Cameron MD Main - [facility] [address] [place] [phone] 10/31/2024 12:36:41 11/01/2024 22:31:59 Influenza-like illness [id number] B34.9 As noted, we were called to see this patient regarding concerns of TIFFANIE. Evaluation in the field was performed by my professional services manager colleague, as noted above, I provided real-time [...] confusion, worsening sx, severe fatigue, severe dyspnea. [id number] Patsy White MD Main - [facility] [address] [place] [phone] 11/11/2024 11:45:41 11/12/2024 18:28:31 Nausea [id number] R11.0 Health Concerns Section Related Observation LastModified by Organization Detai ls LastModified Time None Recorded Concern Status LastModified by Organization Details LastModified Time None Recorded Advance Directives Directive None Recorded Payers Insurance Date Sequence Insurance Name Policy Number Policy Martinez Covered Member ID Martinez Member ID Guarantor Name 11/11/[address] [facility] - DOS ON OR AFTER 2023 - DUAL ELIGIBLE - FDC OPTIONS AND ONE CARE (MEDICARE REPLACEMENT/ADV ANTAGE - HMO) Freida Dwyer [id number] Freida Dwyer Notes Date Note Type Note Provider Name and Address Organization Details Recorded Time 10/31/2024 text/html CRC Nurse Triage Notes (Kathi Schroeder - RN): Patient Reports: Cough, fever greater than 2 days ; History of asthma, increased use of inhaler; Sputum increase ; Cough; Shortness of breath with exertion Denies: Increased work of breathing/labored with or without fever Unable to speak in full sentences without distress Discoloration of skin -cyanosis Needs to sleep sitting up, can t catch breath Shortness of breath in setting of confusion Lower extremity swelling COPD COVID Exposure Pain with inspiration Chief Complaints: Fever/chills, Common cold symptoms, Headache PMH: Asthma, Other PMH Reviewed at 10/31/2024 - :14 Allergies Reviewed at 10/31/2024 - :14 Comments: Janitorial Maintenance Worker verified the name//address and phone number. PT [...] s/s and seek emergency treatment if needed Chamber Magistrate Organization Information for Phong Laird Business Legal Name: [facility] Address: [address] [place] [address], [place] [address], [employer] Report Developer: Dom Painter MD IA No.: [id number] Chamber Magistrate POC Test Results from Phong Laird Rapid COVID antigen (12:32:02) COVID: - Rapid influenza antigen (12:32:03) Flu: - .................... .................... .................... .................... .................... .................... .................... . Chamber Magistrate Note From Phong Laird: This 64-year-old female [...] .................... .................... .................... .................... .................... .................... . [facility] Consulted: Chapo Cameron .................... .................... .................... .................... .................... .................... .................... . Disposition: Ferny Cameron MD [address] [facility],[address], [place], [address], SONNY BENOIT RIVERO 11/01/2024 22:06:21 11/11/2024 text/html CRC Nurse Triage [...] radiates to back Food Impaction Constipation Diarrhea no blood in stool Chief Complaints: Nausea, Weakness, Vomiting PMH: Asthma PMH Reviewed at 11/11/2024: Allergies Reviewed at 11/11/2024:32 Comments: Janitorial Maintenance Worker verified the Pt.'s name//address and phone number. Education provided on the response time and the Pt. was advised to monitor reported s/s and seek emergency treatment if needed. Pt reports feeling unwell with Nausea, vomiting and diarrhea - Weakness - Abdominal pain - 01/12 -Decreased PO intake - Subjective fever - Last BM x 2 days ago - Chest pain when coughing - S/S started on Thursday - Recently dx with pneumonia and completed prescribed antibiotics - Pt reports being seen in the clinic on Thursday - -Negative work up and negative x-ray. Wellness visit requested Chamber Magistrate Organization Information for Rochelle Lobo Business Legal Name: [employer] Address: [address] [place] [address], [employer] Report Developer: Lobito Hendricks MD CLIA No.: [id number] Chamber Magistrate POC Test Results from Rochelle Lobo iSTAT Chem8+ (11:08:13) Na: 138 mEq/L K: 4.2 mEq/L Cl: 100 mEq/L iCa: 1.18 mmol/L TCO2: 31 mmol/L Glu: 102 mg/dL BUN: 8 mg/dL Crea: 0.7 mg/dL Hct: 38 % Hb: 12.9 g/dL A Attachments uploaded as part of this test result can be found under Documents section. .................... .................... .................... .................... .................... .................... .................... . Chamber Magistrate Note From Rochelle Lobo: [facility] makes pt contact. She is found seated on the sofa in the living room of her home, wearing her pajamas and wrapped n a blanket. Her skin appears to be pale and she has the affect of not feeling well. She smiles weakly at [facility] and says hello. She is not [...] taking any medication OTC for her s/s. [facility] obtains vital signs and pt is assessed. Lung sounds are clear and equal to auscultation, abdomen is soft and nontender in all quadrants, and no flank pain or CVS tenderness are noted. Conjunctiva and oral mucosa are pale. [facility] contacts [facility] and discusses the above. [facility] expresses concerns about why pt is nauseated and orders a bmp. IV access is obtained using a 23ga butterfly in the L AC and blood sample is obtained. Butterfly is removed and pressure bandage w/ 2x2 and tape are applied. [facility] then orders 1L IV fluids and 4mg [...] is clear. Report completed by DONATO Lobo [id number]. .................... .................... .................... .................... .................... .................... .................... . [facility] Consulted: Patsy White .................... .................... .................... .................... .................... .................... .................... . Disposition: Fulfilled Patsy White MD [address] [facility],[address], [place], [address], [employer] - [email or web address] 11/11/2024 18:23:08 OBGyn Episode No OBEpisode recorded.
--- OUTSIDE RECORDS SUMMARY | 2025-04-04 12:16 | XMS_ITS | Encounter Summary ---
Author Organization [employer] Address [address] [facility] [address] [place] [address] Care Team Providers Care Spinning Bath Person Name Role Phone Taya Last MD Primary Care Provider [phone] Reason for Visit * Reason Onset Date Comments Referral 04/04/2025 Encounter Details Date Type Department Care Team ([facility] st Contact Info) Description 04/04/2025 Telephone [facility] [address] [place] [address] Taya Last MD [address] [place] [address] Referral Social History Tobacco Use Types Packs/Day Years Used Date Smoking Tobacco: Never Passive Smoke Exposure: Never Smokeless Tobacco: Never Alcohol Use Standard Drinks/Week Comments Never 0 (1 standard drink = 0.6 oz pur e alcohol) Depression Answer Date Recorded Patient Health Questionnaire-9 Score 7 03/09/2025 Patient Health Questionnaire-9 Score 7 03/09/2025 Last PHQ-9: Questionnaire Data Not on file 0 03/09/2025 Housing Stability Answer Date Recorded What is your housing situation today? I have charly belcher 03/09/[address] you li ve. Do you have problems with any of the following? None of the above 03/09/2025 Food Insecurity Answer Date Recorded Within the past 12 months, y ou worried that your food would run out before you got money to buy more: Never True 03/09/2025 Within the past 12 months,th e food you bought just didn't last and you didn't have enough money to get more: Not on file 02/2025 Transportation Answer Date Recorded In the past 12 months, has l ack of transportation kept you from medical appts, meetings, work or from getting things needed for daily living? No 03/09/2025 Utilities Answer Date Recorded In the past 12 months, has t he electric, gas, oil or water company threatened to shut off services in your home? No 03/09/2025 Depression Answer Date Recorded Patient Health Questionnaire-2 Score 2 03/09/2025 Internet Access Answer Date Recorded Internet Access Q1 Yes 03/09/2025 Internet Access Q2 Not on file 03/09/2025 Comments No Sex and Gender Information Value Date Recorded Sex Assigned at Female 08/04/2022 10:18 AM EDT Legal Sex Female 10:18 AM EDT Gender Identity Female 08/04/2022 10:18 AM EDT Sexual Orientation Straight 08/04/2022 10 :18 AM EDT documented as of this encounter Miscellaneous Notes * Telephone Encounter - Lis Raul - 04/04/2025 10:54 AM EDT Patient walked in requesting referral to Nutrition. Patient was seen before but referral has as of 10/2024. documented in this encounter Plan of Treatment Not on file documented as of this encounter Visit Diagnoses Not on filedocumented in this encounter Additional Health Concerns Assessment Noted Time PHQ-9 Depression Total Score: 7 03/09/20 25 11:12 AM EDT documented as of this encounter Care Teams Spinning Bath Person Relationship Specialty Start Date End Date Taya Last MD [address] [place] [id number] PCP - General Family Medicine 07/22/18 Brittney Causey Rustic Terrazzo SetterSpeedometer Mechanic 12/30/23 documented as of this encounter
== END 2025-04-04 11:03 | disposition home or self-care (01) ==
LOC: HO.HHCX 11:02
PROVIDERS: PCP Family Medicine; Visit Provider Family Medicine
DX: M25.561 Pain in right knee (principal); M25.562 Pain in left knee; G89.29 Other chronic pain
CPT/HCPCS: 73562

== ENCOUNTER → 2025-04-04 11:29 | Outpatient (BNV) | payer OTHER, SELFPAY | PROVIDERS: PCP Family Medicine; Visit Provider Radiology Diagnostic Radiology | DX: M25.561 Pain in right knee (principal); M25.562 Pain in left knee | CPT/HCPCS: 73562 ==

== ENCOUNTER 2025-04-19 11:10 | Outpatient (AMB) | payer OTHER, SELFPAY ==
--- NOTE | 2025-04-19 11:33 | MHC.OFFVIS ---
Vital Signs 04/19/25 11:33 Height 5 ft 4 in Intake Visit Reasons: 3m Allergies oxycodone (From PERCOCET) Allergy (Severe, Verified 04/19/25 11:40) HALLUCINATIONS peanut (PEANUT) Allergy (Intermediate, Verified 04/19/25 11:40) ITCHY THROAT/MOUTH tree nut (TREE NUT) Allergy (Intermediate, Verified 04/19/25 11:40) ITCHY THROAT/MOUTH acetaminophen (Percocet) Allergy (Unknown, Verified 04/19/25 11:40) Unknown nabumetone Adverse Reaction (Intermediate, Verified 04/19/25 11:40) Unknown SEAFOOD Allergy (Severe, Uncoded 04/19/25 11:40) ANAPHYLAXIS FRUIT, SKINS Allergy (Intermediate, Uncoded 04/19/25 11:40) ITCHY THROAT/MOUTH Medication List - Last Reconciled 04/19/25 by Candida Victoria, HELIO acetaminophen 1,000 mg PO Q8H PRN acetaminophen ER 650 mg PO Q8H PRN albuterol sulfate 90 mcg/actuation 2 puffs inhalation Q4-6H PRN amitriptyline mg PO budesonide-formoterol 80-4.5 mcg/actuation (Symbicort) 2 puffs inhalation cetirizine 10 mg PO DAILY cholecalciferol (vitamin D3) 50 mcg PO DAILY diltiazem HCl CD (Cartia XT) 120 mg PO DAILY epinephrine 0.3 mg IM Q4H PRN fluticasone propionate 50 mcg/actuation 1 inh inhalation BID gabapentin 100 mg PO DAILY lidocaine 5% (Lidoderm) 1 patch topical DAILY meclizine 25 mg PO DAILY venlafaxine 37.5 mg PO DAILY HPI Comments Details: 64-year-old woman with anxiety, depression, generalized body pains, and chronic headaches that have become daily in 12/2024 and gets whoozy, along with sleep problems getting to sleep and staying asleep since 2023. She previously had occipital headaches with sharp pains and pressure in the left occipital area occasionally spreading to both sides in the temples and frontal area with pressure-type headache around 2013. There was no associated nausea, vomiting, dizziness, photophobia or sonophobia. She had intermittent neck pain and stiffness. In 2010 she had a CAT scan and EEG and brain stem evoked potential, all of those were normal. Headaches were better with amitriptyline 20mg. She missed medication two nights in a row as she was out late and had left sided headache the next day. Sleep was also better with the medication. She was sleeping from around 12:30am-6:30am. She was sometimes a little tired in the morning, but was able to function during the day now. Ongoing generalized body pains. Gets occasional cramp from low back down legs that lasts about 5-10 minutes and feels weak and needs to sit. [facility] Medical History (Updated 04/19/25 @ 11:53 by Candida Victoria CNP) Tension headache Arthritis Asthma Asthma Fibromyalgia, primary Family History Sister Breast cancer Mother Colon cancer Father Stomach cancer Social History Household Members: Spouse Household Members Other:: grandchild Housing: House Are you a primary nurse behavioral health care to a significant other at home: No Do you presently have visiting nurse or other home services: No Alcohol intake: never Patient Tobacco Use Status: Never used Tobacco service: No Current occupational status: employed Review of Systems Const Denies chills, Denies daytime sleepiness, Reports difficulty sleeping, Denies fatigue, Denies fever(s), Denies frequent falls, Reports headache(s), Denies increased appetite, Denies poor appetite, Denies snoring, Denies weakness, Denies weight gain and Denies weight loss Eyes Denies loss of vision ENT Denies vertigo, Reports dizziness, Reports headache(s) and Denies neck pain Card Denies chest pain at rest, Denies chest pain with activity, Denies syncope, Denies leg edema, Denies palpitations, Denies dyspnea and Denies dyspnea on exertion Resp Denies cough, Denies dyspnea, Denies dyspnea on exertion and Denies snoring GI Denies abdominal pain, Denies constipation, Denies heartburn, Denies diarrhea and Denies nausea Denies urinary frequency, Denies urinary incontinence and Denies urinary urgency Musc Denies abnormal gait, Reports back pain, Reports myalgias, Reports arthralgias, Denies neck pain, Denies numbness and Denies tingling Neuro Denies abnormal gait, Denies vertigo, Reports dizziness, Denies syncope, Denies frequent falls, Reports headache(s), Denies lack of coordination, Denies loss of vision, Reports memory loss, Denies numbness, Denies Other visual disturbances, Denies restless legs, Denies seizure-like activity, Denies tingling, Denies paresthesias, Denies tremor(s) and Denies weakness Psych Reports anxiety, Reports depression, Denies auditory hallucinations, Reports memory loss and Denies visual hallucinations Endo Denies fatigue and Denies palpitations Physical Exam Const Other: General Appearance:? normal, in no acute distress. Heart:? S1, S2 normal, no murmurs. Lungs:? clear anteriorly and posteriorly. Musculoskeletal:? normal. Extremities:? no edema. Psych:? alert, oriented, cognitive function intact, cooperative with exam. Neuro Other: Abnormal Neurological Findings:?none.? Mental Status: alert and oriented X 3. Normal attention, orientation, memory, and affect. Cranial Nerves: Pupils are equal, round, and reactive to light. External ocular muscles are intact. Visual duarte are full, no ptosis. Face is symmetrical, no facial weakness or droop. Facial sensations are normal. Tongue protrudes in midline. Palate elevates symmetrically. Shoulder shrugging is normal Motor Examination: Normal muscle tone, bulk and strength. No atrophy or fasciculations. No drift of the extended upper extremities. DTR 2+. Plantars are flexor. Straight Leg Raisin degrees. Sensory Exam: Normal light touch, temperature, pinprick, vibration, and joint-position sensations. Rhomberg sign is absent. Coordination: No ataxia. No titubation. Fsoxfn-qf-aoxy, hbda-riop-tgtu test, and rapid alternating movements were normal. Gait Exam: Within normal limits. Cerebellar Signs: Upoqed-qf-ncnb and mbrr-qj-lquf is normal. No dysdiadochokinesia. Extrapyramidal System: No tremor, rigidity with normal facial expressions. No bradykinesia. No bradyphrenia. Normal arm swing and posture. No propulsion or retropulsion. Speech: Normal. No dysphasia or dysarthria. Assessment & Plan Assessment & Plan (1) Tension headache: Code(s): G44.209 - Tension-type headache, unspecified, not intractable Category: Medical Plan: Continue amitriptyline 10mg 2 tablets at bedtime. (2) Fibromyalgia: Code(s): M79.7 - Fibromyalgia Category: Medical Plan: . (3) Dizziness: Code(s): R42 - Dizziness and giddiness Category: Medical Plan: . (4) Low back pain: Code(s): M54.50 - Low back pain, unspecified Category: Medical Qualifiers: Chronicity: unspecified Back pain laterality: unspecified Sciatica presence: with sciatica Sciatica laterality: bilateral sciatica Qualified Code(s): M54.42 - Lumbago with sciatica, left side; M54.41 - Lumbago with sciatica, right side Plan: Reviewed testing ordered. Orders: Orders XR lumbar spine 4V min Today M54.41 - Lumbago with sciatica, right side, M54.42 - Lumbago with sciatica, left side Coding Level of Care Code Est Pt Level 4 (77152) Diagnoses Tension headache G44.209 Fibromyalgia M79.7 Dizziness R42 Low back pain with bilateral sciatica, unspecified back pain laterality, unspecified chronicity M54.42; M54.41 Chronicity: unspecified Back pain laterality: unspecified Sciatica presence: with sciatica Sciatica laterality: bilateral sciatica
--- OUTSIDE RECORDS SUMMARY | 2025-04-19 12:03 | XMS_ITS | Data Portability ---
Author Organization [facility], [facility] Address [address] [place] [address] Care Team Providers Care Gate Agent Name Role Phone HIM CCA OTHER [facility] Primary Care Provider Assessment Encounter Date Assessment Date Assessment LastModified by Organization Details LastModified Time 11/11/2024 11/11/2024 I provided real -time medical direction via phone for this encounter and was available for additional phone-based assistance as needed. I have reviewed and agree with the Assessment and Plan as documented by the Internet Database Specialist. Patient given the opportunity to ask questions. [...] urination and has no urinary complaints. Per court recording monitor on the scene, vital signs are stable [...] particularly fever chills lightheadedness altered mental status [place] [id number] Not available 11/11/2024 18:22:45 Plan of Treatment Reminders Order Date Submit Date Provider Last Modified By Organization Details Last Modified Time Details Appointments None recorded. Lab rapid strep group A, throat [address] [place] [address], [id number] 5 08:32:04 rapid flu (A+B) [address] [place] [address], [id number] 5 08:32:55 rapid SARS CoV 2 Ag, QL IA, respiratory specimen [address] [place] [address], [id number] 5 08:32:33 Referral None recorded. Procedures None recorded. Surgeries None recorded. Imaging None recorded. Medication Orders ondansetron HCl (PF) 4 mg/2 mL injection solution [address] [place] [address] Pharmacy, [address] [place] [address], [id number], 5 18:18:51 lactated Ringers intravenous solution [address] [place] [address] Pharmacy, [address] [place] [address], [id number], 5 18:18:50 Patient TargetsNo targets recorded. Patient [...] Name and Address Organization Details Recorded Time 87468 acetamino phen / oxycodone medicatio n Not available Not available Not available 10/31/2024 69280 3 RxNorm Not Available [facility] - production [...] Body weight Body height Respiratory rate Systolic And Diastolic Provider Name and Address Organization Details Last Updated DateTime 5 101.5 [degF] 98 % 98 % 96 /min 00375.8 8 g 162.56 cm 14 /min 112/66 mm[Hg] Not Available [employer] - production 12:36:48 Date Recorded Heart rate Body weight Respiratory rate Body temperature Body height Oxygen saturation Oxygen saturation in Arterial blood by Pulse oximetry Systolic And Diastolic Provider Name and Address Organization Details Last Updated DateTime 5 91 /min 02599.8 8 g 18 /min 98.2 [degF] 162.56 cm 100 % 100 % 110/69 mm[Hg] Not Available [employer] - production 11:45:48 Social History None recorded. Functional Status None recorded. Mental Status None recorded. Family History Nothing Reported. Medical History No medical history recorded. Gynecological HistoryNo gynecological history recorded. Obstetrics History GPAL:G 0 P 0 0 0 0 Past Encounters Encounter ID Performer Location Encounter Start Date Encounter Closed Date Diagnosis/Indication Diagnosis SNOMED-CT Code Diagnosis ICD10 Code Diagnosis Note [id number] Jacoby Cameron MD Main - [facility] [address] [place] [phone] 10/31/2024 12:36:41 11/01/2024 22:31:59 Influenza-like illness 38505322 B34.9 As noted, we were called to see this patient regarding concerns of TIFFANIE. Evaluation in the field was performed by my court recording monitor colleague, as noted above, I provided real-time [...] confusion, worsening sx, severe fatigue, severe dyspnea. [id number] Patsy White MD Main - [address] [phone] 11/11/2024 11:45:41 11/12/2024 18:28:31 Nausea [id number] R11.0 Health Concerns Section Related Observation LastModified by Organization Detai ls LastModified Time None Recorded Concern Status LastModified by Organization Details LastModified Time None Recorded Advance Directives Directive None Recorded Payers Insurance Date Sequence Insurance Name Policy Number Policy Martinez Covered Member ID Martinez Member ID Guarantor Name 11/11/2024 1 [facility] - DOS ON OR AFTER 2023 - DUAL ELIGIBLE - INTERMEDIATE OPTIONS AND ONE CARE (MEDICARE REPLACEMENT/ADV ANTAGE - HMO) Freida Dwyer [id number] Freida Chopra Reymundo Notes Date Note Type Note Provider Name [...] Allergies Reviewed at 10/31/2024 - :14 Comments: Thread Milling Machine Set Up Operator verified the name//address and phone number. PT [...] s/s and seek emergency treatment if needed Internet Database Specialist Organization Information for [employer] Business Legal Name: [facility] Transportation Address: [address] [place] [address], [place] [address], Oil Field Laborer: Dom Painter MD CLIA No.: [id number] Internet Database Specialist POC Test Results from [employer] Rapid COVID antigen (12:32:02) COVID: - Rapid influenza antigen (12:32:03) Flu: - .................... .................... .................... .................... .................... .................... .................... . Internet Database Specialist Note From Phong Laird: This 64-year-old female [...] .................... .................... .................... .................... .................... .................... . [facility] Consulted: Chapo Cameron .................... .................... .................... .................... .................... .................... .................... . Disposition: Fulfilled Jacoby Cameron MD [address] [facility],[address], [place], [address], [facility] 11/01/2024 22:06:21 11/11/2024 text/html CRC Nurse Triage [...] at 11/11/2024: Allergies Reviewed at 11/11/2024:32 Comments: Thread Milling Machine Set Up Operator verified the Pt.'s name//address and phone number. [...] up and negative x-ray. Wellness visit requested Internet Database Specialist Organization Information for [employer] Legal Name: [employer] Address: [address] [place] [address], Oil Field Laborer: Lobito Hendricks MD CLIA No.: [id number] Internet Database Specialist POC Test Results from [employer]hel[employer] QUENTIN iSTAT Chem8+ (11:08:13) Na: 138 mEq/L K: 4.2 mEq/L Cl: 100 mEq/L iCa: 1.18 mmol/L TCO2: 31 mmol/L Glu: 102 mg/dL BUN: 8 mg/dL Crea: 0.7 mg/dL Hct: 38 % Hb: 12.9 g/dL A Attachments uploaded as part of this test result can be found under Documents section. .................... .................... .................... .................... .................... .................... .................... . Internet Database Specialist Note From Rochelle Lobo: [facility] makes pt contact. She is found seated on the sofa in the living room of her home, wearing her pajamas and wrapped n a blanket. Her skin appears to be pale and she has the affect of not feeling well. She smiles weakly at [facility] and says hello. She is not [...] taking any medication OTC for her s/s. [facility] obtains vital signs and pt is assessed. Lung sounds are clear and equal to auscultation, abdomen is soft and nontender in all quadrants, and no flank pain or CVS tenderness are noted. Conjunctiva and oral mucosa are pale. [facility] contacts [facility] and discusses the above. [facility] expresses concerns about why pt is nauseated and orders a bmp. IV access is obtained using a 23ga butterfly in the L AC and blood sample is obtained. Butterfly is removed and pressure bandage w/ 2x2 and tape are applied. [facility] then orders 1L IV fluids and 4mg [...] is clear. Report completed by DONATO Lobo [id number]. .................... .................... .................... .................... .................... .................... .................... . [facility] Consulted: Patsy White .................... .................... .................... .................... .................... .................... .................... . Disposition: Fulfilled Patsy White MD [address] [facility], [place], [address], [employer] 11/11/2024 18:23:08 OBGyn Episode No OBEpisode recorded.
--- OUTSIDE RECORDS SUMMARY | 2025-04-19 12:03 | XMS_ITS | Encounter Summary ---
Author Organization [employer] Address [address] [place] [address] [address] [place] [address] Care Team Providers Care Sand Polisher Name Role Phone Taya Last MD Primary Care Provider [phone] Reason for Referral * Consultation (Routine) - Authorized Specialty Diagnoses / Procedures Referred By Ely palomo Referred To Contact Nutrition Diagnoses Impaired fasting glucose Vitamin D deficiency Taya Last MD [address] [place] [phone] Phone: tel: fax: Referral ID Status Reason Start Date Expiration Date Visits Requested Visits Authorized [id number] Authorized Consult and Treat 04/06/2025 04/06/2026 1 1 Encounter Details Date Type Department Care Team (Late st Contact Info) Description 04/06/2025 Orders Only [facility] MEDICINE [address] [place] [address] [phone] Taya Last MD [address] [place] [address] [phone] Impaired fasting glucose (Primary Dx); Vitamin D deficiency Social History Tobacco Use Types Packs/Day Years [...] of this encounter Plan of Treatment Scheduled Referrals Name Type Priority Associated Diagnoses Orde r Schedule Referral to Nutrition Therapy Outpatient Referral Routine Impaired fasting glucose Vitamin D deficiency Expected: 04/06/2025 (Approximate), Expires: 04/06/2026 documented as of this encounter Visit Diagnoses Diagnosis Impaired fasting glucose- Primary Vitamin D deficiency documented in this encounter Additional Health Concerns Assessment Noted Time PHQ-9 Depression Total Score: 7 03/09/20 25 11:12 AM EDT documented as of this encounter Care Teams Sand Polisher Relationship Specialty Start Date End Date Taya Last MD [address] [place] [phone] PCP - General Family Medicine 07/22/18 Brittney Causey Sample Card MakerDirector Of Home Care Hospice 12/30/23 documented as of this encounter
== END 2025-04-19 11:56 | disposition home or self-care (01) ==
LOC: HO.HSM 11:10
PROVIDERS: PCP Family Medicine; Referring Provider Family Medicine; Visit Provider Registered Nurse
DX: G44.209 Tension-type headache, unspecified, not intractable (principal); M79.7 Fibromyalgia; R42 Dizziness and giddiness; M54.42 Lumbago with sciatica, left side; M54.41 Lumbago with sciatica, right side
CPT/HCPCS: 99214

== ENCOUNTER → 2025-04-19 11:10 | Outpatient (BNVA) | payer OTHER, SELFPAY | PROVIDERS: PCP Family Medicine; Referring Provider Family Medicine; Visit Provider Registered Nurse | DX: G44.209 Tension-type headache, unspecified, not intractable (principal); M79.7 Fibromyalgia; R42 Dizziness and giddiness; M54.42 Lumbago with sciatica, left side; M54.41 Lumbago with sciatica, right side | CPT/HCPCS: 99212 ==

== ENCOUNTER 2025-05-03 12:10 | Outpatient (REF) | payer OTHER, SELFPAY ==
--- NOTE | ~2025-05-03 | XR_ITS ---
EXAMINATION: XR LUMBAR SPINE 4 OR MORE VIEWS HISTORY: M54.42 - Lumbago with sciatica, left side COMPARISON: Comparison is made with the prior examination dated 06/07/2024. FINDINGS: AP, lateral, bilateral oblique, and coned down views of the lumbar spine are submitted. Osseous mineralization is normal. Five nonrib-bearing lumbar vertebral bodies are identified, maintaining normal height and alignment without evidence of fracture or spondylolisthesis. Again seen is mild degenerative change at the L4-5 level. The posterior elements are intact. There is no spondylolysis. There is a very large amount of stool throughout the colon. XR/XR lumbar spine 4V min IMPRESSION: 1. Mild degenerative changes at L4-5. 2. Very large amount of stool throughout the colon. Electronically signed by: Arash Mcintyre MD 05/03/2025 01:34 PM EDT
--- OUTSIDE RECORDS SUMMARY | 2025-05-03 12:54 | XMS_ITS | Encounter Summary ---
Author Organization [facility] Address [address] [place] [address] [address] [place] [address] Care Team Providers Care Laundry Attendant Name Role Phone Taya Last MD Primary Care Provider [phone] Reason for Referral * Consultation (Routine) - Authorized Specialty Diagnoses / Procedures Referred By Ely palomo Referred To Contact Nutrition Diagnoses Impaired fasting glucose Vitamin D deficiency Taya Last MD [address] [place] [address] Phone: tel: fax: Referral ID Status Reason Start Date Expiration Date Visits Requested Visits Authorized [id number] Authorized Consult and Treat 04/06/2025 04/06/2026 1 1 Encounter Details Date Type Department Care Team (Late st Contact Info) Description 04/06/2025 Orders Only [facility] MEDICINE [address] [place] [address] [phone] Taya Last MD [address] [place] [address] [phone] Impaired fasting glucose (Primary Dx); Vitamin D [...] as of this encounter Plan of Treatment Upcoming Encounters Date Type Department Care Team (Late st Contact Info) Description 06/12/2025 10:15 AM EDT Office Visit [facility]INE [address] [place] [address] Taya Last MD [address] [place] [address] Scheduled Referrals Name Type Priority Associated Diagnoses [...] documented as of this encounter Care Teams Laundry Attendant Relationship Specialty Start Date End Date Taya Last MD [address] [place] [address] PCP - General Family Medicine 07/22/18 Brittney Causey Sales Representative Printing PaperCeramic Maker Demonstrator 12/30/23 documented as of this encounter
== END 2025-05-03 12:11 | disposition home or self-care (01) ==
LOC: HO.XRAY 12:10
PROVIDERS: PCP Family Medicine; Visit Provider Registered Nurse
DX: M54.41 Lumbago with sciatica, right side (principal); M54.42 Lumbago with sciatica, left side
CPT/HCPCS: 72110

== ENCOUNTER → 2025-05-03 12:15 | Outpatient (BNV) | payer OTHER, SELFPAY | PROVIDERS: PCP Family Medicine; Visit Provider Radiology Diagnostic Radiology | DX: M54.42 Lumbago with sciatica, left side (principal) | CPT/HCPCS: 72110 ==

== ENCOUNTER 2025-06-12 10:21 | Outpatient (REF) | payer OTHER, SELFPAY ==
--- NOTE | ~2025-06-12 | XR_ITS ---
EXAMINATION: XR SHOULDER, LEFT CLINICAL INFORMATION: chronic left shoulder pain, worsening, no injury, limited ROM. COMPARISON: None available. TECHNIQUE: AP external rotation, Grashey, scapular Y, and axillary views of the left shoulder. FINDINGS: AC joint is intact and not degenerated. Glenohumeral joint is intact. There is no dislocation. There is no degenerative change. XR/XR shoulder LT min 2V IMPRESSION: Unremarkable left shoulder. Electronically signed by: Toribio Villa MD 06/12/2025 11:00 AM EDT
--- OUTSIDE RECORDS SUMMARY | 2025-06-12 10:15 | XMS_ITS | Encounter Summary ---
Author Organization [employer] Address [address] [facility] 7t [place] [address] Care Team Providers Care Precision Filer Hand Name Role Phone Taya Last MD Primary Care Provider [phone] Encounter Details Date Type Department Care Team ([facility] st Contact Info) Description 06/12/2025 10:15 AM EDT Office Visit [facility] MEDICINE [address] [place] [address] Taya Last MD [address] [place] [address] Impaired fasting glucose (Primary Dx); Dietary counseling; [...] 9:42 AM EDT documented in this encounter Plan of Treatment Upcoming Encounters Date Type Department Care Team (Late st Contact Info) Description 06/30/2025 10:30 AM EDT Nutrition [facility] DIABETES/NUTRITION [address] [place], [place] [phone] Katty Vick, TOM [address] [place] [address] 11/06/2025 9:30 AM EST Office Visit [facility] OPTOMETRY [address] [place] [address] Lilli Pastor, OD 230 [place] [address] Pending Results Name Type Priority Associated Diagnoses Date /Time Lipid Panel with Reflex to Direct LDL Lab Routine Screening for lipid disorders 06/12/2025 10:33 AM EDT documented as of this encounter Procedures Procedure [...] AM EDT Narrative 06/12/2025 11:03 AM EDT [facility] [address] [place] [address] XRay Report Signed Patient: Freida Dwyer I MR#: [id number] : 1960 Acct:[id number] Age/Sex: 65 / F ADM Date: 06/12/25 Loc: HO.HHCX Attending Dr: Taya Last MD Ordering Physician: Taya Last MD Date of Service: 06/12/25 Procedure(s): XR shoulder LT min 2V Accession Number(s): [id number] cc: Taya Last MD Reason for Exam: [...] OV> 06/12/25 1100 DD/ 1050 TD/TT: 06/12/25 105 [place]man: Procedure Note Donotuseinterpreter, Image - 06/12/[address] [address] XRay Report Signed Patient: Freida Dwyer IMR#: [id number] : 1960cct:[id number] Age/Sex: 65 / FADM Date: 06/12/25 Loc: HO.HHCX Attending Dr: Taya Last MD Ordering Physician: Taya Last MD Date of Service: 06/12/25 Procedure(s): XR shoulder LT min 2V Accession Number(s): [id number] cc: Taya Last MD Reason for Exam: [...] OV> 06/12/25 1100 DD/ 1050 TD/TT: 06/12/25 105 Dollyman: Taya Last MD IMG XR PROCEDURES Edited Result - Final * Hemoglobin A1c (06/12/2025 10:33 AM EDT) Hemoglobin A1c 5.6 <6.0 % [facility] Comment:Hemoglobin A1C Refer ence Range Adults: 4.8 - 6.0 % Non diabetic: < 6.0 % Goal: < 7.0 %Additional Action Suggested: > 8.0 %Note: Hemoglobin A1c results are invalid for patients with abnormal amounts of HbF. Blood transfusions may impact the HbA1c concentration in the patient sample. Estimated Average Glucose 114 mg/dL [facility] Comment:eAG = Estimated ave rage glucose which is %A1C expressed asaverage glucose, using the formula of the C9H-YhpkhypJialuko Glucose study (ADAG), Diabetes Care, Vol.31,#8,May. 2007 Blood Venous blood specimen / Unknown 06/12/2025 10:33 AM EDT 06/12/2025 11:16 AM EDT Taya Last MD LAB BLOOD ORDERABLES Final Resul t [facility] [address] [place] [address] [phone] documented in this encounter Visit Diagnoses Diagnosis Impaired fasting glucose- Primary Dietary counseling Dietary surveillance and counseling Exercise counseling Overweight Screening for lipid disorders Chronic left shoulder pain Pain in joint, shoulder region documented in this encounter Additional Health Concerns Assessment Noted Time PHQ-9 Depression Total Score: 7 03/09/20 25 11:12 AM EDT documented as of this encounter Care Teams Precision Filer Hand Relationship Specialty Start Date End Date Taya Last MD [address] [place] [address] PCP - General Family Medicine 07/22/18 Brittney Causey Beater Engineer HelperAllergist/Pediatric Pulmonologist 12/30/23 documented as of this encounter
[2025-06-12 11:31] LABS: Hematocrit 37.7 % (37.0-47.0); Hemoglobin 12.9 g/dl (12.0-16.0); Mean Corpuscular HGB Conc 34.2 g/dl (31.0-35.0); Mean Corpuscular Hemoglobin 32.8 pg (27.0-33.0); Mean Corpuscular Volume 95.9 fL (80.0-98.0); NRBC Abs Auto 0.000 X10*3/uL (0.0-0.012); NRBC Pct Auto 0.0 /100WBC (0.0-0.2); Platelet Count 194 X10*3/uL (160-400); Red Blood Count 3.93 X10*6/uL (4.20-5.50); White Blood Count 3.4 X10*3/uL (4.8-10.8)
[2025-06-12 11:41] LABS: Hemoglobin A1C 128.0736 umol/L; Total Hemoglobin (HGBA1C) 3387.8448 umol/L
[2025-06-12 12:02] LABS: Alanine Aminotransferase 24 U/L (0-31); Albumin Level 4.2 g/dL (3.5-5.0); Alkaline Phosphatase 94 U/L (39-117); Anion Gap 12 (12-20); Aspartate Amino Transferase 29 U/L (5-31); Blood Urea Nitrogen 21 mg/dL (9-16); Calcium 9.0 mg/dL (8.4-10.2); Carbon Dioxide 28 mmol/L (22-29); Chloride 103 mmol/L (96-108); Cholesterol 182 mg/dL (<200); Estimated Glomerular Filt Rate > 60; HDL Cholesterol 61 mg/dL (>40); Potassium 4.4 mmol/L (3.3-5.1); Sodium 139 mmol/L (135-145); Total Protein 7.7 g/dL (6.5-8.0); Triglycerides 58 mg/dL (<150)
--- OUTSIDE RECORDS SUMMARY | 2025-06-12 12:20 | XMS_ITS | Encounter Summary ---
Author Organization [employer] Address [address] [place] [address] 7t [place] [address] Care Team Providers Care Shoe Cutter Name Role Phone Taya Last MD Primary Care Provider [phone] Reason for Visit * Reason Onset Date Comments Referral 01/30/2023 Encounter Details Date Type Department Care Team ([facility] st Contact Info) Description 01/30/2023 Telephone [facility] [address] [place] [address] Taya Last MD [address] [place] [address] Referral Social History Tobacco Use Types Packs/Day [...] Miscellaneous Notes * Telephone Encounter - Argentina Anguiano - 01/30/2023 11:46 AM EDT Tc from pt calling to inform referral for cardiology regarding getting a heart monitor was written incorrect and its not being covered by insurance. Please call to clarify . documented in this encounter Plan of Treatment Upcoming Encounters Date Type Department Care Team (Late st Contact Info) Description 06/30/2025 10:30 AM EDT Nutrition [facility] DIABETES/NUTRITION [address] [place] [address] [place] [address] 11/06/2025 9:30 AM EST Office Visit [facility] OPTOMET[facility] [address] [place] [address] Lilli Pastor, OD [address] [place] [address] documented as of this encounter Visit Diagnoses Not on filedocumented in this encounter Additional Health Concerns Assessment Noted Time PHQ-9 Depression Total Score: 8 11/27/19 23 9:42 AM EST documented as of this encounter Care Teams Shoe Cutter Relationship Specialty Start Date End Date Taya Last MD [address] [place] [address] PCP - General Family Medicine 07/22/18 Brittney Causey Community Marketing ManagerHobbing Press Operator 12/30/23 documented as of this encounter
--- OUTSIDE RECORDS SUMMARY | 2025-06-12 12:20 | XMS_ITS | Encounter Summary ---
Author Organization [employer] Address [address] [facility] 7t [place] [address] Care Team Providers Care Process Equipment Operator Name Role Phone Taya Last MD Primary Care Provider [phone] Reason for Visit * Reason Comments Med Refill Encounter Details Date Type Department Care Team ([facility] st Contact Info) Description 06/12/2025 Refill [facility] MEDICINE [address] [place] [address] Taya Last MD [address] [place] [address] Social History Tobacco Use Types Packs/Day Years [...] Info) Description 06/30/2025 10:30 AM EDT Nutrition [facility] DIABETES/NUTRITION [address] [place] [address] Katty Vcik, TOM [address] [place] [address] 11/06/2025 9:30 AM EST Office Visit [facility] OPTOMETRY [address] [place] [address] Dawit, Lilli, OD [address] [place] [address] documented as of this encounter Visit Diagnoses Not on filedocumented in this encounter Additional Health Concerns Assessment Noted Time PHQ-9 Depression Total Score: 7 03/09/20 25 11:12 AM EDT documented as of this encounter Care Teams Process Equipment Operator Relationship Specialty Start Date End Date Taya Last MD [address] [place] [address] PCP - General Family Medicine 07/22/18 Brittney Causey Correctional Case ManagerInside Sales Lead 12/30/23 documented as of this encounter
--- OUTSIDE RECORDS SUMMARY | 2025-06-12 12:20 | XMS_ITS | Encounter Summary ---
Author Organization [employer] Address [address] [facility] [place] [address] Care Team Providers Care Food Production Worker Name Role Phone Taya Last MD Primary Care Provider [phone] Encounter Details Date Type Department Care Team ([facility] st Contact Info) Description 06/09/2025 Telephone [facility] [address] [place] [address] Rose Hayden [place] Social History Tobacco Use Types Packs/Day Years [...] t he electric, gas, oil or water [employer] threatened to shut off services in your [...] encounter Miscellaneous Notes * Telephone Encounter - Rose Hayden MA - 06/09/2025 1:36 PM EDT Chart Prep Labs: not done Images: done Referrals: not applicable Vaccines due: Covid, Flu, and RSV Screenings: not applicable Overdue care gaps: SDOH documented in this encounter Plan of Treatment Upcoming Encounters Date Type Department Care Team (Late st Contact Info) Description 06/30/2025 10:[address] [facility] DIABETES/NUTRITION [address] [place] [address] Katty Vick, RD [address] [place] [address] 11/06/2025 9:30 AM EST Office Visit [facility] OPTOMETRY [address] [place] [address] Dawit, Lilli, OD [address] [place] [address] documented as of this encounter Visit Diagnoses Not on filedocumented in this encounter Additional Health Concerns Assessment Noted Time PHQ-9 Depression Total Score: 7 03/09/20 25 11:12 AM EDT documented as of this encounter Care Teams Food Production Worker Relationship Specialty Start Date End Date Taya Last MD [address] [place] [address] PCP - General Family Medicine 07/22/18 Brittney Causey Chief Telephone OperatorMalthouse Laborer 12/30/23 documented as of this encounter
--- OUTSIDE RECORDS SUMMARY | 2025-06-12 12:20 | XMS_ITS | Encounter Summary ---
Author Organization [employer] Address [address] [facility] [address] [place] [address] Care Team Providers Care Concert Singer Name Role Phone Taya Last MD Primary Care Provider [phone] Encounter Details Date Type Department Care Team ([facility] st Contact Info) Description 09/14/2023 Orders Only [facility] MEDICINE [address] [place] [address] Taya Last MD [address] [place] [address] Atypical chest pain Social History Tobacco Use Types Packs/Day Years Used Date Smoking Tobacco: Never Passive Smoke Exposure: Never Smokeless Tobacco: Never Depression Answer Date Recorded Patient Health Questionnaire-9 Score 8 11/27/2022 Housing Stability Answer Date Recorded What is your housing situation today? I have charlygeorge belcher 07/29/[address] you [...] Info) Description 06/30/2025 10:30 AM EDT Nutrition [facility] DIABETES/NUTRITION [address] [place] [address] Katty Vick, RD 230 [place] [address] 11/06/2025 9:30 AM EST Office Visit [facility] OPTOMETRY [address] [place], [place] [phone] Dawit, Lilli, OD [address] [place] [address] documented as of this encounter Visit Diagnoses Diagnosis Atypical chest pain Other chest pain documented in this encounter Additional Health Concerns Assessment Noted Time PHQ-9 Depression Total Score: 8 11/27/19 23 9:42 AM EST documented as of this encounter Care Teams Concert Singer Relationship Specialty Start Date End Date Taya Last MD [address] [place] [address] PCP - General Family Medicine 07/22/18 Brittney Causey Big 6 DealerGuard Lieutenant 12/30/23 documented as of this encounter
--- OUTSIDE RECORDS SUMMARY | 2025-06-12 12:20 | XMS_ITS | Encounter Summary ---
Author Organization [employer] Address [address] [facility] 7t [place] [address] Care Team Providers Care Intranet Specialist Name Role Phone Taya Last MD Primary Care Provider [phone] Encounter Details Date Type Department Care Team ([facility] st Contact Info) Description 07/13/2024 Orders Only [facility] CHC MED & PEDS [address] [place], [place] [phone] Lori Cooper MD [address] [place] [address] Paresthesia (Primary Dx) Social History Tobacco Use [...] Info) Description 06/30/2025 10:30 AM EDT Nutrition [facility] DIABETES/NUTRITION [address] [place] [address] Katty Vick, RD [address] [place] [address] 11/06/2025 9:30 AM EST Office Visit [facility] OPTOMETRY [address] [place] [address] Dawit, Lilli, OD [address] [place] [address] Scheduled Orders Name Type Priority Associated Diagnoses [...] documented as of this encounter Care Teams Intranet Specialist Relationship Specialty Start Date End Date Taya Last MD [address] [place] [address] PCP - General Family Medicine 07/22/18 Brittney Causey Clinic Office ManagerAbstract Manager 12/30/23 documented as of this encounter
--- OUTSIDE RECORDS SUMMARY | 2025-06-12 12:20 | XMS_ITS | Encounter Summary ---
Author Organization [employer] Address [address] [facility] [address] [place] [address] Care Team Providers Care Manager Technical Support Name Role Phone Taya Last MD Primary Care Provider [phone] Encounter Details Date Type Department Care Team ([facility] st Contact Info) Description 09/14/2023 Orders Only [facility] MEDICINE [address] [place] [address] Taya Last MD [address] [place] [address] Social History Tobacco Use Types Packs/Day Years [...] Info) Description 06/30/2025 10:30 AM EDT Nutrition [facility] DIABETES/NUTRITION [address] [place] [address] Katty Vick, RD [address] [place] [address] 11/06/2025 9:30 AM EST Office Visit [facility] OPTOMETRY [address] [place] [address] Dawit, Lilli, OD [address] [place] [address] documented as of this encounter Visit Diagnoses Not on filedocumented in this encounter Additional Health Concerns Assessment Noted Time PHQ-9 Depression Total Score: 8 11/27/19 23 9:42 AM EST documented as of this encounter Care Teams Manager Technical Support Relationship Specialty Start Date End Date Taya Last MD [address] [place], [place] [phone] PCP - General Family Medicine 07/22/18 Brittney Causey Cd TechnicianSubstitute Teacher 12/30/23 documented as of this encounter
--- OUTSIDE RECORDS SUMMARY | 2025-06-12 12:20 | XMS_ITS | Encounter Summary ---
Author Organization [employer] Address [address] [facility] 7t [place] [address] Care Team Providers Care Treasury Representative Name Role Phone Taya Last MD Primary Care Provider [phone] Encounter Details Date Type Department Care Team (Late st Contact Info) Description 02/06/2023 Orders Only [facility] MEDICINE [address] [place] [address] Taya Last MD [address] [place] [address] Premature beats (Primary Dx); Palpitation; Right arm [...] Info) Description 06/30/2025 10:30 AM EDT Nutrition [facility] DIABETES/NUTRITION [address] [place] [address] Katty Vick, TOM [address] [place] [address] 11/06/2025 9:30 AM EST Office Visit [facility] OPTOMETRY [address] [place] [address] Lilli Pastor, OD [address] [place] [address] documented as of this encounter Visit Diagnoses Diagnosis Premature beats- Primary Unspecified premature beats Palpitation Palpitations Right arm pain Pain in soft tissues of limb documented in this encounter Additional Health Concerns Assessment Noted Time PHQ-9 Depression Total Score: 8 11/27/19 23 9:42 AM EST documented as of this encounter Care Teams Treasury Representative Relationship Specialty Start Date End Date Taya Last MD [address] [place] [address] PCP - General Family Medicine 07/22/18 Brittney Causey Hand TherapistSupport Group Manager 12/30/23 documented as of this encounter
--- OUTSIDE RECORDS SUMMARY | 2025-06-12 12:20 | XMS_ITS | Encounter Summary ---
Author Organization [employer] Address [address] [facility] 7t [place] [address] Care Team Providers Care Recreational Programs Director Name Role Phone Taya Last MD Primary Care Provider [phone] Encounter Details Date Type Department Care Team ([facility] st Contact Info) Description 06/12/2025 Orders Only [facility] MEDICINE [address] [place] [address] Taya Last MD [address] [place] [address] Social History Tobacco Use Types Packs/Day Years [...] Info) Description 06/30/2025 10:30 AM EDT Nutrition [facility] DIABETES/NUTRITION [address] [place] [address] [place] [address] 11/06/2025 9:30 AM EST Office Visit [facility] OPTOMETRY [address] [place] [address] Dawit, Lilli, OD [address] [place] [address] Pending Results Name Type Priority Associated Diagnoses Date /Time Complete Blood Count Manual Diff Lab Routine 06/12/2025 10:33 AM EDT documented as of this encounter Procedures Procedure Name Priority Date/Time Associated Diagnosis Comments COMPLETE BLOOD COUNT MAN DIF Routine 06/12/2025 10:33 AM EDT documented in this encounter Visit Diagnoses Not on filedocumented in this encounter Additional Health Concerns Assessment Noted Time PHQ-9 Depression Total Score: 7 03/09/20 25 11:12 AM EDT documented as of this encounter Care Teams Recreational Programs Director Relationship Specialty Start Date End Date Taya Last MD [address] [place] [address] PCP - General Family Medicine 07/22/18 Brittney Causey Director Field ServicesHardening Machine Operator Helper 12/30/23 documented as of this encounter
--- OUTSIDE RECORDS SUMMARY | 2025-06-12 12:20 | XMS_ITS | Clinical Summary ---
Author Organization [employer] Address [address] [place] [address] [address] [place] [address] Care Team Providers Care Cargo Station Worker Name Role Phone Taya Weaver MD Primary Care Provider [phone] Allergies Active Allergy Reactions Criticality Noted Date Comments Apricot Flavoring Agent (Non-Screening) 11/15/2024 Stanley 11/15/2024 Coconut Flavoring Agent (Non-Screening) 11/15/2024 Nabumetone Palpitations Low 12/18/2021 Other reaction(s): Crying Oxycodone 12/24/2017 Winkler Flavoring Agent (Non-Screening) 11/15/2024 Pineapple Flavoring Agent (Non-Screening) 11/15/2024 Shellfish Allergy 11/08/2015 Shellfish-Derived Products 3 Medications * This document contains information received from the source organization and may not represent a complete record from that organization. cetirizine (ZyrTEC) 10 MG tablet Take 1 tablet (10 mg) by mouth in the morning. 90 tablet 3 03/16/20 23 Active meclizine (Antivert) 25 MG tablet 1 tab po BID 60 tablet 3 12/01/19 24 Active dilTIAZem CD (Cardizem CD) 120 MG 24 hr capsule Take 120 mg by mouth Once per day. Activ e acetaminophen (Tylenol 8 Hour) 650 MG ER tabletIndicati ons:Pain Take 1 tablet by mouth every 8 hours as needed for pain or fever 60 tablet 3 03/29/20 24 Active cholecalcifero l VITAMIN D (Vitamin D-3) 50 MCG (2000 UT) capsule Take 1 capsule (50 mcg) by mouth Once per day. 90 capsule 3 06/01/20 24 Active gabapentin (Neurontin) 100 MG capsule Take 1 capsule by mouth every night. May increase up to 3 tablets at bedtime 90 capsule 11 06/01/20 24 Active QuickVue At-Home Covid-19 Test kitIndications :Atypical chest pain USE DIRECTED 2 kit 1 06/01/20 24 Active carbamide peroxide (Debrox) 6.5 % otic solutionIndica tions:Impacted cerumen of left ear 4 gtt left ear for 3 days- djiboutian 15 mL 08/09/20 24 Active EPINEPHrine (Epipen) 0.3 MG/0.3ML injection syringe INJECT INTRAMUSCULARLY DIRECTED ON PACKAGE AND GO TO EMERGENCY ROOM 2 each 08/12/20 24 Active lidocaine (Lidoderm) 5 % patchIndicatio ns:Chronic pain of both shoulders,Fibr omyalgia Apply 1 patch to neck and 1 [...] 54 g 3 11/02/19 25 026 Active Spacer/Aero-Ho lding Chambers (OptiChamber Alejandra) misc 1 each every 4 (four) hours if needed (asthma). 2 each 11/02/19 25 Active fluticasone (Flonase) 50 MCG/ACT nasal spray INSTILL 1 SPRAY IN EACH NOSTRIL ONCE DAILY 16 g 3 11/02/19 25 Active omeprazole (PriLOSEC) [address] capsuleIndicat ions:Epigastri c pain Take 1 capsule (40 mg) by mouth before breakfast and before evening meal. Do not crush or chew. 60 capsule 11/15/19 25 026 Active amitriptyline (Elavil) 10 MG tablet TAKE 1 TABLET BY MOUTH AT BEDTIME FOR 1 WEEK THEN 2 TABLETS AT BEDTIME 01/19/20 25 Active Clotrimazole 1 % ointment Apply topically to affected area once daily 56 g 03/09/20 25 Active senna (Senokot) 8.6 MG tablet Take 1 tablet (8.6 mg) by mouth if needed at bedtime for constipation. 90 tablet 3 06/12/20 25 Active bisacodyl (Dulcolax) 5 MG EC tablet Take 1 tablet by mouth every 3 days as needed for constipation. Do not crush, chew, or split. 30 tablet 1 06/12/20 25 Active Active Problems Problem Noted Date Diagnosed Date Anemia 03/10/2025 Assessment & Plan (03/10/2025 5:36 PM EDT): - mild elevation of AST / ALT - continue working on lifestyle modification - consider rechecking H. Pylori - check the status of GI referral / appt Dizziness 12/11/2024 Assessment & Plan (03/10/2025 5:38 PM EDT): - no orthostatic hypotension or postural tachycardia - multiple COVID infections, ?sequale - most recent imaging: Head CT in Oct 2022 normal - currently on meclizine prn; Assessment & Plan (12/11/2024 1:01 PM EDT): - no orthostatic hypotension or postural tachycardia - multiple COVID infections, ?sequale - most recent imaging: Head CT in Oct 2022 normal - currently on meclizine prn; continue Epigastric pain 11/15/2024 Assessment & Plan (03/10/2025 5:34 PM EDT): - continue omeprazole - given the contact information of GI office Assessment & Plan (11/15/2024 5:12 PM EST): [...] symptoms persist Constipation 11/15/2024 Assessment & Plan (03/10/2025 5:34 PM EDT): - continue fiber-rich diet and drink adequate amount of water - continue judicious use of laxative - normal colonoscopy by Dr. 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 She had COVID 4 times. - she developed acute symptoms, which mostly resolved, except chest pain and palpitation. - she had developed SVT / PAC and wheezing since then - continue low-dose diltiazem - continue albuterol HFA prn Assessment & Plan (06/03/2024 6:40 AM EDT): [...] SVT (supraventricular tachycardia) 03/15/2023 Assessment & Plan (03/10/2025 5:32 PM EDT): - Followed by [facility] Cardiology, last seen in January 2025 - Currently prescribed diltiazem 120 mg daily Assessment & Plan (06/03/2024 6:38 AM EDT): - Followed by [facility] Cardiology, last seen in March 2024 - Currently prescribed diltiazem 120 mg daily Assessment & Plan (01/28/2024 12:23 PM EDT): - Followed by [facility] Cardiology, last seen on 09/02/23 - Currently prescribed diltiazem 180 mg daily - Most recent Holter after starting diltiazem showed no SVT, still PAC and sinus tachycardia Assessment & Plan (09/30/2023 5:44 AM EST): - Followed by [facility] Cardiology, last seen on 09/02/23 - Currently prescribed diltiazem 180 mg daily - Most recent Holter after starting diltiazem showed no SVT, still PAC and sinus tachycardia Assessment & Plan (07/06/2023 5:41 AM EDT): - Seen by Hospital Administrative Assistant, [facility], on 06/02/23. - 02/16/23, Holter Monitor showed: [...] / discontinue cyclobenzaprine. - Recommended to notify chain mender about when she started started taking Diltiazem during the evaluation Assessment & Plan (03/16/2023 10:50 AM EDT): 02/16/23, Holter Monitor showed: frequent PAC & SVT's -symptoms started since COVID -will refer her to Hospital Administrative Assistant Chronic right shoulder pain 03/15/2023 Assessment & Plan (03/20/2023 12:13 PM EDT): Seen by Specialist and Dx Cervical Disc disease and Radiculopathy. -Pt is starting PT -continue following instructions from Orthopedist -continue APAP -judicious use of cyclobenzaprine Palpitation 11/27/2022 Assessment & Plan (03/10/2025 5:32 PM EDT): - Holter monitor completed on [...] - continue low-dose diltiazem Assessment & Plan (06/03/2024 6:38 AM EDT): [...] 48-72 hr Leukopenia 11/27/2022 Assessment & Plan (03/10/2025 5:35 PM EDT): -Her immune system seems to be normal -WBC 3.3 in December 2024 -Following with Dr. Palumbo, last seen in April 2024 -Extensive work-up done. No identifiable etiology. Impression is due to collagen vascular disease. -Follow up in 6 mo -Plan is to have bone marrow biopsy if further decline in WBC Assessment & Plan (06/01/2024 11:53 AM EDT): [...] in WBC Fibromyalgia 11/27/2022 Assessment & Plan (03/10/2025 5:37 PM EDT): Previously followed by Voice Data Communications Engineer. -Normal workup for autoimmune disorder. -No Lupus or Rheumatoid Arthritis. -Completed PT at [facility] in May 2022. -Recommended to restart acupuncture. -Held cyclobenzaprine while Holter monitor evaluation; resume again -Discussed the trial of Cymbalta; patient is comfortable with gabapentin only at this time Assessment & Plan (06/01/2024 11:51 AM EDT): Previously followed by [employer] Engineer. -Normal workup for autoimmune disorder. -No Lupus or Rheumatoid Arthritis. -Completed PT at [facility] in May 2022. -Recommended to restart acupuncture. -Held cyclobenzaprine while Holter monitor evaluation; resume again -Discussed the trial of Cymbalta; patient is comfortable with gabapentin only at this time Assessment & Plan (01/28/2024 12:23 PM EDT): Previously followed by [employer] Engineer. -Normal workup for autoimmune disorder. -No Lupus or Rheumatoid Arthritis. -Completed PT at [facility] in May 2022. -Recommended to restart acupuncture. -Held cyclobenzaprine while Holter monitor evaluation; resume again -Discussed the trial of Cymbalta. Agreed to have cardiology evaluation prior to starting Cymbalta Assessment & Plan (09/30/2023 5:53 AM EST): Previously followed by [employer] Data [employer] Engineer. -Normal workup for autoimmune disorder. -No Lupus or Rheumatoid Arthritis. -Completed PT at [facility] in May 2022. -Recommended to restart acupuncture. -Held cyclobenzaprine while Holter monitor evaluation; resume again -Discussed the trial of Cymbalta. Agreed to have cardiology evaluation prior to starting Cymbalta Assessment & Plan (06/30/2023 5:15 PM EDT): Previously followed by [employer] Engineer. -Normal workup for autoimmune disorder. -No Lupus or Rheumatoid Arthritis. -Completed PT at [facility] in May 2022. -Recommended to restart acupuncture. -Held cyclobenzaprine while Holter monitor evaluation; resume again -Discussed the trial of Cymbalta. Agreed to have cardiology evaluation prior to starting Cymbalta Assessment & Plan (03/20/2023 12:14 PM EDT): Previously followed by [employer] Engineer. -Normal workup for autoimmune disorder. -No Lupus or Rheumatoid Arthritis. -Completed PT at [facility] in May 2022. -Recommended to restart acupuncture. -Held cyclobenzaprine while Holter monitor evaluation; resume again -Discussed the trial of Cymbalta. Agreed to have cardiology evaluation prior to starting Cymbalta Assessment & Plan (11/27/2022 6:23 PM EST): Previously followed by [employer] Engineer. -Normal workup for autoimmune disorder. -No Lupus or Rheumatoid Arthritis. -Will discontinue Cyclobenzaprine until she completes evaluation of Holter Monitor -Completed PT at [facility] in May 2022. -Recommended to restart acupuncture. -Discussed the trial of Cymbalta. Agreed to complete Holter Monitor before starting Cymbalta Atypical chest pain 11/27/2022 Assessment & Plan (06/01/2024 11:53 AM EDT): -Followed by [facility] Hospital Administrative Assistant, last seen in March 2024 -03/27/22 Stress test, EKG was negative for ischemia, but pt reported left-sided chest pain, dyspnea, and palpitation. -04/01/22 TTE Left ventricular systolic function was normal, EF 58%. - 04/28/24 exercise nuclear stress test showed no ischemia -Continue lifestyle modifications. -Possibly d/t chostochondritis or anxiety or post-COVID Assessment & Plan (09/30/2023 5:49 AM EST): -Followed by [facility] Hospital Administrative Assistant, last seen in Aug 2023 -03/27/22 Stress test, EKG was negative for ischemia, but pt reported left-sided chest pain, dyspnea, and palpitation. -04/01/22 TTE Left ventricular systolic function was normal, EF 58%. -Continue lifestyle modifications. -Possibly d/t chostochondritis or anxiety or post-COVID Follow-up with Cardiology after holter monitor evaluation Assessment & Plan (06/30/2023 5:15 PM EDT): -Seen by [facility] Hospital Administrative Assistant, recently in May 2023 -03/27/22 Stress test, EKG was negative for ischemia, but pt reported left-sided chest pain, dyspnea, and palpitation. -04/01/22 TTE Left ventricular systolic function was normal, EF 58%. -Continue lifestyle modifications. -Possibly d/t chostochondritis or anxiety or post-COVID Follow-up with Cardiology after holter monitor evaluation Assessment & Plan (11/27/2022 5:08 AM EST): -Seen by [facility] Hospital Administrative Assistant. -03/27/22 Stress test, EKG was negative for [...] (premature atrial contraction) 11/27/2022 Assessment & Plan (03/10/2025 5:33 PM EDT): -following with [facility] Cardiology, last seen in January 2025 -02/16/23, Holter Monitor showed: frequent PAC & SVT's -symptoms started since COVID -Normal stress test and TTE with EF 58% in March 2022 -seen by chain mender in May 2023, and prescribed diltiazem 120 mg daily -07/02/23 Holter monitor after starting diltiazem showed improvement, average HR 96, PAC 13%, no SVT. Due to PAC burden of 13%, diltiazem was increased to 180 mg daily. -diltiazem was decreased back to 120 mg daily due to patient's dizziness and headache. -continue diltiazem at current dose -continue follow up with chain mender as scheduled Assessment & Plan (06/03/2024 6:37 AM EDT): -following with [facility] Cardiology, last seen in March 2024 -02/16/23, Holter Monitor showed: frequent PAC & SVT's -symptoms started since COVID -Normal stress test and TTE with EF 58% in March 2022 -seen by chain mender in May 2023, and prescribed diltiazem 120 mg daily -07/02/23 Holter monitor after starting diltiazem showed improvement, average HR 96, PAC 13%, no SVT. Due to PAC burden of 13%, diltiazem was increased to 180 mg daily. -diltiazem was decreased back to 120 mg daily due to patient's dizziness and headache. -continue diltiazem at current dose -continue follow up with chain mender as scheduled Assessment & Plan (01/28/2024 12:22 [...] EF 58% in March 2022 -seen by chain mender in May 2023, and prescribed diltiazem 120 mg daily -07/02/23 Holter monitor after starting diltiazem showed improvement, average HR 96, PAC 13%, no SVT -seen by chain mender on 09/02/23, increased diltiazem to 180 mg [...] SVT's -symptoms started since COVID -following with chain mender -pt was prescribed diltiazem 120 mg daily; [...] EF 58% in March 2022 -seen by chain mender in May 2023, and prescribed diltiazem 120 mg daily -07/02/23 Holter monitor after starting diltiazem showed improvement, average HR 96, PAC 13%, no SVT -seen by chain mender on 09/02/23, increased diltiazem to 180 mg daily Assessment & Plan (03/16/2023 10:50 AM EDT): 02/16/23, Holter Monitor showed: frequent PAC & SVT's -symptoms started since COVID -will refer her to Hospital Administrative Assistant Vitamin D deficiency 09/29/2018 Assessment & Plan [...] Vitamin B deficiency 09/30/2017 Inverted nipple 02/04/2017 Mild anxiety 07/24/2014 Assessment & Plan (03/10/2025 5:37 PM EDT): -She is able to contract her safety today -She is connected with [facility] provider, but wants to be referred to another agency -Will consider starting Cymbalta in near future Assessment & Plan (01/28/2024 12:25 PM EDT): -She is able to contract her safety today -She is connected with [facility] provider -Will consider starting Cymbalta in near future Assessment & Plan (03/20/2023 12:15 PM EDT): -She is able to contract her safety today -She is connected with [facility] provider -Will consider starting Cymbalta in [...] of PFT Headache 07/24/2014 Assessment & Plan (03/10/2025 5:38 PM EDT): - tension or migraine - most recent imaging: Head CT in Oct 2022 normal - seen by neurologist and was diagnosed with tension headache - continue amitriptyline currently at 20 mg nightly Assessment & Plan (12/11/2024 1:02 PM EDT): - tension or migraine - most recent imaging: Head CT in Oct 2022 normal Resolved Problems Problem Noted Date Diagnosed Date Resolved Date Hypercholesterolemia 12/24/2017 023 Encounters * This document contains information received from the source organization and may not represent a complete record from that organization. Date Type Department Care Team Description 06/12/2025 10:15 AM EDT Office Visit [facility] [address] [place] [id number] Taya Weaver MD Impaired fasting glucose (Primary Dx); Dietary counseling; Exercise counseling; Overweight; Screening for lipid disorders; Chronic left shoulder pain 06/12/2025 Orders Only [address] [address] Taya Weaver MD 06/12/[address] [address] Taya Weaver MD 06/12/2025 Travel 06/09/2025 Telephone [facility] [address] [place] [address] Rose Hayden [place] 05/25/2025 Telephone [facility] [address] [place] [address] Taya Weaver MD Referral 05/03/[address] [facility] External Provider, [facility] 04/06/2025 Orders Only [facility] [address] [place] [address] Taya Weaver MD Impaired fasting glucose (Primary Dx); Vitamin D deficiency 04/04/2025 Results Follow-Up [address] [address] Taya Weaver MD XR Knee 3 Views Bilateral 04/04/2025 Telephone [facility] [address], [place] [phone] Taya Weaver MD Referral 03/21/2025 Orders Only [address] [address] Taya Weaver MD from Last 3 Months Immunizations Immunization Administration Dates Next Due DTaP 05/18/2009 Influenza [...] Mass Index 25.03 06/12/2025 9:42 AM EDT Plan of Treatment Upcoming Encounters Date Type Department Care Team (Late st Contact Info) Description 06/30/2025 10:30 AM EDT Nutrition [facility] [address] [place] [address] Katty Vick, RD [address] [place] [address] 11/06/2025 9:30 AM EST Office Visit [facility] [address] [place], [place] [phone] Lilli Pastor, OD [address] [place] [address] Health Maintenance Due Date Last Done Comments CT Colonography 1959 FIT 1960 Sigmoidoscopy 1960 Hepatitis C Screening 1977 RSV Patients and Patients Aged 60 years or older (1 - Risk 60-74 years 1-dose series) 2019 Zoster Vaccines (2 of 2) 08/22/2021 06/27/2021 COVID-19 Vaccine (3 - season) 2025 05/02/2021, 04/03/2021 Influenza Vaccine (#1) 2025 9, 07/22/2018, 07/24/2014 FOBT 12/27/2025 12/27/2024 Alcohol/Substance Use Screening 03/09/2026 03/09/2025 Depression Screening 03/09/2026 03/09/2025, 03/09/20 SDOH Screening 06/12/2026 06/12/2025 Tobacco Screening 06/12/2026 06/12/2025 Mammogram 03/21/2027 03/21/2025, 0610/2023, 08/21/2022, Additional history exists FIT DNA/Cologuard 12/28/2027 12/27/2024 Colonoscopy 02/01/2030 02/02/2020 Colorectal Cancer Screening 02/01/2030 DTaP/Tdap/Td Vaccines (4 - Td or Tdap) 06/01/2034 06/01/2024, 01/03/2014, 05/18/2009, Additional history exists Cervical Cancer Screening Discontinued HPV/Cotest Discontinued 03/15/2021 Pap Smear Discontinued 03/15/2021 Pneumococcal Vaccine: 50+ Years Completed 06/01/2024, 08/13/2010 [...] patient's age to complete this topic Meningococcal B Vaccine Aged Out No l onger eligible based on patient's age to complete [...] 10:50 AM EDT Chronic left shoulder pain COMPLETE BLOOD COUNT MAN DIF Routine 06/12/2025 10:33 AM EDT HEMOGLOBIN A1C Routine 06/12/2025 10:33 AM EDT Impaired fasting glucose LIPID PANEL WITH REFLEX TO DIRECT LDL Routine 06/12/2025 10:33 AM EDT Screening for lipid disorders HEPATIC FUNCTION PANEL Routine 10:33 AM EDT Transaminitis BASIC METABOLIC PANEL Routine 06/12/2025 10:33 AM EDT Transaminitis CBC WITH AUTO DIFFERENTIAL Routine 06/12/2025 10:33 AM EDT Anemia, unspecified type XR LUMBAR SPINE COMPLETE 4+ VIEWS Routine 05/03/2025 12:30 PM EDT XR KNEE 3 VIEWS BILATERAL Routine 04/04/2025 10:51 AM EDT BI MAMMOGRAM SCREENING TOMOSYNTHESIS BILATERAL Routine 03/21/2025 8:40 AM EDT LAB COLOGUARD COLON CANCER SCREEN Routine 12/27/2024 1:05 PM EDT Screening for colon cancer HPV MRNA E6/E7 Routine 03/15/2021 7:10 AM EDT THINPREP IMAGING SYSTEM PAP Routine 03/15/2021 7:10 AM EDT HM COLONOSCOPY Routine 02/02/2020 from Last 3 Months or Most Recently Relevant to Health Maintenance Results * XR Shoulder 2+ Views Left (06/12/2025 10:50 AM EDT) Anatomical Region Laterality Modality Upper Extremities, Shoulder Left Radi ographic Imaging 06/12/2025 10:5 0 AM EDT Narrative 06/12/2025 11:03 [place] [address] XRay Report Signed Patient: Freida Dwyer I MR#: [id number] : 1960 Acct:[id number] Age/Sex: 65 / F ADM Date: 06/12/25 Loc: HO.HHCX Attending Dr: Taya Weaver MD Ordering Physician: Taya Weaver MD Date of Service: 06/12/25 Procedure(s): XR shoulder LT min 2V Accession Number(s): [id number] cc: Taya Weaver MD Reason for Exam: chronic left shoulder [...] Toribio Villa MD 06/12/2025 11:00 AM EDT Dictated By: Toribio Villa MD Signed By: <Electronically signed by Toribio Villa MD in OV> 06/12/25 1100 DD/ 1050 TD/TT: 06/12/25 105 [employer]: Procedure Note Jatinfifiadis, Image - 06/12/[address] [address] XRay Report Signed Patient: Freida Dwyer [facility]#: [id number] : 9Acct:[id number] Age/Sex: 65 / FADM Date: 06/12/25 Loc: HO.HHCX Attending Dr: Taya Weaver MD Ordering Physician: Taya Weaver MD Date of Service: 06/12/25 Procedure(s): XR shoulder LT min 2V Accession Number(s): [id number] cc: Taya Weaver MD Reason for Exam: chronic left shoulder [...] Toribio Villa MD 06/12/2025 11:00 AM EDT Dictated By: Toribio Villa MD Signed By: <Electronically signed by Toribio Villa MD in OV> 06/12/25 1100 DD/ 1050 TD/TT: 06/12/25 105 [employer]: Taya Weaver MD IMG XR PROCEDURES Edited Result - Final * (ABNORMAL) CBC auto differential (06/12/2025 10:33 AM EDT) White Blood Count 3.4(L) 4.8 - 10.8 X10*3/uL [facility] Red Blood Count 3.93(L) 4.20 - 5.50 X10*6/uL [facility] Hemoglobin 12.9 12.0 - 16.0 g/dl [facility] Hematocrit 37.7 37.0 - 47.0 % [facility] Mean Corpuscular Volume 95.9 80.0 - 98.[address] [facility] Mean Corpuscular Hemoglobin 32.8 27.0 - 33.[address] [facility] Mean Corpuscular HGB Conc 34.2 31.0 - 35.0 g/dl [facility] Red Cell Distribution Width 12.2 11.0 - 16.0 % [facility] Platelet Count 194 160 - 400 X10*3/uL [facility] Mean Platelet Volume 11.6 9.4 - 12.[address] [facility] Neutrophils Percent Auto 25.9(L) 45 - 73 % [facility] Imm Gran Pct Auto 0.3 0.0 - 0.4 % [facility] Lymphocytes Percent Auto 62.4(H) 20 - 40 % [facility] Monocytes Percent Auto 7.6 2 - 11 % [facility] Eosinophils Percent Auto 3.2 0 - 4 % [facility] Basophils Percent Auto 0.6 0 - 2 % [facility] NRBC Pct Auto 0.0 0.0 - 0.2 /100WBC [facility] Neutrophils Absolute Auto 0.9(L) 2.0 - 8.3 x10*3/uL [facility] Imm Gran Abs Auto 0.01 0.00 - 0.03 X10*3/uL [facility] Lymphocytes Absolute Auto 2.1 1.2 - 4.9 X10*3/uL [facility] Monocytes Absolute Auto 0.3 0.1 - 1.2 X10*3/uL [facility] Eosinophils Absolute Auto 0.1 0.0 - 0.4 X10*3/uL [facility] Basophils Absolute Auto 0.0 0.0 - 0.2 X10*3/uL [facility] NRBC Abs Auto 0.000 0.0 - 0.012 X10*3/uL [facility] Blood Venous blood specimen / Unknown 06/12/2025 10:33 AM EDT 06/12/2025 11:16 AM EDT Taya Weaver MD LAB BLOOD ORDERABLES Edited Resu lt - Final Performing Organization Address City/[facility]/ZIP Co de Phone Number [facility] [address] [place] [phone] * Hemoglobin A1c (06/12/2025 10:33 AM EDT) Hemoglobin A1c 5.6 <6.0 % [facility] Comment:Hemoglobin A1C Refer ence Range Adults: 4.8 - 6.0 % Non diabetic: < 6.0 % Goal: < 7.0 %Additional Action Suggested: > 8.0 %Note: Hemoglobin A1c results are invalid for patients with abnormal amounts of HbF. Blood transfusions may impact the HbA1c concentration in the patient sample. Estimated Average Glucose 114 mg/dL [facility] Comment:eAG = Estimated ave rage glucose which is %A1C expressed asaverage glucose, using the formula of the [id number] Glucose study (ADAG), Diabetes Care, Vol.31,#8,May. 2007 Blood Venous blood specimen / Unknown 06/12/2025 10:33 AM EDT 06/12/2025 11:16 AM EDT us Taya Weaver MD LAB BLOOD ORDERABLES Final Resul t Performing Organization Address City/[facility]/ZIP Co de Phone Number [facility] [address] [place] [phone] * XR Lumbar Spine Complete 4+ Views (05/03/2025 12:30 PM EDT) Anatomical Region Laterality Modality Spine, L-spine Radiographic Vicenta ging 05/03/2025 12:3 0 PM EDT Narrative 05/03/2025 1:36 PM EDT [address] [address] XRay Report Signed Patient: Freida Dwyer I MR#: [id number] 202 : 1960 Acct:[id number] Age/Sex: 64 / F ADM Date: 05/03/25 Loc: AURA Attending Dr: Candida Victoria CNP Ordering Physician: Candida Victoria CNP Date of Service: 05/03/25 Procedure(s): XR lumbar spine 4V min Accession Number(s): [id number] cc: Candida Victoria CNP; Taya Weaver MD EXAMINATION: XR LUMBAR SPINE 4 OR MORE VIEWS HISTORY: M54.42 - Lumbago with sciatica, left side COMPARISON: Comparison is made with the prior examination dated 06/07/2024. FINDINGS: AP, lateral, bilateral oblique, and coned down views of the lumbar spine are submitted. Osseous mineralization is normal. Five nonrib-bearing lumbar vertebral bodies are identified, maintaining normal height and alignment without evidence of fracture or spondylolisthesis. Again seen is mild degenerative change at the L4-5 level. The posterior elements are intact. There is no spondylolysis. There is a very large amount of stool throughout the colon. XR/XR lumbar spine 4V min IMPRESSION: 1. Mild degenerative changes at L4-5. 2. Very large amount of stool throughout the colon. Electronically signed by: Arash Mcintyre MD 05/03/2025 01:34 PM EDT Dictated By: Arash Mcintyre MD Signed By: <Electronically signed by Arash Mcintyre MD in OV> 05/03/25 1334 DD/ 1230 TD/TT: 05/03/25 1250 Supervisor Garment Manufacturing: Procedure Note Donotuseinterpreter, Image - 05/03/2025 [facility] [address] [place] [address] XRay Report Signed Patient: Freida Dwyer IMR#: [id number] 202 : 1960cct:[id number] Age/Sex: 64 / FADM Date: 05/03/25 Loc: AURA Attending Dr: Candida Victoria CNP Ordering Physician: Candida Victoria CNP Date of Service: 05/03/25 Procedure(s): XR lumbar spine 4V min Accession Number(s): [id number] cc: Candida Victoria CNP; Taya Weaver MD EXAMINATION: XR LUMBAR SPINE 4 OR MORE VIEWS HISTORY: M54.42 - Lumbago with sciatica, left side COMPARISON: Comparison is made with the prior examination dated 06/07/2024. FINDINGS: AP, lateral, bilateral oblique, and coned down views of the lumbar spine are submitted. Osseous mineralization is normal. Five nonrib-bearing lumbar vertebral bodies are identified, maintaining normal height and alignment without evidence of fracture or spondylolisthesis. Again seen is mild degenerative change at the L4-5 level. The posterior elements are intact. There is no spondylolysis. There is a very large amount of stool throughout the colon. XR/XR lumbar spine 4V min IMPRESSION: 1. Mild degenerative changes at L4-5. 2. Very large amount of stool throughout the colon. Electronically signed by: Arash Mcintyre MD 05/03/2025 01:34 PM EDT Dictated By: Arash Mcintyre MD Signed By: <Electronically signed by Arash Mcintyre MD in OV> 05/03/25 1334 DD/ 1230 TD/TT: 05/03/25 1250 Supervisor Garment Manufacturing: [facility] External Provider IMG XR PROCEDURES Final Result * XR Knee 3 Views Bilateral (04/04/2025 10:51 AM EDT) Anatomical Region Laterality Modality Lower Extremities, Knee Bilateral [facility] 04/04/2025 10:5 1 AM EDT Narrative 04/04/2025 12:55 PM EDT [address] [address] XRay Report Signed Patient: Freida Dwyer I MR#: [id number] 202 : 1960 Acct:[id number] Age/Sex: 64 / F ADM Date: 04/04/25 Loc: HO.HHCX Attending Dr: Taya Weaver MD Ordering Physician: Taya Weaver MD Date of Service: 04/04/25 Procedure(s): XR Knee Capo 3V Accession Number(s): [id number] cc: Taya Weaver MD Exam: Three-view bilateral knee x-rays TECHNIQUE: AP standing, lateral, and AP axial INDICATION: Bilateral knee pain, chronic Prior: None FINDINGS: Right knee: There is subtle narrowing of the lateral and medial joint spaces. There is no joint effusion. There are no osteophytes. Left knee: There is subtle medial joint space narrowing. There are no osteophytes. There is no joint effusion. XR/XR Knee Capo 3V Impression: Nonspecific mild joint space narrowing. Electronically signed by: Toribio Villa MD 04/04/2025 12:52 PM EDT RP Dictated By: Toribio Villa MD Signed By: <Electronically signed by Toribio Villa MD in OV> 04/04/25 1252 DD/ 1051 TD/TT: 04/04/25 1100 Supervisor Garment Manufacturing: Procedure Note Donotuseinterpreter, Image - 04/04/[address] [address] XRay Report Signed Patient: Freida Dwyer IMR#: [id number] 202 : 1960cct:[id number] Age/Sex: 64 / FADM Date: 04/04/25 Loc: HO.HHCX Attending Dr: Taya Weaver MD Ordering Physician: Taya Weaver MD Date of Service: 04/04/25 Procedure(s): XR Knee Capo 3V Accession Number(s): [id number] cc: Taya Weaver MD Exam: Three-view bilateral knee x-rays TECHNIQUE: AP standing, lateral, and AP axial INDICATION: Bilateral knee pain, chronic Prior: None FINDINGS: Right knee: There is subtle narrowing of the lateral and medial joint spaces. There is no joint effusion. There are no osteophytes. Left knee: There is subtle medial joint space narrowing. There are no osteophytes. There is no joint effusion. XR/XR Knee Capo 3V Impression: Nonspecific mild joint space narrowing. Electronically signed by: Toribio Villa MD 04/04/2025 12:52 PM EDT Dictated By: Toribio Villa MD Signed By: <Electronically signed by Toribio Villa MD in OV> 04/04/25 1252 DD/ 1051 TD/TT: 04/04/25 1100 Supervisor Garment Manufacturing: us Taya Weaver MD IMG XR PROCEDURES Final Result * BI Mammogram Screening Tomosynthesis Bilateral (03/21/2025 8:40 AM EDT) Anatomical Region Laterality Modality Breast Bilateral Mammography 03/21/2025 8:40 AM EDT Narrative 03/26/2025 8:35 PM EDT [facility] [address] [place] [address] Mammography Report Signed Patient: Freida Dwyer I MR#: [id number] 202 : 1960 Acct:[id number] Age/Sex: 64 / F ADM Date: 03/21/25 Loc: MAMMO Attending Dr: Taya Weaver MD Ordering Physician: Taya Weaver MD Results: 1Negative Date of Service: 03/21/25 Follow Up: 1 Year From [facility] ina Mammogram Procedure(s): MM tomosynthesis screening BI Accession Number(s): [id number] cc: Taya Weaver MD EXAMINATION: MM SCREENING DIGITAL BREAST TOMOSYNTHESIS, BILATERAL CLINICAL INFORMATION: Screening. Asymptomatic. COMPARISON: Mammography: Comparison is made with available priors TECHNIQUE: Digital breast mammography with tomosynthesis is performed in both the craniocaudal and mediolateral oblique views along with computer-aided detection (CAD). FINDINGS: The breasts are heterogeneously dense, which [...] target due date for their next mammogram. Electronically signed by: Malou Tapia DO 03/26/2025 08:33 PM EDT RP Dictated By: Malou Tapia DO Signed By: <Electronically signed by Malou Tapia DO in OV> 03/26/252032 DD/ 9 TD/TT: 03/21/25854 Supervisor Garment Manufacturing: Procedure Note Donotuseinterpreter, Image - 03/26/2025 [facility] [address] [place] [address] Mammography Report Signed Patient: Freida Dwyer IMR#: [id number] 202 : 1960cct:[id number] Age/Sex: 64 / FADM Date: 03/21/25 Loc: BRI Attending Dr: Taya Weaver MD Ordering Physician: Taya Weaver MDResults: 1Negative Date of Service: 03/21/25Follow Up: 1 Year From Orig ina Mammogram Procedure(s): MM tomosynthesis screening BI Accession Number(s): [id number] cc: Taya Weaver MD EXAMINATION: MM SCREENING DIGITAL BREAST TOMOSYNTHESIS, BILATERAL CLINICAL INFORMATION: Screening. Asymptomatic. COMPARISON: Mammography: Comparison is made with available priors TECHNIQUE: Digital breast mammography with tomosynthesis is performed in both the craniocaudal and mediolateral oblique views along with computer-aided detection (CAD). FINDINGS: The breasts are heterogeneously dense, which [...] target due date for their next mammogram. Electronically signed by: Malou Tapia DO 03/26/2025 08:33 PM EDT Dictated By: Malou Tapia DO Signed By: <Electronically signed by Malou Tapia DO in OV> 03/26/252032 DD/ 9 TD/TT: 03/21/25854 Supervisor Garment Manufacturing: us Taya Weaver MD IMG BI PROCEDURES Edited Result - Final * Cologuard?? colon cancer screening (12/27/2024 1:05 PM EDT) Cologuard Result Negative Negative 12/31/19 5:06 AM EDT [employer] (CLIA #:[id number]) Comment: NEGATIVE TEST RESULT. A negative Cologuard result indicates a low likelihood that a colorectal cancer (CRC) or advanced adenoma (adenomatous polyps with more advanced pre-malignant features) is present. The chance that a person with a negative Cologuard test has a colorectal cancer is less than 1 in 1500 (negative predictive value >99.9%) or has an advanced adenoma is less than 5.3% (negative predictive value 94.7%). These data are based on a prospective cross-sectional study of 10,000 individuals at average risk for colorectal cancer who were screened with both Cologuard and colonoscopy. (Rocky Adair. et al, N Engl J Med 2014;370(14):2133-6779) The normal value (reference range) for this assay is negative. COLOGUARD RE-SCREENING RECOMMENDATION: Periodic colorectal cancer screening is an important part of preventive healthcare for asymptomatic individuals at average risk for colorectal cancer. Following a negative Cologuard result, the Japanese Cancer Society and U.S. Multi-Society Task Force screening guidelines recommend a Cologuard re-screening interval of 3 years. References: [employer] Cancer Society Guideline for Colorectal Cancer Screening: https://www.cancer.org/cancer/zyqqx-lscyjy-udcvgh/cljbmddfq-lxgatnwwz-aofdluu/ac s-rec ommendations.html.; Kyle HOLLAND, Thaddeus GARCIA, Niraj BUCK, Colorectal Cancer Screening: Recommendations for Physicians and Patients from the U.S. Multi-Society Task Force on Colorectal Cancer Screening , Am J Gastroenterology 2017; 112:4462-6130. TEST DESCRIPTION: Composite algorithmic analysis of stool DNA-biomarkers with hemoglobin immunoassay. Quantitative values of individual biomarkers are not [...] (Rocky Pope al, N Engl J Med 2014;370(14):4265-1625.) Cologuard may produce a false negative or false positive result (no colorectal cancer or precancerous polyp present at colonoscopy follow up). A negative Cologuard test result does not guarantee the absence of CRC or advanced adenoma (pre-cancer). The current Cologuard screening interval is every 3 years. ([employer] Cancer Society and U.S. Multi-Society Task Force). Cologuard performance data in a 10,000 patient pivotal study using colonoscopy as the reference method can be accessed at the following location: www.Informed Trades.Plextronics/results. Additional description of the Cologuard test process, warnings and precautions can be found at www.Fits.meogUserEventsrd.com. Stool specimen (specimen) 12/27/2024 1:05 PM EDT 12/28/2024 2:16 PM EDT Taya Weaver MD LAB MOLECULAR DIAGNOSTICS ORDERA BLES Final Result Performing Organization Address [facility] Co de Phone Number [employer] (CLIA #:[id number]) [address] [place] [address], * THINPREP TIS PAP (03/15/2021 7:10 AM EDT) Clinical Information: None given [facility] COMMENT SEE COMMENT [facility] Comment: EXPLANATORY NOTE: The Pap is a screening test for cervical cancer. It is not a diagnostic test and is subject to false negative and false positive results. It is most reliable when a satisfactory sample, regularly obtained, is submitted with relevant clinical findings and history, and when the Pap result is evaluated along with historic and current clinical information. COMMENT: This Pap test has been evaluated with computer assisted technology. [facility] Manager Recovery: SEE COMMENT [facility] Comment: FELICITY CALIX(ASCP) CT screening location: [place] [address] Interpretation/Res ult: SEE COMMENT [facility] Comment: Negative for intraepithelial lesion or malignancy. Atrophic pattern; predominantly parabasal cells LMP: NONE GIVEN [facility] Prev. BX: NONE GIVEN [facility] Prev. PAP: NONE GIVEN [facility] SOURCE: None given [facility] Statement Of Adequacy: SATISFACTORY FOR EVALUATION [facility] 03/15/2021 7:10 AM EDT Taya Weaver MD LAB PATHOLOGY ORDERABLES Final R esult Performing Organization Address City/[facility]/ZIP Co de Phone Number [facility] [address] [place] [address], * HPV mRNA E6/E7 (03/15/2021 7:10 AM EDT) HPV nRNA E6/E7 Not Detected Not Detected [facility] Comment: Methodology: Crusher Screen Repairer-Mediated Amplification This assay detects E6/E7 viral messenger RNA (mRNA) from 14 high-risk HPV types (16,18,31,33,35,39,45,51,52,56,58,59,66,68). The analytical performance characteristics of this assay have been determined by [employer]. The modifications have not been cleared or approved by the FDA. This assay has been validated pursuant to the CLIA regulations and is used for clinical purposes. For additional information, please refer to http://education.Vennli/faq/ECH689n4 (This link if provided for information/ educational purposes only.) NO COLLECTION DATE RECEIVED. WE HAVE USED THE DATE THE SPECIMEN WAS RECEIVED BY THIS LABORATORY THE COLLECTION DATE. IF THIS IS INCORRECT, PLEASE CONTACT CLIENT SERVICES. PHONE NUMBER: 03/15/2021 7:10 AM EDT Taya Weaver MD LAB BLOOD ORDERABLES Final Resul t [facility] [address] * Colonoscopy (02/02/2020) Colonoscopy Normal Normal 02/02/2020 Nikki Hickey MD HEALTH MAINTENANCE Final Result from Last 3 Months or Most Recently Relevant to Health Maintenance Insurance [facility] STANDARD [facility] PENITENTIARY OPTIONS (O D-SNP) [place] [id number] Care Teams Cargo Station Worker Relationship Specialty Start Date End Date Taya Wevaer MD [address] [place] [phone] PCP - General Family Medicine 07/22/18 Brittney Causey Process ChemistRn Palliative Care 12/30/23
--- OUTSIDE RECORDS SUMMARY | 2025-06-12 12:20 | XMS_ITS | Encounter Summary ---
Author Organization [employer] Address [address] [place] [address] [address] [place] [address] Care Team Providers Care Eap Counselor Name Role Phone Taya Last MD Primary Care Provider [phone] Reason for Referral * Consultation (Routine) - Authorized Specialty Diagnoses / Procedures Referred By Ely palomo Referred To Contact Nutrition Diagnoses Impaired fasting glucose Vitamin D deficiency Taya Last MD [address] [place] [address] Phone: tel: fax: Referral ID Status Reason Start Date Expiration Date Visits Requested Visits Authorized [id number] Authorized Consult and Treat 04/06/2025 04/06/2026 1 1 Encounter Details Date Type Department Care Team (Late st Contact Info) Description 04/06/2025 Orders Only [facility] [address] [place] [phone] Taya Last MD [address] [place] [address] [phone] Impaired fasting glucose (Primary Dx); Vitamin D [...] Info) Description 06/30/2025 10:30 AM EDT Nutrition [facility] [address] [place] [address] aKtty Vick, TOM [address] [place] [address] 11/06/2025 9:30 AM EST Office Visit [facility] [address] [place] [address] Lilli Pastor, OD [address] [place] [address] Scheduled Referrals Name Type Priority Associated Diagnoses [...] documented as of this encounter Care Teams Eap Counselor Relationship Specialty Start Date End Date Taya Last MD [address] [place] [address] PCP - General Family Medicine 07/22/18 Brittney Causey Transit WorkerRemote Encoding Operations Supervisor 12/30/23 documented as of this encounter
--- OUTSIDE RECORDS SUMMARY | 2025-06-12 12:20 | XMS_ITS | Encounter Summary ---
Author Organization [employer] Address [address] [place] [address] Care Team Providers Care A P Manager Name Role Phone Taya Last MD Primary Care Provider [phone] Encounter Details Date Type Department Care Team ([facility] st Contact Info) Description 08/03/2023 Orders Only [facility] [address] [place] [address] Jennie Archer FNP [address] [place] [address] Social History Tobacco Use Types Packs/Day Years [...] Info) Description 06/30/2025 10:30 AM EDT Nutrition [facility] [address] [place] [address] Katty Vick, RD [address] [place] [address] 11/06/2025 9:30 AM EST Office Visit [facility] [address] [place], [place] [phone] Dawit, Lilli, OD [address] [place] [address] documented as of this encounter Visit Diagnoses Not on filedocumented in this encounter Additional Health Concerns Assessment Noted Time PHQ-9 Depression Total Score: 8 11/27/19 23 9:42 AM EST documented as of this encounter Care Teams A P Manager Relationship Specialty Start Date End Date Taya Last MD [address] [place] [address] PCP - General Family Medicine 07/22/18 Brittney Causey Melt House SupervisorClerk Of Court 12/30/23 documented as of this encounter
--- OUTSIDE RECORDS SUMMARY | 2025-06-12 12:20 | XMS_ITS | Encounter Summary ---
Author Organization [employer] Address [address] [facility] [address] [place] [address] Care Team Providers Care Tire Fabric Impregnating Range Tender Name Role Phone Taya Last MD Primary Care Provider [phone] Reason for Visit * Reason Onset Date Comments Appointment Request 11/15/2024 Encounter Details Date Type Department Care Team ([facility] Contact Info) Description 11/15/2024 Telephone [facility] [address] [place], [place] [phone] Taya Last MD [address] [place] [address] Appointment Request Social History Tobacco Use Types [...] AM EDT documented as of this encounter Functional Status * Over the past 2 weeks, how often have you been bothered by any of the following problems? Question Answer Date of Assessment Author Patient Health Questionnaire -2 Score 4 11/15/2024 2:10 PM Michael Lares MA * Little interest or pleasure in doing things Answer Date of Assessment Author Nearly every day 11/15/2024 2:10 PM Michael Lares MA * Feeling down, depressed, or hopeless Answer Date of Assessment Author Several days 11/15/2024 2:10 PM Kateryna Lares MA * Trouble falling or staying asleep, or sleeping too much Answer Date of Assessment Author More than half the days 11/15/2024 2:10 PM Michael Rose MA * Feeling tired or having little energy Answer Date of Assessment Author Nearly every day 11/15/2024 2:10 PM Michael Lares MA * Poor appetite or overeating Answer Date of Assessment Author More than half the days 11/15/2024 2:10 PM Michael Rose MA * Feeling bad about yourself - or that you are a failure or have let yourself or your family down Answer Date of Assessment Author Not at all 11/15/2024 2:10 PM Kateryna Lares MA * Trouble concentrating on things, such as reading the newspaper or watching television Answer Date of Assessment Author Several days 11/15/2024 2:10 PM Kateryna Lares MA * Moving or speaking so slowly that other people could have noticed? Or the opposite - being so fidgety or restless that you have been moving around a lot more than usual. Answer Date of Assessment Author Not at all 11/15/2024 2:10 PM Kateryna Lares MA * Thoughts that you would be better off or hurting yourself in some way Answer Date of Assessment Author Not at all 11/15/2024 2:10 PM Kateryna Lares MA * Patient Health Questionnaire-9 Score Answer Date of Assessment Author 12 11/15/2024 2:10 PM Kateryna Lares MA * How difficult have these problems made it for you to do your work, take care of things at home, or get along with other people? Answer Date of Assessment Author Somewhat difficult 11/15/2024 2:10 PM Michael Lares MA documented as of this encounter Miscellaneous Notes * Telephone Encounter - Gilmar Taylor - 11/15/2024 9:06 AM EST TC from pt requesting Fu Visit with PCP. Pt states that she has not been feeling well. She's been throwing up, not eating at alll but she has been drinking Fluid but no food. Cost And Sales Record Supervisor Offered her the Apt with [facility] on 12/27/24 But she stated was too far away. Pt would like aApt as soon as possible. Contact pt at [phone] documented in this encounter Plan of Treatment Upcoming Encounters Date Type Department Care Team (Late st Contact Info) Description 06/30/2025 10:30 AM EDT Nutrition [facility] [address] [place] [address] Katty Vick, TOM [address] [place] [address] 11/06/2025 9:30 AM EST Office Visit [facility] [address] [place] [address] Lilli Pastor, OD [address] [place] [address] documented as of this encounter Visit Diagnoses Not on filedocumented in this encounter Additional Health Concerns Assessment Noted Time PHQ-9 Depression Total Score: 12 025 2:10 PM EST documented as of this encounter Care Teams Tire Fabric Impregnating Range Tender Relationship Specialty Start Date End Date Taya Last MD [address] [place] [address] PCP - General Family Medicine 07/22/18 Brittney Causey Tractor OperatorFurnace Converter 12/30/23 documented as of this encounter
--- OUTSIDE RECORDS SUMMARY | 2025-06-12 12:20 | XMS_ITS | Encounter Summary ---
Author Organization [employer] Address [address] [place] [address] [address] [place] [address] Care Team Providers Care Glass Edger Name Role Phone Taya Last MD Primary Care Provider [phone] Reason for Visit * Reason Onset Date Comments Referral 02/02/2023 Encounter Details Date Type Department Care Team ([facility] st Contact Info) Description 02/02/2023 Telephone [facility] [address] [place] [address] Taya aLst MD [address] [place] [address] Referral Social History Tobacco Use Types Packs/Day [...] encounter Miscellaneous Notes * Telephone Encounter - La Nenajody Taveras Michael - 02/02/2023 1:01 PM EDT Tc from Rody with [facility] requesting a referral for Physical Therapy for 60 Visits ( 02/02/2023-02/25/2023) Please fax referral over to [phone] If any questions please contact Rody at [phone] documented in this encounter Plan of Treatment Upcoming Encounters Date Type Department Care Team (Late st Contact Info) Description 06/30/2025 10:30 AM EDT Nutrition [facility] DI[facility]/NUTRITION [address] [place] [address] CzepKatty man, RD [address] [place] [address] 11/06/2025 9:30 AM EST Office Visit [facility] [address] [place] [address] Dawit, Lilli, OD [address] [place] [address] documented as of this encounter Visit Diagnoses Not on filedocumented in this encounter Additional Health Concerns Assessment Noted Time PHQ-9 Depression Total Score: 8 11/27/19 23 9:42 AM EST documented as of this encounter Care Teams Glass Edger Relationship Specialty Start Date End Date Taya Last MD [address] [place] [address] PCP - General Family Medicine 07/22/18 Brittney Causey Switchboard WirerMeat Market Manager 12/30/23 documented as of this encounter
--- OUTSIDE RECORDS SUMMARY | 2025-06-12 12:20 | XMS_ITS | Encounter Summary ---
Author Organization [employer] Address 75 [facility] 7t [place] [address] Care Team Providers Care Geometrician Name Role Phone Taya Last MD Primary Care Provider [phone] Encounter Details Date Type Department Care Team (Latest Contact Info) Description 06/12/2025 Travel Social History Tobacco Use Types Packs/Day [...] Info) Description 06/30/2025 10:30 AM EDT Nutrition [facility] DIABETES/NUTRITION [address] [place] [address] Katty Vick, TOM [address] [place] [address] 11/06/2025 9:30 AM EST Office Visit [facility] OPTOMETRY [address] [place] [address] Dawit, Lilli, OD 230 [place] [address] documented as of this encounter Visit Diagnoses Not on filedocumented in this encounter Additional Health Concerns Assessment Noted Time PHQ-9 Depression Total Score: 7 03/09/20 25 11:12 AM EDT documented as of this encounter Care Teams Geometrician Relationship Specialty Start Date End Date Taya Last MD 230 [place] [address] PCP - General Family Medicine 07/22/18 Brittney Causey Ibm Websphere Portal DeveloperHot Walker 12/30/23 documented as of this encounter
[2025-06-12 12:41] LABS: Reflex LDLD? No
[2025-06-12 12:50] LABS: Atypical Lymph Absolute Manual 0.3 x10*3/uL; Atypical Lymphs Percent Manual 9 % (0-6); Band Neutrophils Percent 0 % (3-5); Eosinophils Absolute Manual 0.1 X10*3/uL (0.0-0.4); Eosinophils Percent Manual 3 % (0-4); Lymphocytes Absolute Manual 2.0 X10*3/uL (1.2-4.9); Lymphocytes Percent Manual 59 % (20-40); Monocytes Absolute Manual 0.1 X10*3/uL (0.1-1.2); Monocytes Percent Manual 4 % (2-11); Neutrophils Absolute Manual 0.9 X10*3/uL (2.0-8.3); Neutrophils Percent Manual 25 % (45-73)
[2025-06-12 12:51] LABS: RBC Morphology NORMAL
== END 2025-06-12 10:22 | disposition home or self-care (01) ==
LOC: HO.HHCX 10:21
PROVIDERS: PCP Family Medicine; Referring Provider Family Medicine; Visit Provider Family Medicine
DX: M25.512 Pain in left shoulder (principal); G89.29 Other chronic pain; R73.01 Impaired fasting glucose; R74.01 Elevation of levels of liver transaminase levels; Z13.220 Encounter for screening for lipoid disorders
CPT/HCPCS: 36415; 73030; 80048; 80061; 80076; 83036; 85007; 85025; 85027

== ENCOUNTER → 2025-06-12 10:41 | Outpatient (BNV) | payer OTHER, SELFPAY | PROVIDERS: PCP Family Medicine; Referring Provider Family Medicine; Visit Provider Radiology Diagnostic Radiology | DX: M25.512 Pain in left shoulder (principal) | CPT/HCPCS: 73030 ==

== ENCOUNTER 2025-06-14 18:14 | Outpatient (REF) | payer OTHER, SELFPAY ==
--- OUTSIDE RECORDS SUMMARY | 2025-06-12 10:15 | XMS_ITS | Encounter Summary ---
Author Organization [employer] Address [address] [facility] [address] [place] [address] Care Team Providers Care Welding Machine Operator Electroslag Name Role Phone Taya Last MD Primary Care Provider [phone] Encounter Details Date Type Department Care Team ([facility] st Contact Info) Description 06/12/2025 10:15 AM EDT Office Visit [facility] MEDICINE [address] [place] [address] Taya Last MD [address] [place] [address] Impaired fasting glucose (Primary Dx); Dietary counseling; Exercise counseling; Overweight; Screening for lipid disorders; Chronic left shoulder pain Social History Tobacco Use Types Packs/Day [...] got money to buy more: Never True 06/12/2025 Within the past 12 months,th e food you bought just didn't last and you didn't have enough money to get more: Never True 05/2025 Transportation Answer Date Recorded In the past [...] Sign Reading Time Taken Comments Blood Pressure 108/80 06/12/2025 9:42 AM EDT Pulse 91 06/12/2025 9:42 AM EDT Temperature 36 C (96.8 F) 06/12/2025 9:42 AM EDT Respiratory Rate 16 06/12/2025 9:42 AM EDT Oxygen Saturation 100% 06/12/2025 9:42 AM EDT Inhaled Oxygen Concentration - - Weight 66.1 kg (145 lb 12.8 oz) 06/12/2025 9:42 AM EDT Height 162.6 cm (5' 4 ) 06/12/2025 9:42 AM EDT Body Mass Index 25.03 06/12/2025 9:42 AM EDT documented in this encounter Miscellaneous Notes * Assessment & Plan Note - Caro Gonzalez [place] - 06/13/2025 12:31 PM EDT Associated Problem(s): Impaired fasting glucose - A1c 5.6% on 06/12/25 - A1C 5.9% in October 2023, patient has been seeing RD -Annual screening documented in this encounter Plan of Treatment Upcoming Encounters Date Type Department Care Team (Late st Contact Info) Description 06/30/2025 10:30 AM EDT Nutrition [facility] DIABETES/NUTRITION [address] [place] [address] Nava Katty, RD [address] [place] [address] 11/06/2025 9:30 AM EST Office Visit [facility] OPTOMETRY [address] [place] [address] Dawit, Lilli, OD [address] [place] [address] documented as of this encounter Procedures Procedure Name Priority Date/Time Associated Diagnosis Comments XR SHOULDER 2+ VIEWS LEFT Routine 06/12/2025 10:50 AM EDT Chronic left shoulder pain LIPID PANEL WITH REFLEX TO DIRECT LDL Routine 06/12/2025 10:33 AM EDT Screening for lipid disorders HEMOGLOBIN A1C Routine 06/12/2025 10:33 AM EDT Impaired fasting glucose documented in this encounter Results * XR Shoulder 2+ Views Left (06/12/2025 10:50 AM EDT) Anatomical Region Laterality Modality Upper Extremities, Shoulder Left Radi ographic Imaging 06/12/2025 10:5 0 AM EDT Narrative 06/12/2025 11:03 AM EDT [facility] [address] [place] [address] XRay Report Signed Patient: Freida Dwyer I MR#: [id number] : 1960 Acct:[id number] Age/Sex: 65 / F ADM Date: 06/12/25 Loc: HO.HHCX Attending Dr: Taya Last MD Ordering Physician: Taya Last MD Date of Service: 06/12/25 Procedure(s): XR shoulder LT min 2V Accession Number(s): [id number] cc: Taya Last MD Reason for Exam: chronic left shoulder pain, worsening, no injury, limited ROM. EXAMINATION: XR SHOULDER, LEFT CLINICAL INFORMATION: chronic left shoulder pain, worsening, no injury, limited ROM. COMPARISON: None available. TECHNIQUE: AP external rotation, Grashey, scapular Y, and axillary views of the left shoulder. FINDINGS: AC joint is intact and not degenerated. Glenohumeral joint is intact. There is no dislocation. There is no degenerative change. XR/XR shoulder LT min 2V IMPRESSION: Unremarkable left shoulder. Electronically signed by: Toribio Villa MD 06/12/2025 11:00 AM EDT RP Dictated By: Toribio Villa MD Signed By: <Electronically signed by Toribio Villa MD in OV> 06/12/25 1100 DD/ 1050 TD/TT: 06/12/25 1055 Dictating Transcribing Machine Servicer: Procedure Note Donotuseinterpreter, Image - 06/12/2025 [place] [address] XRay Report Signed Patient: Freida Dwyer IMR#: [id number] : 9Acct:[id number] Age/Sex: 65 / FADM Date: 06/12/25 Loc: .HHCX Attending Dr: Taya Last MD Ordering Physician: Taya Last MD Date of Service: 06/12/25 Procedure(s): XR shoulder LT min 2V Accession Number(s): [id number] cc: Taya Last MD Reason for Exam: chronic left shoulder pain, worsening, no injury,limited ROM. EXAMINATION: XR SHOULDER, LEFT CLINICAL INFORMATION: chronic left shoulder pain, worsening, no injury, limited ROM. COMPARISON: None available. TECHNIQUE: AP external rotation, Grashey, scapular Y, and axillary views of the left shoulder. FINDINGS: AC joint is intact and not degenerated. Glenohumeral joint is intact. There is no dislocation. There is no degenerative change. XR/XR shoulder LT min 2V IMPRESSION: Unremarkable left shoulder. Electronically signed by: Toribio Villa MD 06/12/2025 11:00 AM EDT RP Dictated By: Toribio Villa MD Signed By: <Electronically signed by Toribio Villa MD in OV> 06/12/25 1100 DD/ 1050 TD/TT: 06/12/25 1055 Dictating Transcribing Machine Servicer: Taya Last MD IMG XR PROCEDURES Edited Result - Final * (ABNORMAL) Lipid Panel with Reflex to Direct LDL (06/12/2025 10:33 AM EDT) Triglycerides 58 <150 mg/dL [facility] Comment:Desirable Triglyceri de: less than 150 mg/dLBorderline High Triglyceride 150-199 mg/dLHigh Triglyceride: 200-499 mg/dLVery High Triglyceride: greater than or equal to 5OO mg/dL Cholesterol 182 <200 mg/dL [facility] Comment:Desirable Cholestero l: less than 200 mg/dLBorderline High Cholesterol: 200-239 mg/dLHigh Cholesterol: greater than 239 mg/dL LDL Cholesterol Calculated 110(H) <100 mg/dL [facility] Comment:Desirable LDL: less than 100 mg/dLNear Optimal/Above Optimal LDL: 110- 129 mg/dLBorderline High LDL: 130-159 mg/dLHigh LDL: 160-189 mg/dLVery High LDL: greater than or equal to 190 mg/dL HDL Cholesterol 61 >40 mg/dL [facility] Comment:Desirable HDL: great er than 40 mg/dL Note: This HDL assay may give artificially low results in patients with liver disease. Blood 06/12/2025 10:3 3 AM EDT 06/12/2025 11:21 AM EDT Taya Last MD LAB BLOOD ORDERABLES Final Resul t [facility] [address] [place] [address] [phone] * Hemoglobin A1c (06/12/2025 10:33 AM EDT) Hemoglobin A1c 5.6 <6.0 % [facility] Comment:Hemoglobin A1C Refer ence Range Adults: 4.8 - 6.0 % Non diabetic: < 6.0 % Goal: < 7.0 %Additional Action Suggested: > 8.0 %Note: Hemoglobin A1c results are invalid for patients with abnormal amounts of HbF. Blood transfusions may impact the HbA1c concentration in the patient sample. Estimated Average Glucose 114 mg/dL [facility] Comment:eAG = Estimated ave rage glucose which is %A1C expressed asaverage glucose, using the formula of the S0V-OazsqziXkmbqpj Glucose study (ADAG), Diabetes Care, Vol.31,#8,May. 2007 Blood Venous blood specimen / Unknown 06/12/2025 10:33 AM EDT 06/12/2025 11:16 AM EDT us Taya Last MD LAB BLOOD ORDERABLES Final Resul t [facility] [address] [place] [phone] documented in this encounter Visit Diagnoses Diagnosis Impaired fasting glucose- Primary Dietary counseling Dietary surveillance and counseling Exercise counseling Overweight Screening for lipid disorders Chronic left shoulder pain Pain in joint, shoulder region documented in this encounter Additional Health Concerns Assessment Noted Time PHQ-9 Depression Total Score: 7 03/09/20 25 11:12 AM EDT documented as of this encounter Care Teams Welding Machine Operator Electroslag Relationship Specialty Start Date End Date Taya Last MD [address] [place] [id number] PCP - General Family Medicine 07/22/18 Brittney Causey Track ManagerPolitical Science Chair 12/30/23 documented as of this encounter
--- OUTSIDE RECORDS SUMMARY | 2025-06-14 18:49 | XMS_ITS | Encounter Summary ---
Author Organization [employer] Address [address] [place] [address] 7t [place] [address] Care Team Providers Care Pbx Manager Name Role Phone Taya Last MD Primary Care Provider [phone] Reason for Referral * Consultation (Routine) - Authorized Specialty Diagnoses / Procedures Referred By Ely palomo Referred To Contact Nutrition Diagnoses Impaired fasting glucose Vitamin D deficiency Taya Last MD [address] [place] [phone] Phone: tel: fax: Referral ID Status Reason Start Date Expiration Date Visits Requested Visits Authorized [id number] Authorized Consult and Treat 04/06/2025 04/06/2026 1 1 Encounter Details Date Type Department Care Team (Late st Contact Info) Description 04/06/[address] [facility] MEDICINE [address] [place] [address] [phone] Taya Last MD [address] [place] [address] [phone] Impaired fasting glucose (Primary Dx); Vitamin D [...] Description 06/30/2025 10:[address] [facility] DIABETES/NUTRITION [address] [place] [address] Katty Vick, TOM [address] [place] [address] 11/06/2025 9:30 AM EST Office Visit [facility] OPTOMETRY [address] [place] [address] Lilli Pastor, OD 230 [place] [address] Scheduled Referrals Name Type Priority Associated Diagnoses [...] documented as of this encounter Care Teams Pbx Manager Relationship Specialty Start Date End Date Taya Last MD [address] [place] [address] PCP - General Family Medicine 07/22/18 Brittney Causey Athletic Equipment ManagerDirector Of Manufacturing Operations 12/30/23 documented as of this encounter
--- OUTSIDE RECORDS SUMMARY | 2025-06-14 18:49 | XMS_ITS | Encounter Summary ---
Author Organization [email or web address] Address [address] [facility] [address] 7t [place] [address] Care Team Providers Care Incinerator Plant Laborer Name Role Phone Taya Last MD Primary Care Provider [phone] Encounter Details Date Type Department Care Team ([facility] st Contact Info) Description 09/14/2023 Orders Only [facility] MEDICINE [address] [place] [address] Taya Last MD 230 [place] [address] Atypical chest pain Social History Tobacco Use [...] Info) Description 06/30/2025 10:30 AM EDT Nutrition [facility] DIABETES/NUTRITION 230 [place] [address] Katty Vick, RD 230 [place] [address] 11/06/2025 9:30 AM EST Office Visit [facility] OPTOMETRY [address] [place], [place] [phone] Dawit, Lilli, OD 230 [place] [address] documented as of this encounter Visit Diagnoses Diagnosis Atypical chest pain Other chest pain documented in this encounter Additional Health Concerns Assessment Noted Time PHQ-9 Depression Total Score: 8 11/27/19 23 9:42 AM EST documented as of this encounter Care Teams Incinerator Plant Laborer Relationship Specialty Start Date End Date Taya Last MD [address] [place] [address] PCP - General Family Medicine 07/22/18 Brittney Causey Human Services InstructorField Supervisor 12/30/23 documented as of this encounter
--- OUTSIDE RECORDS SUMMARY | 2025-06-14 18:49 | XMS_ITS | Encounter Summary ---
Author Organization [employer] Address [address] [facility] 7t [place] [address] Care Team Providers Care Automotive Glazier Name Role Phone Taya Last MD Primary Care Provider [phone] Encounter Details Date Type Department Care Team ([facility] st Contact Info) Description 07/13/2024 Orders Only [facility] CHC MED & PEDS [address] [place], [place] [phone] Lori Cooper MD [address] [place] [address] Paresthesia (Primary Dx) Social History Tobacco Use [...] Info) Description 06/30/2025 10:30 AM EDT Nutrition [facility] DIABETES/NUTRITION 230 [place] [address] Katty Vick, RD 230 [place] [address] 11/06/2025 9:30 AM EST Office Visit [facility] OPTOMETRY [address] [place] [address] Dawit, Lilli, OD 230 [place] [address] Scheduled Orders Name Type Priority Associated Diagnoses [...] documented as of this encounter Care Teams Automotive Glazier Relationship Specialty Start Date End Date Taya Last MD 230 [place] [address] PCP - General Family Medicine 07/22/18 Brittney Causey Comfort Station AttendantOffset Lithographic Press Operator 12/30/23 documented as of this encounter
--- OUTSIDE RECORDS SUMMARY | 2025-06-14 18:49 | XMS_ITS | Encounter Summary ---
Author Organization [employer] Address [address] [facility] [address] 7t [place] [address] Care Team Providers Care Train Starter Name Role Phone Taya Last MD Primary Care Provider [phone] Encounter Details Date Type Department Care Team ([facility] st Contact Info) Description 09/14/2023 Orders Only [facility] MEDICINE [address] [place] [address] Taya Last MD [address] [place] [address] Social History Tobacco Use Types Packs/Day Years [...] Info) Description 06/30/2025 10:30 AM EDT Nutrition [facility] DIABETES/NUTRITION [address] [place] [address] Katty Vick, RD 230 [place] [address] 11/06/2025 9:30 AM EST Office Visit [facility] OPTOMETRY [address] [place] [address] Dawit, Lilli, OD 230 [place] [address] documented as of this encounter Visit Diagnoses Not on filedocumented in this encounter Additional Health Concerns Assessment Noted Time PHQ-9 Depression Total Score: 8 11/27/19 23 9:42 AM EST documented as of this encounter Care Teams Train Starter Relationship Specialty Start Date End Date Taya Last MD 230 [place], [place] [phone] PCP - General Family Medicine 07/22/18 Brittney Causey Cd Reactor Operator HeadNutrition Representative 12/30/23 documented as of this encounter
--- OUTSIDE RECORDS SUMMARY | 2025-06-14 18:49 | XMS_ITS | Encounter Summary ---
Author Organization [employer] Address [address] [facility] [address] 7t [place] [address] Care Team Providers Care Dice Spotter Name Role Phone Taya Last MD Primary Care Provider [phone] Encounter Details Date Type Department Care Team ([facility] st Contact Info) Description 08/03/2023 Orders Only [facility] WALK-IN CENTER [address] [place] [address] Jennie Archer FNP [address] [place] [address] Social History Tobacco Use Types Packs/Day Years [...] Info) Description 06/30/2025 10:30 AM EDT Nutrition [facility] DIABETES/NUTRITION [address] [place] [address] Katty Vick, RD 230 [place] [address] 11/06/2025 9:30 AM EST Office Visit [facility] OPTOMETRY [address] [place], [place] [phone] Dawit, Lilli, OD 230 [place] [address] documented as of this encounter Visit Diagnoses Not on filedocumented in this encounter Additional Health Concerns Assessment Noted Time PHQ-9 Depression Total Score: 8 11/27/19 23 9:42 AM EST documented as of this encounter Care Teams Dice Spotter Relationship Specialty Start Date End Date Taya Last MD 230 [place] [address] PCP - General Family Medicine 07/22/18 Brittney Causey Rehabilitation NurseGeotechnicial Properties Technician 12/30/23 documented as of this encounter
--- OUTSIDE RECORDS SUMMARY | 2025-06-14 18:49 | XMS_ITS | Encounter Summary ---
Author Organization [employer] Address [address] [facility] 7t [place] [address] Care Team Providers Care Rotor Winder Name Role Phone Taya Last MD Primary Care Provider [phone] Reason for Visit * Reason Comments Med Refill Encounter Details Date Type Department Care Team ([facility] st Contact Info) Description 06/12/2025 Refill [facility] MEDICINE [address] [place] [address] Taya Last MD [address] [place] [address] Social History Tobacco Use Types Packs/Day Years [...] Info) Description 06/30/2025 10:30 AM EDT Nutrition [facility] DIABETES/NUTRITION [address] [place] [address] Katty Vick, TOM [address] [place] [address] 11/06/2025 9:30 AM EST Office Visit [facility] OPTOMETRY [address] [place] [address] Dawit, Lilli, OD 230 [place] [address] documented as of this encounter Visit Diagnoses Not on filedocumented in this encounter Additional Health Concerns Assessment Noted Time PHQ-9 Depression Total Score: 7 03/09/20 25 11:12 AM EDT documented as of this encounter Care Teams Rotor Winder Relationship Specialty Start Date End Date Taya Last MD [address] [place] [address] PCP - General Family Medicine 07/22/18 Brittney Causey Colorist FormulatorRug Cleaner 12/30/23 documented as of this encounter
--- OUTSIDE RECORDS SUMMARY | 2025-06-14 18:49 | XMS_ITS | Encounter Summary ---
Author Organization [employer] Address 75 [facility] 7t [place] [address] Care Team Providers Care Gaming Floor Supervisor Name Role Phone Taya Last MD Primary Care Provider [phone] Encounter Details Date Type Department Care Team (Late st Contact Info) Description 02/06/2023 Orders Only [facility] MEDICINE [address] [place] [address] Taya Last MD [address] [place] [address] Premature beats (Primary Dx); Palpitation; Right arm [...] Info) Description 06/30/2025 10:30 AM EDT Nutrition [facility] DIABETES/NUTRITION [address] [place] [address] Katty Vick, TOM [address] [place] [address] 11/06/2025 9:30 AM EST Office Visit [facility] OPTOMETRY [address] [place] [address] Lilli Pastor, OD 230 [place] [address] documented as of this encounter Visit Diagnoses Diagnosis Premature beats- Primary Unspecified premature beats Palpitation Palpitations Right arm pain Pain in soft tissues of limb documented in this encounter Additional Health Concerns Assessment Noted Time PHQ-9 Depression Total Score: 8 11/27/19 23 9:42 AM EST documented as of this encounter Care Teams Gaming Floor Supervisor Relationship Specialty Start Date End Date Taya Last MD [address] [place] [address] PCP - General Family Medicine 07/22/18 Brittney Causey Construction Job TitlesClassics Professor 12/30/23 documented as of this encounter
--- OUTSIDE RECORDS SUMMARY | 2025-06-14 18:49 | XMS_ITS | Encounter Summary ---
Author Organization [employer] Address [address] [facility] 7t [place] [address] Care Team Providers Care Chestnut Tanner Name Role Phone Taya Last MD Primary Care Provider [phone] Encounter Details Date Type Department Care Team [...] Info) Description 06/30/2025 10:30 AM EDT Nutrition [facility] DIABETES/NUTRITION [address] [place] [address] Katty Vick, TOM [address] [place] [address] 11/06/2025 9:30 AM EST Office Visit [facility] OPTOMETRY [address] [place] [address] Dawit, Lilli, OD 230 [place] [address] documented as of this encounter Visit Diagnoses Not on filedocumented in this encounter Additional Health Concerns Assessment Noted Time PHQ-9 Depression Total Score: 7 03/09/20 25 11:12 AM EDT documented as of this encounter Care Teams Chestnut Tanner Relationship Specialty Start Date End Date Taya Last MD [address] [place] [address] PCP - General Family Medicine 07/22/18 Brittney Causey Alpaca FarmerHearing Aid Specialist 12/30/23 documented as of this encounter
--- OUTSIDE RECORDS SUMMARY | 2025-06-14 18:49 | XMS_ITS | Encounter Summary ---
Author Organization [employer] Address [address] [place] [address] 7t [place] [address] Care Team Providers Care General Practitioner Name Role Phone Taya Last MD Primary Care Provider [phone] Reason for Visit * Reason Onset Date Comments Referral 01/30/2023 Encounter Details Date Type Department Care Team ([facility] st Contact Info) Description 01/30/2023 Telephone [facility] MEDICINE [address] [place] [address] Taya Last MD 230 [place] [address] Referral Social History Tobacco Use Types Packs/Day [...] Info) Description 06/30/2025 10:30 AM EDT Nutrition [facility] DIABETES/NUTRITION [address] [place] [address] [place] [address] 11/06/2025 9:30 AM EST Office Visit [facility] OPTOMETRY [address] [place] [address] Lilli Pastor, OD 230 [place] [address] documented as of this encounter Visit Diagnoses Not on filedocumented in this encounter Additional Health Concerns Assessment Noted Time PHQ-9 Depression Total Score: 8 11/27/19 23 9:42 AM EST documented as of this encounter Care Teams General Practitioner Relationship Specialty Start Date End Date Taya Last MD 230 [place] [address] PCP - General Family Medicine 07/22/18 Brittney Causey Monorail Car OperatorLivestock Rancher 12/30/23 documented as of this encounter
--- OUTSIDE RECORDS SUMMARY | 2025-06-14 18:49 | XMS_ITS | Encounter Summary ---
Author Organization [employer] Address [address] [facility] [address] 7t [place] [address] Care Team Providers Care Medical Physics Researcher Name Role Phone Taya Last MD Primary Care Provider [phone] Encounter Details Date Type Department Care Team ([facility] st Contact Info) Description 06/09/2025 Telephone [facility] [address] [place] [address] Rose Hayden [place] Social History Tobacco Use [...] t he electric, gas, oil or water [employer] threatened to shut off services in your [...] Description 06/30/2025 10:[address] [facility] DIABETES/NUTRITION [address] [place] [address] Katty Vick, RD 230 [place] [address] 11/06/2025 9:30 AM EST Office Visit [facility] OPTOMETRY [address] [place] [address] Dawit, Lilli, OD 230 [place] [address] documented as of this encounter Visit Diagnoses Not on filedocumented in this encounter Additional Health Concerns Assessment Noted Time PHQ-9 Depression Total Score: 7 03/09/20 25 11:12 AM EDT documented as of this encounter Care Teams Medical Physics Researcher Relationship Specialty Start Date End Date Taya Last MD [address] [place] [address] PCP - General Family Medicine 07/22/18 Brittney Causey Integrated Program TeacherLaborer Electroplating 12/30/23 documented as of this encounter
--- OUTSIDE RECORDS SUMMARY | 2025-06-14 18:49 | XMS_ITS | Encounter Summary ---
Author Organization [employer] Address [address] [facility] 7t [place] [address] Care Team Providers Care Heel Builder Name Role Phone Taya Last MD Primary Care Provider [phone] Encounter Details Date Type Department Care Team ([facility] st Contact Info) Description 06/12/2025 Orders Only [facility] MEDICINE [address] [place] [address] Taya Last MD [address] [place] [address] Social History Tobacco Use Types Packs/Day Years [...] 06/30/2025 10:30 AM EDT Nutrition [facility] DIABETES/NUTRITION [address] [place] [address] Katty Vick, TOM [address] [place] [address] 11/06/2025 9:30 AM EST Office Visit [facility] OPTOMETRY [address] [place] [address] Dawit, Lilli, OD 230 [place] [address] documented as of this encounter Procedures Procedure Name Priority Date/Time Associated Diagnosis Comments COMPLETE BLOOD COUNT MAN DIF Routine 06/12/2025 10:33 AM EDT documented in this encounter Results * (ABNORMAL) Complete Blood Count Manual Diff (06/12/2025 10:33 AM EDT) White Blood Count 3.4(L) 4.8 - 10.8 X10*3/uL [facility] Red Blood Count 3.93(L) 4.20 - 5.50 X10*6/uL [facility] Hemoglobin 12.9 12.0 - 16.0 g/dl [facility] Hematocrit 37.7 37.0 - 47.0 % [facility] Mean Corpuscular Volume 95.9 80.0 - 98.0 fL [facility] Mean Corpuscular Hemoglobin 32.8 27.0 - 33.0 pg [facility] Mean Corpuscular HGB Conc 34.2 31.0 - 35.0 g/dl [facility] Red Cell Distribution Width 12.2 11.0 - 16.0 % [facility] Platelet Count 194 160 - 400 X10*3/uL [facility] Mean Platelet Volume 11.6 9.4 - 12.3 fL [facility] NRBC Pct Auto 0.0 0.0 - 0.2 /100WBC [facility] NRBC Abs Auto 0.000 0.0 - 0.012 X10*3/uL [facility] Neutrophils % Manual 25(L) 45 - 73 % [facility] Band Neutrophils Percent 0(L) 3 - 5 % [facility] Lymphocytes Percent Manual 59(H) 20 - 40 % [facility] Atypical Lymphs Percent Manual 9(H) 0 - 6 % [facility] Monocytes Percent Manual 4 2 - 11 % [facility] EOSINOPHILS % MANUAL 3 0 - 4 % [facility] NEUTROPHILS ABSOLUTE MANUAL 0.9(L) 2.0 - 8.3 X10*3/uL [facility] LYMPHOCYTES ABSOLUTE MANUAL 2.0 1.2 - 4.9 X10*3/uL [facility] Atypical Lymph Absolute Manual 0.3 x10*3/uL [facility] MONOCYTES ABSOLUTE MANUAL 0.1 0.1 - 1.2 X10*3/uL [facility] EOSINOPHILS ABSOLUTE MANUAL 0.1 0.0 - 0.4 X10*3/uL [facility] Platelet Estimate NORMAL NORMAL [facility] Platelet Morphology Comment NORMAL [facility] RBC Morphology NORMAL [facility] 06/12/2025 10:3 3 AM EDT 06/12/2025 11:16 AM EDT us Taya Last MD LAB BLOOD ORDERABLES Final Resul t [facility] [address] [place] [address] [phone] documented in this encounter Visit Diagnoses Not on filedocumented in this encounter Additional Health Concerns Assessment Noted Time PHQ-9 Depression Total Score: 7 03/09/20 25 11:12 AM EDT documented as of this encounter Care Teams Heel Builder Relationship Specialty Start Date End Date Taya Last MD [address] [place] [address] PCP - General Family Medicine 07/22/18 Brittney Causey Contact Center AgentChef'S Assistant 12/30/23 documented as of this encounter
--- OUTSIDE RECORDS SUMMARY | 2025-06-14 18:49 | XMS_ITS | Encounter Summary ---
Author Organization [employer] Address [address] [facility] 7t [place] [address] Care Team Providers Care Filler Feeder Name Role Phone Taya Last MD Primary Care Provider [phone] Reason for Visit * Reason Onset Date Comments Appointment Request 11/15/2024 Encounter Details Date Type Department Care Team ([facility] Contact Info) Description 11/15/2024 Telephone [facility] MEDICINE [address] [place], [place] [phone] Taya Last MD [address] [place] [address] Appointment Request Social History Tobacco Use Types [...] has been drinking Fluid but no food. Care Program Resident Offered her the Apt with [facility] on 12/27/24 But she stated was too far away. Pt would like aApt as soon as possible. Contact pt at [phone] documented in this encounter Plan of Treatment Upcoming Encounters Date Type Department Care Team (Late st Contact Info) Description 06/30/2025 10:30 AM EDT Nutrition [facility] DIABETES/NUTRITION [address] [place] [address] Katty Vick, TOM [address] [place] [address] 11/06/2025 9:30 AM EST Office Visit [facility] OPTOMETRY [address] [place] [address] Lilli Pastor, OD [address] [place] [address] documented as of this encounter Visit Diagnoses Not on filedocumented in this encounter Additional Health Concerns Assessment Noted Time PHQ-9 Depression Total Score: 12 025 2:10 PM EST documented as of this encounter Care Teams Filler Feeder Relationship Specialty Start Date End Date Taya Last MD [address] [place] [address] PCP - General Family Medicine 07/22/18 Brittney Causey Staff TrainerWindows Server Administrator 12/30/23 documented as of this encounter
--- OUTSIDE RECORDS SUMMARY | 2025-06-14 18:49 | XMS_ITS | Clinical Summary ---
Author Organization [employer] Address [address] [place] [address] [address] [place] [address] Care Team Providers Care Rn Transport Name Role Phone Taya Weaver MD Primary Care Provider [phone] Allergies Active Allergy Reactions Criticality Noted Date Comments Apricot Flavoring Agent (Non-Screening) 11/15/2024 Stanley 11/15/2024 Coconut Flavoring Agent (Non-Screening) 11/15/2024 Nabumetone Palpitations Low 12/18/2021 Other reaction(s): Crying Oxycodone 12/24/2017 Traverse Flavoring Agent (Non-Screening) 11/15/2024 Pineapple Flavoring Agent (Non-Screening) 11/15/2024 Shellfish Allergy 11/08/2015 Shellfish-Derived Products 3 Medications * This document contains information received from the source organization and may not represent a complete record from that organization. meclizine (Antivert) 25 MG tablet 1 tab po BID 60 tablet 3 Active dilTIAZem CD (Cardizem CD) 120 MG 24 hr capsule Take 120 mg by mouth Once per day. Active acetaminophen (Tylenol 8 Hour) 650 MG ER tabletIndicat ions:Pain Take 1 tablet by mouth every 8 hours as needed for pain or fever 60 tablet 3 Active cholecalcifer ol VITAMIN D (Vitamin D-3) 50 MCG (1999) capsule Take 1 capsule (50 mcg) by mouth Once per day. 90 capsule 3 Active gabapentin (Neurontin) 100 MG capsule Take 1 capsule by mouth every night. May increase up to 3 tablets at bedtime 90 capsule 11 08/28/2 024 Active QuickVue At-Home Covid-19 Test kitIndication s:Atypical chest pain USE DIRECTED 2 kit 1 024 Active carbamide peroxide (Debrox) 6.5 % otic solutionIndic ations:Impact ed cerumen of left ear 4 gtt left ear for 3 days- persian 15 mL 024 Active lidocaine (Lidoderm) 5 % patchIndicati ons:Chronic pain of both shoulders,Fib romyalgia Apply 1 patch to neck and 1 patch to back and leave on for 12 hours as needed. 60 patch 3 025 Active Symbicort 80-4.5 MCG/ACT inhaler INHALE 2 PUFFS BY MOUTH TWICE DAILY IN THE MORNING AND IN THE EVENING 1 each 6 Active albuterol (Ventolin HFA) 108 (90 Base) MCG/ACT inhaler Inhale 2 puffs every 4 (four) hours if needed for wheezing or shortness of breath. 54 g 3 025 2025 Active Spacer/Aero-H olding Chambers (OptiChamber Alejandra) misc 1 each every 4 (four) hours if needed (asthma). 2 each 025 Active fluticasone (Flonase) 50 MCG/ACT nasal spray INSTILL 1 SPRAY IN EACH NOSTRIL ONCE DAILY 16 g 3 025 Active omeprazole (PriLOSEC) [address] capsuleIndica tions:Epigast hafsa pain Take 1 capsule (40 mg) by mouth before breakfast and before evening meal. Do not crush or chew. 60 capsule 025 2025 Active amitriptyline (Elavil) 10 MG tablet TAKE 1 TABLET BY MOUTH AT BEDTIME FOR 1 WEEK THEN 2 TABLETS AT BEDTIME 025 Active Clotrimazole 1 % ointment Apply topically to affected area once daily 56 g 025 Active EPINEPHrine (Epipen) 0.3 MG/0.3ML injection syringe INJECT INTRAMUSCULARLY DIRECTED ON PACKAGE AND GO TO EMERGENCY ROOM 2 each Active cetirizine (ZyrTEC) 10 MG tablet TAKE 1 TABLET BY MOUTH DAILY IN THE MORNING 90 tablet 3 025 Active senna (Senokot) 8.6 MG tablet Take 1 tablet (8.6 mg) by mouth if needed at bedtime for constipation. 90 tablet 3 025 Active bisacodyl (Dulcolax) 5 MG EC tablet Take 1 tablet by mouth every 3 days as needed for constipation. Do not crush, chew, or split. 30 tablet 1 025 Active cetirizine (ZyrTEC) 10 MG tablet Take 1 tablet (10 mg) by mouth in the morning. 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 06/01/2024 Assessment & Plan (03/10/2025 5:35 [...] (03/10/2025 5:32 PM EDT): - Followed by [facility]iology, last seen in January 2025 - Currently prescribed diltiazem 120 mg daily Assessment & Plan (06/03/2024 6:38 AM EDT): - Followed by [facility] Cardiology, last seen in March 2024 - Currently prescribed diltiazem 120 mg daily Assessment & Plan (01/28/2024 12:23 PM EDT): - Followed by [facility] Cardiology, last seen on 09/02/23 - Currently prescribed diltiazem 180 mg daily - Most recent Holter after starting diltiazem showed no SVT, still PAC and sinus tachycardia Assessment & Plan (09/30/2023 5:44 AM EST): - Followed by [facility] Cardiology, last seen on 09/02/23 - Currently prescribed diltiazem 180 mg daily - Most recent Holter after starting diltiazem showed no SVT, still PAC and sinus tachycardia Assessment & Plan (07/06/2023 5:41 AM EDT): - Seen by [facility], [facility], on 06/02/23. - 02/16/23, Holter [...] / discontinue cyclobenzaprine. - Recommended to notify facer operator about when she started started taking Diltiazem during the evaluation Assessment & Plan (03/16/2023 10:50 AM EDT): 02/16/23, Holter Monitor showed: frequent PAC & SVT's -symptoms started since COVID -will refer her to [facility] Chronic right shoulder pain 03/15/2023 Assessment & [...] (03/10/2025 5:37 PM EDT): Previously followed by [facility]. -Normal workup for autoimmune disorder. -No Lupus or Rheumatoid Arthritis. -Completed PT at [facility] in May 2022. -Recommended to restart acupuncture. -Held cyclobenzaprine while Holter monitor evaluation; resume again -Discussed the trial of Cymbalta; patient is comfortable with gabapentin only at this time Assessment & Plan (06/01/2024 11:51 AM EDT): Previously followed by [facility]. -Normal workup for autoimmune disorder. -No Lupus or Rheumatoid Arthritis. -Completed PT at [facility] in May 2022. -Recommended to restart acupuncture. -Held cyclobenzaprine while Holter monitor evaluation; resume again -Discussed the trial of Cymbalta; patient is comfortable with gabapentin only at this time Assessment & Plan (01/28/2024 12:23 PM EDT): Previously followed by [facility]. -Normal workup for autoimmune disorder. -No Lupus or Rheumatoid Arthritis. -Completed PT at [facility] in May 2022. -Recommended to restart acupuncture. -Held cyclobenzaprine while Holter monitor evaluation; resume again -Discussed the trial of Cymbalta. Agreed to have cardiology evaluation prior to starting Cymbalta Assessment & Plan (09/30/2023 5:53 AM EST): Previously followed by [facility]. -Normal workup for autoimmune disorder. -No Lupus or Rheumatoid Arthritis. -Completed PT at [facility] in May 2022. -Recommended to restart acupuncture. -Held cyclobenzaprine while Holter monitor evaluation; resume again -Discussed the trial of Cymbalta. Agreed to have cardiology evaluation prior to starting Cymbalta Assessment & Plan (06/30/2023 5:15 PM EDT): Previously followed by [facility]. -Normal workup for autoimmune disorder. -No Lupus or Rheumatoid Arthritis. -Completed PT at [facility] in May 2022. -Recommended to restart acupuncture. -Held cyclobenzaprine while Holter monitor evaluation; resume again -Discussed the trial of Cymbalta. Agreed to have cardiology evaluation prior to starting Cymbalta Assessment & Plan (03/20/2023 12:14 PM EDT): Previously followed by [facility]. -Normal workup for autoimmune disorder. -No Lupus or Rheumatoid Arthritis. -Completed PT at [facility] in May 2022. -Recommended to restart acupuncture. -Held cyclobenzaprine while Holter monitor evaluation; resume again -Discussed the trial of Cymbalta. Agreed to have cardiology evaluation prior to starting Cymbalta Assessment & Plan (11/27/2022 6:23 PM EST): Previously followed by [facility]. -Normal workup for autoimmune disorder. -No Lupus or Rheumatoid Arthritis. -Will discontinue Cyclobenzaprine until she completes evaluation of Holter Monitor -Completed PT at [facility] in May 2022. -Recommended to restart acupuncture. -Discussed the trial of Cymbalta. Agreed to complete Holter Monitor before starting Cymbalta Atypical chest pain 11/27/2022 Assessment & Plan (06/01/2024 11:53 AM EDT): -Followed by [facility], last seen in March 2024 -03/27/22 Stress test, EKG was negative for ischemia, but pt reported left-sided chest pain, dyspnea, and palpitation. -04/01/22 TTE Left ventricular systolic function was normal, EF 58%. - 04/28/24 exercise nuclear stress test showed no ischemia -Continue lifestyle modifications. -Possibly d/t chostochondritis or anxiety or post-COVID Assessment & Plan (09/30/2023 5:49 AM EST): -Followed by [facility], last seen in Aug 2023 -03/27/22 Stress test, EKG was negative for ischemia, but pt reported left-sided chest pain, dyspnea, and palpitation. -04/01/22 TTE Left ventricular systolic function was normal, EF 58%. -Continue lifestyle modifications. -Possibly d/t chostochondritis or anxiety or post-COVID Follow-up with Cardiology after holter monitor evaluation Assessment & Plan (06/30/2023 5:15 PM EDT): -Seen by [facility], recently in May 2023 -03/27/22 Stress test, EKG was negative for ischemia, but pt reported left-sided chest pain, dyspnea, and palpitation. -04/01/22 TTE Left ventricular systolic function was normal, EF 58%. -Continue lifestyle modifications. -Possibly d/t chostochondritis or anxiety or post-COVID Follow-up with Cardiology after holter monitor evaluation Assessment & Plan (11/27/2022 5:08 AM EST): -Seen by [facility]. -03/27/22 Stress test, EKG was negative for [...] Impaired fasting glucose 11/27/2022 Assessment & Plan (06/13/2025 12:31 PM EDT): - A1c 5.6% on 06/12/25 - A1C 5.9% in October 2023, patient has been seeing RD -Annual screening Assessment & Plan (06/01/2024 11:52 AM EDT): -A1C 5.9% in October 2023, patient has been seeing RD -Annual screening Assessment & Plan (03/20/2023 12:14 PM EDT): -A1C 5.7% in April 2022 -Annual screening Assessment & Plan (11/27/2022 6:38 PM EST): -A1C 5.7% in April 2022 -Annual screening PAC (premature atrial contraction) 11/27/2022 Assessment & Plan (03/10/2025 5:33 PM EDT): -following with [facility] Card[facility], last seen in January 2025 -02/16/23, Holter Monitor showed: frequent PAC & SVT's -symptoms started since COVID -Normal stress test and TTE with EF 58% in March 2022 -seen by facer operator in May 2023, and prescribed diltiazem 120 mg daily -07/02/23 Holter monitor after starting diltiazem showed improvement, average HR 96, PAC 13%, no SVT. Due to PAC burden of 13%, diltiazem was increased to 180 mg daily. -diltiazem was decreased back to 120 mg daily due to patient's dizziness and headache. -continue diltiazem at current dose -continue follow up with facer operator as scheduled Assessment & Plan (06/03/2024 6:37 AM EDT): -following with [facility] Cardiology, last seen in March 2024 -02/16/23, Holter Monitor showed: frequent PAC & SVT's -symptoms started since COVID -Normal stress test and TTE with EF 58% in March 2022 -seen by facer operator in May 2023, and prescribed diltiazem 120 mg daily -07/02/23 Holter monitor after starting diltiazem showed improvement, average HR 96, PAC 13%, no SVT. Due to PAC burden of 13%, diltiazem was increased to 180 mg daily. -diltiazem was decreased back to 120 mg daily due to patient's dizziness and headache. -continue diltiazem at current dose -continue follow up with facer operator as scheduled Assessment & Plan (01/28/2024 12:22 [...] EF 58% in March 2022 -seen by facer operator in May 2023, and prescribed diltiazem 120 mg daily -07/02/23 Holter monitor after starting diltiazem showed improvement, average HR 96, PAC 13%, no SVT -seen by facer operator on 09/02/23, increased diltiazem to 180 mg [...] SVT's -symptoms started since COVID -following with facer operator -pt was prescribed diltiazem 120 mg daily; [...] EF 58% in March 2022 -seen by facer operator in May 2023, and prescribed diltiazem 120 mg daily -07/02/23 Holter monitor after starting diltiazem showed improvement, average HR 96, PAC 13%, no SVT -seen by facer operator on 09/02/23, increased diltiazem to 180 mg daily Assessment & Plan (03/16/2023 10:50 AM EDT): 02/16/23, Holter Monitor showed: frequent PAC & SVT's -symptoms started since COVID -will refer her to [facility] Vitamin D deficiency 09/29/2018 Assessment & Plan [...] safety today -She is connected with S provider, but wants to be referred to [...] Description 06/12/2025 10:15 AM EDT Office Visit [address] [address] Taya Weaver MD Impaired fasting glucose (Primary Dx); Dietary counseling; Exercise counseling; Overweight; Screening for lipid disorders; Chronic left shoulder pain 06/12/2025 Orders Only [facility] MEDICINE [address] [place] [address] Taya Weaver MD 06/12/[address] [address] Taya Weaver MD 06/12/2025 Travel 06/09/2025 Telephone [facility] W[facility] [address] [place] [phone] [place] 05/25/[address] [address] Taya Weaver MD Referral 05/03/2025 Orders Only [facility] External Provider, [facility] 04/06/2025 Orders Only [address] [address] Taya Weaver MD Impaired fasting glucose (Primary Dx); Vitamin D deficiency 04/04/2025 Results Follow-Up [address] [address] Taya Weaver MD XR Knee 3 Views Bilateral 04/04/[address] [address] Taya Weaver MD Referral 03/21/2025 Orders Only [address] [address] Taya Weaver MD from Last 3 Months [...] Description 06/30/2025 10:30 AM EDT Nutrition [facility] DIABETES/NUTRITION [address] [place] [address] Katty Vick, RD [address] [place] [address] 11/06/2025 9:30 AM EST Office Visit [facility] OPTOMETRY [address] [place] [address] Dawit, Lilli, OD [address] [place] [address] Health Maintenance Due Date Last Done Comments [...] Tobacco Screening 06/12/2026 06/12/2025 Mammogram 03/21/2027 03/21/2025, 03/05, 08/21/2022, Additional history exists FIT DNA/Cologuard 12/28/2027 [...] for lipid disorders HEPATIC FUNCTION PANEL Routine 09/08/202 5 10:33 AM EDT Transaminitis BASIC METABOLIC PANEL [...] AM EDT Narrative 06/12/2025 11:03 AM EDT [address] [address] XRay Report Signed Patient: Freida Dwyer I MR#: [id number] 202 : 1960 Acct:[id number] Age/Sex: 65 / F ADM Date: 06/12/25 Loc: HO.HHCX Attending Dr: Taya Weaver MD Ordering Physician: Taya Weaver MD Date of Service: 06/12/25 Procedure(s): XR shoulder LT min 2V Accession Number(s): [id number] cc: Taya Weaver MD Reason for Exam: [...] 06/12/25 1100 DD/ 1050 TD/TT: 06/12/25 1055 Brick Picker: Procedure Note Donotuseinterpreter, Image - 06/12/2025 [place] [address] XRay Report Signed Patient: Freida Dwyer [facility]#: [id number] 202 : 9Acct:[id number] Age/Sex: 65 / FADM Date: 06/12/25 Loc: HO.HHCX Attending Dr: Taya Weaver MD Ordering Physician: Taya Weaver MD Date of Service: 06/12/25 Procedure(s): XR shoulder LT min 2V Accession Number(s): [id number] cc: Taya Weaver MD Reason for Exam: [...] 06/12/25 1100 DD/ 1050 TD/TT: 06/12/25 1055 Brick Picker: Taya Weaver MD IMG XR PROCEDURES Edited Result - Final * (ABNORMAL) Complete Blood Count Manual Diff (06/12/2025 10:33 AM EDT) White Blood Count 3.4(L) 4.8 - 10.8 X10*3/uL [facility] Red Blood Count 3.93(L) 4.20 - 5.50 X10*6/uL [facility] Hemoglobin 12.9 12.0 - 16.0 g/dl [facility] Hematocrit 37.7 37.0 - 47.0 % [facility] Mean Corpuscular Volume 95.9 80.0 - 98.0 fL [facility] Mean Corpuscular Hemoglobin 32.8 27.0 - 33.0 pg [facility] Mean Corpuscular HGB Conc 34.2 31.0 - 35.0 g/dl [facility] Red Cell Distribution Width 12.2 11.0 - 16.0 % [facility] Platelet Count 194 160 - 400 X10*3/uL [facility] Mean Platelet Volume 11.6 9.4 - 12.3 fL [facility] NRBC Pct Auto 0.0 0.0 - 0.2 /100WBC [facility] NRBC Abs Auto 0.000 0.0 - 0.012 X10*3/uL [facility] Neutrophils % Manual 25(L) 45 - 73 % [facility] Band Neutrophils Percent 0(L) 3 - 5 % [facility] Lymphocytes Percent Manual 59(H) 20 - 40 % [facility] Atypical Lymphs Percent Manual 9(H) 0 - 6 % [facility] Monocytes Percent Manual 4 2 - 11 % [facility] EOSINOPHILS % MANUAL 3 0 - 4 % [facility] NEUTROPHILS ABSOLUTE MANUAL 0.9(L) 2.0 - 8.3 X10*3/uL [facility] LYMPHOCYTES ABSOLUTE MANUAL 2.0 1.2 - 4.9 X10*3/uL [facility] Atypical Lymph Absolute Manual 0.3 x10*3/uL [facility] MONOCYTES ABSOLUTE MANUAL 0.1 0.1 - 1.2 X10*3/uL [facility] EOSINOPHILS ABSOLUTE MANUAL 0.1 0.0 - 0.4 X10*3/uL [facility] Platelet Estimate NORMAL NORMAL [facility] Platelet Morphology Comment NORMAL [facility] RBC Morphology NORMAL [facility] 06/12/2025 10:3 3 AM EDT 06/12/2025 11:16 AM EDT us Taya Weaver MD LAB BLOOD ORDERABLES Final Resul t [facility] [address] [place] [address] [phone] * (ABNORMAL) Lipid Panel with Reflex to Direct LDL (06/12/2025 10:33 AM EDT) Triglycerides 58 <150 mg/dL [facility] Comment:Desirable Triglyceri de: less than 150 mg/dLBorderline High Triglyceride 150-199 mg/dLHigh Triglyceride: 200-499 mg/dLVery High Triglyceride: greater than or equal to 5OO mg/dL Cholesterol 182 <200 mg/dL [facility] Comment:Desirable Cholestero l: less than 200 mg/dLBorderline High Cholesterol: 200-239 mg/dLHigh Cholesterol: greater than 239 mg/dL LDL Cholesterol Calculated 110(H) <100 mg/dL [facility] Comment:Desirable LDL: less than 100 mg/dLNear Optimal/Above Optimal LDL: 110- 129 mg/dLBorderline High LDL: 130-159 mg/dLHigh LDL: 160-189 mg/dLVery High LDL: greater than or equal to 190 mg/dL HDL Cholesterol 61 >40 mg/dL [facility] Comment:Desirable HDL: great er than 40 mg/dL Note: This HDL assay may give artificially low results in patients with liver disease. Blood 06/12/2025 10:3 3 AM EDT 06/12/2025 11:21 AM EDT us Taya Weaver MD LAB BLOOD ORDERABLES Final Resul t [facility] [address] [place], [place] [phone] * (ABNORMAL) CBC auto differential (06/12/2025 10:33 AM EDT) White Blood Count 3.4(L) 4.8 - 10.8 X10*3/uL [facility] Red Blood Count 3.93(L) 4.20 - 5.50 X10*6/uL [facility] Hemoglobin 12.9 12.0 - 16.0 g/dl [facility] Hematocrit 37.7 37.0 - 47.0 % [facility] Mean Corpuscular Volume 95.9 80.0 - 98.0 fL [facility] Mean Corpuscular Hemoglobin 32.8 27.0 - 33.0 pg [facility] Mean Corpuscular HGB Conc 34.2 31.0 - 35.0 g/dl [facility] Red Cell Distribution Width 12.2 11.0 - 16.0 % [facility] Platelet Count 194 160 - 400 X10*3/uL [facility] Mean Platelet Volume 11.6 9.4 - 12.3 fL [facility] Neutrophils Percent Auto 25.9(L) 45 - 73 % [facility] Imm Gran Pct Auto 0.3 0.0 - 0.4 % [facility] Lymphocytes Percent Auto 62.4(H) 20 - 40 % [facility] Monocytes Percent Auto 7.6 2 - 11 % [facility] Eosinophils Percent Auto 3.2 0 - 4 % [facility] Basophils Percent Auto 0.6 0 - 2 % [facility] NRBC Pct Auto 0.0 0.0 - 0.2 /100WBC [facility] Neutrophils Absolute Auto 0.9(L) 2.0 - 8.3 x10*3/uL [facility] Imm Gran Abs Auto 0.01 0.00 - 0.03 X10*3/uL [facility] Lymphocytes Absolute Auto 2.1 1.2 - 4.9 X10*3/uL [facility] Monocytes Absolute Auto 0.3 0.1 - 1.2 X10*3/uL [facility] Eosinophils Absolute Auto 0.1 0.0 - 0.4 X10*3/uL [facility] Basophils Absolute Auto 0.0 0.0 - 0.2 X10*3/uL [facility] NRBC Abs Auto 0.000 0.0 - 0.012 X10*3/uL [facility] Blood Venous blood specimen / Unknown 06/12/2025 10:33 AM EDT 06/12/2025 11:16 AM EDT us Taya Weaver MD LAB BLOOD ORDERABLES Edited Resu lt - Final [facility] [address] [place] [address] [phone] * Hemoglobin A1c (06/12/2025 10:33 AM EDT) Hemoglobin A1c 5.6 <6.0 % [facility] Comment:Hemoglobin A1C Refer ence Range Adults: 4.8 - 6.0 % Non diabetic: < 6.0 % Goal: < 7.0 %Additional Action Suggested: > 8.0 %Note: Hemoglobin A1c results are invalid for patients with abnormal amounts of HbF. Blood transfusions may impact the HbA1c concentration in the patient sample. Estimated Average Glucose 114 mg/dL [facility] Comment:eAG = Estimated ave rage glucose which is %A1C expressed asaverage glucose, using the formula of the V2H-RqljgwlEmkuxcm Glucose study (ADAG), Diabetes Care, Vol.31,#8,May. 2007 Blood Venous blood specimen / Unknown 06/12/2025 10:33 AM EDT 06/12/2025 11:16 AM EDT Taya Weaver MD LAB BLOOD ORDERABLES Final Resul t Performing Organization Address [facility] Co de Phone Number [facility] [address] [place] [address] [phone] * Hepatic Function Panel (06/12/2025 10:33 AM EDT) Bilirubin, Total 0.4 0.0 - 1.0 mg/dL [facility] Bilirubin, Direct 0.1 0.0 - 0.5 mg/dL [facility] Aspartate Amino Transferase 29 5 - 31 U/L [facility] Alanine Aminotransferase 24 0 - 31 U/L [facility] Total Protein 7.7 6.5 - 8.0 g/dL [facility] Albumin Level 4.2 3.5 - 5.0 g/dL [facility] Alkaline Phosphatase 94 39 - 117 U/L [facility] Blood Venous blood specimen / Unknown 06/12/2025 10:33 AM EDT 06/12/2025 11:21 AM EDT us Taya Weaver MD LAB BLOOD ORDERABLES Final Resul t Performing Organization Address [facility] Co de Phone Number [facility] [address] [place] [address] [phone] * (ABNORMAL) Basic Metabolic Panel (06/12/2025 10:33 AM EDT) Sodium 139 135 - 145 mmol/L [facility] Potassium 4.4 3.3 - 5.1 mmol/L [facility] Chloride 103 96 - 108 mmol/L [facility] Carbon Dioxide 28 22 - 29 mmol/L [facility] Anion Gap 12 12 - 20 [facility] Urea Nitrogen (BUN) 21(H) 9 - 16 mg/dL [facility] Creatinine, Serum 0.68 0.5 - 1.4 mg/dL [facility] Estimated Glomerular Filt Rate >60 [facility] Comment:Chronic Kidney Disea se: Estimated GFR < 60 mL/min/1.69a0Avflvc Kidney Disease: Estimated GFR < 15 mL/min/1.73m2 Glucose 87 60 - 115 mg/dL [facility] Calcium 9.0 8.4 - 10.2 mg/dL [facility] Blood Venous blood specimen / Unknown 06/12/2025 10:33 AM EDT 06/12/2025 11:21 AM EDT Taya Weaver MD LAB BLOOD ORDERABLES Final Resul t Performing Organization Address City/State/[facility] Co de Phone Number [facility] [address] [place] [phone] * XR Lumbar Spine Complete 4+ Views (05/03/2025 12:30 PM EDT) Anatomical Region Laterality Modality Spine, L-spine Radiographic Vicenta ging 05/03/2025 12:3 0 PM EDT Narrative 05/03/2025 1:36 PM EDT [address] [address] XRay Report Signed Patient: Freida Dwyer I MR#: [id number] 202 : 1960 Acct:[id number] Age/Sex: 64 / F ADM Date: 05/03/25 Loc: HO.PANKAJAY Attending Dr: Candida Victoria CNP Ordering Physician: Candida Victoria CNP Date of Service: 05/03/25 Procedure(s): XR lumbar spine 4V min Accession Number(s): [id number] cc: Candida Victoria CNP; Taya Weaver MD [...] Arash Mcintyre MD 05/03/2025 01:34 PM EDT RP Dictated By: Arash Mcintyre MD Signed By: <Electronically signed by Arash Mcintyre MD in OV> 05/03/25 1334 DD/ 1230 TD/TT: 05/03/25 1250 Brick Picker: Procedure Note Donotuseinterpreter, Image - 05/03/2025 [place] [address] XRay Report Signed Patient: Freida Dwyer IMR#: [id number] 202 : 9Acct:[id number] Age/Sex: 64 / FADM Date: 05/03/25 Loc: AURA Attending Dr: Candida Victoria CNP Ordering Physician: Candida Victoria CNP Date of Service: 05/03/25 Procedure(s): XR lumbar spine 4V min Accession Number(s): [id number] cc: Candida Victoria CNP; Taya Weaver MD [...] 05/03/25 1334 DD/ 1230 TD/TT: 05/03/25 1250 Brick Picker: [facility] External Provider IMG XR PROCEDURES Final Result * XR Knee 3 Views Bilateral (04/04/2025 10:51 AM EDT) Anatomical Region Laterality Modality Lower Extremities, Knee Bilateral Radiogra phic Imaging 04/04/2025 10:5 1 AM EDT Narrative 04/04/2025 12:55 PM EDT [address] [address] XRay Report Signed Patient: Freida Dwyer I MR#: [id number] 202 : 1960 Acct:[id number] Age/Sex: 64 / F ADM Date: 04/04/25 Loc: HO.HHCX Attending Dr: Taya Weaver MD Ordering Physician: Taya Weaver MD Date of Service: 04/04/25 Procedure(s): XR Knee Capo 3V Accession Number(s): [id number] cc: Taya Weaver MD Exam: Three-view bilateral [...] 04/04/25 1252 DD/ 1051 TD/TT: 04/04/25 1100 Brick Picker: Procedure Note Donotuseinterpreter, Image - 04/04/[address] [address] XRay Report Signed Patient: Freida Dwyer IMR#: [id number] 202 : 9Acct:[id number] Age/Sex: 64 / FADM Date: 04/04/25 Loc: HO.HHCX Attending Dr: Taya Weaver MD Ordering Physician: Taya Weaver MD Date of Service: 04/04/25 Procedure(s): XR Knee Capo 3V Accession Number(s): [id number] cc: Taya Weaver MD Exam: Three-view bilateral [...] 04/04/25 1252 DD/ 1051 TD/TT: 04/04/25 1100 Brick Picker: Taya Weaver MD IMG XR PROCEDURES Final Result * BI Mammogram Screening Tomosynthesis Bilateral (03/21/2025 8:40 AM EDT) Anatomical Region Laterality Modality Breast Bilateral Mammography 03/21/2025 8:40 AM EDT Narrative 03/26/2025 8:35 PM EDT [facility] [address] [place], [place] [address] Mammography Report Signed Patient: Freida Dwyer I MR#: [id number] 202 : 1960 Acct:[id number] Age/Sex: 64 / F ADM Date: 03/21/25 Loc: HO.MAMMO Attending Dr: Taya Weaver MD Ordering Physician: Taya Weaver MD Results: 1Negative Date of Service: 03/21/25 Follow Up: 1 Year From Orig inal Mammogram Procedure(s): MM tomosynthesis screening BI Accession Number(s): [id number] cc: Taya Weaver MD EXAMINATION: MM SCREENING [...] Malou Tapia DO in OV> 03/26/252032 DD/ 0840 TD/TT: 03/21/25 0855 Brick Picker: Procedure Note Donotuseinterpreter, Image - 03/26/2025 [facility] [address] [place] [address] Dr. [place], [place] [address] Mammography Report Signed Patient: Freida Dwyer [facility]#: [id number] 202 : 9Acct:[id number] Age/Sex: 64 / FADM Date: 03/21/25 Loc: HO.MAMMO Attending Dr: Taya Weaver MD Ordering Physician: Taya Weaver MDResults: 1Negative Date of Service: 03/21/25Follow Up: 1 Year From Orig inal Mammogram Procedure(s): MM tomosynthesis screening BI Accession Number(s): [id number] cc: Taya Weaver MD EXAMINATION: MM SCREENING [...] DO in OV> 03/26/252032 DD/ 9 TD/TT: 03/21/25 08 Brick Picker: us Taya Weaver MD IMG BI PROCEDURES Edited Result - Final * Cologuard?? colon cancer screening (12/27/2024 1:05 PM EDT) Cologuard Result Negative Negative 12/31/19 25 5:06 AM EDT [employer] (CLIA #:[id number]) Comment: NEGATIVE TEST RESULT. A negative Cologuard [...] (Rocky Pope al, N Engl J Med 2014;370(14):7925-0159) The normal value (reference range) for this assay is negative. COLOGUARD RE-SCREENING RECOMMENDATION: Periodic colorectal cancer screening is an important part of preventive healthcare for asymptomatic individuals at average risk for colorectal cancer. Following a negative Cologuard result, the [place] Cancer Society and U.S. Multi-Society Task Force screening guidelines recommend a Cologuard re-screening interval of 3 years. References: [place] Cancer Society Guideline for Colorectal Cancer Screening: https://www.cancer.org/cancer/jygqd-aezgyt-ggsozz/rpzrzaoew-ozbmpbgwb-goumbnk/ac s-rec ommendations.html.; Kyle DK, Thaddeus CR, Niraj AvendañoK, Colorectal Cancer Screening: Recommendations for Physicians and Patients from the U.S. Multi-Society Task Force on Colorectal Cancer Screening , Am J Gastroenterology 2017; 112:4013-7060. TEST DESCRIPTION: Composite algorithmic analysis of stool [...] (Rocky Pope al, N Engl J Med 2014;370(14):0508-0124.) Cologuard may produce a false negative or false positive result (no colorectal cancer or precancerous polyp present at colonoscopy follow up). A negative Cologuard test result does not guarantee the absence of CRC or advanced adenoma (pre-cancer). The current Cologuard screening interval is every 3 years. ([place] Cancer Society and U.S. Multi-Society Task Force). Cologuard performance data in a 10,000 patient pivotal study using colonoscopy as the reference method can be accessed at the following location: www.Xplenty/results. Additional description of the Cologuard test process, warnings and precautions can be found at www.Space Adventuresrd.Cybits. Stool specimen (specimen) 12/27/2024 1:05 PM EDT 12/28/2024 2:16 PM EDT Taya Weaver MD LAB MOLECULAR DIAGNOSTICS ORDERA BLES Final Result [employer] (CLIA #:[id number]) [address] [place] [address], * THINPREP TIS PAP (03/15/2021 7:10 AM [...] has been evaluated with computer assisted technology. [facility] Particle Board Supervisor: SEE COMMENT [facility] Comment: FELICITY CALIX(ASCP) CT screening location: [place] [address] Interpretation/Res ult: SEE COMMENT [facility] Comment: Negative for intraepithelial lesion or malignancy. Atrophic pattern; predominantly parabasal cells LMP: NONE [facility] Prev. BX: NONE [facility] Prev. PAP: NONE [facility] SOURCE: None given [facility] Statement Of Adequacy: SATISFACTORY FOR EVALUATION [facility] 03/15/2021 7:10 AM EDT us Taya Weaver MD LAB PATHOLOGY ORDERABLES Final R esult [facility] [address] * HPV mRNA E6/E7 (03/15/2021 7:10 AM EDT) HPV nRNA E6/E7 Not Detected Not Detected [facility] Comment: Methodology: Railroad Car Loader-Mediated Amplification This assay detects E6/E7 viral messenger RNA (mRNA) from 14 high-risk HPV types (16,18,31,33,35,39,45,51,52,56,58,59,66,68). The analytical performance characteristics of this assay have been determined by [employer]. The modifications have not been cleared or approved by the FDA. This assay has been validated pursuant to the CLIA regulations and is used for clinical purposes. For additional information, please refer to http://education.Flexion.Cybits/faq/ZNK544u7 (This link if provided for information/ educational purposes only.) NO COLLECTION DATE RECEIVED. WE HAVE USED THE DATE THE SPECIMEN WAS RECEIVED BY THIS LABORATORY THE COLLECTION DATE. IF THIS IS INCORRECT, PLEASE CONTACT CLIENT SERVICES. PHONE NUMBER: 03/15/2021 7:10 AM EDT us Taya Weaver MD LAB BLOOD ORDERABLES Final Resul t [facility] [address] * Colonoscopy (02/02/2020) Colonoscopy Normal Normal 02/02/2020 Nikki Hickey MD HEALTH MAINTENANCE Final Result from Last 3 Months or Most Recently Relevant to Health Maintenance Insurance [place], [place] [facility] STANDARD [facility] LONGTERM OPTIONS (O D-SNP) Care Teams Rn Transport Relationship Specialty Start Date End Date aTya Weaver MD [address] [place] [address] PCP - General Family Medicine 07/22/18 Brittney Causey [employer] TeacherSupervisory Air Intercept Controller 12/30/23
--- OUTSIDE RECORDS SUMMARY | 2025-06-14 18:49 | XMS_ITS | Encounter Summary ---
Author Organization [employer] Address [address] [place] [address] 7t [place] [address] Care Team Providers Care Script Editor Name Role Phone Taya Last MD Primary Care Provider [phone] Reason for Visit * Reason Onset Date Comments Referral 02/02/2023 Encounter Details Date Type Department Care Team ([facility] st Contact Info) Description 02/02/2023 Telephone [facility] MEDICINE [address] [place] [address] Taya Last MD [address] [place] [address] Referral Social History Tobacco Use Types Packs/Day [...] 1:01 PM EDT Tc from Rody with [facility] requesting a referral for Physical Therapy for 60 Visits ( 02/02/2023-02/25/2023) Please fax referral over to [phone] If any questions please contact Rody at [phone] documented in this encounter Plan of Treatment Upcoming Encounters Date Type Department Care Team (Late st Contact Info) Description 06/30/2025 10:30 AM EDT Nutrition [facility] DIABETES/NUTRITION [address] [place] [address] Czep[address]ty man, RD [address] [place] [address] 11/06/2025 9:30 AM EST Office Visit [facility] OPTOMETRY [address] [place] [address] Dawit, Lilli, OD [address] [place] [address] documented as of this encounter Visit Diagnoses Not on filedocumented in this encounter Additional Health Concerns Assessment Noted Time PHQ-9 Depression Total Score: 8 11/27/19 23 9:42 AM EST documented as of this encounter Care Teams Script Editor Relationship Specialty Start Date End Date Taya Last MD [address] [place] [address] PCP - General Family Medicine 07/22/18 Brittney Causey Drilling And Production SuperintendentMedical Staff Manager 12/30/23 documented as of this encounter
== END 2025-06-14 18:15 | disposition home or self-care (01) ==
LOC: HO.HHCLNP 18:14
PROVIDERS: Visit Provider Family Medicine
DX: R10.13 Epigastric pain (principal); R74.01 Elevation of levels of liver transaminase levels; D64.9 Anemia, unspecified
CPT/HCPCS: 87338

== ENCOUNTER 2025-07-21 09:49 | Outpatient (AMB) | payer OTHER, SELFPAY ==
--- NOTE | 2025-07-21 10:04 | MHC.OFFVIS ---
Intake Visit Reasons: [facility] Electric Refrigerator Preparer Services: Electric Refrigerator Preparer Offered & Declined Allergies oxycodone (From PERCOCET) Allergy (Severe, Verified 07/21/25 10:08) HALLUCINATIONS peanut (PEANUT) Allergy (Intermediate, Verified 07/21/25 10:08) ITCHY THROAT/MOUTH tree nut (TREE NUT) Allergy (Intermediate, Verified 07/21/25 10:08) ITCHY THROAT/MOUTH acetaminophen (Percocet) Allergy (Unknown, Verified 07/21/25 10:08) Unknown nabumetone Adverse Reaction (Intermediate, Verified 07/21/25 10:08) Unknown SEAFOOD Allergy (Severe, Uncoded 07/21/25 10:08) ANAPHYLAXIS FRUIT, SKINS Allergy (Intermediate, Uncoded 07/21/25 10:08) ITCHY THROAT/MOUTH Medication List - Last Reconciled 07/21/25 by Candida Victoria, HELIO acetaminophen 1,000 mg PO Q8H PRN acetaminophen ER 650 mg PO Q8H PRN albuterol sulfate 90 mcg/actuation 2 puffs inhalation Q4-6H PRN amitriptyline 20 mg PO BEDTIME budesonide-formoterol 80-4.5 mcg/actuation (Symbicort) 2 puffs inhalation cetirizine 10 mg PO DAILY cholecalciferol (vitamin D3) 50 mcg PO DAILY diltiazem HCl CD (Cartia XT) 120 mg PO DAILY epinephrine 0.3 mg IM Q4H PRN fluticasone propionate 50 mcg/actuation 1 inh inhalation BID gabapentin 100 mg PO DAILY lidocaine 5% (Lidoderm) 1 patch topical DAILY meclizine 25 mg PO DAILY venlafaxine 37.5 mg PO DAILY HPI Comments Details: 65-year-old woman with anxiety, depression, generalized body pains, and chronic headaches that have become daily in 12/2024 and gets whoozy, along with sleep problems getting to sleep and staying asleep since 2023. She previously had occipital headaches with sharp pains and pressure in the left occipital area occasionally spreading to both sides in the temples and frontal area with pressure-type headache around 2013. There was no associated nausea, vomiting, dizziness, photophobia or sonophobia. She had intermittent neck pain and stiffness. In 2010 she had a CAT scan and EEG and brain stem evoked potential, all of those were normal. She was doing okay. Headaches were okay as long as she was taking amitriptyline. She ran out of medication for a few days and headaches increased during that time. Pain was usually left-sided, throbbing-type, with some photophobia and sonophobia. Headaches were better after starting medication again. Sleep was generally okay. Ongoing generalized body pains. She was still having some low back pain. No falls. [facility] Medical History (Updated 07/21/25 @ 10:07 by Candida Victoria CNP) Low back pain Tension headache Arthritis Asthma Asthma Fibromyalgia, primary Family History Sister Breast cancer Mother Colon cancer Father Stomach cancer Social History Household Members: Spouse Household Members Other:: grandchild Housing: House Are you a primary before and after school daycare worker to a significant other at home: No Do you presently have visiting nurse or other home services: No Alcohol intake: never Patient Tobacco Use Status: Never used Tobacco service: No Current occupational status: employed Review of Systems Const Denies chills, Denies daytime sleepiness, Reports difficulty sleeping, Denies fatigue, Denies fever(s), Denies frequent falls, Reports headache(s), Denies increased appetite, Denies poor appetite, Denies snoring, Denies weakness, Denies weight gain and Denies weight loss Eyes Denies loss of vision ENT Denies vertigo, Reports dizziness, Reports headache(s) and Denies neck pain Card Denies chest pain at rest, Denies chest pain with activity, Denies syncope, Denies leg edema, Denies palpitations, Denies dyspnea and Denies dyspnea on exertion Resp Denies cough, Denies dyspnea, Denies dyspnea on exertion and Denies snoring GI Denies abdominal pain, Denies constipation, Denies heartburn, Denies diarrhea and Denies nausea Denies urinary frequency, Denies urinary incontinence and Denies urinary urgency Musc Denies abnormal gait, Reports back pain, Reports myalgias, Reports arthralgias, Denies neck pain, Denies numbness and Denies tingling Neuro Denies abnormal gait, Denies vertigo, Reports dizziness, Denies syncope, Denies frequent falls, Reports headache(s), Denies lack of coordination, Denies loss of vision, Reports memory loss, Denies numbness, Denies Other visual disturbances, Denies restless legs, Denies seizure-like activity, Denies tingling, Denies paresthesias, Denies tremor(s) and Denies weakness Psych Reports anxiety, Reports depression, Denies auditory hallucinations, Reports memory loss and Denies visual hallucinations Endo Denies fatigue and Denies palpitations Physical Exam Const Other: General Appearance:? normal, in no acute distress. Heart:? S1, S2 normal, no murmurs. Lungs:? clear anteriorly and posteriorly. Musculoskeletal:? normal. Extremities:? no edema. Psych:? alert, oriented, cognitive function intact, cooperative with exam. Neuro Other: Abnormal Neurological Findings:?none.? Mental Status: alert and oriented X 3. Normal attention, orientation, memory, and affect. Cranial Nerves: Pupils are equal, round, and reactive to light. External ocular muscles are intact. Visual duarte are full, no ptosis. Face is symmetrical, no facial weakness or droop. Facial sensations are normal. Tongue protrudes in midline. Palate elevates symmetrically. Shoulder shrugging is normal Motor Examination: Normal muscle tone, bulk and strength. No atrophy or fasciculations. No drift of the extended upper extremities. DTR 2+. Plantars are flexor. Sensory Exam: Normal light touch, temperature, pinprick, vibration, and joint-position sensations. Rhomberg sign is absent. Coordination: No ataxia. No titubation. Gait Exam: Within normal limits. Cerebellar Signs: Fuwduc-pi-dozj is okay. Extrapyramidal System: No tremor, rigidity with normal facial expressions. No bradykinesia. No bradyphrenia. Normal arm swing and posture. No propulsion or retropulsion. Speech: Normal. Results Reviewed Results Reviewed: [address] [address] XRay Report Signed Patient: Freida Dwyer I MR#: [id number] : 1960 Acct:[id number] Age/Sex: 64 / F ADM Date: 05/03/25 Loc: HO.ROBER Attending Dr: Candida Victoria CNP Ordering Physician: Candida Victoria CNP Date of Service: 05/03/25 Procedure(s): XR lumbar spine 4V min Accession Number(s): [id number] cc: Candida Victoria LAND INSPECTOR; Taya Last MD~ EXAMINATION: XR LUMBAR SPINE 4 OR MORE VIEWS HISTORY: M54.42 - Lumbago with sciatica, left side COMPARISON: Comparison is made with the prior examination dated 06/07/2024. FINDINGS: AP, lateral, bilateral oblique, and coned down views of the lumbar spine are submitted. Osseous mineralization is normal. Five nonrib-bearing lumbar vertebral bodies are identified, maintaining normal height and alignment without evidence of fracture or spondylolisthesis. Again seen is mild degenerative change at the L4-5 level. The posterior elements are intact. There is no spondylolysis. There is a very large amount of stool throughout the colon. XR/XR lumbar spine 4V min IMPRESSION: 1. Mild degenerative changes at L4-5. 2. Very large amount of stool throughout the colon. Electronically signed by: Arash Mcintyre MD 05/03/2025 01:34 PM EDT RP Dictated By: Arash Mcintyre MD Signed By: <Electronically signed by Arash Mcintyre MD in OV> 05/03/25 1334 Assessment & Plan Assessment & Plan (1) Tension headache: Code(s): G44.209 - Tension-type headache, unspecified, not intractable Category: Medical Plan: Continue amitriptyline 10mg 2 tablets at bedtime. (2) Fibromyalgia: Code(s): M79.7 - Fibromyalgia Category: Medical (3) Dizziness: Code(s): R42 - Dizziness and giddiness Category: Medical (4) Lumbar disc disease: Code(s): M51.9 - Unspecified thoracic, thoracolumbar and lumbosacral intervertebral disc disorder Category: Medical Plan: XR results reviewed. She was interested in PT and referral was placed. Plan . Orders: Orders PT Evaluation and Treatment Today M51.9 - Unspecified thoracic, thoracolumbar and lumbosacral intervertebral disc disorder Coding Level of Care Code Est Pt Level 4 (20037) Diagnoses Tension headache G44.209 Fibromyalgia M79.7 Dizziness R42 Lumbar disc disease M51.9
--- OUTSIDE RECORDS SUMMARY | 2025-07-21 11:22 | XMS_ITS | Encounter Summary ---
Author Organization [employer] Address [address] [facility] 7[address] [place] [address] Care Team Providers Care Nurse Tech Name Role Phone Taya Last MD Primary Care Provider [phone] Reason for Visit * Reason Onset Date Comments Appointment Request 06/30/2025 Encounter Details Date Type Department Care Team ([facility] Contact Info) Description 06/30/2025 Telephone [facility] MEDICINE [address] [place], [place] [phone] Tyaa aLst MD [address] [place] [address] Appointment Request Social History Tobacco Use Types [...] encounter Miscellaneous Notes * Telephone Encounter - Marty eHrnandez - 06/30/2025 10:40 AM EDT TC from pt would like to Reschedule missed visit with Katty ( nutrition ) documented in this encounter Plan of Treatment Upcoming Encounters Date Type Department Care Team (Late st Contact Info) Description 08/15/2025 11:00 AM EST Nutrition [facility] DIABETES/NUTRITION [address] [place] [address] Katty Vick, TOM [address] [place] [address] 11/06/2025 9:30 AM EST Office Visit [facility] OPTOMETRY [address] [place] [address] Dawit, Lilli, OD [address] [place] [address] documented as of this encounter Visit Diagnoses Not on filedocumented in this encounter Additional Health Concerns Assessment Noted Time PHQ-9 Depression Total Score: 7 03/09/20 25 11:12 AM EDT documented as of this encounter Care Teams Nurse Tech Relationship Specialty Start Date End Date Taya Last MD [address] [place] [address] PCP - General Family Medicine 07/22/18 Brittney Causey Client AnalystPublic Safety Dispatcher 12/30/23 documented as of this encounter
--- OUTSIDE RECORDS SUMMARY | 2025-07-21 11:22 | XMS_ITS | Encounter Summary ---
Author Organization [employer] Address [address] [facility] [address] [place] [address] Care Team Providers Care Maintenance Planner Name Role Phone Taya Last MD Primary Care Provider [phone] Encounter Details Date Type Department Care Team ([facility] st Contact Info) Description 07/13/2024 Orders Only [facility] CHC MED & PEDS [address] [place], [place] [phone] Lori Cooper MD [address] [place] [address] Paresthesia (Primary Dx) Social History Tobacco Use [...] Info) Description 08/15/2025 11:00 AM EST Nutrition [facility] DIABETES/NUTRITION [address] [place] [address] Katty Vick, RD [address] [place] [address] 11/06/2025 9:30 AM EST Office Visit [facility] OPTOMETRY [address] [place] [address] Dawit, Lilli, OD [address] [place] [address] Scheduled Orders Name Type Priority Associated Diagnoses [...] documented as of this encounter Care Teams Maintenance Planner Relationship Specialty Start Date End Date Taya Last MD [address] [place] [address] PCP - General Family Medicine 07/22/18 Brittney Causey Asphalt CoaterGlass Crusher 12/30/23 documented as of this encounter
--- OUTSIDE RECORDS SUMMARY | 2025-07-21 11:22 | XMS_ITS | Encounter Summary ---
Author Organization [employer] Address [address] [place] [address] [address] [place] [address] Care Team Providers Care Frame Gate Mortiser Operator Name Role Phone Taya Last MD Primary Care Provider [phone] Reason for Visit * Reason Onset Date Comments Referral 02/02/2023 Encounter Details Date Type Department Care Team ([facility] st Contact Info) Description 02/02/2023 Telephone [facility] MEDICINE [address] [place] [address] Taya Last MD [address] [place] [address] Referral Social History Tobacco Use Types Packs/Day [...] Miscellaneous Notes * Telephone Encounter - Donta Taveras Michael - 02/02/2023 1:01 PM EDT Tc from Rody with [facility] requesting a referral for Physical Therapy for 60 Visits ( 02/02/2023-02/25/2023) Please fax referral over to [phone] If any questions please contact Rody at [phone] documented in this encounter Plan of Treatment Upcoming Encounters Date Type Department Care Team (Late st Contact Info) Description 08/15/2025 11:00 AM EST Nutrition [facility] DIABETES/NUTRITION [address] [place] [address] CzepielAudrae, RD [address] [place] [address] 11/06/2025 9:30 AM EST Office Visit [facility] OPTOMETRY [address] [place] [address] Dawit, Lilli, OD [address] [place] [address] documented as of this encounter Visit Diagnoses Not on filedocumented in this encounter Additional Health Concerns Assessment Noted Time PHQ-9 Depression Total Score: 8 11/27/19 23 9:42 AM EST documented as of this encounter Care Teams Frame Gate Mortiser Operator Relationship Specialty Start Date End Date Taya Last MD [address] [place] [address] PCP - General Family Medicine 07/22/18 Brittney Causey Veterinary NurseSecurity Compliance Specialist 12/30/23 documented as of this encounter
--- OUTSIDE RECORDS SUMMARY | 2025-07-21 11:22 | XMS_ITS | Encounter Summary ---
Author Organization [employer] Address [address] [facility] [address] [place] [address] Care Team Providers Care Tube Worker Name Role Phone Taya Last MD Primary Care Provider [phone] Reason for Visit * Reason Onset Date Comments Appointment Request 11/15/2024 Encounter Details Date Type Department Care Team ([facility] Contact Info) Description 11/15/2024 Telephone [facility] MEDICINE [address] [place], [place] [phone] Taya Last MD [address] [place] [address] Appointment Request Social History Tobacco Use Types [...] has been drinking Fluid but no food. Web Applications Developer Offered her the Apt with [facility] on 12/27/24 But she stated was too far away. Pt would like aApt as soon as possible. Contact pt at [phone] documented in this encounter Plan of Treatment Upcoming Encounters Date Type Department Care Team (Late st Contact Info) Description 08/15/2025 11:00 AM EST Nutrition [facility] DIABETES/NUTRITION [address] [place] [address] Katty Vick, RD [address] [place] [address] 11/06/2025 9:30 AM EST Office Visit [facility] OPTOMETRY [address] [place] [address] Lilli Pastor, OD [address] [place] [address] documented as of this encounter Visit Diagnoses Not on filedocumented in this encounter Additional Health Concerns Assessment Noted Time PHQ-9 Depression Total Score: 12 025 2:10 PM EST documented as of this encounter Care Teams Tube Worker Relationship Specialty Start Date End Date Taya aLst MD [address] [place] [address] PCP - General Family Medicine 07/22/18 Brittney Causey Sheet Metal Pattern CutterGeothermal Powerplant Mechanic Helper 12/30/23 documented as of this encounter
--- OUTSIDE RECORDS SUMMARY | 2025-07-21 11:22 | XMS_ITS | Encounter Summary ---
Author Organization [employer] Address [address] [place] [address] [address] [place] [address] Care Team Providers Care Technical Professional Name Role Phone Taya Last MD Primary Care Provider [phone] Reason for Visit * Reason Onset Date Comments Referral 01/30/2023 Encounter Details Date Type Department Care Team ([facility] st Contact Info) Description 01/30/[address] [facility] MEDICINE [address] [place] [address] Taya Last MD [address] [place] [address] Referral Social History Tobacco Use Types Packs/Day [...] Info) Description 08/15/2025 11:[address] [facility] DIABETES/NUTRITION [address] [place] [address] Katty Vick, TOM [address] [place] [address] 11/06/2025 9:30 AM EST Office Visit [facility] OPTOMETRY [address] [place], [place] [phone] Lilli Pastor, OD [address] [place] [address] documented as of this encounter Visit Diagnoses Not on filedocumented in this encounter Additional Health Concerns Assessment Noted Time PHQ-9 Depression Total Score: 8 11/27/19 23 9:42 AM EST documented as of this encounter Care Teams Technical Professional Relationship Specialty Start Date End Date Taya Last MD [address] [place] [address] PCP - General Family Medicine 07/22/18 Brittney Causey Refinery Operator Gas PlantEmployment Consultant 12/30/23 documented as of this encounter
--- OUTSIDE RECORDS SUMMARY | 2025-07-21 11:22 | XMS_ITS | Clinical Summary ---
Author Organization [employer] Address [address] [place] [address] [address] [place] [address] Care Team Providers Care Profiling Machine Set Up Operator Name Role Phone Taya Weaver MD Primary Care Provider [phone] Allergies Active Allergy Reactions Criticality Noted Date Comments Apricot Flavoring Agent (Non-Screening) 11/15/2024 Stanley 11/15/2024 Coconut Flavoring Agent (Non-Screening) 11/15/2024 Nabumetone Palpitations Low 12/18/2021 Other reaction(s): Crying Oxycodone 12/24/2017 Richmond Flavoring Agent (Non-Screening) 11/15/2024 Pineapple Flavoring Agent (Non-Screening) 11/15/2024 Shellfish Allergy 11/08/2015 Shellfish Protein-Containing Drug Products 02/18/2013 Medications * This document contains information received [...] l VITAMIN D (Vitamin D-3) 50 MCG (1999) [...] 4 gtt left ear for 3 days- [place] citizen 15 mL 08/09/20 24 Active lidocaine (Lidoderm) 5 % patchIndicatio [...] once daily 56 g 03/09/20 25 Active EPINEPHrine (Epipen) 0.3 MG/0.3ML injection syringe INJECT INTRAMUSCULARLY DIRECTED ON PACKAGE AND GO TO EMERGENCY ROOM 2 each 06/13/20 25 Active cetirizine (ZyrTEC) 10 MG tablet TAKE 1 TABLET BY MOUTH DAILY IN THE MORNING 90 tablet 3 06/13/20 25 Active senna (Senokot) 8.6 MG tablet Take 1 tablet (8.6 mg) by mouth if needed at bedtime for constipation. 90 tablet 3 06/12/20 25 Active bisacodyl (Dulcolax) 5 MG EC tablet Take 1 tablet by mouth every 3 days as needed for constipation. Do not crush, chew, or split. 30 tablet 1 06/12/20 25 Active Active Problems Problem Noted Date Diagnosed Date Chronic left shoulder pain 06/18/2025 Anemia 03/10/2025 Assessment & Plan (03/10/2025 5:36 [...] symptoms persist Constipation 11/15/2024 Assessment & Plan (06/18/2025 4:36 PM EDT): - continue fiber-rich diet and drink adequate amount of water - continue judicious use of laxative - normal colonoscopy by Dr. 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, possible rotator cuff injury - XR showed mild arthritis - referred to PT Assessment & Plan (06/01/2024 11:51 AM EDT): [...] (03/10/2025 5:32 PM EDT): - Followed by [facility], last seen in January 2025 - Currently prescribed diltiazem 120 mg daily Assessment & Plan (06/03/2024 6:38 AM EDT): - Followed by [facility], last seen in March 2024 - Currently prescribed diltiazem 120 mg daily Assessment & Plan (01/28/2024 12:23 PM EDT): - Followed by [facility], last seen on 09/02/23 - Currently prescribed diltiazem 180 mg daily - Most recent Holter after starting diltiazem showed no SVT, still PAC and sinus tachycardia Assessment & Plan (09/30/2023 5:44 AM EST): - Followed by [facility], last seen on 09/02/23 - Currently prescribed diltiazem 180 mg daily - Most recent Holter after starting diltiazem showed no SVT, still PAC and sinus tachycardia Assessment & Plan (07/06/2023 5:41 AM EDT): - Seen by Miter Saw Operator, [facility], on 06/02/23. - 02/16/23, Holter Monitor showed: [...] / discontinue cyclobenzaprine. - Recommended to notify statement services representative about when she started started taking Diltiazem during the evaluation Assessment & Plan (03/16/2023 10:50 AM EDT): 02/16/23, Holter Monitor showed: frequent PAC & SVT's -symptoms started since COVID -will refer her to Miter Saw Operator Chronic right shoulder pain 03/15/2023 Assessment & Plan (06/18/2025 4:38 PM EDT): - Seen by Specialist and Dx Cervical Disc disease and Radiculopathy. -previously tried physical therapy for neck pain the right shoulder pain -continue following instructions from Orthopedist -continue APAP -judicious use of cyclobenzaprine - Refer back to physical therapy Assessment & Plan (03/20/2023 12:13 PM EDT): [...] (03/10/2025 5:37 PM EDT): Previously followed by [facility]. -Normal workup for autoimmune disorder. -No Lupus or Rheumatoid Arthritis. -Completed PT at [facility] in May 2022. -Recommended to restart acupuncture. -Held cyclobenzaprine while Holter monitor evaluation; resume again -Discussed the trial of Cymbalta; patient is comfortable with gabapentin only at this time Assessment & Plan (06/01/2024 11:51 AM EDT): Previously followed by [facility]. -Normal workup for autoimmune disorder. -No Lupus or Rheumatoid Arthritis. -Completed PT at [facility] in May 2022. -Recommended to restart acupuncture. -Held cyclobenzaprine while Holter monitor evaluation; resume again -Discussed the trial of Cymbalta; patient is comfortable with gabapentin only at this time Assessment & Plan (01/28/2024 12:23 PM EDT): Previously followed by [facility]. -Normal workup for autoimmune disorder. -No Lupus or Rheumatoid Arthritis. -Completed PT at [facility] in May 2022. -Recommended to restart acupuncture. -Held cyclobenzaprine while Holter monitor evaluation; resume again -Discussed the trial of Cymbalta. Agreed to have cardiology evaluation prior to starting Cymbalta Assessment & Plan (09/30/2023 5:53 AM EST): Previously followed by [facility]. -Normal workup for autoimmune disorder. -No Lupus or Rheumatoid Arthritis. -Completed PT at [facility] in May 2022. -Recommended to restart acupuncture. -Held cyclobenzaprine while Holter monitor evaluation; resume again -Discussed the trial of Cymbalta. Agreed to have cardiology evaluation prior to starting Cymbalta Assessment & Plan (06/30/2023 5:15 PM EDT): Previously followed by [facility]. -Normal workup for autoimmune disorder. -No Lupus or Rheumatoid Arthritis. -Completed PT at [facility] in May 2022. -Recommended to restart acupuncture. -Held cyclobenzaprine while Holter monitor evaluation; resume again -Discussed the trial of Cymbalta. Agreed to have cardiology evaluation prior to starting Cymbalta Assessment & Plan (03/20/2023 12:14 PM EDT): Previously followed by [facility]cker. -Normal workup for autoimmune disorder. -No Lupus or Rheumatoid Arthritis. -Completed PT at [facility] in May 2022. -Recommended to restart acupuncture. -Held cyclobenzaprine while Holter monitor evaluation; resume again -Discussed the trial of Cymbalta. Agreed to have cardiology evaluation prior to starting Cymbalta Assessment & Plan (11/27/2022 6:23 PM EST): Previously followed by [facility]. -Normal workup for autoimmune disorder. -No Lupus or Rheumatoid Arthritis. -Will discontinue Cyclobenzaprine until she completes evaluation of Holter Monitor -Completed PT at [facility] in May 2022. -Recommended to restart acupuncture. -Discussed the trial of Cymbalta. Agreed to complete Holter Monitor before starting Cymbalta Atypical chest pain 11/27/2022 Assessment & Plan (06/01/2024 11:53 AM EDT): -Followed by [facility] Saw Operator, last seen in March 2024 -03/27/22 Stress test, EKG was negative for ischemia, but pt reported left-sided chest pain, dyspnea, and palpitation. -04/01/22 TTE Left ventricular systolic function was normal, EF 58%. - 04/28/24 exercise nuclear stress test showed no ischemia -Continue lifestyle modifications. -Possibly d/t chostochondritis or anxiety or post-COVID Assessment & Plan (09/30/2023 5:49 AM EST): -Followed by [facility] Saw Operator, last seen in Aug 2023 -03/27/22 Stress test, EKG was negative for ischemia, but pt reported left-sided chest pain, dyspnea, and palpitation. -04/01/22 TTE Left ventricular systolic function was normal, EF 58%. -Continue lifestyle modifications. -Possibly d/t chostochondritis or anxiety or post-COVID Follow-up with Cardiology after holter monitor evaluation Assessment & Plan (06/30/2023 5:15 PM EDT): -Seen by [facility] Saw Operator, recently in May 2023 -03/27/22 Stress test, EKG was negative for ischemia, but pt reported left-sided chest pain, dyspnea, and palpitation. -04/01/22 TTE Left ventricular systolic function was normal, EF 58%. -Continue lifestyle modifications. -Possibly d/t chostochondritis or anxiety or post-COVID Follow-up with Cardiology after holter monitor evaluation Assessment & Plan (11/27/2022 5:08 AM EST): -Seen by [facility] Saw Operator. -03/27/22 Stress test, EKG was negative for [...] Plan (03/10/2025 5:33 PM EDT): -following with [facility], last seen in January 2025 -02/16/23, Holter Monitor showed: frequent PAC & SVT's -symptoms started since COVID -Normal stress test and TTE with EF 58% in March 2022 -seen by statement services representative in May 2023, and prescribed diltiazem 120 mg daily -07/02/23 Holter monitor after starting diltiazem showed improvement, average HR 96, PAC 13%, no SVT. Due to PAC burden of 13%, diltiazem was increased to 180 mg daily. -diltiazem was decreased back to 120 mg daily due to patient's dizziness and headache. -continue diltiazem at current dose -continue follow up with statement services representative as scheduled Assessment & Plan (06/03/2024 6:37 AM EDT): -following with [facility], last seen in March 2024 -02/16/23, Holter Monitor showed: frequent PAC & SVT's -symptoms started since COVID -Normal stress test and TTE with EF 58% in March 2022 -seen by statement services representative in May 2023, and prescribed diltiazem 120 mg daily -07/02/23 Holter monitor after starting diltiazem showed improvement, average HR 96, PAC 13%, no SVT. Due to PAC burden of 13%, diltiazem was increased to 180 mg daily. -diltiazem was decreased back to 120 mg daily due to patient's dizziness and headache. -continue diltiazem at current dose -continue follow up with statement services representative as scheduled Assessment & Plan (01/28/2024 12:22 [...] EF 58% in March 2022 -seen by statement services representative in May 2023, and prescribed diltiazem 120 mg daily -07/02/23 Holter monitor after starting diltiazem showed improvement, average HR 96, PAC 13%, no SVT -seen by statement services representative on 09/02/23, increased diltiazem to 180 mg [...] SVT's -symptoms started since COVID -following with statement services representative -pt was prescribed diltiazem 120 mg daily; [...] EF 58% in March 2022 -seen by statement services representative in May 2023, and prescribed diltiazem 120 mg daily -07/02/23 Holter monitor after starting diltiazem showed improvement, average HR 96, PAC 13%, no SVT -seen by statement services representative on 09/02/23, increased diltiazem to 180 mg daily Assessment & Plan (03/16/2023 10:50 AM EDT): 02/16/23, Holter Monitor showed: frequent PAC & SVT's -symptoms started since COVID -will refer her to Miter Saw Operator Vitamin D deficiency 09/29/2018 Assessment & Plan [...] Problem Noted Date Diagnosed Date Resolved Date Acute serous otitis media of left ear 08/09/2024 06/18/2025 Assessment & Plan (08/09/2024 10:50 AM EST): Acute serous otitis, likely due to impacted cerumen. -discussed prescribing debrox drops and should clear on its own. Impacted cerumen of left ear 08/09/2024 06/18/2025 Assessment & Plan (08/09/2024 10:49 AM EST): Severe impacted cerumen on exam without visualization of TM. Irrigated and still mild cerumen, but improved. -will prescribe Debrox ear drops 08/09/24 Hypercholesterolemia 12/24/2017 023 Encounters Date Type Department Care Team Description 06/30/2025 Telephone [facility] MEDICINE [address] [place] [address] [phone] Taya Weaver MD Appointment Request 06/12/2025 10:15 AM EDT Office Visit [facility] MED[facility]INE [address] [place] [address] [phone] Taya Weaver MD Impaired fasting glucose (Primary Dx); Dietary counseling; Exercise counseling; Overweight; Screening for lipid disorders; Chronic left shoulder pain; Constipation, unspecified constipation type; Chronic right shoulder pain; Chronic pain of both shoulders 06/12/2025 Orders Only [facility] MEDICINE [address] [place] [address] 14749 Taya Weaver MD 06/12/2025 Refill [facility] MEDICINE [address] [place] [address] [phone] Taya Weaver MD 06/12/2025 Travel 06/09/2025 Telephone [facility] WALK-IN CENTER [address] [place] [phone] Rose Hayden MA 05/25/2025 Telephone [facility] MEDICINE [address] [place] [address] [phone] Taya Weaver MD Referral 05/03/2025 Orders Only [facility] External Provider, [facility] from Last 3 Months Immunizations Immunization Administration [...] Info) Description 08/15/2025 11:00 AM EST Nutrition [facility] DIABETES/NUTRITION [address] [place] [address] Katty Vick, TOM [address] [place] [address] 11/06/2025 9:30 AM EST Office Visit [facility] OPTOMETRY [address] [place] [address] Dawit, Lilli, OD [address] [place] [address] Health Maintenance Due Date Last Done Comments [...] 03/09/2026 03/09/2025 Depression Screening 03/09/2026 03/09/2025, 03/09/20 25 SDOH Screening 06/12/2026 06/12/2025 Tobacco Screening 06/12/2026 [...] Procedure Name Priority Date/Time Associated Diagnosis Comments HELICOBACTER PYLORI AG, EIA, STOOL Routine 06/14/2025 1:00 PM EDT Anemia, unspecified type Transaminitis Epigastric pain XR SHOULDER 2+ VIEWS LEFT Routine 06/12/2025 [...] 4+ VIEWS Routine 05/03/2025 12:30 PM EDT BI MAMMOGRAM SCREENING TOMOSYNTHESIS BILATERAL Routine 03/21/2025 8:40 AM EDT LAB COLOGUARD COLON CANCER SCREEN Routine 12/27/2024 1:05 PM EDT Screening for colon cancer HPV MRNA E6/E7 Routine 03/15/2021 7:10 AM EDT THINPREP IMAGING SYSTEM PAP Routine 03/15/2021 7:10 AM EDT HM COLONOSCOPY Routine 02/02/2020 from Last 3 Months or Most Recently Relevant to Health Maintenance Results * Helicobacter pylori??Antigen, EIA, Stool (06/14/2025 1:00 PM EDT) H pylori Ag Stool SEE NOTE [facility] Comment:HELICOBACTER PYLORI AG, EIA, STOOL Micro Number: [id number] Test Status: Final Specimen Source: Stool Specimen Quality: Adequate H.pylori Ag: Not Detected Antimicrobials, proton pump inhibitors, and bismuth preparations inhibit H. pylori and ingestion up to two weeks prior to testing may cause false negative results. If clinically indicated the test should be repeated on a new specimen obtained two weeks after discontinuing treatment. Reference Range: Not DetectedTHIS TEST WAS PERFORMED AT:[facility] [place] [phone] RENAE MD Stool Rectal contents / Unknown 06/14/2025 1:00 PM EDT 06/14/2025 6:15 PM EDT Taya Weaver MD LAB BODY FLUIDS AND STOOLS ORDER LAURA Final Result Performing Organization Address City/State/[facility] Co de Phone Number [facility] [address] [place] [phone] * XR Shoulder 2+ Views Left (06/12/2025 10:50 AM EDT) Anatomical Region Laterality Modality Upper Extremities, Shoulder Left Radi ographic Imaging 06/12/2025 10:5 0 AM EDT Narrative 06/12/2025 11:03 AM EDT [address] [address] XRay Report Signed Patient: Freida Dwyer I MR#: [id number] 202 : 1960 Acct:[id number] Age/Sex: 65 / F ADM Date: 06/12/25 Loc: .[facility] Attending Dr: Taya Weaver MD Ordering Physician: Taya Weaver MD Date of Service: 06/12/25 Procedure(s): XR shoulder LT min 2V Accession Number(s): [id number] cc: Taya Weaver MD Reason for Exam: [...] 06/12/25 1100 DD/ 1050 TD/TT: 06/12/25 105 Jacquard Plate Maker: Procedure Note Donotyariter, Image - 06/12/2025 [place] [address] XRay Report Signed Patient: Freida Dwyer IMR#: [id number] : 9Acct:[id number] Age/Sex: 65 / FADM Date: 06/12/25 [facility]: Taya Weaver MD Ordering Physician: Taya Weaver MD Date of Service: 06/12/25 Procedure(s): XR shoulder LT min 2V Accession Number(s): [id number] cc: Taya Weaver MD Reason for Exam: [...] 06/12/25 1100 DD/ 1050 TD/TT: 06/12/25 105 Jacquard Plate Maker: Taya Weaver MD IMG XR PROCEDURES Edited Result - Final * (ABNORMAL) Complete Blood Count Manual Diff (06/12/2025 10:33 AM EDT) White Blood Count 3.4(L) 4.8 - 10.8 X10*3/uL [facility] Red Blood Count 3.93(L) 4.20 - 5.50 X10*6/uL [facility] Hemoglobin 12.9 12.0 - 16.0 g/dl [facility] Hematocrit 37.7 37.0 - 47.0 % [facility] Mean Corpuscular Volume 95.9 80.0 - 98.0 fL [facility] Mean Corpuscular Hemoglobin 32.8 27.0 - 33.0 pg [facility] Mean Corpuscular HGB Conc 34.2 31.0 - 35.0 g/dl [facility] Red Cell Distribution Width 12.2 11.0 - 16.0 % [facility] Platelet Count 194 160 - 400 X10*3/uL [facility] Mean Platelet Volume 11.6 9.4 - 12.3 fL [facility] NRBC Pct Auto 0.0 0.0 - 0.2 /100WBC [facility] NRBC Abs Auto 0.000 0.0 - 0.012 X10*3/uL [facility] Neutrophils % Manual 25(L) 45 - 73 % [facility] Band Neutrophils Percent 0(L) 3 - 5 % [facility] Lymphocytes Percent Manual 59(H) 20 - 40 % [facility] Atypical Lymphs Percent Manual 9(H) 0 - 6 % [facility] Monocytes Percent Manual 4 2 - 11 % [facility] EOSINOPHILS % MANUAL 3 0 - 4 % [facility] NEUTROPHILS ABSOLUTE MANUAL 0.9(L) 2.0 - 8.3 X10*3/uL [facility] LYMPHOCYTES ABSOLUTE MANUAL 2.0 1.2 - 4.9 X10*3/uL [facility] Atypical Lymph Absolute Manual 0.3 x10*3/uL [facility] MONOCYTES ABSOLUTE MANUAL 0.1 0.1 - 1.2 X10*3/uL [facility] EOSINOPHILS ABSOLUTE MANUAL 0.1 0.0 - 0.4 X10*3/uL [facility] Platelet Estimate NORMAL NORMAL [facility] Platelet Morphology Comment NORMAL [facility] RBC Morphology NORMAL [facility] 06/12/2025 10:3 3 AM EDT 06/12/2025 11:16 AM EDT Taya Weaver MD LAB BLOOD ORDERABLES Final Resul t Performing Organization Address [facility] Co de Phone Number [facility] [address] [place] [phone] * (ABNORMAL) Lipid Panel with Reflex to Direct LDL (06/12/2025 10:33 AM EDT) Triglycerides 58 <150 mg/dL [facility] Comment:Desirable Triglyceri de: less than 150 mg/dLBorderline High Triglyceride 150-199 mg/dLHigh Triglyceride: 200-499 mg/dLVery High Triglyceride: greater than or equal to 5OO mg/dL Cholesterol 182 <200 mg/dL [facility] Comment:Desirable Cholestero l: less than 200 mg/dLBorderline High Cholesterol: 200-239 mg/dLHigh Cholesterol: greater than 239 mg/dL LDL Cholesterol Calculated 110(H) <100 mg/dL [facility] Comment:Desirable LDL: less than 100 mg/dLNear Optimal/Above Optimal LDL: 110- 129 mg/dLBorderline High LDL: 130-159 mg/dLHigh LDL: 160-189 mg/dLVery High LDL: greater than or equal to 190 mg/dL HDL Cholesterol 61 >40 mg/dL [facility] Comment:Desirable HDL: great er than 40 mg/dL Note: This HDL assay may give artificially low results in patients with liver disease. Blood 06/12/2025 10:3 3 AM EDT 06/12/2025 11:21 AM EDT Taya Weaver MD LAB BLOOD ORDERABLES Final Resul t Performing Organization Address [facility] Co de Phone Number [facility] [address] [place] [phone] * (ABNORMAL) CBC auto differential (06/12/2025 10:33 AM EDT) White Blood Count 3.4(L) 4.8 - 10.8 X10*3/uL [facility] Red Blood Count 3.93(L) 4.20 - 5.50 X10*6/uL [facility] Hemoglobin 12.9 12.0 - 16.0 g/dl [facility] Hematocrit 37.7 37.0 - 47.0 % [facility] Mean Corpuscular Volume 95.9 80.0 - 98.0 fL [facility] Mean Corpuscular Hemoglobin 32.8 27.0 - 33.0 pg [facility] Mean Corpuscular HGB Conc 34.2 31.0 - 35.0 g/dl [facility] Red Cell Distribution Width 12.2 11.0 - 16.0 % [facility] Platelet Count 194 160 - 400 X10*3/uL [facility] Mean Platelet Volume 11.6 9.4 - 12.3 fL [facility] Neutrophils Percent Auto 25.9(L) 45 - 73 % [facility] Imm Gran Pct Auto 0.3 0.0 - 0.4 % [facility] Lymphocytes Percent Auto 62.4(H) 20 - 40 % [facility] Monocytes Percent Auto 7.6 2 - 11 % [facility] Eosinophils Percent Auto 3.2 0 - 4 % [facility] Basophils Percent Auto 0.6 0 - 2 % [facility] NRBC Pct Auto 0.0 0.0 - 0.2 /100WBC [facility] Neutrophils Absolute Auto 0.9(L) 2.0 - 8.3 x10*3/uL [facility] Imm Gran Abs Auto 0.01 0.00 - 0.03 X10*3/uL [facility] Lymphocytes Absolute Auto 2.1 1.2 - 4.9 X10*3/uL [facility] Monocytes Absolute Auto 0.3 0.1 - 1.2 X10*3/uL [facility] Eosinophils Absolute Auto 0.1 0.0 - 0.4 X10*3/uL [facility] Basophils Absolute Auto 0.0 0.0 - 0.2 X10*3/uL [facility] NRBC Abs Auto 0.000 0.0 - 0.012 X10*3/uL [facility] Blood Venous blood specimen / Unknown 06/12/2025 10:33 AM EDT 06/12/2025 11:16 AM EDT Taya Weaver MD LAB BLOOD ORDERABLES Edited Resu lt - Final Performing Organization Address [facility] Co de Phone Number [facility] [address] [place] [address] [phone] * Hemoglobin A1c (06/12/2025 10:33 AM EDT) Hemoglobin A1c 5.6 <6.0 % [facility] Comment:Hemoglobin A1C Refer ence Range Adults: 4.8 - 6.0 % Non diabetic: < 6.0 % Goal: < 7.0 %Additional Action Suggested: > 8.0 %Note: Hemoglobin A1c results are invalid for patients with abnormal amounts of HbF. Blood transfusions may impact the HbA1c concentration in the patient sample. Estimated Average Glucose 114 mg/dL [facility] Comment:eAG = Estimated ave rage glucose which is %A1C expressed asaverage glucose, using the formula of the D5I-LtuyuxhOldmtey Glucose study (ADAG), Diabetes Care, Vol.31,#8,May. 2007 Blood Venous blood specimen / Unknown 06/12/2025 10:33 AM EDT 06/12/2025 11:16 AM EDT Taya Weaver MD LAB BLOOD ORDERABLES Final Resul t Performing Organization Address [facility] Co de Phone Number [facility] [address] [place] [phone] * Hepatic Function Panel (06/12/2025 10:33 AM EDT) Bilirubin, Total 0.4 0.0 - 1.0 mg/dL [facility] Bilirubin, Direct 0.1 0.0 - 0.5 mg/dL [facility] Aspartate Amino Transferase 29 5 - 31 U/L [facility] Alanine Aminotransferase 24 0 - 31 U/L [facility] Total Protein 7.7 6.5 - 8.0 g/dL [facility] Albumin Level 4.2 3.5 - 5.0 g/dL [facility] Alkaline Phosphatase 94 39 - 117 U/L [facility] Blood Venous blood specimen / Unknown 06/12/2025 10:33 AM EDT 06/12/2025 11:21 AM EDT us Taya Weaver MD LAB BLOOD ORDERABLES Final Resul t [facility] [address] [place] [address] [phone] * (ABNORMAL) Basic Metabolic Panel (06/12/2025 10:33 AM EDT) Sodium 139 135 - 145 mmol/L [facility] Potassium 4.4 3.3 - 5.1 mmol/L [facility] Chloride 103 96 - 108 mmol/L [facility] Carbon Dioxide 28 22 - 29 mmol/L [facility] Anion Gap 12 12 - 20 [facility] Urea Nitrogen (BUN) 21(H) 9 - 16 mg/dL [facility] Creatinine, Serum 0.68 0.5 - 1.4 mg/dL [facility] Estimated Glomerular Filt Rate >60 [facility] Comment:Chronic Kidney Disea se: Estimated GFR < 60 mL/min/[id number] Kidney Disease: Estimated GFR < 15 mL/min/1.73m2 Glucose 87 60 - 115 mg/dL [facility] Calcium 9.0 8.4 - 10.2 mg/dL [facility] Blood Venous blood specimen / Unknown 06/12/2025 10:33 AM EDT 06/12/2025 11:21 AM EDT us Taya Weaver MD LAB BLOOD ORDERABLES Final Resul t [facility] [address] [place] [phone] * XR Lumbar Spine Complete 4+ Views (05/03/2025 12:30 PM EDT) Anatomical Region Laterality Modality Spine, L-spine Radiographic Vicenta ging 05/03/2025 12:3 0 PM EDT Narrative 05/03/2025 1:36 PM EDT [address] [address] XRay Report Signed Patient: Freida Dwyer I MR#: [id number] 202 : 1960 Acct:[id number] Age/Sex: 64 / F ADM Date: 05/03/25 Loc: [facility]UR[facility] Attending Dr: Candida Victoria CNP Ordering Physician: Candida Victoria CNP Date of Service: 05/03/25 Procedure(s): XR lumbar spine 4V min Accession Number(s): [id number] cc: Candida Victoria CNP; Taya Weaver MD [...] 05/03/25 1334 DD/ 1230 TD/TT: 05/03/25 1250 Jacquard Plate Maker: Procedure Note Donrománinterpreter, Image - 05/03/2025 [place] [address] XRay Report Signed Patient: Freida Dwyer IMR#: [id number] : 9Acct:[id number] Age/Sex: 64 / FADM Date: 05/03/25 Loc: HO.XRAY Attending Dr: Candida Victoria CNP Ordering Physician: Candida Victoria CNP Date of Service: 05/03/25 Procedure(s): XR lumbar spine 4V min Accession Number(s): [id number] cc: Candida Victoria CNP; Taya Weaver MD [...] 05/03/25 1334 DD/ 1230 TD/TT: 05/03/25 1250 Jacquard Plate Maker: [facility] External Provider IMG XR PROCEDURES Final Result * BI Mammogram Screening Tomosynthesis Bilateral (03/21/2025 8:40 AM EDT) Anatomical Region Laterality Modality Breast Bilateral Mammography 03/21/2025 8:40 AM EDT Narrative 03/26/2025 8:35 PM EDT [facility] [address] [place], [place] [address] Mammography Report Signed Patient: Freida Dwyer I MR#: [id number] 202 : 1960 Acct:[id number] Age/Sex: 64 / F ADM Date: 03/21/25 Loc: HO.MAMMO Attending Dr: Taya Weaver MD Ordering Physician: Taya Weaver MD Results: 1Negative Date of Service: 03/21/25 Follow Up: 1 Year From [facility] Mammogram Procedure(s): MM tomosynthesis screening BI Accession Number(s): [id number] cc: Taya Weaver MD EXAMINATION: MM SCREENING [...] Malou Tapia DO in OV> 03/26/252032 DD/ TD/TT: 03/21/25 0855 Jacquard Plate Maker: Procedure Note Donotuseinterpreter, Image - 03/26/2025 [place] [facility] [address] [place] [address] Mammography Report Signed Patient: Freida Dwyer IMR#: [id number] [birth year] : 9Acct:[id number] Age/Sex: 64 / FADM Date: 03/21/25 Loc: HO.MAMMO Attending Dr: Taya Weaver MD Ordering Physician: Taya Weaver MDResults: 1Negative Date of Service: 03/21/25Follow Up: 1 Year From Orig inal Mammogram Procedure(s): MM tomosynthesis screening BI Accession Number(s): [id number] cc: Taya Weaver MD EXAMINATION: MM SCREENING [...] in OV> 03/26/252032 DD/ 9 TD/TT: 03/21/25854 Jacquard Plate Maker: Taya Weaver MD IM BI PROCEDURES Edited Result - Final * Cologuard?? colon cancer screening (12/27/2024 1:05 PM EDT) Cologuard Result Negative Negative 12/31/19 5:06 AM EDT [facility] (CLIA #:[id number]) Comment: NEGATIVE TEST RESULT. A negative Cologuard [...] screened with both Cologuard and colonoscopy. ([place] et al, N Engl J Med 2014;370(14):7572-7948) The normal value (reference range) for this assay is negative. COLOGUARD RE-SCREENING RECOMMENDATION: Periodic colorectal cancer screening is an important part of preventive healthcare for asymptomatic individuals at average risk for colorectal cancer. Following a negative Cologuard result, the [place] [employer] and U.S. Multi-Society Task Force screening guidelines recommend a Cologuard re-screening interval of 3 years. References: [place] [employer] Guideline for Colorectal Cancer Screening: https://www.cancer.org/cancer/ineax-elodxg-qwuils/vbvxmpeel-wudqnvbsa-gyuiebj/ac s-rec ommendations.html.; Kyle HOLLAND, Thaddeus GARCIA, Niraj AvendañoK, Colorectal Cancer Screening: Recommendations for Physicians and Patients from the U.S. Multi-Society Task Force on Colorectal Cancer Screening , Am J Gastroenterology 2017; 112:1154-5779. TEST DESCRIPTION: Composite algorithmic analysis of stool [...] Adair. et al, N Engl J Med 2014;370(14):2618-6474.) Cologuard may produce a false negative or false positive result (no colorectal cancer or precancerous polyp present at colonoscopy follow up). A negative Cologuard test result does not guarantee the absence of CRC or advanced adenoma (pre-cancer). The current Cologuard screening interval is every 3 years. ([place] [employer] and U.S. Multi-Society Task Force). Cologuard performance data in a 10,000 patient pivotal study using colonoscopy as the reference method can be accessed at the following location: www.[employer]/results. Additional description of the Cologuard test process, warnings and precautions can be found at www.[employer]. Stool specimen (specimen) 12/27/2024 1:05 PM EDT 12/28/2024 2:16 PM EDT Taya Weaver MD LAB MOLECULAR DIAGNOSTICS ORDERA BLES Final Result [facility] (CLIA #:[id number]) [address] [place] [address], * THINPREP TIS PAP (03/15/2021 7:10 AM [...] has been evaluated with computer assisted technology. [facility] Neurology Physician: SEE COMMENT [facility] Comment: MAA, CT(ASCP) CT screening location: [place] [address] Interpretation/Res ult: SEE COMMENT [facility] Comment: Negative for intraepithelial lesion or malignancy. Atrophic pattern; predominantly parabasal cells LMP: NONE [facility] Prev. BX: NONE [facility] Prev. PAP: NONE [facility] SOURCE: None given [facility] Statement Of Adequacy: SATISFACTORY FOR EVALUATION [facility] 03/15/2021 7:10 AM EDT Taya Weaver MD LAB PATHOLOGY ORDERABLES Final R esult [facility] [address] * HPV mRNA E6/E7 (03/15/2021 7:10 AM EDT) HPV nRNA E6/E7 Not Detected Not Detected [facility] Comment: Methodology: Dumb Waiter Operator-Mediated Amplification This assay detects E6/E7 viral messenger RNA (mRNA) from 14 high-risk HPV types (16,18,31,33,35,39,45,51,52,56,58,59,66,68). The analytical performance characteristics of this assay have been determined by [facility]. The modifications have not been cleared or approved by the FDA. This assay has been validated pursuant to the CLIA regulations and is used for clinical purposes. For additional information, please refer to http://education.n1health.[employer]/faq/IEJ503w6 (This link if provided for information/ educational purposes only.) NO COLLECTION DATE RECEIVED. WE HAVE USED THE DATE THE SPECIMEN WAS RECEIVED BY THIS LABORATORY THE COLLECTION DATE. IF THIS IS INCORRECT, PLEASE CONTACT CLIENT SERVICES. PHONE NUMBER: 03/15/2021 7:10 AM EDT us Taya Weaver MD LAB BLOOD ORDERABLES Final Resul t [facility] [address] [place] [address], * Colonoscopy (02/02/2020) Colonoscopy Normal Normal 02/02/2020 us Nikki Hickey MD HEALTH MAINTENANCE Final Result from Last 3 Months or Most Recently Relevant to Health Maintenance Insurance [facility] STANDARD [facility] DETENTION OPTIONS (HMO D-SNP) Care Teams Profiling Machine Set Up Operator Relationship Specialty Start Date End Date Taya Weaver MD [address] [place] [address] PCP - General Family Medicine 07/22/18 Brittney Causey Clinical Data ProgrammerBank Note Designer 12/30/23
--- OUTSIDE RECORDS SUMMARY | 2025-07-21 11:22 | XMS_ITS | Encounter Summary ---
Author Organization [employer] Address [address] [place] [address] [address] [place] [address] Care Team Providers Care Production Support Analyst Name Role Phone Taya Last MD Primary Care Provider [phone] Reason for Referral * Consultation (Routine) - Authorized Specialty Diagnoses / Procedures Referred By Ely palomo Referred To Contact Nutrition Diagnoses Impaired fasting glucose Vitamin D deficiency Taya Last MD [address] [place] [phone] Phone: tel: fax: Referral ID Status Reason Start Date Expiration Date Visits Requested Visits Authorized [id number] Authorized Consult and Treat 04/06/2025 04/06/2026 1 1 Encounter Details Date Type Department Care Team (Late st Contact Info) Description 04/06/2025 Orders Only [facility] MEDICINE [address] [place] [address] [phone] Taya Last MD [address] [place] [address] [phone] Impaired fasting glucose (Primary Dx); Vitamin D [...] Info) Description 08/15/2025 11:00 AM EST Nutrition [facility] DIABETES/NUTRITION [address] [place] [address] Katty Vick, TOM [address] [place] [address] 11/06/2025 9:30 AM EST Office Visit [facility] OPTOMETRY [address] [place] [address] Lilli Pastor, OD [address] [place] [address] Scheduled Referrals Name Type Priority Associated Diagnoses [...] documented as of this encounter Care Teams Production Support Analyst Relationship Specialty Start Date End Date Taya Last MD [address] [place] [address] PCP - General Family Medicine 07/22/18 Brittney Causey Manager Market ResearchPrincipal Secretary 12/30/23 documented as of this encounter
--- OUTSIDE RECORDS SUMMARY | 2025-07-21 11:22 | XMS_ITS | Encounter Summary ---
Author Organization [employer] Address [address] [place] [address] Care Team Providers Care Media Operator Name Role Phone Taya Last MD Primary Care Provider [phone] Encounter Details Date Type Department Care Team ([facility] st Contact Info) Description 09/14/2023 Orders Only [facility] MEDICINE [address] [place] [address] Taya Last MD [address] [place] [address] Atypical chest pain Social History Tobacco Use [...] Info) Description 08/15/2025 11:00 AM EST Nutrition [facility] DIABETES/NUTRITION [address] [place] [address] Katty Vick, RD [address] [place] [address] 11/06/2025 9:30 AM EST Office Visit [facility] OPTOMETRY [address] [place], [place] [phone] Dawit, Lilli, OD [address] [place] [address] documented as of this encounter Visit Diagnoses Diagnosis Atypical chest pain Other chest pain documented in this encounter Additional Health Concerns Assessment Noted Time PHQ-9 Depression Total Score: 8 11/27/19 23 9:42 AM EST documented as of this encounter Care Teams Media Operator Relationship Specialty Start Date End Date Taya Last MD [address] [place] [address] PCP - General Family Medicine 07/22/18 Brittney Causey Photoengraving Machine Operator/TenderProduction Clerk 12/30/23 documented as of this encounter
--- OUTSIDE RECORDS SUMMARY | 2025-07-21 11:22 | XMS_ITS | Encounter Summary ---
Author Organization [employer] Address [address] [place] [address] Care Team Providers Care Director Of First Impressions Name Role Phone Taya Last MD Primary Care Provider [phone] Encounter Details Date Type Department Care Team ([facility] st Contact Info) Description 08/03/2023 Orders Only [facility] [address] [place] [address] Jennie Archer FNP [address] [place] [address] Social History Tobacco Use Types Packs/Day Years [...] Info) Description 08/15/2025 11:00 AM EST Nutrition [facility] DIABETES/NUTRITION [address] [place] [address] Katty Vick, RD [address] [place] [address] 11/06/2025 9:30 AM EST Office Visit [facility] OPTOMETRY [address] [place], [place] [phone] Dawit, Lilli, OD [address] [place] [address] documented as of this encounter Visit Diagnoses Not on filedocumented in this encounter Additional Health Concerns Assessment Noted Time PHQ-9 Depression Total Score: 8 11/27/19 23 9:42 AM EST documented as of this encounter Care Teams Director Of First Impressions Relationship Specialty Start Date End Date Taya Last MD [address] [place] [address] PCP - General Family Medicine 07/22/18 Brittney Causey Information Technology Security ManagerMeasurement And Verification Engineer 12/30/23 documented as of this encounter
--- OUTSIDE RECORDS SUMMARY | 2025-07-21 11:22 | XMS_ITS | Encounter Summary ---
Author Organization [employer] Address [address] [facility] 7t [place] [address] Care Team Providers Care Supervisor Pipeline Name Role Phone Taya Last MD Primary Care Provider [phone] Encounter Details Date Type Department Care Team ([facility] st Contact Info) Description 09/14/2023 Orders Only [facility] MEDICINE [address] [place] [address] Taya Last MD [address] [place] [address] Social History Tobacco Use Types Packs/Day Years [...] Info) Description 08/15/2025 11:00 AM EST Nutrition [facility] DIABETES/NUTRITION [address] [place] [address] Katty Vick, RD [address] [place] [address] 11/06/2025 9:30 AM EST Office Visit [facility] OPTOMETRY [address] [place] [address] Dawit, Lilli, OD [address] [place] [address] documented as of this encounter Visit Diagnoses Not on filedocumented in this encounter Additional Health Concerns Assessment Noted Time PHQ-9 Depression Total Score: 8 11/27/19 23 9:42 AM EST documented as of this encounter Care Teams Supervisor Pipeline Relationship Specialty Start Date End Date Taya Last MD [address] [place] [address] PCP - General Family Medicine 07/22/18 Brittney Causey Pocketbook MakerMarketing Technology Coordinator 12/30/23 documented as of this encounter
--- OUTSIDE RECORDS SUMMARY | 2025-07-21 11:22 | XMS_ITS | Encounter Summary ---
Author Organization [employer] Address [address] [place] [address] [address] [place] [address] Care Team Providers Care Mother Baby Rn Name Role Phone Taya Last MD Primary Care Provider [phone] Encounter Details Date Type Department Care Team (Late st Contact Info) Description 02/06/2023 Orders Only [facility] MEDICINE [address] [place] [address] Taya Last MD [address] [place] [address] Premature beats (Primary Dx); Palpitation; Right arm [...] Info) Description 08/15/2025 11:00 AM EST Nutrition [facility] DIABETES/NUTRITION [address] [place] [address] Katty Vick, TOM [address] [place] [address] 11/06/2025 9:30 AM EST Office Visit [facility] OPTOMETRY [address] [place] [address] Lilli Pastor, OD [address] [place] [address] documented as of this encounter Visit Diagnoses Diagnosis Premature beats- Primary Unspecified premature beats Palpitation Palpitations Right arm pain Pain in soft tissues of limb documented in this encounter Additional Health Concerns Assessment Noted Time PHQ-9 Depression Total Score: 8 11/27/19 23 9:42 AM EST documented as of this encounter Care Teams Mother Baby Rn Relationship Specialty Start Date End Date Taya Last MD [address] [place] [address] PCP - General Family Medicine 07/22/18 Brittney Causey Business AdministratorLicensed Veterinary Technician 12/30/23 documented as of this encounter
== END 2025-07-21 10:29 | disposition home or self-care (01) ==
LOC: HO.HSM 09:49
PROVIDERS: PCP Family Medicine; Visit Provider Registered Nurse
DX: G44.209 Tension-type headache, unspecified, not intractable (principal); M79.7 Fibromyalgia; R42 Dizziness and giddiness; M51.9 Unspecified thoracic, thoracolumbar and lumbosacral intervertebral disc disorder
CPT/HCPCS: 99214

== ENCOUNTER → 2025-07-21 09:49 | Outpatient (BNVA) | payer OTHER, SELFPAY | PROVIDERS: PCP Family Medicine; Visit Provider Registered Nurse | DX: Z71.2 Person consulting for explanation of examination or test findings (principal); M79.7 Fibromyalgia; G44.209 Tension-type headache, unspecified, not intractable; R42 Dizziness and giddiness; M51.9 Unspecified thoracic, thoracolumbar and lumbosacral intervertebral disc disorder | CPT/HCPCS: 99212 ==

== ENCOUNTER 2025-08-30 10:12 | Outpatient (RCR) | payer OTHER, SELFPAY | END 2025-09-13 10:23 | disposition home or self-care (01) | LOC: HO.PT 10:12 | PROVIDERS: PCP Family Medicine; Visit Provider Family Medicine | DX: M25.512 Pain in left shoulder (principal); M25.511 Pain in right shoulder; G89.29 Other chronic pain | CPT/HCPCS: 97110; 97140; 97162 ==